=== PATIENT | female | born 1950 | race Caucasian/White ===

== ENCOUNTER → 2018-09-02 | Outpatient (CLI) | payer MEDICARE ==
--- NOTE | 2018-09-02 18:54 | ECHOF ---
Referral Reason:I35.0 Aortic Stenosis MEASUREMENTS -------- HEIGHT: 165.1 cm WEIGHT: 72.6 kg BP: IVSd: 1.0 cm (0.6 - 1.1) LVIDd: 2.7 cm (3.9 - 5.3) LVPWd: 1.4 cm (0.6 - 1.1) IVSs: 1.4 cm LVIDs: 1.4 cm LVPWs: 1.5 cm RVIDd: 1.6 cm (< 3.3) LAESV Index (A-L): 12.30 ml/m Ao Diam: 2.6 cm (2.0 - 3.7) LA Diam: 2.2 cm (2.7 - 3.8) AV Cusp: 1.0 cm (1.5 - 2.6) EPSS: 0.3 cm MV E Cristhian: 0.66 m/s MV DecT: 237 ms MV A Cristhian: 1.04 m/s MV E/A Ratio: 0.64 AV maxP.11 mmHg AV meanP.31 mmHg RAP: 5.00 mmHg RVSP: 14.89 mmHg MV EF SLOPE: 51.72 mm/s (70 - 150) MV EXCURSION: 13.06 mm (> 18.000) FINDINGS -------- Sinus rhythm. This was a technically good study. The left ventricular size is normal. There is mild concentric left ventricular hypertrophy. Overa ll left ventricular systolic function is normal with, an EF between 55 - 60 %. The right ventricle is normal in size. The left atrial size is normal. The right atrium is normal in size. Aortic valve is trileaflet and is moderately thickened. There is moderate aortic stenosis present. Peak/mean gradient across the Aortic Valve is 47.11mmHg / 30.31mmHg. The mitral valve leaflets are mildly thickened. Mild mitral annular calcification present. Mild m itral regurgitation is present. Mild tricuspid regurgitation present. The right ventricular systolic pressure, as measured by Doppl er, is 14.89mmHg. Pulmonic valve appears structurally normal. The aortic root size is normal. IVC Not well visulized. The pericardium is normal. CONCLUSIONS -------- 1. Sinus rhythm. 2. This was a technically good study. 3. The left ventricular size is normal. 4. There is mild concentric left ventricular hypertrophy. 5. Overall left ventricular systolic function is normal with, an EF between 55 - 60 %. 6. The right ventricle is normal in size. 7. The left atrial size is normal. 8. The right atrium is normal in size. 9. Aortic valve is trileaflet and is moderately thickened. 10. There is moderate aortic stenosis present. 11. Peak/mean gradient across the Aortic Valve is 47.11mmHg / 30.31mmHg. 12. The mitral valve leaflets are mildly thickened. 13. Mild mitral annular calcification present. 14. Mild mitral regurgitation is present. 15. Mild tricuspid regurgitation present. 16. The right ventricular systolic pressure, as measured by Doppler, is 14.89mmHg. 17. Pulmonic valve appears structurally normal. 18. The aortic root size is normal. 19. IVC Not well visulized. 20. The pericardium is normal. CHAIR AND [employer]CH [employer]KER: Sara Deutsch RDCS
== END ==
LOC: RADECHMAIN 14:57
PROVIDERS: ATTEND Family Medicine
DX: I08.3 Combined rheumatic disorders of mitral, aortic and tricuspid valves (principal)
CPT/HCPCS: 93306

== ENCOUNTER → 2020-01-23 | Outpatient (CLI) | payer MEDICARE ==
--- NOTE | 2020-01-23 15:14 | CT ---
EXAMINATION TYPE: CT brain wo/w con DATE OF EXAM: 01/23/2020 COMPARISON: HISTORY: Difficulty speaking. CT DLP: 1987.7mGycm CONTRAST: CT scan of the head is performed without and with IV Contrast, patient injected with 100ml mL of Isov ue 300. Unenhanced followed by contrast enhanced CT of the brain is submitted for evaluation. The ventricles are midline. There is no evidence for intracranial hemorrhage or extra-axial collection. No mass e ffects are identified. Visualized bony calvarium is intact. Contrast is administered and no enhanci ng lesions are detected. No pathologic enhancement is identified. If symptoms persist consider MRI. IMPRESSION: No enhancing lesion identified.
== END | disposition home or self-care (01) ==
LOC: RADCTMAIN 13:55
PROVIDERS: ATTEND Family Medicine
DX: G45.9 Transient cerebral ischemic attack, unspecified (principal)
CPT/HCPCS: 82565; 84520; 70470; 36415; Q9967

== ENCOUNTER → 2020-02-10 | Outpatient (CLI) | payer MEDICARE ==
--- NOTE | 2020-02-10 14:44 | CT ---
EXAMINATION TYPE: CT abdomen wo con DATE OF EXAM: 02/10/2020 COMPARISON: 03/15/2012 HISTORY: Mid abdominal pain and mid pelvic pain. CT DLP: 606 mGycm Automated exposure control for dose reduction was used. TECHNIQUE: Helical acquisition of images was performed from the lung bases through the top of iliac crest to include entire abdomen. CONTRAST: Performed with Oral Contrast and without IV contrast. FINDINGS: LUNG BASES: Subsegmental linear changes involving the lungs. Most likely in the basis of atelectasis or scar. Calcification of the aortic valve noted and there is dense coronary artery calcification. At herosclerotic change aorta. LIVER/GB: No significant abnormality is appreciated. PANCREAS: No significant abnormality is seen. SPLEEN: No significant abnormality is seen. ADRENALS: No significant abnormality is seen. KIDNEYS: Nonobstructing 1 mm left mid pole renal calculus.. BOWEL: Small hiatal hernia. LYMPH NODES: No significant abnormality is appreciated. OSSEOUS STRUCTURES: Hypertrophic and degenerative change of the spine. Scoliotic curvature noted. OTHER: Atherosclerotic changes aorta. No free fluid. Tiny fat-containing periumbilical hernia IMPRESSION: 1. NONOBSTRUCTING 1 MM LEFT RENAL CALCULUS. 2. MILD WALL THICKENING OF THE GASTRIC ANTRUM MOST LIKELY RELATED TO INCOMPLETE DISTENTION CORRELATE CLINICALLY AND WITH DIRECT VISUALIZATION CLINICALLY WARRANTED 3. SMALL HIATAL HERNIA.
== END | disposition home or self-care (01) ==
LOC: RADCTMAIN 13:26
PROVIDERS: ATTEND Family Medicine
DX: N20.0 Calculus of kidney (principal); K44.9 Diaphragmatic hernia without obstruction or gangrene; K31.89 Other diseases of stomach and duodenum
CPT/HCPCS: 74150; Q9967

== ENCOUNTER → 2020-04-09 | Outpatient (CLI) | payer MEDICARE | END | disposition home or self-care (01) | LOC: LABWHC1 11:22 | PROVIDERS: ATTEND Family Medicine | DX: Z03.818 Encounter for observation for suspected exposure to other biological agents ruled out (principal) | CPT/HCPCS: U0003; C9803 ==

== ENCOUNTER 2020-04-11 21:31 | Inpatient (IN) | payer MEDICARE ==
[2020-04-11] MEDS ORDERED: ONDANSETRON 4 MG/2 ML VIAL IVP STA (23:23)
[2020-04-11] MEDS ORDERED: SODIUM CHLORIDE 0.9% 1,000 ML IV STA (23:23)
--- NOTE | 2020-04-12 00:23 | ED ---
Nausea/Vomiting/Diarrhea HPI - General Chief complaint: Nausea/Vomiting/Diarrhea Stated complaint: NVD, Dehydrated Time Seen by Provider: 04/11/20 22:36 Source: patient Mode of arrival: wheelchair Limitations: no limitations - History of Present Illness Initial comments: 69-year-old female patient presents to the emergency department today for evaluation of vomiting and diarrhea. Patient states that she's had symptoms for the last couple of days. States she is having mild abdominal pain and cramping with this. States she has not slept for the last 3 days due to increased anxiety. States that her anxiety is worse because she was tested for coronav irus 3 days ago and has not yet received the results. States that she saw her doctor and was tested due to nasal congestion, facial pressure, nasal drainage. Denies cough or shortness of breath. Denies any chest pain. Denies any hematochezia, melena, hematemesis. Denies any sick contacts or recent travel. Denies taking any medication for her symptoms. She denies history of abdominal surgery. Patient denies any recent rash, fever, chills, back pain, numbness, tingling, dizziness, weakness, hematuria, dysuria, urinary urgency, urinary frequency, headache, visual changes, or any other complaints. - Related Data Allergies Allergy/AdvReac Type Severity Reaction Status Date / Time No Known Allergies Allergy Verified 04/11/20 21:38 Review of Systems ROS Statement: Those systems with pertinent positive or pertinent negative responses have been documented in the HPI. ROS Other: All systems not noted in ROS Statement are negative. Past Medical History Past Medical History: Cancer, Diabetes Mellitus, Hypertension Additional Past Medical History / Comment(s): murmur, breast ca History of Any Multi-Drug Resistant Organisms: None Reported Additional Past Surgical History / Comment(s): right breast, thyroid Past Psychological History: No Psychological Hx Reported Smoking Status: Never smoker Past Alcohol Use History: Rare Past Drug Use History: None Reported General Exam Limitations: no limitations General appearance: alert, in no apparent distress, other (This is a well- developed, well-nourished adult female patient in no acute distress. Vital signs upon presentation are temperature 97.9F, pulse 68, respirations 18, blood pressure 167/71, pulse ox 97% on room air.) Eye exam: Present: normal appearance, PERRL, EOMI. Absent: scleral icterus, conjunctival injection, periorbital swelling ENT exam: Present: normal exam, normal oropharynx, mucous membranes moist Respiratory exam: Present: normal lung sounds bilaterally. Absent: respiratory distress, wheezes, rales, rhonchi, stridor Cardiovascular Exam: Present: regular rate, normal rhythm, normal heart sounds. Absent: systolic murmur, diastolic murmur, rubs, gallop, clicks GI/Abdominal exam: Present: soft, tenderness (Mild lower abdominal tenderness), normal bowel sounds. Absent: distended, guarding, rebound, rigid Neurological exam: Present: alert, oriented X3, CN II-XII intact Psychiatric exam: Present: normal affect, normal mood Skin exam: Present: warm, dry, intact, normal color. Absent: rash Course Vital Signs 04/11/20 04/12/20 21:33 00:20 Temperature 97.9 F 98.1 F Pulse Rate 68 71 Respiratory 18 18 Rate Blood Pressure 167/71 169/72 O2 Sat by Pulse 97 100 Oximetry Medical Decision Making - Medical Decision Making 69-year-old female patient presented to the emergency department today for evaluation of nausea, vomiting, diarrhea for the last 2 days. Prior to that she did have upper respiratory like symptoms including nasal congestion and drainage, she was tested by her physician for COVID-19 which was negative. Physical examination did reveal some mild lower abdominal tenderness, no guarding, abdomen was soft. She is afebrile with normal vitals, mildly elevated blood pressure. Labs reviewed and did reveal elevated white blood cell count at 20.7 with a neutrophil count of 18.6. Sodium is 105, chloride 67, carbon dioxide 15. Patient's glucose is 183. Serum osmolality 221, uric acid normal at 4.5. Magnesium was low at 1.1. Urinalysis showed trace protein, 4+ glucose, 4+ ketones. Urine osmolality is 425. Patient does take hydrochlorothiazide. Denies history of low sodium. Patient was neurologically intact other than having some mild generalized weakness and disequilibrium with standing. Patient did receive a 1 L bolus in the emergency department prior to lab results. My attending Dr. Garcia was informed. Patient will be admitted to the ICU. Sodium replacement is initiated. - Lab Data Result diagrams: 04/11/20 23:39 04/11/20 23:39 Lab Results 04/11/20 04/11/2020 Range/Units 23:39 23:39 23:39 WBC 20.7 H (3.8-10.6) k/uL RBC 4.76 (3.80-5.40) m/uL Hgb 14.1 (11.4-16.0) gm/dL Hct 39.8 (34.0-46.0) % MCV 83.5 (80.0-100.0) fL MCH 29.5 (25.0-35.0) pg MCHC 35.3 (31.0-37.0) g/dL RDW 11.9 (11.5-15.5) % Plt Count 282 (150-450) k/uL Neutrophils % 90 % Lymphocytes % 6 % Monocytes % 4 % Eosinophils % 0 % Basophils % 0 % Neutrophils # 18.6 H (1.3-7.7) k/uL Lymphocytes # 1.2 (1.0-4.8) k/uL Monocytes # 0.8 (0-1.0) k/uL Eosinophils # 0.0 (0-0.7) k/uL Basophils # 0.0 (0-0.2) k/uL Sodium 105 L* (137-145) mmol/L Potassium 3.8 (3.5-5.1) mmol/L Chloride 67 L* (98-107) mmol/L Carbon Dioxide 15 L (22-30) mmol/L Anion Gap 23 mmol/L BUN 7 (7-17) mg/dL Creatinine 0.54 (0.52-1.04) mg/dL Est GFR (CKD-EPI)AfAm >90 (>60 ml/min/1.73 sqM) Est GFR (CKD-EPI)NonAf >90 (>60 ml/min/1.73 sqM) Glucose 183 H (74-99) mg/dL Osmolality 221 L* (280-301) mosm/kg Uric Acid 4.5 (3.7-7.4) mg/dL Calcium 9.4 (8.4-10.2) mg/dL Magnesium 1.1 L (1.6-2.3) mg/dL Total Bilirubin 1.3 (0.2-1.3) mg/dL AST 30 (14-36) U/L ALT 14 (4-34) U/L Alkaline Phosphatase 89 (38-126) U/L Total Protein 8.2 (6.3-8.2) g/dL Albumin 5.3 H (3.5-5.0) g/dL Lipase 98 (23-300) U/L Urine Color Urine Appearance (Clear) Urine pH (5.0-8.0) Ur Specific [place] (1.001-1.035) Urine Protein (Negative) Urine Glucose (UA) (Negative) Urine Ketones (Negative) Urine Blood (Negative) Urine Nitrite (Negative) Urine Bilirubin (Negative) Urine Urobilinogen (<2.0) mg/dL Ur Leukocyte Esterase (Negative) Urine RBC (0-5) /hpf Urine WBC (0-5) /hpf Hyaline Casts (0-2) /lpf Urine Osmolality (50-1400) mosm/kg 04/12/20 04/12/20 Range/Units 01:00 01:00 WBC (3.8-10.6) k/uL RBC (3.80-5.40) m/uL Hgb (11.4-16.0) gm/dL Hct (34.0-46.0) % MCV (80.0-100.0) fL MCH (25.0-35.0) pg MCHC (31.0-37.0) g/dL RDW (11.5-15.5) % Plt Count (150-450) k/uL Neutrophils % % Lymphocytes % % Monocytes % % Eosinophils % % Basophils % % Neutrophils # (1.3-7.7) k/uL Lymphocytes # (1.0-4.8) k/uL Monocytes # (0-1.0) k/uL Eosinophils # (0-0.7) k/uL Basophils # (0-0.2) k/uL Sodium (137-145) mmol/L Potassium (3.5-5.1) mmol/L Chloride (98-107) mmol/L Carbon Dioxide (22-30) mmol/L Anion Gap mmol/L BUN (7-17) mg/dL Creatinine (0.52-1.04) mg/dL Est GFR (CKD-EPI)AfAm (>60 ml/min/1.73 sqM) Est GFR (CKD-EPI)NonAf (>60 ml/min/1.73 sqM) Glucose (74-99) mg/dL Osmolality (280-301) mosm/kg Uric Acid (3.7-7.4) mg/dL Calcium (8.4-10.2) mg/dL Magnesium (1.6-2.3) mg/dL Total Bilirubin (0.2-1.3) mg/dL AST (14-36) U/L ALT (4-34) U/L Alkaline Phosphatase (38-126) U/L Total Protein (6.3-8.2) g/dL Albumin (3.5-5.0) g/dL Lipase (23-300) U/L Urine Color Light Yellow Urine Appearance Clear (Clear) Urine pH 5.0 (5.0-8.0) Ur Specific [place] 1.010 (1.001-1.035) Urine Protein Trace H (Negative) Urine Glucose (UA) 4+ H (Negative) Urine Ketones 4+ H (Negative) Urine Blood Trace H (Negative) Urine Nitrite Negative (Negative) Urine Bilirubin Negative (Negative) Urine Urobilinogen <2.0 (<2.0) mg/dL Ur Leukocyte Esterase Negative (Negative) Urine RBC 1 (0-5) /hpf Urine WBC <1 (0-5) /hpf Hyaline Casts 4 H (0-2) /lpf Urine Osmolality 425 (50-1400) mosm/kg - Radiology Data Radiology results: report reviewed, image reviewed CT abdomen and pelvis is obtained. Report reviewed in its entirety. Impression by Dr. Gimenez shows mild sigmoid diverticulosis without diverticulitis. Large urinary bladder measures 12 cm. Bladder outlet obstruction is possible. Disposition Clinical Impression: Hyponatremia, Hypomagnesemia, Vomiting and diarrhea Disposition: ADMITTED IP TO THIS [facility] Condition: Serious Decision to Admit Reason: Admit from EC Decision Date: 04/12/20 Decision Time: 02:24
--- NOTE | 2020-04-12 00:28 | XR ---
EXAMINATION TYPE: XR KUB DATE OF EXAM: 04/11/2020 COMPARISON: NONE HISTORY: Nausea and vomiting TECHNIQUE: 2 views upright FINDINGS: There is no sign of intestinal obstruction or pneumoperitoneum. Fecal pattern is normal. Th ere is mild lumbar levoscoliosis. There is slight elevated right diaphragm. There are no pathologic c alcifications over the kidneys. IMPRESSION: Nonacute abdomen.
[2020-04-12 00:36] LABS: Basophils % (A) 0 %; Eosinophils % (A) 0 %; HCT 39.8 % (34.0-46.0); HGB 14.1 gm/dL (11.4-16.0); Lymphocytes # (A) 1.2 k/uL (1.0-4.8); Lymphocytes % (A) 6 %; MCH 29.5 pg (25.0-35.0); MCHC 35.3 g/dL (31.0-37.0); MCV 83.5 fL (80.0-100.0); Mean Platelet Volume 8.2; Monocytes # (A) 0.8 k/uL (0-1.0); Monocytes % (A) 4 %; Neutrophils # (A) 18.6 k/uL (1.3-7.7); Neutrophils % (A) 90 %; Platelet Count 282 k/uL (150-450); RBC 4.76 m/uL (3.80-5.40); RDW 11.9 % (11.5-15.5); WBC 20.7 k/uL (3.8-10.6)
[2020-04-12 00:41] LABS: ALT 14 U/L (4-34); African American GFR (CKD) >90 (>60 ml/min/1.73 sqM); Albumin 5.3 g/dL (3.5-5.0); Anion Gap 23 mmol/L; Blood Urea Nitrogen 7 mg/dL (7-17); Calcium 9.4 mg/dL (8.4-10.2); Carbon Dioxide 15 mmol/L (22-30); Glucose 183 mg/dL (74-99); Non-African American GFR(CKD) >90 (>60 ml/min/1.73 sqM); Total Bilirubin 1.3 mg/dL (0.2-1.3); Total Protein 8.2 g/dL (6.3-8.2)
[2020-04-12 00:59] LABS: AST 30 U/L (14-36); Alkaline Phosphatase 89 U/L (38-126); Chloride 67 mmol/L (98-107); Potassium 3.8 mmol/L (3.5-5.1); Sodium 105 mmol/L (137-145)
[2020-04-12 01:14] LABS: Appearance,Urine Clear (Clear); Bilirubin,Urine Negative (Negative); Blood,Urine Trace (Negative); Color,Urine Light Yellow; Glucose,Urine (UA) 4+ (Negative); Hyaline Casts,Urine 4 /lpf (0-2); Leukocyte Esterase,Urine Negative (Negative); Nitrite,Urine Negative (Negative); Protein,Urine Trace (Negative); RBC,Urine 1 /hpf (0-5); Urobilinogen,Urine <2.0 mg/dL (<2.0); WBC,Urine <1 /hpf (0-5)
[2020-04-12 01:16] LABS: Ketones,Urine 4+ (Negative)
[2020-04-12] MEDS ORDERED: SODIUM CHLORIDE 0.9% 1,000 ML IV SCH (01:30)
[2020-04-12 01:35] LABS: Uric Acid 4.5 mg/dL (3.7-7.4)
[2020-04-12 01:37] LABS: Magnesium 1.1 mg/dL (1.6-2.3)
[2020-04-12] MEDS ORDERED: NALOXONE 0.4 MG/ML 1 ML VIAL IV PRN (02:11)
[2020-04-12] MEDS ORDERED: SODIUM CHLORIDE 3%(HYPERTONIC) 500 ML IV SCH (02:30)
--- NOTE | 2020-04-12 02:36 | CT ---
EXAMINATION TYPE: CT abdomen pelvis w con DATE OF EXAM: 04/12/2020 COMPARISON: CT abdomen 02/10/2020 HISTORY: Abd. pain CT DLP: 1034.40 mGycm Automated exposure control for dose reduction was used. CONTRAST: Performed with IV Contrast, patient injected with 100 mL of Isovue 300. Lung bases are clear. There is no pleural effusion. Heart size is normal. Liver is intact. Gallbladde r appears normal. Spleen shows 1 cm cyst in the posterior aspect. There is no pancreatic mass. There is small hiatal hernia. Stomach is intact. There is atherosclerotic vascular calcification. There is no adrenal mass. Kidneys show satisfactory contrast opacification. There is no hydronephrosi s. Delayed images show normal renal excretion. There is no retroperitoneal adenopathy. Bladder distends smoothly. There is no inguinal hernia. There is no free fluid in the pelvis. There a re multiple sigmoid diverticula. There is no evidence of diverticulitis. There is no evidence of pelv ic mass. Appendix is posterior and appears normal. There is no mesenteric edema. There is no ascites or free air. There is no bowel obstruction. Lumbar vertebra have fairly normal alignment. There is mild disc space narrowing in the upper lumbar spine. There is mild thoracolumbar levoscoliosis. The bony pelvis is intact. Hip joints are intact. IMPRESSION: There is mild sigmoid diverticulosis without diverticulitis. Large urinary bladder measures 12 cm. Bl adder outlet obstruction is possible.
[2020-04-12] MEDS: MAGNESIUM SULFATE-D5W PMX 1 GM in DEXTROSE/WATER 1 100ML.BAG IVPB SCH ×4 (02:52→06:31)
[2020-04-12 04:02] LABS: Glucose,Whole Blood 253 mg/dL (75-99)
[2020-04-12 05:02] LABS: Basophils % (A) 0 %; Eosinophils % (A) 0 %; HCT 42.3 % (34.0-46.0); HGB 14.5 gm/dL (11.4-16.0); Lymphocytes # (A) 1.1 k/uL (1.0-4.8); Lymphocytes % (A) 6 %; MCH 29.4 pg (25.0-35.0); MCHC 34.3 g/dL (31.0-37.0); MCV 85.7 fL (80.0-100.0); Mean Platelet Volume 7.6; Monocytes # (A) 0.7 k/uL (0-1.0); Monocytes % (A) 4 %; Neutrophils # (A) 17.3 k/uL (1.3-7.7); Neutrophils % (A) 90 %; Platelet Count 274 k/uL (150-450); RBC 4.94 m/uL (3.80-5.40); WBC 19.3 k/uL (3.8-10.6)
[2020-04-12] MEDS: ONDANSETRON 4 MG/2 ML VIAL IVP PRN ×2 (05:16→20:06)
[2020-04-12 05:26] LABS: ALT 13 U/L (4-34); AST 28 U/L (14-36); African American GFR (CKD) >90 (>60 ml/min/1.73 sqM); Albumin 5.2 g/dL (3.5-5.0); Alkaline Phosphatase 98 U/L (38-126); Anion Gap 26 mmol/L; Blood Urea Nitrogen 5 mg/dL (7-17); Carbon Dioxide 11 mmol/L (22-30); Glucose 217 mg/dL (74-99); Non-African American GFR(CKD) >90 (>60 ml/min/1.73 sqM); Potassium 3.3 mmol/L (3.5-5.1); Total Bilirubin 1.1 mg/dL (0.2-1.3); Total Protein 7.9 g/dL (6.3-8.2)
[2020-04-12 05:57] LABS: Glucose,Whole Blood 283 mg/dL (75-99)
[2020-04-12 06:00] LABS: Chloride 70 mmol/L (98-107); Sodium 107 mmol/L (137-145)
[2020-04-12] MEDS: INSULIN ASPART (NovoLOG) 100 UNIT/ML VIAL SQ SCH ×4 (06:02→23:01)
[2020-04-12] MEDS ORDERED: Potassium Replacement Protocol 1 EACH MISC MISCELLANE PRN (06:06)
[2020-04-12] MEDS: POTASSIUM CHLORIDE 10 MEQ in WATER FOR INJECTION 1 100ML.BAG IVPB SCH ×4 (06:14→10:52)
[2020-04-12] MEDS ORDERED: POTASSIUM CHLORIDE ER 20 MEQ TAB.ER PO SCH (07:00)
[2020-04-12] MEDS ORDERED: ATORVASTATIN 20 MG TAB PO SCH (09:00)
[2020-04-12] MEDS ORDERED: NEBIVOLOL 5 MG TAB PO SCH (09:00)
[2020-04-12] MEDS ORDERED: DEXTROSE 5%-0.45% NACL 1,000 ML IV SCH (09:00)
[2020-04-12] MEDS ORDERED: LEVOTHYROXINE 75 MCG TAB PO SCH (09:00)
[2020-04-12] MEDS: lisinopriL 10 MG TAB PO SCH (09:11)
[2020-04-12] MEDS: ALPRAZolam 1 MG TAB PO PRN ×2 (09:11→20:53)
[2020-04-12] MEDS ORDERED: TRIMETHOBENZAMIDE 100 MG/ML 2 ML VIAL IM PRN (10:08)
[2020-04-12] MEDS ORDERED: DEXTROSE 5%-0.45% NACL 1,000 ML with SODIUM BICARB (1 MEQ/ML) 100 ML IV SCH ×2 (10:15)
[2020-04-12] MEDS: metFORMIN 500 MG TAB PO SCH ×2 (10:17→23:01)
[2020-04-12] MEDS ORDERED: SODIUM CHLORIDE 0.9% 1,000 ML IV ONE (10:40)
--- NOTE | 2020-04-12 10:48 | P.CNPUL ---
History of Present Illness Consult date: 04/12/20 Requesting physician: Navya Magaña Reason for consult: other (Profound and severe hyponatremia) Chief complaint: Nausea vomiting diarrhea and weakness History of present illness: This is a 69-year-old female admitted yesterday with severe hyponatremia. Patient presented to the ER with mostly symptoms of weakness, nausea, vomiting, and diarrhea for the last 2 days. Patient states that her primary care physician tested her for grayson virus about 3 days ago, and the results are pending. Patient was placed on Z-Randy, mostly because of her symptoms of nasal congestion, pressure over her sinuses, and some nasal drainage. She had no cough, no shortness of breath, no fever, no chills, no hemoptysis. She had mostly GI symptoms. Patient denies any exposure to any sick contacts and she denies any recent travel. At any rate the patient was evaluated in the ER, and she was noted to have a sodium of 105. She was also noted to have a significant anion gap metabolic acidosis, normal renal functioning, she had low serum osmolality of 221. And clearly she had a picture of hypovolemic hyponatremia. Considering her diarrhea patient is now being tested for C. difficile colitis, and she was noted to have WBC count of 20.7. Urine osmolality was 425. Patient was given 1 L 0.9 normal saline bolus, she was placed on 3% saline at 25 mL per hour and today after I evaluated the patient, I recommended another liter of D5 45 bolus to be given. Her sodium is up from 105-2107 this morning. Patient feels generally weak, and she continues to have intermittent episodes of nausea, but no vomiting. And no diarrhea since she has been in the ICU. Review of Systems Constitutional: No fever no chills, mostly weakness, no weight loss, HEENT: Mostly symptoms of congestion, received Z-Randy recently by her primary care physician. Pulmonary: No cough no wheezing no shortness of breath GI: Nausea vomiting and diarrhea. Cardiac: No chest pain or orthopnea no PND. Musculoskeletal: Mostly symptoms of weakness. Skin: No rashes. Hematologic: No clotting or bruising. No bleeding. Psychiatric: Denies any symptoms of active depression. Genitourinary: Denies any dysuria frequency urgency or hematuria. Neurologic: Denies headache blurred vision or dizziness. Endocrine: Denies any heat or cold intolerance. No polyuria or polydipsia. Lymphatics: Denies any lymphadenopathy Past Medical History Past Medical History: Cancer, Diabetes Mellitus, Hypertension Additional Past Medical History / Comment(s): murmur, breast ca History of Any Multi-Drug Resistant Organisms: None Reported Additional Past Surgical History / Comment(s): right breast, thyroid Smoking Status: Former smoker Medications and Allergies Home Medications Medication Instructions Recorded Confirmed Type ALPRAZolam [Xanax] 1 mg PO TID PRN 04/12/20 04/12/20 History Azithromycin [Zithromax Z-pack] See Taper PO DIRECTED 04/12/20 04/12/20 History Levothyroxine Sodium [Synthroid] 75 mcg PO DAILY 04/12/20 04/12/20 History Melatonin 10 mg PO HS PRN 04/12/20 04/12/20 History Nebivolol HCl [Bystolic] 20 mg PO HS 04/12/20 04/12/20 History Simvastatin 40 mg PO HS 04/12/20 04/12/20 History Zolpidem Tartrate [Ambien] 10 mg PO HS PRN 04/12/20 04/12/20 History hydroCHLOROthiazide [Hydrodiuril] 25 mg PO DAILY 04/12/20 04/12/20 History lisinopriL [Zestril] 10 mg PO DAILY 04/12/20 04/12/20 History metFORMIN HCL 1,000 mg PO BID 04/12/20 04/12/20 History Allergies Allergy/AdvReac Type Severity Reaction Status Date / Time No Known Allergies Allergy Verified 04/12/20 09:21 Physical Exam Vitals: Vital Signs Temp Pulse Resp BP Pulse Ox 04/12/20 10:00 92 20 167/71 96 04/12/20 09:00 67 18 152/83 97 04/12/20 08:00 97.9 F 67 20 142/68 96 04/12/20 07:00 69 21 160/69 97 04/12/20 06:00 66 17 172/70 96 04/12/20 05:00 68 19 186/87 97 04/12/20 04:00 97.6 F 70 23 186/87 97 04/12/20 03:45 75 16 176/60 99 04/12/20 02:45 98.0 F 65 18 180/75 98 04/12/20 01:45 97.8 F 67 16 160/77 96 04/12/20 00:20 98.1 F 71 18 169/72 100 04/11/20 21:33 97.9 F 68 18 167/71 97 Intake and Output 04/11/20 04/12/20 04/12/20 22:59 06:59 14:59 Intake Total 350 475 Output Total 1045 490 Balance -695 -15 Intake: IV 350 475 Magnesium Sulfate-D5w Pmx 300 100 1 gm In Dextrose/Water 1 100ml.bag @ 100 mls/hr IVPB Q1H [facility] Rx#: [id number] Potassium Chloride 10 meq 300 In Water For Injection 1 100ml.bag @ 100 mls/hr IVPB Q1HR [facility] Rx#: [id number] Sodium Chloride 3%( 50 75 Hypertonic) 500 ml @ 25 mls/hr IV .Q20H [facility] Rx#: [id number] Output: Urine 1045 490 Other: Voiding Method Indwelling Catheter Indwelling Catheter Weight 72.575 kg 69.2 kg General appearance: Revealed a 69-year-old female in no distress. Eye exam: PERRLA, EOMI, no icterus. ENT exam: Dry mucous membranes, no neck masses, no JVD, no lymphadenopathy no stridor. Respiratory exam: Symmetrical chest expansion, clear throughout no crackles or rhonchi or wheezes. Cardiovascular Exam: Normal S1 and S2, no S3 gallop. GI/Abdominal exam: Soft nontender no megaly no rebound no guarding Neurological exam: Alert and oriented 3 no gross focal neurologic deficits. Psychiatric exam: Normal mood, affect and normal mental status examination. Skin exam: Dry, poor skin turgor, Lymphatics: No cervical or supraclavicular lymphadenopathy Results - Laboratory Findings CBC and BMP: 04/12/20 04:21 04/12/20 04:21 Abnormal lab findings: Abnormal Labs 04/11/20 04/11/20 04/11/20 23:39 23:39 23:39 WBC 20.7 H Neutrophils # 18.6 H Sodium 105 L* Potassium Chloride 67 L* Carbon Dioxide 15 L BUN Glucose 183 H POC Glucose (mg/dL) Osmolality 221 L* Magnesium 1.1 L Albumin 5.3 H Urine Protein Urine Glucose (UA) Urine Ketones Urine Blood Hyaline Casts 04/12/20 04/12/20 04/12/20 01:00 04:00 04:21 WBC Neutrophils # Sodium 107 L* Potassium 3.3 L Chloride 70 L* Carbon Dioxide 11 L BUN 5 L Glucose 217 H POC Glucose (mg/dL) 253 H Osmolality Magnesium Albumin 5.2 H Urine Protein Trace H Urine Glucose (UA) 4+ H Urine Ketones 4+ H Urine Blood Trace H Hyaline Casts 4 H 04/12/20 04/12/20 04:21 05:56 WBC 19.3 H Neutrophils # 17.3 H Sodium Potassium Chloride Carbon Dioxide BUN Glucose POC Glucose (mg/dL) 283 H Osmolality Magnesium Albumin Urine Protein Urine Glucose (UA) Urine Ketones Urine Blood Hyaline Casts - Diagnostic Findings Additional studies: CT abdomen and pelvis showed mild sigmoid diverticulosis with no diverticulitis. Questionable bladder outlet obstruction Assessment and Plan Assessment: Impression: Acute hypovolemic hypoosmolar hyponatremia. This is most likely secondary to fluid losses including losses secondary to diarrhea nausea and vomiting. Recent URI, patient was tested for grayson virus, supposedly was negative. Possible C. difficile colitis, C. difficile screening is pending. History of benign essential hypertension. History of type 2 diabetes. History of breast cancer. Recommendation: Continue to monitor in the ICU. Continue 3% saline, monitor sodium every 4 hours. She is now on 50 mL per hour of 3% saline. Considering that the patient is quite hypovolemic, she received already 1 L of 0.9 normal saline in the ER, 1 L of D5 45 in the ICU, and she will be receiving another 1 L of 0.9 normal saline bolus now. Continue to monitor sodium, and make sure the patient is not rapidly corrected, the goal is 0.5 mEq per hour, Once rapid correction is noted, discontinue 3% saline. Check C. difficile toxin Verify that the patient had negative grayson virus screening. We will continue to follow Time with Patient: Greater than 30
[2020-04-12 11:58] LABS: Glucose,Whole Blood 231 mg/dL (75-99)
[2020-04-12] MEDS: LEVOTHYROXINE IVP 100 MCG/5 ML VIAL IV SCH (12:18)
--- NOTE | 2020-04-12 12:19 | P.HPIM ---
History of Present Illness H&P Date: 04/12/20 This is a 69-year-old pleasant female patient of Dr. Helm with a past medical history of breast cancer hypothyroidism, diabetes mellitus, and hypertension. Patient presented to the emergency room with symptoms of weakness, nausea, vomiting and diarrhea for the last 2 days. Patient was given Z-Randy by her primary care physician was tested for covid 19 which was -3 days ago. Due to nasal congestion and sinus pressure along with nasal drainage. Patient denies any recent travel and no one else in her home has been sick she denies any exposure to any one who has been sick. Most of her symptoms related to GI. Patient was found to have sodium of 105. Patient was found in the ICU sitting up in bed able to answer questions continued vomiting. Patient has generalized weakness and is able to answer questions appropriately. Review Of Systems: Constitutional: No fever, no chills, no night sweats. No weight change. Report weakness and fatigue no lethargy. No daytime sleepiness. EENT: No headache. No blurred vision or double vision, no loss of vision. No loss of Hearing, no ringing in the ears, no dizziness. No nasal drainage or congestion. No epistaxis. No sore throat. Lungs: No shortness of breath, cough, no sputum production. No wheezing. Cardiovascular: No chest pain, no lower extremity edema. No palpitations. No paroxysmal nocturnal dyspnea. No orthopnea. No lightheadedness or dizziness. No syncopal episodes. Abdominal: Reports abdominal discomfort. Report nausea and vomiting. Reports diarrhea. No constipation. No bloody or tarry stools. no loss of appetite. Genitourinary: No dysuria, increased frequency, urgency. No urinary retention. Musculoskeletal: No myalgias. No muscle weakness, no gait dysfunction, no frequent falls. No back pain. No neck pain. Integumentary: No wounds, no lesions. No rash or pruritus. No unusual bruising. No change in hair or nails. Neurologic: No aphasia. No facial droop. No change in mentation. No head injury. No headache. No paralysis. No paresthesia. Psychiatric: No depression. No anxiety. No mood swings. Endocrine: No abnormal blood sugars. No weight change. No excessive sweating or thirst. Physical exam General Appearance: Alert, cooperative, mild distress, 69-year-old appears stated age. Neck HEENT: Supple, no lymphadenopathy, no thyroid enlargement, no carotid bruits. Lungs: Clear to auscultation without crackles or wheezes no rhonchi, no deformity. Chest Wall: Chest wall normal expansion with deep inspiration no tenderness and no deformity was found on exam, no costochondral pain or discomfort. Heart: Regular rate and rhythm, S1, S2 normal, no murmur, rub or gallop. Back: Symmetric, no curvature, ROM normal, no CVA tenderness. Abdomen: Soft, non-tender, no rebound or rigidity, no hepatosplenomegaly. Extremities: Extremities normal, atraumatic, no cyanosis or edema. Pulses: 2+ and symmetric. Skin: Skin color, texture, tugor normal, no rashes or lesions. Neurologic: Alert oriented x3 cranial nerves II through XII intact, no motor deficit, no abnormal balance or gait Assessment/plan: 1. Acute hypovolemic hypoosmolar hyponatremia. Continue 3% saline, monitor sodium and every 4 hours. D545 with 100 mEq of sodium bicarb. Consult nephrology 2. Intractable nausea and vomiting. Zofran 4 mg IV every 6 hours, Phenergan 25 mg IM 1 at bedtime, Tigan 200 mg IM every 6 hours as needed 3. metabolic encephalopathy related to GI loss, as noted above 4. Diarrhea possible C. diff. C. diff pending 5. Hypokalemia. Potassium replacement per protocol 5. Diabetes mellitus. Accu-Cheks before meals and at bedtime with sliding scale, metformin 1000 mg twice a day 6. Hypothyroidism. Levothyroxine 75 MCG's daily until able to tolerate by mouth medication 7. Hyperlipidemia. Lipitor 20 mg every morning 8. Hypertension. Lisinopril 10 mg by mouth daily, Bystolic 20 mg every morning 9. Sleep disturbance. Melatonin 10 mg daily at bedtime 7. History of breast cancer 8. GI prophylaxis. Protonix 40 mg 9. DVT prophylaxis. Pneumatic compression stockings CODE STATUS: Full code Discharge plan: A minimum of 2 nights day Impression and plan of care have been directed as dictated by the signing physician. Ariella Cooney nurse practitioner acting as scribe for signing physician. Past Medical History Past Medical History: Cancer, Diabetes Mellitus, Hypertension Additional Past Medical History / Comment(s): murmur, breast ca History of Any Multi-Drug Resistant Organisms: None Reported Additional Past Surgical History / Comment(s): right breast, thyroid Smoking Status: Former smoker Medications and Allergies Home Medications Medication Instructions Recorded Confirmed Type ALPRAZolam [Xanax] 1 mg PO TID PRN 04/12/20 04/12/20 History Azithromycin [Zithromax Z-pack] See Taper PO DIRECTED 04/12/20 04/12/20 History Levothyroxine Sodium [Synthroid] 75 mcg PO DAILY 04/12/20 04/12/20 History Melatonin 10 mg PO HS PRN 04/12/20 04/12/20 History Nebivolol HCl [Bystolic] 20 mg PO HS 04/12/20 04/12/20 History Simvastatin 40 mg PO HS 04/12/20 04/12/20 History Zolpidem Tartrate [Ambien] 10 mg PO HS PRN 04/12/20 04/12/20 History hydroCHLOROthiazide [Hydrodiuril] 25 mg PO DAILY 04/12/20 04/12/20 History lisinopriL [Zestril] 10 mg PO DAILY 04/12/20 04/12/20 History metFORMIN HCL 1,000 mg PO BID 04/12/20 04/12/20 History Allergies Allergy/AdvReac Type Severity Reaction Status Date / Time No Known Allergies Allergy Verified 04/12/20 09:21 Physical Exam Vitals: Vital Signs Temp Pulse Resp BP Pulse Ox 04/12/20 11:00 66 20 170/93 93 L 04/12/20 10:00 92 20 167/71 96 04/12/20 09:00 67 18 152/83 97 04/12/20 08:00 97.9 F 67 20 142/68 96 04/12/20 07:00 69 21 160/69 97 04/12/20 06:00 66 17 172/70 96 04/12/20 05:00 68 19 186/87 97 04/12/20 04:00 97.6 F 70 23 186/87 97 04/12/20 03:45 75 16 176/60 99 04/12/20 02:45 98.0 F 65 18 180/75 98 04/12/20 01:45 97.8 F 67 16 160/77 96 04/12/20 00:20 98.1 F 71 18 169/72 100 04/11/20 21:33 97.9 F 68 18 167/71 97 Intake and Output 04/11/20 04/12/20 04/12/20 22:59 06:59 14:59 Intake Total 350 2650 Output Total 1045 1540 Balance -695 1110 Intake: IV 350 2650 Dextrose 5%-0.45% NaCl 1, 1000 000 ml @ 1000 mls/hr IV . Q1H [facility] Rx#:[id number] Magnesium Sulfate-D5w Pmx 300 100 1 gm In Dextrose/Water 1 100ml.bag @ 100 mls/hr IVPB Q1H [facility] Rx#: [id number] Potassium Chloride 10 meq 400 In Water For Injection 1 100ml.bag @ 100 mls/hr IVPB Q1HR [facility] Rx#: [id number] Sodium Chloride 0.9% 1, 1000 000 ml @ 999 mls/hr IV . Q1H1M [facility] Rx#:[id number] Sodium Chloride 3%( 50 150 Hypertonic) 500 ml @ 50 mls/hr IV .Q10H [facility] Rx#: [id number] Output: Urine 1045 1190 Emesis 350 Other: Voiding Method Indwelling Catheter Indwelling Catheter Weight 72.575 kg 69.2 kg Results CBC & Chem 7: 04/12/20 04:21 04/12/20 09:35 Labs: Abnormal Lab Results - Last 24 Hours (Table) 04/11/20 04/11/20 04/11/20 Range/Units 23:39 23:39 23:39 WBC 20.7 H (3.8-10.6) k/uL Neutrophils # 18.6 H (1.3-7.7) k/uL Sodium 105 L* (137-145) mmol/L Potassium (3.5-5.1) mmol/L Chloride 67 L* (98-107) mmol/L Carbon Dioxide 15 L (22-30) mmol/L BUN (7-17) mg/dL Glucose 183 H (74-99) mg/dL POC Glucose (mg/dL) (75-99) mg/dL Osmolality 221 L* (280-301) mosm/kg Magnesium 1.1 L (1.6-2.3) mg/dL Albumin 5.3 H (3.5-5.0) g/dL Urine Protein (Negative) Urine Glucose (UA) (Negative) Urine Ketones (Negative) Urine Blood (Negative) Hyaline Casts (0-2) /[facility] 04/12/20 04/12/20 04/12/20 Range/Units 01:00 04:00 04:21 WBC (3.8-10.6) k/uL Neutrophils # (1.3-7.7) k/uL Sodium 107 L* (137-145) mmol/L Potassium 3.3 L (3.5-5.1) mmol/L Chloride 70 L* (98-107) mmol/L Carbon Dioxide 11 L (22-30) mmol/L BUN 5 L (7-17) mg/dL Glucose 217 H (74-99) mg/dL POC Glucose (mg/dL) 253 H (75-99) mg/dL Osmolality (280-301) mosm/kg Magnesium (1.6-2.3) mg/dL Albumin 5.2 H (3.5-5.0) g/dL Urine Protein Trace H (Negative) Urine Glucose (UA) 4+ H (Negative) Urine Ketones 4+ H (Negative) Urine Blood Trace H (Negative) Hyaline Casts 4 H (0-2) /[facility] 04/12/20 04/12/20 04/12/20 Range/Units 04:21 05:56 09:35 WBC 19.3 H (3.8-10.6) k/uL Neutrophils # 17.3 H (1.3-7.7) k/uL Sodium 105 L* (137-145) mmol/L Potassium (3.5-5.1) mmol/L Chloride (98-107) mmol/L Carbon Dioxide (22-30) mmol/L BUN (7-17) mg/dL Glucose (74-99) mg/dL POC Glucose (mg/dL) 283 H (75-99) mg/dL Osmolality (280-301) mosm/kg Magnesium (1.6-2.3) mg/dL Albumin (3.5-5.0) g/dL Urine Protein (Negative) Urine Glucose (UA) (Negative) Urine Ketones (Negative) Urine Blood (Negative) Hyaline Casts (0-2) /[facility] 04/12/20 Range/Units 11:56 WBC (3.8-10.6) k/uL Neutrophils # (1.3-7.7) k/uL Sodium (137-145) mmol/L Potassium (3.5-5.1) mmol/L Chloride (98-107) mmol/L Carbon Dioxide (22-30) mmol/L BUN (7-17) mg/dL Glucose (74-99) mg/dL POC Glucose (mg/dL) 231 H (75-99) mg/dL Osmolality (280-301) mosm/kg Magnesium (1.6-2.3) mg/dL Albumin (3.5-5.0) g/dL Urine Protein (Negative) Urine Glucose (UA) (Negative) Urine Ketones (Negative) Urine Blood (Negative) Hyaline Casts (0-2) /lpf Thrombosis Risk Factor Assmnt - Choose All That Apply Any of the Below Risk Factors Present?: No Other Risk Factors: Yes Each Risk Factor Represents 2 Points: Age 61-74 years Thrombosis Risk Factor Assessment Total Risk Factor Score: 2 Thrombosis Risk Factor Assessment Level: Low Risk
[2020-04-12 12:45] LABS: African American GFR (CKD) >90 (>60 ml/min/1.73 sqM); Anion Gap 13 mmol/L; Blood Urea Nitrogen 4 mg/dL (7-17); Calcium 7.7 mg/dL (8.4-10.2); Carbon Dioxide 14 mmol/L (22-30); Chloride 84 mmol/L (98-107); Glucose 193 mg/dL (74-99); Non-African American GFR(CKD) >90 (>60 ml/min/1.73 sqM); Potassium 4.1 mmol/L (3.5-5.1)
[2020-04-12 12:54] LABS: Sodium 111 mmol/L (137-145)
[2020-04-12 13:30] LABS: Hemoglobin A1C 5.8 % (4.0-6.0)
--- NOTE | 2020-04-12 13:48 | P.NPCON ---
History of Present Illness - Reason for Consult Consult date: 04/12/20 hyponatremia - Chief Complaint Generalized weakness - History of Present Illness 69-year-old white lady coming to the hospital with the above complaints. She has nausea vomiting and diarrhea for the last 4 days. She had decreased appetite, just drinking water for hydration. She also takes lisinopril and hydrochlorothiazide for hypertension. No previous history of hyponatremia in the past. Denies any anti-psychiatric medications or active cancer. No falls or seizures. Sodium on admission was 105 transferred to ICU. She was started on 3% saline sodium improved to 107. In the middle she got half-normal saline, currently on 3% at 50 ML's an hour and normal saline as well. She still feels weak and nauseated but no vomiting or diarrhea. Review of Systems Constitutional: Reports as per HPI Past Medical History Past Medical History: Cancer, Diabetes Mellitus, Hypertension Additional Past Medical History / Comment(s): murmur, breast ca History of Any Multi-Drug Resistant Organisms: None Reported Additional Past Surgical History / Comment(s): right breast, thyroid Smoking Status: Former smoker Medications and Allergies Home Medications Medication Instructions Recorded Confirmed Type ALPRAZolam [Xanax] 1 mg PO TID PRN 04/12/20 04/12/20 History Azithromycin [Zithromax Z-pack] See Taper PO DIRECTED 04/12/20 04/12/20 History Levothyroxine Sodium [Synthroid] 75 mcg PO DAILY 04/12/20 04/12/20 History Melatonin 10 mg PO HS PRN 04/12/20 04/12/20 History Nebivolol HCl [Bystolic] 20 mg PO HS 04/12/20 04/12/20 History Simvastatin 40 mg PO HS 04/12/20 04/12/20 History Zolpidem Tartrate [Ambien] 10 mg PO HS PRN 04/12/20 04/12/20 History hydroCHLOROthiazide [Hydrodiuril] 25 mg PO DAILY 04/12/20 04/12/20 History lisinopriL [Zestril] 10 mg PO DAILY 04/12/20 04/12/20 History metFORMIN HCL 1,000 mg PO BID 04/12/20 04/12/20 History Allergies Allergy/AdvReac Type Severity Reaction Status Date / Time No Known Allergies Allergy Verified 09/07/20 09:21 Physical Exam Vitals: Vital Signs Temp Pulse Resp BP Pulse Ox 04/12/20 13:00 58 L 17 170/68 95 04/12/20 12:00 97.9 F 64 18 167/74 98 04/12/20 11:00 66 20 170/93 93 L 04/12/20 10:00 92 20 167/71 96 04/12/20 09:00 67 18 152/83 97 04/12/20 08:00 97.9 F 67 20 142/68 96 04/12/20 07:00 69 21 160/69 97 04/12/20 06:00 66 17 172/70 96 04/12/20 05:00 68 19 186/87 97 04/12/20 04:00 97.6 F 70 23 186/87 97 04/12/20 03:45 75 16 176/60 99 04/12/20 02:45 98.0 F 65 18 180/75 98 04/12/20 01:45 97.8 F 67 16 160/77 96 04/12/20 00:20 98.1 F 71 18 169/72 100 04/11/20 21:33 97.9 F 68 18 167/71 97 Intake and Output 04/11/20 04/12/20 04/12/20 22:59 06:59 14:59 Intake Total 350 2700 Output Total 1045 1990 Balance -695 710 Intake: IV 350 2700 Dextrose 5%-0.45% NaCl 1, 1000 000 ml @ 1000 mls/hr IV . Q1H [facility] Rx#:[id number] Magnesium Sulfate-D5w Pmx 300 100 1 gm In Dextrose/Water 1 100ml.bag @ 100 mls/hr IVPB Q1H [facility] Rx#: [id number] Potassium Chloride 10 meq 400 In Water For Injection 1 100ml.bag @ 100 mls/hr IVPB Q1HR [facility] Rx#: [id number] Sodium Chloride 0.9% 1, 1000 000 ml @ 999 mls/hr IV . Q1H1M [facility] Rx#:[id number] Sodium Chloride 3%( 50 200 Hypertonic) 500 ml @ 50 mls/hr IV .Q10H [facility] Rx#: [id number] Output: Urine 1045 1640 Emesis 350 Other: Voiding Method Indwelling Catheter Indwelling Catheter Weight 72.575 kg 69.2 kg No acute distress S1-S2 heard Lungs clear Abdomen soft No edema [place] Results - Lab Results Most recent lab results Calcium 7.7 mg/dL (8.4-10.2) L 04/12/20 12:08 Magnesium 1.1 mg/dL (1.6-2.3) L 04/11/20 23:39 04/12/20 04:21 04/12/20 12:08 Assessment and Plan Assessment: #1 acute hypotonic hyponatremia secondary to volume depletion from diarrhea/nausea vomiting and concomitant intake of plain water along with hydrochlorothiazide. #2 hypertension on hydrochlorothiazide and lisinopril #3 normal renal function #4 metabolic acidosis with anion gap #5 hypertension currently uncontrolled #6 hypokalemia with hypomagnesemia secondary to diuretics Plan: #1 agree with 3% saline, with increased in urine output anticipate to get overcorrected. #2 goal serum sodium off 111 [with an increase of 6 mEq per liter] till midnight. #3 As she is currently at goal stop all IV fluids. #4 if overcorrection happens, and D5 water matching urine output. If not possible give a dose of DDAVP to decrease the urine output. #5 agree with stopping hydrochlorothiazide. Do not restarted at discharge.
[2020-04-12] MEDS: NIFEdipine XL 30 MG TAB.ER.24 PO SCH (14:20)
[2020-04-12 17:07] LABS: Glucose,Whole Blood 131 mg/dL (75-99)
[2020-04-12] MEDS ORDERED: DEXTROSE 5% IN WATER 1,000 ML IV ONE (17:11)
[2020-04-12] MEDS: NEBIVOLOL 5 MG TAB PO SCH (20:54)
[2020-04-12] MEDS ORDERED: PROMETHAZINE INJ 25 MG/ML 1 ML VIAL IM ONE (21:00)
[2020-04-12 22:59] LABS: Glucose,Whole Blood 184 mg/dL (75-99)
[2020-04-12] MEDS: MELATONIN 5 MG TABLET PO SCH (23:01)
[2020-04-12] MEDS: ATORVASTATIN 20 MG TAB PO SCH (23:01)
[2020-04-13] LABS: Glucose,Whole Blood 153 mg/dL (75-99)
[2020-04-13 01:21] LABS: African American GFR (CKD) >90 (>60 ml/min/1.73 sqM); Anion Gap 13 mmol/L; Blood Urea Nitrogen 3 mg/dL (7-17); Calcium 8.6 mg/dL (8.4-10.2); Carbon Dioxide 16 mmol/L (22-30); Chloride 83 mmol/L (98-107); Glucose 118 mg/dL (74-99); Non-African American GFR(CKD) >90 (>60 ml/min/1.73 sqM)
[2020-04-13 02:02] LABS: Sodium 112 mmol/L (137-145)
[2020-04-13 05:09] LABS: Basophils % (A) 0 %; Eosinophils % (A) 0 %; HCT 35.3 % (34.0-46.0); Lymphocytes # (A) 1.3 k/uL (1.0-4.8); Lymphocytes % (A) 10 %; MCH 29.3 pg (25.0-35.0); MCHC 34.1 g/dL (31.0-37.0); MCV 85.7 fL (80.0-100.0); Mean Platelet Volume 7.7; Monocytes # (A) 0.9 k/uL (0-1.0); Monocytes % (A) 7 %; Neutrophils # (A) 10.6 k/uL (1.3-7.7); Neutrophils % (A) 81 %; Platelet Count 243 k/uL (150-450); RBC 4.12 m/uL (3.80-5.40); RDW 12.3 % (11.5-15.5); WBC 13.1 k/uL (3.8-10.6)
[2020-04-13 05:33] LABS: African American GFR (CKD) >90 (>60 ml/min/1.73 sqM); Anion Gap 12 mmol/L; Blood Urea Nitrogen 5 mg/dL (7-17); Calcium 8.4 mg/dL (8.4-10.2); Carbon Dioxide 17 mmol/L (22-30); Chloride 83 mmol/L (98-107); Glucose 103 mg/dL (74-99); Non-African American GFR(CKD) 81 (>60 ml/min/1.73 sqM); Potassium 3.4 mmol/L (3.5-5.1)
[2020-04-13 05:42] LABS: Sodium 112 mmol/L (137-145)
[2020-04-13 06:18] LABS: Glucose,Whole Blood 117 mg/dL (75-99)
[2020-04-13] MEDS: INSULIN ASPART (NovoLOG) 100 UNIT/ML VIAL SQ SCH ×4 (06:52→20:26)
[2020-04-13] MEDS: POTASSIUM CHLORIDE ER 20 MEQ TAB.ER PO SCH ×2 (06:53→09:32)
[2020-04-13] MEDS ORDERED: SODIUM CHLORIDE 3%(HYPERTONIC) 500 ML IV SCH (07:00)
--- NOTE | 2020-04-13 08:54 | P.PN ---
Subjective Patient is seen in follow-up for hyponatremia. Sodium level CXII this morning. D5W has been discontinued and 3% saline has been resumed. Patient is awake and alert. No edema. Good urine output. Still on liquid diet. Continues to be nauseous. Vital signs are stable. General: The patient appeared well nourished and normally developed. HEENT: Head exam is unremarkable. Neck is without jugular venous distension. LUNGS: Lungs are clear to auscultation and percussion. Breath sounds decreased. HEART: Rate and Rhythm are regular. ABDOMEN: Soft, nontender. EXTREMITITES: No clubbing, cyanosis, or edema. Objective - Vital Signs Vital signs: Vital Signs Temp 98 F 04/13/20 04:00 Pulse 61 04/13/20 07:00 Resp 22 04/13/20 07:00 BP 126/50 04/13/20 07:00 Pulse Ox 96 04/13/20 07:00 Intake & Output 04/12/20 04/13/20 04/13/20 18:59 06:59 18:59 Intake Total 2700 400 Output Total 2490 1190 135 Balance 210 -790 -135 Weight 73.2 kg Intake: IV 2700 Dextrose 5%-0.45% NaCl 1, 1000 000 ml @ 1000 mls/hr IV . Q1H [facility] Rx#:[id number] Magnesium Sulfate-D5w Pmx 100 1 gm In Dextrose/Water 1 100ml.bag @ 100 mls/hr IVPB Q1H [facility] Rx#: [id number] Potassium Chloride 10 meq 400 In Water For Injection 1 100ml.bag @ 100 mls/hr IVPB Q1HR [facility] Rx#: [id number] Sodium Chloride 0.9% 1, 1000 000 ml @ 999 mls/hr IV . Q1H1M [facility] Rx#:[id number] Sodium Chloride 3%( 200 Hypertonic) 500 ml @ 50 mls/hr IV .Q10H [facility] Rx#: [id number] Intake, IV Titration 400 Amount Dextrose 5% in Water 1, 400 000 ml @ 100 mls/hr IV . Q10H [facility] Rx#:[id number] Output: Urine 2140 1190 135 Emesis 350 Other: Voiding Method Indwelling Catheter Indwelling Catheter - Labs CBC & Chem 7: 04/13/20 04:03 04/13/20 04:03 Labs: Abnormal Lab Results - Last 24 Hours (Table) 04/12/20 04/12/20 04/12/20 Range/Units 09:35 11:56 12:08 WBC (3.8-10.6) k/uL Neutrophils # (1.3-7.7) k/uL Sodium 105 L* 111 L* (137-145) mmol/L Potassium (3.5-5.1) mmol/L Chloride 84 L (98-107) mmol/L Carbon Dioxide 14 L (22-30) mmol/L BUN 4 L (7-17) mg/dL Creatinine 0.43 L (0.52-1.04) mg/dL Glucose 193 H (74-99) mg/dL POC Glucose (mg/dL) 231 H (75-99) mg/dL Calcium 7.7 L (8.4-10.2) mg/dL 04/12/20 04/12/20 04/12/20 Range/Units 16:38 17:06 19:46 WBC (3.8-10.6) k/uL Neutrophils # (1.3-7.7) k/uL Sodium 113 L* 112 L* (137-145) mmol/L Potassium (3.5-5.1) mmol/L Chloride (98-107) mmol/L Carbon Dioxide (22-30) mmol/L BUN (7-17) mg/dL Creatinine (0.52-1.04) mg/dL Glucose (74-99) mg/dL POC Glucose (mg/dL) 131 H (75-99) mg/dL Calcium (8.4-10.2) mg/dL 04/12/20 04/12/20 04/13/20 Range/Units 22:57 23:59 00:33 WBC (3.8-10.6) k/uL Neutrophils # (1.3-7.7) k/uL Sodium 112 L* (137-145) mmol/L Potassium (3.5-5.1) mmol/L Chloride 83 L (98-107) mmol/L Carbon Dioxide 16 L (22-30) mmol/L BUN 3 L (7-17) mg/dL Creatinine (0.52-1.04) mg/dL Glucose 118 H (74-99) mg/dL POC Glucose (mg/dL) 184 H 153 H (75-99) mg/dL Calcium (8.4-10.2) mg/dL 04/13/20 04/13/20 04/13/20 Range/Units 04:03 04:03 06:17 WBC 13.1 H (3.8-10.6) k/uL Neutrophils # 10.6 H (1.3-7.7) k/uL Sodium 112 L* (137-145) mmol/L Potassium 3.4 L (3.5-5.1) mmol/L Chloride 83 L (98-107) mmol/L Carbon Dioxide 17 L (22-30) mmol/L BUN 5 L (7-17) mg/dL Creatinine (0.52-1.04) mg/dL Glucose 103 H (74-99) mg/dL POC Glucose (mg/dL) 117 H (75-99) mg/dL Calcium (8.4-10.2) mg/dL Assessment and Plan Plan: Assessment: 1. Hypotonic hyponatremia. Patient initially hypovolemic from vomiting and diarrhea and further worsened with the use of hydrochlorothiazide. Also component of SIADH due to nausea. Sodium level 112 this morning. 2. Benign hypertension. Controlled. 3. Metabolic acidosis secondary to IV fluids and diarrhea. 4. Hypokalemia from poor oral intake and diuretics. Plan: Maintain 3%. Repeat sodium level at noon. Goal rate of correction 6-8 mEq per 24 hours. 1200 mL fluid restriction. Check TSH. Potassium was replaced. Check magnesium level. Add oral sodium bicarbonate.
[2020-04-13] MEDS: LEVOTHYROXINE IVP 100 MCG/5 ML VIAL IV SCH (09:32)
[2020-04-13] MEDS: SODIUM BICARBONATE TAB 650 MG TAB PO SCH ×2 (09:33→20:20)
[2020-04-13] MEDS: PANTOPRAZOLE 40 MG/10 ML VIAL IVP SCH (09:33)
[2020-04-13] MEDS: NIFEdipine XL 30 MG TAB.ER.24 PO SCH (09:33)
[2020-04-13] MEDS: metFORMIN 500 MG TAB PO SCH ×2 (09:33→20:26)
--- NOTE | 2020-04-13 11:04 | P.PN ---
Subjective Progress Note Date: 04/13/20 History of Present Illness This is a 69-year-old pleasant female patient of Dr. Helm with a past medical history of breast cancer hypothyroidism, diabetes mellitus, and hypertension. Patient presented to the emergency room with symptoms of weakness, nausea, vomiting and diarrhea for the last 2 days. Patient was given Z-Randy by her primary care physician was tested for covid 19 which was -3 days ago. Due to nasal congestion and sinus pressure along with nasal drainage. Patient denies any recent travel and no one else in her home has been sick she denies any exposure to any one who has been sick. Most of her symptoms related to GI. Patient was found to have sodium of 105. Patient was found in the ICU sitting up in bed able to answer questions continued vomiting. Patient has generalized weakness and is able to answer questions appropriately. 04/13: Patient remains in intensive care unit. Repeat sodium this morning is 116. Patient is currently on 3% saline that is managed by Dr. Montez. Patient is awake and alert but mental status is a little foggy on details. She has had good urine output and [place] catheter is in place. Other lab work reveals WBC 13.1, hemoglobin 12. Potassium 3.4 and has been replaced, chloride 83, CO2 17, BUN 5 and creatinine 0.75. Blood sugar 103. Patient has been afebrile, heart rate 56, blood pressure 149/65 and pulse ox 90% on room air. Review Of Systems Constitutional: No fever, no chills, no night sweats. No weight change. Report weakness and fatigue no lethargy. No daytime sleepiness. EENT: No headache. No blurred vision or double vision, no loss of vision. No loss of Hearing, no ringing in the ears, no dizziness. No nasal drainage or congestion. No epistaxis. No sore throat. Lungs: No shortness of breath, cough, no sputum production. No wheezing. Cardiovascular: No chest pain, no lower extremity edema. No palpitations. No paroxysmal nocturnal dyspnea. No orthopnea. No lightheadedness or dizziness. No syncopal episodes. Abdominal: Reports abdominal discomfort. Report nausea and vomiting. Reports diarrhea. No constipation. No bloody or tarry stools. no loss of appetite. Genitourinary: No dysuria, increased frequency, urgency. No urinary retention. Musculoskeletal: No myalgias. Reports muscle weakness, no gait dysfunction, no frequent falls. No back pain. No neck pain. Integumentary: No wounds, no lesions. No rash or pruritus. No unusual bruising. No change in hair or nails. Neurologic: No aphasia. No facial droop. No change in mentation. No head injury. No headache. No paralysis. No paresthesia. Psychiatric: No depression. No anxiety. No mood swings. Endocrine: No abnormal blood sugars. No weight change. No excessive sweating or thirst. Physical exam General Appearance: Alert, cooperative, no distress, 69-year-old appears stated age. Neck HEENT: Supple, no lymphadenopathy, no thyroid enlargement, no carotid bruits. Lungs: Clear to auscultation without crackles or wheezes no rhonchi, no deformi ty. Chest Wall: Chest wall normal expansion with deep inspiration no tenderness and no deformity was found on exam, no costochondral pain or discomfort. Heart: Regular rate and rhythm, S1, S2 normal, systolic murmur, rub or gallop. Back: Symmetric, no curvature, ROM normal, no CVA tenderness. Abdomen: Soft, non-tender, no rebound or rigidity, no hepatosplenomegaly. Extremities: Extremities normal, atraumatic, no cyanosis or edema. Pulses: 2+ and symmetric. Skin: Skin color, texture, tugor normal, no rashes or lesions. Neurologic: Alert oriented x3 cranial nerves II through XII intact, no motor deficit, no abnormal balance or gait Assessment/plan 1. Acute hypovolemic hypoosmolar hyponatremia secondary to a combination of vomiting and diarrhea, use of hydrochlorothiazide, component of SIADH due to nausea. Continue 3% saline, repeat sodium at noon. Nephrology consult appreciated. 2. Intractable nausea and vomiting. Zofran 4 mg IV every 6 hours, Phenergan 25 mg IM 1 at bedtime, Tigan 200 mg IM every 6 hours as needed 3. Metabolic encephalopathy secondary to hyponatremia. 4. Diarrhea possible C. diff. C. diff pending 5. Hypokalemia. Potassium replacement per protocol 5. Diabetes mellitus 2. Accu-Cheks before meals and at bedtime with sliding scale, metformin 1000 mg twice a day 6. Hypothyroidism. Levothyroxine 75 MCG's daily until able to tolerate by mouth medication 7. Hyperlipidemia. Lipitor 20 mg every morning 8. Hypertension. Lisinopril 10 mg by mouth daily, Bystolic 20 mg every morning 9. Sleep disturbance. Melatonin 10 mg daily at bedtime 7. History of breast cancer 8. GI prophylaxis. Protonix 40 mg 9. DVT prophylaxis. Pneumatic compression stockings CODE STATUS: Full code Discharge plan: home Impression and plan of care have been directed as dictated by the signing physician. Brie Rhodes nurse practitioner acting as scribe for signing physician. Objective - Vital Signs Vital signs: Vital Signs Temp 98 F 04/13/20 04:00 Pulse 61 04/13/20 07:00 Resp 22 04/13/20 07:00 BP 126/50 04/13/20 07:00 Pulse Ox 96 04/13/20 07:00 Intake & Output 04/12/20 04/13/20 04/13/20 18:59 06:59 18:59 Intake Total 2700 400 50 Output Total 2490 1190 285 Balance 210 -790 -235 Weight 73.2 kg Intake: IV 2700 50 Dextrose 5%-0.45% NaCl 1, 1000 000 ml @ 1000 mls/hr IV . Q1H [facility] Rx#:[id number] Magnesium Sulfate-D5w Pmx 100 1 gm In Dextrose/Water 1 100ml.bag @ 100 mls/hr IVPB Q1H [facility] Rx#: [id number] Potassium Chloride 10 meq 400 In Water For Injection 1 100ml.bag @ 100 mls/hr IVPB Q1HR [facility] Rx#: [id number] Sodium Chloride 0.9% 1, 1000 000 ml @ 999 mls/hr IV . Q1H1M [facility] Rx#:[id number] Sodium Chloride 3%( 200 50 Hypertonic) 500 ml @ 50 mls/hr IV .Q10H [facility] Rx#: [id number] Intake, IV Titration 400 Amount Dextrose 5% in Water 1, 400 000 ml @ 100 mls/hr IV . Q10H [facility] Rx#:[id number] Output: Urine 2140 1190 285 Emesis 350 Other: Voiding Method Indwelling Catheter Indwelling Catheter - Labs CBC & Chem 7: 04/13/20 04:03 04/13/20 08:07 Labs: Abnormal Lab Results - Last 24 Hours (Table) 04/12/20 04/12/20 04/12/20 Range/Units 09:35 11:56 12:08 WBC (3.8-10.6) k/uL Neutrophils # (1.3-7.7) k/uL Sodium 105 L* 111 L* (137-145) mmol/L Potassium (3.5-5.1) mmol/L Chloride 84 L (98-107) mmol/L Carbon Dioxide 14 L (22-30) mmol/L BUN 4 L (7-17) mg/dL Creatinine 0.43 L (0.52-1.04) mg/dL Glucose 193 H (74-99) mg/dL POC Glucose (mg/dL) 231 H (75-99) mg/dL Calcium 7.7 L (8.4-10.2) mg/dL 04/12/20 04/12/20 04/12/20 Range/Units 16:38 17:06 19:46 WBC (3.8-10.6) k/uL Neutrophils # (1.3-7.7) k/uL Sodium 113 L* 112 L* (137-145) mmol/L Potassium (3.5-5.1) mmol/L Chloride (98-107) mmol/L Carbon Dioxide (22-30) mmol/L BUN (7-17) mg/dL Creatinine (0.52-1.04) mg/dL Glucose (74-99) mg/dL POC Glucose (mg/dL) 131 H (75-99) mg/dL Calcium (8.4-10.2) mg/dL 04/12/20 04/12/20 04/13/20 Range/Units 22:57 23:59 00:33 WBC (3.8-10.6) k/uL Neutrophils # (1.3-7.7) k/uL Sodium 112 L* (137-145) mmol/L Potassium (3.5-5.1) mmol/L Chloride 83 L (98-107) mmol/L Carbon Dioxide 16 L (22-30) mmol/L BUN 3 L (7-17) mg/dL Creatinine (0.52-1.04) mg/dL Glucose 118 H (74-99) mg/dL POC Glucose (mg/dL) 184 H 153 H (75-99) mg/dL Calcium (8.4-10.2) mg/dL 04/13/20 04/13/20 04/13/20 Range/Units 04:03 04:03 06:17 WBC 13.1 H (3.8-10.6) k/uL Neutrophils # 10.6 H (1.3-7.7) k/uL Sodium 112 L* (137-145) mmol/L Potassium 3.4 L (3.5-5.1) mmol/L Chloride 83 L (98-107) mmol/L Carbon Dioxide 17 L (22-30) mmol/L BUN 5 L (7-17) mg/dL Creatinine (0.52-1.04) mg/dL Glucose 103 H (74-99) mg/dL POC Glucose (mg/dL) 117 H (75-99) mg/dL Calcium (8.4-10.2) mg/dL 04/13/20 Range/Units 08:07 WBC (3.8-10.6) k/uL Neutrophils # (1.3-7.7) k/uL Sodium 116 L* (137-145) mmol/L Potassium (3.5-5.1) mmol/L Chloride (98-107) mmol/L Carbon Dioxide (22-30) mmol/L BUN (7-17) mg/dL Creatinine (0.52-1.04) mg/dL Glucose (74-99) mg/dL POC Glucose (mg/dL) (75-99) mg/dL Calcium (8.4-10.2) mg/dL
[2020-04-13 11:35] LABS: African American GFR (CKD) >90 (>60 ml/min/1.73 sqM); Anion Gap 10 mmol/L; Blood Urea Nitrogen 6 mg/dL (7-17); Calcium 8.8 mg/dL (8.4-10.2); Carbon Dioxide 21 mmol/L (22-30); Chloride 86 mmol/L (98-107); Glucose 141 mg/dL (74-99); Non-African American GFR(CKD) 84 (>60 ml/min/1.73 sqM); Potassium 3.9 mmol/L (3.5-5.1)
[2020-04-13 11:42] LABS: Sodium 117 mmol/L (137-145)
[2020-04-13 12:26] LABS: Glucose,Whole Blood 154 mg/dL (75-99)
--- NOTE | 2020-04-13 12:39 | P.PN ---
Subjective Progress Note Date: 04/13/20 Principal diagnosis: Hyponatremia, weakness This is a 69-year-old female admitted yesterday with severe hyponatremia. Patient presented to the ER with mostly symptoms of weakness, nausea, vomiting, and diarrhea for the last 2 days. Patient states that her primary care physici an tested her for grayson virus about 3 days ago, and the results are pending. Patient was placed on Z-Randy, mostly because of her symptoms of nasal congestion, pressure over her sinuses, and some nasal drainage. She had no cough, no shortness of breath, no fever, no chills, no hemoptysis. She had mostly GI symptoms. Patient denies any exposure to any sick contacts and she denies any recent travel. At any rate the patient was evaluated in the ER, and she was noted to have a sodium of 105. She was also noted to have a significant anion gap metabolic acidosis, normal renal functioning, she had low serum osmolality of 221. And clearly she had a picture of hypovolemic hyponatremia. Considering her diarrhea patient is now being tested for C. difficile colitis, and she was noted to have WBC count of 20.7. Urine osmolality was 425. Patient was given 1 L 0.9 normal saline bolus, she was placed on 3% saline at 25 mL per hour and today after I evaluated the patient, I recommended another liter of D5 45 bolus to be given. Her sodium is up from 105-2107 this morning. Patient feels gene rally weak, and she continues to have intermittent episodes of nausea, but no vomiting. And no diarrhea since she has been in the ICU. On 04/25/2020 patient seen in follow-up in the intensive care unit, she is awake and alert, in no acute distress, this morning her sodium is 112 from 4:00 this morning, she continues on 3% saline at a rate of 25 ML per hour. Her sodium is being checked every 4 hours, nephrology is following, she denies any acute distress, no nausea or vomiting, no abdominal pain, no shortness of breath, no seizure activity, Follow-up sodium is 116. Patient is answering questions appropriately, blood slight slowing of recollection of events that brought her to the hospital. She is afebrile, blood pressure stable, she is on room air with a pulse ox of 97%. She is in sinus mechanism with a rate of 52 BPM. Lung sounds reveal bilateral crackles at the bases. No rhonchi, no wheezing, no complaint of chest pain. Prominent systolic murmur auscultated across the precordium loudest over the aortic valve. Patient has known history of aortic valve stenosis. She is tolerating her diet. Objective - Vital Signs Vital signs: Vital Signs Temp 98.0 F 04/13/20 08:00 Pulse 51 L 04/13/20 10:00 Resp 18 04/13/20 10:00 BP 147/61 04/13/20 10:00 Pulse Ox 98 04/13/20 10:00 Intake & Output 04/12/20 04/13/20 04/13/20 18:59 06:59 18:59 Intake Total 2700 400 100 Output Total 2490 1190 435 Balance 210 -790 -335 Weight 73.2 kg Intake: IV 2700 100 Dextrose 5%-0.45% NaCl 1, 1000 000 ml @ 1000 mls/hr IV . Q1H [facility] Rx#:[id number] Magnesium Sulfate-D5w Pmx 100 1 gm In Dextrose/Water 1 100ml.bag @ 100 mls/hr IVPB Q1H [facility] Rx#: [id number] Potassium Chloride 10 meq 400 In Water For Injection 1 100ml.bag @ 100 mls/hr IVPB Q1HR [facility] Rx#: [id number] Sodium Chloride 0.9% 1, 1000 000 ml @ 999 mls/hr IV . Q1H1M [facility] Rx#:[id number] Sodium Chloride 3%( 200 100 Hypertonic) 500 ml @ 50 mls/hr IV .Q10H [facility] Rx#: [id number] Intake, IV Titration 400 Amount Dextrose 5% in Water 1, 400 000 ml @ 100 mls/hr IV . Q10H [facility] Rx#:[id number] Output: Urine 2140 1190 435 Emesis 350 Other: Voiding Method Indwelling Catheter Indwelling Catheter Indwelling Catheter - Exam GENERAL EXAM: Alert, 69-year-old white female, on room air, with a pulse ox of 97%, resting comfortably in bed, slightly slow recollection of events of last week, otherwise answering questions appropriately, comfortable in no apparent distress. HEAD: Normocephalic/atraumatic. EYES: Normal reaction of pupils, equal size. Conjunctiva pink, sclera white. NOSE: Clear with pink turbinates. THROAT: No erythema or exudates. NECK: No masses, no JVD, no thyroid enlargement, no adenopathy. CHEST: No chest wall deformity. Symmetrical expansion. LUNGS: Equal air entry with no crackles, wheeze, rhonchi or dullness. CVS: Regular rate and rhythm, normal S1 and S2, no gallops, no rub. Systolic murmur auscultated across the precordium loudest over the aortic valve area ABDOMEN: Soft, nontender. No hepatosplenomegaly, normal bowel sounds, no guarding or rigidity. EXTREMITIES: No clubbing, no edema, no cyanosis, 2+ pulses and upper and lower extremities. MUSCULOSKELETAL: Muscle strength and tone normal. SPINE: No scoliosis or deformity SKIN: No rashes CENTRAL NERVOUS SYSTEM: Alert and oriented -3. No focal deficits, tone is normal in all 4 extremities. PSYCHIATRIC: Alert and oriented -3. Appropriate affect. Intact judgment and insight. - Labs CBC & Chem 7: 04/13/20 04:03 04/13/20 11:08 Labs: Abnormal Lab Results - Last 24 Hours (Table) 04/12/20 04/12/20 04/12/20 Range/Units 12:08 16:38 17:06 WBC (3.8-10.6) k/uL Neutrophils # (1.3-7.7) k/uL Sodium 111 L* 113 L* (137-145) mmol/L Potassium (3.5-5.1) mmol/L Chloride 84 L (98-107) mmol/L Carbon Dioxide 14 L (22-30) mmol/L BUN 4 L (7-17) mg/dL Creatinine 0.43 L (0.52-1.04) mg/dL Glucose 193 H (74-99) mg/dL POC Glucose (mg/dL) 131 H (75-99) mg/dL Calcium 7.7 L (8.4-10.2) mg/dL 04/12/20 04/12/20 04/12/20 Range/Units 19:46 22:57 23:59 WBC (3.8-10.6) k/uL Neutrophils # (1.3-7.7) k/uL Sodium 112 L* (137-145) mmol/L Potassium (3.5-5.1) mmol/L Chloride (98-107) mmol/L Carbon Dioxide (22-30) mmol/L BUN (7-17) mg/dL Creatinine (0.52-1.04) mg/dL Glucose (74-99) mg/dL POC Glucose (mg/dL) 184 H 153 H (75-99) mg/dL Calcium (8.4-10.2) mg/dL 04/13/20 04/13/20 04/13/20 Range/Units 00:33 04:03 04:03 WBC 13.1 H (3.8-10.6) k/uL Neutrophils # 10.6 H (1.3-7.7) k/uL Sodium 112 L* 112 L* (137-145) mmol/L Potassium 3.4 L (3.5-5.1) mmol/L Chloride 83 L 83 L (98-107) mmol/L Carbon Dioxide 16 L 17 L (22-30) mmol/L BUN 3 L 5 L (7-17) mg/dL Creatinine (0.52-1.04) mg/dL Glucose 118 H 103 H (74-99) mg/dL POC Glucose (mg/dL) (75-99) mg/dL Calcium (8.4-10.2) mg/dL 04/13/20 04/13/20 04/13/20 Range/Units 06:17 08:07 11:08 WBC (3.8-10.6) k/uL Neutrophils # (1.3-7.7) k/uL Sodium 116 L* 117 L* (137-145) mmol/L Potassium (3.5-5.1) mmol/L Chloride 86 L (98-107) mmol/L Carbon Dioxide 21 L (22-30) mmol/L BUN 6 L (7-17) mg/dL Creatinine (0.52-1.04) mg/dL Glucose 141 H (74-99) mg/dL POC Glucose (mg/dL) 117 H (75-99) mg/dL Calcium (8.4-10.2) mg/dL 04/13/20 Range/Units 12:24 WBC (3.8-10.6) k/uL Neutrophils # (1.3-7.7) k/uL Sodium (137-145) mmol/L Potassium (3.5-5.1) mmol/L Chloride (98-107) mmol/L Carbon Dioxide (22-30) mmol/L BUN (7-17) mg/dL Creatinine (0.52-1.04) mg/dL Glucose (74-99) mg/dL POC Glucose (mg/dL) 154 H (75-99) mg/dL Calcium (8.4-10.2) mg/dL Assessment and Plan Plan: Assessment: #1. Acute hypovolemic hypoosmolar hyponatremia likely related to fluid losses secondary to nausea, vomiting and diarrhea. Patient continues on 3% hypertonic saline at this time, nephrology is following #2. Recent upper respiratory infection, COVID 19 was reportedly ruled out #3. Diarrhea, rule out C. diff colitis #4. History of benign essential hypertension #5. History of breast cancer in the right breast [place] in 2016, treated with chemotherapy, lumpectomy, and followed with chemotherapy. Patient had bilateral breast reduction following the right breast lumpectomy #6. History of aortic valve stenosis, patient is under the care of Dr. Ramírez #7. History of type 2 diabetes Plan: Continue with nephrology recommendations for serum sodium management. Patient also little slightly foggy, but no seizure activity. She is tolerating oral intake, no further nausea vomiting or diarrhea, no abdominal pain, no shortness of breath. No complaints of chest pain. Continue fluid restriction, serum TSH is pending, potassium was replaced per protocol. We'll continue to monitor the patient in the ICU. BMP every 4 hours. Hydrochlorothiazide remains on hold. We'll continue to follow I performed a history & physical examination of the patient and discussed their management with my nurse practitioner, Alba Mahmood. I reviewed the nurse practitioner's note and agree with the documented findings and plan of care. Lung sounds are positive for diminished breath sounds. The findings and the impression was discussed with the patient. I attest to the documentation by the nurse practitioner. Time with Patient: Less than 30
[2020-04-13 17:06] LABS: Calcium 9.1 mg/dL (8.4-10.2)
[2020-04-13 17:19] LABS: Glucose,Whole Blood 124 mg/dL (75-99)
[2020-04-13] MEDS: ATORVASTATIN 20 MG TAB PO SCH (20:20)
[2020-04-13] MEDS: MELATONIN 5 MG TABLET PO SCH (20:20)
[2020-04-13] MEDS: NEBIVOLOL 5 MG TAB PO SCH (20:20)
[2020-04-13] MEDS: ALPRAZolam 1 MG TAB PO PRN (20:21)
[2020-04-13 20:27] LABS: Glucose,Whole Blood 115 mg/dL (75-99)
[2020-04-13 23:50] LABS: Glucose,Whole Blood 100 mg/dL (75-99)
[2020-04-14 01:18] LABS: Potassium 4.2 mmol/L (3.5-5.1)
[2020-04-14 05:13] LABS: Basophils % (A) 0 %; Eosinophils # (A) 0.2 k/uL (0-0.7); Eosinophils % (A) 2 %; HCT 35.2 % (34.0-46.0); HGB 12.3 gm/dL (11.4-16.0); Lymphocytes # (A) 2.3 k/uL (1.0-4.8); Lymphocytes % (A) 19 %; MCH 29.8 pg (25.0-35.0); MCHC 34.9 g/dL (31.0-37.0); MCV 85.5 fL (80.0-100.0); Monocytes # (A) 0.8 k/uL (0-1.0); Monocytes % (A) 7 %; Neutrophils # (A) 8.8 k/uL (1.3-7.7); Neutrophils % (A) 72 %; Platelet Count 257 k/uL (150-450); RBC 4.12 m/uL (3.80-5.40); RDW 12.6 % (11.5-15.5); WBC 12.3 k/uL (3.8-10.6)
[2020-04-14 05:23] LABS: Calcium 8.7 mg/dL (8.4-10.2)
[2020-04-14 05:33] LABS: Potassium 4.8 mmol/L (3.5-5.1)
[2020-04-14 06:44] LABS: Glucose,Whole Blood 101 mg/dL (75-99)
[2020-04-14] MEDS: INSULIN ASPART (NovoLOG) 100 UNIT/ML VIAL SQ SCH ×4 (06:50→21:07)
--- NOTE | 2020-04-14 09:17 | P.PN ---
Subjective Patient is seen in follow-up for hyponatremia. Sodium level C120 this morning. currently off all IV fluids. Patient is awake and alert. No edema. Good urine output. oral intake gradually improving. No nausea or vomiting this morning. Vital signs are stable. General: The patient appeared well nourished and normally developed. HEENT: Head exam is unremarkable. Neck is without jugular venous distension. LUNGS: Lungs are clear to auscultation and percussion. Breath sounds decreased. HEART: Rate and Rhythm are regular. ABDOMEN: Soft, nontender. EXTREMITITES: No clubbing, cyanosis, or edema. Objective - Vital Signs Vital signs: Vital Signs Temp 98 F 04/14/20 04:00 Pulse 51 L 04/14/20 07:00 Resp 18 04/14/20 07:00 BP 124/41 04/14/20 07:00 Pulse Ox 95 04/14/20 07:00 Intake & Output 04/13/20 04/14/20 04/14/20 18:59 06:59 18:59 Intake Total 100 Output Total 910 1240 Balance -810 -1240 Weight 70 kg Intake: IV 100 Sodium Chloride 3%( 100 Hypertonic) 500 ml @ 50 mls/hr IV .Q10H [facility] Rx#: [id number] Output: Urine 910 1240 Other: Voiding Method Indwelling Catheter Indwelling Catheter - Labs CBC & Chem 7: 04/14/20 04:24 04/14/20 04:31 Labs: Abnormal Lab Results - Last 24 Hours (Table) 04/13/20 04/13/20 04/13/20 Range/Units 11:08 12:24 16:33 WBC (3.8-10.6) k/uL Neutrophils # (1.3-7.7) k/uL Sodium 117 L* 117 L* (137-145) mmol/L Chloride 86 L 90 L (98-107) mmol/L Carbon Dioxide 21 L 15 L (22-30) mmol/L BUN 6 L (7-17) mg/dL Glucose 141 H 130 H (74-99) mg/dL POC Glucose (mg/dL) 154 H (75-99) mg/dL 04/13/20 04/13/20 04/13/20 Range/Units 17:08 20:26 20:35 WBC (3.8-10.6) k/uL Neutrophils # (1.3-7.7) k/uL Sodium 119 L* (137-145) mmol/L Chloride (98-107) mmol/L Carbon Dioxide (22-30) mmol/L BUN (7-17) mg/dL Glucose (74-99) mg/dL POC Glucose (mg/dL) 124 H 115 H (75-99) mg/dL 04/13/20 04/14/20 04/14/20 Range/Units 23:49 00:57 04:24 WBC 12.3 H (3.8-10.6) k/uL Neutrophils # 8.8 H (1.3-7.7) k/uL Sodium 117 L* (137-145) mmol/L Chloride (98-107) mmol/L Carbon Dioxide (22-30) mmol/L BUN (7-17) mg/dL Glucose (74-99) mg/dL POC Glucose (mg/dL) 100 H (75-99) mg/dL 04/14/20 04/14/20 Range/Units 04:31 06:43 WBC (3.8-10.6) k/uL Neutrophils # (1.3-7.7) k/uL Sodium 120 L (137-145) mmol/L Chloride 94 L (98-107) mmol/L Carbon Dioxide 16 L (22-30) mmol/L BUN (7-17) mg/dL Glucose (74-99) mg/dL POC Glucose (mg/dL) 101 H (75-99) mg/dL Assessment and Plan Plan: Assessment: 1. Hypotonic hyponatremia. Patient initially hypovolemic from vomiting and diarrhea and further worsened with the use of hydrochlorothiazide. Also component of SIADH due to nausea. Sodium level 120 this morning.TSH normal. 2. Benign hypertension. Controlled. 3. Metabolic acidosis secondary to IV fluids and diarrhea. 4. Hypokalemia from poor oral intake and diuretics. better post replacement. 5. Hypomagnesemia from poor intake and GI losses. Improved post placement. Plan: hold off on fluids. Goal rate of correction 6-8 mEq per 24 hours. 1200 mL fluid restriction. encouraged oral intake, particularly protein. increase dose of oral sodium bicarbonate. repeat sodium level at 10 AM.
--- NOTE | 2020-04-14 09:20 | P.PN ---
Subjective Progress Note Date: 04/14/20 Principal diagnosis: Hyponatremia, weakness This is a 69-year-old female admitted yesterday with severe hyponatremia. Patient presented to the ER with mostly symptoms of weakness, nausea, vomiting, and diarrhea for the last 2 days. Patient states that her primary care physici an tested her for grayson virus about 3 days ago, and the results are pending. Patient was placed on Z-Randy, mostly because of her symptoms of nasal congestion, pressure over her sinuses, and some nasal drainage. She had no cough, no shortness of breath, no fever, no chills, no hemoptysis. She had mostly GI symptoms. Patient denies any exposure to any sick contacts and she denies any recent travel. At any rate the patient was evaluated in the ER, and she was noted to have a sodium of 105. She was also noted to have a significant anion gap metabolic acidosis, normal renal functioning, she had low serum osmolality of 221. And clearly she had a picture of hypovolemic hyponatremia. Considering her diarrhea patient is now being tested for C. difficile colitis, and she was noted to have WBC count of 20.7. Urine osmolality was 425. Patient was given 1 L 0.9 normal saline bolus, she was placed on 3% saline at 25 mL per hour and today after I evaluated the patient, I recommended another liter of D5 45 bolus to be given. Her sodium is up from 105-2107 this morning. Patient feels gene rally weak, and she continues to have intermittent episodes of nausea, but no vomiting. And no diarrhea since she has been in the ICU. On 04/13/2020 patient seen in follow-up in the intensive care unit, she is awake and alert, in no acute distress, this morning her sodium is 112 from 4:00 this morning, she continues on 3% saline at a rate of 25 ML per hour. Her sodium is being checked every 4 hours, nephrology is following, she denies any acute distress, no nausea or vomiting, no abdominal pain, no shortness of breath, no seizure activity, Follow-up sodium is 116. Patient is answering questions appropriately, blood slight slowing of recollection of events that brought her to the hospital. She is afebrile, blood pressure stable, she is on room air with a pulse ox of 97%. She is in sinus mechanism with a rate of 52 BPM. Lung sounds reveal bilateral crackles at the bases. No rhonchi, no wheezing, no complaint of chest pain. Prominent systolic murmur auscultated across the precordium loudest over the aortic valve. Patient has known history of aortic valve stenosis. She is tolerating her diet. On 04/14/2020 patient seen in follow-up in the intensive care unit, she is awake and alert, in no acute distress, she is resting comfortably in bed. Permanent pulse ox is 95%, hemodynamically she stable, she is in sinus bradycardia with a rate of 41-51. TSH was within normal limits, she has been afebrile. Patient reports some hallucinations last night, no hallucinations this morning, however patient's mentation seems to be a bit disorganized, with some difficulty in comprehension of instructions, repeating some of the information. Currently not on any IV infusions, her serum sodium today is 120. One episode of diarrhea yesterday, no further diarrhea overnight, no nausea or vomiting, nephrology is following, renal profile is within normal limits today with BUN 15 creatinine 0.93. She remains on fluid restriction. Hydrochlorothiazide on hold Objective - Vital Signs Vital signs: Vital Signs Temp 98 F 04/14/20 04:00 Pulse 51 L 04/14/20 07:00 Resp 18 04/14/20 07:00 BP 124/41 04/14/20 07:00 Pulse Ox 95 04/14/20 07:00 Intake & Output 04/13/20 04/14/20 04/14/20 18:59 06:59 18:59 Intake Total 100 Output Total 910 1240 Balance -810 -1240 Weight 70 kg Intake: IV 100 Sodium Chloride 3%( 100 Hypertonic) 500 ml @ 50 mls/hr IV .Q10H [facility] Rx#: [id number] Output: Urine 910 1240 Other: Voiding Method Indwelling Catheter Indwelling Catheter - Exam GENERAL EXAM: Alert, 69-year-old white female, on room air, with a pulse ox of 95%, resting comfortably in bed, slightly disorganized thought process, inattention, requiring repeating of certain information otherwise answering questions appropriately, comfortable in no apparent distress. HEAD: Normocephalic/atraumatic. EYES: Normal reaction of pupils, equal size. Conjunctiva pink, sclera white. NOSE: Clear with pink turbinates. THROAT: No erythema or exudates. NECK: No masses, no JVD, no thyroid enlargement, no adenopathy. CHEST: No chest wall deformity. Symmetrical expansion. LUNGS: Equal air entry with no crackles, wheeze, rhonchi or dullness. CVS: Regular rate and rhythm, normal S1 and S2, no gallops, no rub. Systolic murmur auscultated across the precordium loudest over the aortic valve area ABDOMEN: Soft, nontender. No hepatosplenomegaly, normal bowel sounds, no guarding or rigidity. EXTREMITIES: No clubbing, no edema, no cyanosis, 2+ pulses and upper and lower extremities. MUSCULOSKELETAL: Muscle strength and tone normal. SPINE: No scoliosis or deformity SKIN: No rashes CENTRAL NERVOUS SYSTEM: Alert and oriented -3. No focal deficits, tone is normal in all 4 extremities. PSYCHIATRIC: Alert and oriented -3. Appropriate affect. Intact judgment and insight. - Labs CBC & Chem 7: 04/14/20 04:24 04/14/20 04:31 Labs: Abnormal Lab Results - Last 24 Hours (Table) 04/13/20 04/13/20 04/13/20 Range/Units 11:08 12:24 16:33 WBC (3.8-10.6) k/uL Neutrophils # (1.3-7.7) k/uL Sodium 117 L* 117 L* (137-145) mmol/L Chloride 86 L 90 L (98-107) mmol/L Carbon Dioxide 21 L 15 L (22-30) mmol/L BUN 6 L (7-17) mg/dL Glucose 141 H 130 H (74-99) mg/dL POC Glucose (mg/dL) 154 H (75-99) mg/dL 04/13/20 04/13/20 04/13/20 Range/Units 17:08 20:26 20:35 WBC (3.8-10.6) k/uL Neutrophils # (1.3-7.7) k/uL Sodium 119 L* (137-145) mmol/L Chloride (98-107) mmol/L Carbon Dioxide (22-30) mmol/L BUN (7-17) mg/dL Glucose (74-99) mg/dL POC Glucose (mg/dL) 124 H 115 H (75-99) mg/dL 04/13/20 04/14/20 04/14/20 Range/Units 23:49 00:57 04:24 WBC 12.3 H (3.8-10.6) k/uL Neutrophils # 8.8 H (1.3-7.7) k/uL Sodium 117 L* (137-145) mmol/L Chloride (98-107) mmol/L Carbon Dioxide (22-30) mmol/L BUN (7-17) mg/dL Glucose (74-99) mg/dL POC Glucose (mg/dL) 100 H (75-99) mg/dL 04/14/20 04/14/20 Range/Units 04:31 06:43 WBC (3.8-10.6) k/uL Neutrophils # (1.3-7.7) k/uL Sodium 120 L (137-145) mmol/L Chloride 94 L (98-107) mmol/L Carbon Dioxide 16 L (22-30) mmol/L BUN (7-17) mg/dL Glucose (74-99) mg/dL POC Glucose (mg/dL) 101 H (75-99) mg/dL Assessment and Plan Plan: Assessment: #1. Acute hypovolemic hypoosmolar hyponatremia likely related to fluid losses secondary to nausea, vomiting and diarrhea. Patient continues on 3% hypertonic saline at this time, nephrology is following On 04/14/2020 patient seen in follow-up, serum sodium is 120, no nausea vomiting or diarrhea today, hypertonic saline has been discontinued. #2. Recent upper respiratory infection, COVID 19 was reportedly ruled out #3. Diarrhea, rule out C. diff colitis #4. History of benign essential hypertension #5. History of breast cancer in the right breast Agn[place] in 2016, treated with chemotherapy, lumpectomy, and followed with chemotherapy. Patient had bilateral breast reduction following the right breast lumpectomy #6. History of aortic valve stenosis, patient is under the care of Dr. Ramírez #7. History of type 2 diabetes Plan: Continue with fluid restriction, no further nausea vomiting or diarrhea, hemodynamically stable, no difficulty breathing, no acute events overnight, still slightly foggy mentation. Maintaining safety precautions, will continue with nephrology recommendations for serum sodium management. From pulmonary/critical care perspective patient is stable for transfer out of the intensive care unit today to [facility] I performed a history & physical examination of the patient and discussed their management with my nurse practitioner, Alba Mahmood. I reviewed the nurse practitioner's note and agree with the documented findings and plan of care. Lung sounds are positive for diminished breath sounds. The findings and the impression was discussed with the patient. I attest to the documentation by the nurse practitioner. Time with Patient: Less than 30
[2020-04-14] MEDS: metFORMIN 500 MG TAB PO SCH ×2 (10:01→21:08)
[2020-04-14] MEDS: PANTOPRAZOLE 40 MG/10 ML VIAL IVP SCH (10:01)
[2020-04-14] MEDS: LEVOTHYROXINE IVP 100 MCG/5 ML VIAL IV SCH (10:02)
[2020-04-14] MEDS: NIFEdipine XL 30 MG TAB.ER.24 PO SCH (10:05)
[2020-04-14 12:00] LABS: Glucose,Whole Blood 160 mg/dL (75-99)
--- NOTE | 2020-04-14 12:15 | P.PN ---
Subjective Progress Note Date: 04/14/20 History of Present Illness This is a 69-year-old pleasant female patient of Dr. Helm with a past medical history of breast cancer hypothyroidism, diabetes mellitus, and hypertension. Patient presented to the emergency room with symptoms of weakness, nausea, vomiting and diarrhea for the last 2 days. Patient was given Z-Randy by her primary care physician was tested for covid 19 which was -3 days ago. Due to nasal congestion and sinus pressure along with nasal drainage. Patient denies any recent travel and no one else in her home has been sick she denies any exposure to any one who has been sick. Most of her symptoms related to GI. Patient was found to have sodium of 105. Patient was found in the ICU sitting up in bed able to answer questions continued vomiting. Patient has generalized weakness and is able to answer questions appropriately. 04/13: Patient remains in intensive care unit. Repeat sodium this morning is 116. Patient is currently on 3% saline that is managed by Dr. Montez. Patient is awake and alert but mental status is a little foggy on details. She has had good urine output and Mesa catheter is in place. Other lab work reveals WBC 13.1, hemoglobin 12. Potassium 3.4 and has been replaced, chloride 83, CO2 17, BUN 5 and creatinine 0.75. Blood sugar 103. Patient has been afebrile, heart rate 56, blood pressure 149/65 and pulse ox 90% on room air. 04/14: Patient remains in the intensive care unit and sodium today is at 120. She is currently off all IV fluids. She is on oral sodium bicarb. Patient has had good urine output and Mesa catheter remains in place. Mental status seems to be improved today. Dr. Montez is planning to hold off on fluids, 1200, fluid restriction, encourage oral intake, particular protein and increase oral sodium bicarb. Patient is scheduled for repeat sodium level at 10 AM which came back at 124. Anticipate the patient will require another 24 hours in the intensive care unit. Review Of Systems Constitutional: No fever, no chills, no night sweats. No weight change. Report weakness and fatigue no lethargy. No daytime sleepiness. EENT: No headache. No blurred vision or double vision, no loss of vision. No loss of Hearing, no ringing in the ears, no dizziness. No nasal drainage or congestion. No epistaxis. No sore throat. Lungs: No shortness of breath, cough, no sputum production. No wheezing. Cardiovascular: No chest pain, no lower extremity edema. No palpitations. No paroxysmal nocturnal dyspnea. No orthopnea. No lightheadedness or dizziness. No syncopal episodes. Abdominal: Reports abdominal discomfort. Denies nausea and vomiting. Reports diarrhea. No constipation. No bloody or tarry stools. no loss of appetite. Genitourinary: No dysuria, increased frequency, urgency. No urinary retention. Musculoskeletal: No myalgias. Reports muscle weakness, no gait dysfunction, no frequent falls. No back pain. No neck pain. Integumentary: No wounds, no lesions. No rash or pruritus. No unusual bruising. No change in hair or nails. Neurologic: No aphasia. No facial droop. No change in mentation. No head injury. No headache. No paralysis. No paresthesia. Psychiatric: No depression. No anxiety. No mood swings. Endocrine: No abnormal blood sugars. No weight change. No excessive sweating or thirst. Physical exam General Appearance: Alert, cooperative, no distress, 69-year-old appears stated age. Neck HEENT: Supple, no lymphadenopathy, no thyroid enlargement, no carotid bruits. Lungs: Clear to auscultation without crackles or wheezes no rhonchi, no deformity. Chest Wall: Chest wall normal expansion with deep inspiration no tenderness and no deformity was found on exam, no costochondral pain or discomfort. Heart: Regular rate and rhythm, S1, S2 normal, systolic murmur, rub or gallop. Back: Symmetric, no curvature, ROM normal, no CVA tenderness. Abdomen: Soft, non-tender, no rebound or rigidity, no hepatosplenomegaly. Mesa catheter draining clear usha urine. Extremities: Extremities normal, atraumatic, no cyanosis or edema. Pulses: 2+ and symmetric. Skin: Skin color, texture, tugor normal, no rashes or lesions. Neurologic: Alert oriented x3 cranial nerves II through XII intact, no motor deficit, no abnormal balance or gait Assessment/plan 1. Acute hypovolemic hypoosmolar hyponatremia secondary to a combination of vomiting and diarrhea, use of hydrochlorothiazide, component of SIADH due to nausea. Patient is off all IV fluids. Nephrology consult appreciated. 2. Intractable nausea and vomiting. Zofran 4 mg IV every 6 hours, Phenergan 25 mg IM 1 at bedtime, Tigan 200 mg IM every 6 hours as needed 3. Metabolic encephalopathy secondary to hyponatremia. 4. Diarrhea possible C. diff. C. diff pending 5. Hypokalemia. Potassium replacement per protocol 5. Diabetes mellitus 2. Accu-Cheks before meals and at bedtime with sliding s hetal, metformin 1000 mg twice a day 6. Hypothyroidism. Levothyroxine 75 MCG's daily until able to tolerate by mouth medication 7. Hyperlipidemia. Lipitor 20 mg every morning 8. Hypertension. Lisinopril 10 mg by mouth daily, Bystolic 20 mg every morning 9. Sleep disturbance. Melatonin 10 mg daily at bedtime 7. History of breast cancer 8. GI prophylaxis. Protonix 40 mg 9. DVT prophylaxis. Pneumatic compression stockings CODE STATUS: Full code Discharge plan: home Impression and plan of care have been directed as dictated by the signing physician. Brie Rhodes nurse practitioner acting as scribe for signing physician. Objective - Vital Signs Vital signs: Vital Signs Temp 98 F 04/14/20 04:00 Pulse 51 L 04/14/20 07:00 Resp 18 04/14/20 07:00 BP 124/41 04/14/20 07:00 Pulse Ox 95 04/14/20 07:00 Intake & Output 04/13/20 04/14/20 04/14/20 18:59 06:59 18:59 Intake Total 100 Output Total 910 1240 Balance -810 -1240 Weight 70 kg Intake: IV 100 Sodium Chloride 3%( 100 Hypertonic) 500 ml @ 50 mls/hr IV .Q10H [facility] Rx#: [id number] Output: Urine 910 1240 Other: Voiding Method Indwelling Catheter Indwelling Catheter - Labs CBC & Chem 7: 04/14/20 04:24 04/14/20 10:17 Labs: Abnormal Lab Results - Last 24 Hours (Table) 04/13/20 04/13/20 04/13/20 Range/Units 08:07 11:08 12:24 WBC (3.8-10.6) k/uL Neutrophils # (1.3-7.7) k/uL Sodium 116 L* 117 L* (137-145) mmol/L Chloride 86 L (98-107) mmol/L Carbon Dioxide 21 L (22-30) mmol/L BUN 6 L (7-17) mg/dL Glucose 141 H (74-99) mg/dL POC Glucose (mg/dL) 154 H (75-99) mg/dL 04/13/20 04/13/20 04/13/20 Range/Units 16:33 17:08 20:26 WBC (3.8-10.6) k/uL Neutrophils # (1.3-7.7) k/uL Sodium 117 L* (137-145) mmol/L Chloride 90 L (98-107) mmol/L Carbon Dioxide 15 L (22-30) mmol/L BUN (7-17) mg/dL Glucose 130 H (74-99) mg/dL POC Glucose (mg/dL) 124 H 115 H (75-99) mg/dL 04/13/20 04/13/20 04/14/20 Range/Units 20:35 23:49 00:57 WBC (3.8-10.6) k/uL Neutrophils # (1.3-7.7) k/uL Sodium 119 L* 117 L* (137-145) mmol/L Chloride (98-107) mmol/L Carbon Dioxide (22-30) mmol/L BUN (7-17) mg/dL Glucose (74-99) mg/dL POC Glucose (mg/dL) 100 H (75-99) mg/dL 04/14/20 04/14/20 04/14/20 Range/Units 04:24 04:31 06:43 WBC 12.3 H (3.8-10.6) k/uL Neutrophils # 8.8 H (1.3-7.7) k/uL Sodium 120 L (137-145) mmol/L Chloride 94 L (98-107) mmol/L Carbon Dioxide 16 L (22-30) mmol/L BUN (7-17) mg/dL Glucose (74-99) mg/dL POC Glucose (mg/dL) 101 H (75-99) mg/dL
[2020-04-14] MEDS ORDERED: DEXTROSE 5% IN WATER 1,000 ML IV SCH (12:30)
[2020-04-14 16:28] LABS: Glucose,Whole Blood 113 mg/dL (75-99)
[2020-04-14 20:56] LABS: Glucose,Whole Blood 201 mg/dL (75-99)
[2020-04-14] MEDS: ALPRAZolam 1 MG TAB PO PRN (21:08)
[2020-04-14] MEDS: ATORVASTATIN 20 MG TAB PO SCH (21:08)
[2020-04-14] MEDS: SODIUM BICARBONATE TAB 650 MG TAB PO SCH (21:10)
[2020-04-14] MEDS: MELATONIN 5 MG TABLET PO SCH (21:11)
[2020-04-14] MEDS: NEBIVOLOL 5 MG TAB PO SCH (21:11)
[2020-04-15 06:12] LABS: Calcium 9.2 mg/dL (8.4-10.2); Potassium 4.1 mmol/L (3.5-5.1)
[2020-04-15 07:15] LABS: Glucose,Whole Blood 118 mg/dL (75-99)
[2020-04-15] MEDS: INSULIN ASPART (NovoLOG) 100 UNIT/ML VIAL SQ SCH ×4 (07:29→20:54)
[2020-04-15] MEDS: metFORMIN 500 MG TAB PO SCH ×2 (08:20→21:10)
[2020-04-15] MEDS: SODIUM BICARBONATE TAB 650 MG TAB PO SCH ×3 (08:20→21:10)
[2020-04-15] MEDS: PANTOPRAZOLE 40 MG/10 ML VIAL IVP SCH (08:20)
[2020-04-15] MEDS: NIFEdipine XL 30 MG TAB.ER.24 PO SCH (08:21)
[2020-04-15] MEDS: LEVOTHYROXINE IVP 100 MCG/5 ML VIAL IV SCH (08:21)
--- NOTE | 2020-04-15 09:31 | P.PN ---
Subjective Patient is seen in follow-up for hyponatremia. Sodium level 129 this morning. currently off all IV fluids. Patient is awake and alert. No edema. Good urine output. oral intake gradually improving. No nausea or vomiting this morning. bp stable. Vital signs are stable. General: The patient appeared well nourished and normally developed. HEENT: Head exam is unremarkable. Neck is without jugular venous distension. LUNGS: Lungs are clear to auscultation and percussion. Breath sounds decreased. HEART: Rate and Rhythm are regular. ABDOMEN: Soft, nontender. EXTREMITITES: No clubbing, cyanosis, or edema. Objective - Vital Signs Vital signs: Vital Signs Temp 97.8 F 04/15/20 04:00 Pulse 52 L 04/15/20 06:00 Resp 17 04/15/20 06:00 BP 116/53 04/15/20 06:00 Pulse Ox 95 04/15/20 06:00 Intake & Output 04/14/20 04/15/20 04/15/20 18:59 06:59 18:59 Intake Total 330 240 Output Total 1115 1350 525 Balance -785 -1110 -525 Weight 72.7 kg Intake: IV 80 240 Dextrose 5% in Water 1, 80 240 000 ml @ 80 mls/hr IV . [id number] [facility] Rx#:[id number] Intake, IV Titration 250 Amount Dextrose 5% in Water 1, 250 000 ml @ 80 mls/hr IV . [id number] [facility] Rx#:[id number] Output: Urine 1115 1350 525 Other: Voiding Method Indwelling Catheter Indwelling Catheter # Bowel Movements 1 - Labs CBC & Chem 7: 04/14/20 04:24 04/15/20 04:40 Labs: Abnormal Lab Results - Last 24 Hours (Table) 04/14/20 04/14/20 04/14/20 Range/Units 10:17 11:59 14:53 Sodium 124 L 125 L (137-145) mmol/L BUN (7-17) mg/dL Glucose (74-99) mg/dL POC Glucose (mg/dL) 160 H (75-99) mg/dL 04/14/20 04/14/20 04/14/20 Range/Units 16:27 18:41 20:55 Sodium 125 L (137-145) mmol/L BUN (7-17) mg/dL Glucose (74-99) mg/dL POC Glucose (mg/dL) 113 H 201 H (75-99) mg/dL 04/15/20 04/15/20 Range/Units 04:40 07:14 Sodium 129 L (137-145) mmol/L BUN 20 H (7-17) mg/dL Glucose 107 H (74-99) mg/dL POC Glucose (mg/dL) 118 H (75-99) mg/dL Assessment and Plan Plan: Assessment: 1. Hypotonic hyponatremia. Patient initially hypovolemic from vomiting and diarrhea and further worsened with the use of hydrochlorothiazide. Also component of SIADH due to nausea. Sodium level 129 this morning. TSH normal. 2. Benign hypertension. Controlled. 3. Metabolic acidosis secondary to IV fluids and diarrhea. better. maintained on oral sodium bicarbonate. 4. Hypokalemia from poor oral intake and diuretics. better post replacement. 5. Hypomagnesemia from poor intake and GI losses. Improved post placement. Plan: 1200 mL fluid restriction. encouraged oral intake, particularly protein. avoid thiazide diuretics in the future. follow-up outpatient in 1-2 weeks. Repeat BMP and magnesium level 2-3 days postdischarge.
[2020-04-15] MEDS: ALPRAZolam 1 MG TAB PO PRN ×2 (09:48→21:11)
[2020-04-15 11:36] LABS: Glucose,Whole Blood 151 mg/dL (75-99)
--- NOTE | 2020-04-15 13:03 | P.PN ---
Subjective Progress Note Date: 04/15/20 History of Present Illness This is a 69-year-old pleasant female patient of Dr. Helm with a past medical history of breast cancer hypothyroidism, diabetes mellitus, and hypertension. Patient presented to the emergency room with symptoms of weakness, nausea, vomiting and diarrhea for the last 2 days. Patient was given Z-Randy by her primary care physician was tested for covid 19 which was -3 days ago. Due to nasal congestion and sinus pressure along with nasal drainage. Patient denies any recent travel and no one else in her home has been sick she denies any exposure to any one who has been sick. Most of her symptoms related to GI. Patient was found to have sodium of 105. Patient was found in the ICU sitting up in bed able to answer questions continued vomiting. Patient has generalized weakness and is able to answer questions appropriately. 04/13: Patient remains in intensive care unit. Repeat sodium this morning is 116. Patient is currently on 3% saline that is managed by Dr. Montez. Patient is awake and alert but mental status is a little foggy on details. She has had good urine output and Mesa catheter is in place. Other lab work reveals WBC 13.1, hemoglobin 12. Potassium 3.4 and has been replaced, chloride 83, CO2 17, BUN 5 and creatinine 0.75. Blood sugar 103. Patient has been afebrile, heart rate 56, blood pressure 149/65 and pulse ox 90% on room air. 04/14: Patient remains in the intensive care unit and sodium today is at 120. She is currently off all IV fluids. She is on oral sodium bicarb. Patient has had good urine output and Mesa catheter remains in place. Mental status seems to be improved today. Dr. Montez is planning to hold off on fluids, 1200, fluid restriction, encourage oral intake, particular protein and increase oral sodium bicarb. Patient is scheduled for repeat sodium level at 10 AM which came back at 124. Anticipate the patient will require another 24 hours in the intensive care unit. 04/15: The patient remains in the intensive care unit but will be transferred out to [facility] today. She has been cleared for discharge by Dr. Montez. Sodium level this morning is at 129. She is off IV fluids. Mesa catheter to be removed. Patient's still feels her head is foggy. Other lab work reveals potassium 4.1 and creatinine 0.98. Blood sugars are running between 107 and 201. Patient has been afebrile, heart rate 52, blood pressure 116/53, pulse ox 95% on room air. Discussed discharge planning with the patient and she has declined home care. Encourage patient to think about home care or subacute rehab. Review Of Systems Constitutional: No fever, no chills, no night sweats. No weight change. Report weakness and fatigue . No daytime sleepiness. EENT: No headache. No blurred vision or double vision, no loss of vision. No loss of Hearing, no ringing in the ears, no dizziness. No nasal drainage or congestion. No epistaxis. No sore throat. Lungs: No shortness of breath, cough, no sputum production. No wheezing. Cardiovascular: No chest pain, no lower extremity edema. No palpitations. No paroxysmal nocturnal dyspnea. No orthopnea. No lightheadedness or dizziness. No syncopal episodes. Abdominal: Reports abdominal discomfort. Denies nausea and vomiting. Reports diarrhea. No constipation. No bloody or tarry stools. no loss of appetite. Genitourinary: No dysuria, increased frequency, urgency. No urinary retention. Musculoskeletal: No myalgias. Reports muscle weakness, no gait dysfunction, no frequent falls. No back pain. No neck pain. Integumentary: No wounds, no lesions. No rash or pruritus. No unusual bruising. No change in hair or nails. Neurologic: No aphasia. No facial droop. No change in mentation. No head injury. No headache. No paralysis. No paresthesia. Psychiatric: No depression. No anxiety. No mood swings. Endocrine: No abnormal blood sugars. No weight change. No excessive sweating or thirst. Physical exam General Appearance: Alert, cooperative, no distress, 69-year-old appears stated age. Neck HEENT: Supple, no lymphadenopathy, no thyroid enlargement, no carotid bruit s. Lungs: Clear to auscultation without crackles or wheezes no rhonchi, no deformity. Chest Wall: Chest wall normal expansion with deep inspiration no tenderness and no deformity was found on exam, no costochondral pain or discomfort. Heart: Regular rate and rhythm, S1, S2 normal, systolic murmur, rub or gallop. Back: Symmetric, no curvature, ROM normal, no CVA tenderness. Abdomen: Soft, non-tender, no rebound or rigidity, no hepatosplenomegaly. Mesa catheter draining clear usha urine. Extremities: Extremities normal, atraumatic, no cyanosis or edema. Pulses: 2+ and symmetric. Skin: Skin color, texture, tugor normal, no rashes or lesions. Neurologic: Alert oriented x3 cranial nerves II through XII intact, no motor deficit, no abnormal balance or gait Assessment/plan 1. Acute hypovolemic hypoosmolar hyponatremia secondary to a combination of vomiting and diarrhea, use of hydrochlorothiazide, component of SIADH due to nausea. Patient is off all IV fluids. Nephrology consult appreciated. Mesa catheter to be discontinued. 2. Intractable nausea and vomiting, resolved. 3. Metabolic encephalopathy secondary to hyponatremia, improving. 4. Diarrhea, resolved. C. difficile colitis ruled out. 5. Hypokalemia. Potassium replacement per protocol 5. Diabetes mellitus 2. Accu-Cheks before meals and at bedtime with sliding scale, metformin 1000 mg twice a day 6. Hypothyroidism. Levothyroxine 75 MCG's daily until able to tolerate by mouth medication 7. Hyperlipidemia. Lipitor 20 mg every morning 8. Hypertension. Procardia, Bystolic 20 mg every morning 9. Sleep disturbance. Melatonin 10 mg daily at bedtime 7. History of breast cancer 8. GI prophylaxis. Protonix 40 mg 9. DVT prophylaxis. Pneumatic compression stockings CODE STATUS: Full code Discharge plan: Home with home care or subacute rehab tomorrow. Impression and plan of care have been directed as dictated by the signing physician. Brie Rhodes nurse practitioner acting as scribe for signing physician. Objective - Vital Signs Vital signs: Vital Signs Temp 97.8 F 04/15/20 04:00 Pulse 52 L 04/15/20 06:00 Resp 17 04/15/20 06:00 BP 116/53 04/15/20 06:00 Pulse Ox 95 04/15/20 06:00 Intake & Output 04/14/20 04/15/20 04/15/20 18:59 06:59 18:59 Intake Total 330 240 Output Total 3050 8818 525 Balance -785 -1110 -525 Weight 72.7 kg Intake: IV 80 240 Dextrose 5% in Water 1, 80 240 000 ml @ 80 mls/hr IV . [id number] [facility] Rx#:[id number] Intake, IV Titration 250 Amount Dextrose 5% in Water 1, 250 000 ml @ 80 mls/hr IV . [id number] [facility] Rx#:[id number] Output: Urine 1115 1350 525 Other: Voiding Method Indwelling Catheter Indwelling Catheter # Bowel Movements 1 - Labs CBC & Chem 7: 04/14/20 04:24 04/15/20 04:40 Labs: Abnormal Lab Results - Last 24 Hours (Table) 04/14/20 04/14/20 04/14/20 Range/Units 10:17 11:59 14:53 Sodium 124 L 125 L (137-145) mmol/L BUN (7-17) mg/dL Glucose (74-99) mg/dL POC Glucose (mg/dL) 160 H (75-99) mg/dL 04/14/20 04/14/20 04/14/20 Range/Units 16:27 18:41 20:55 Sodium 125 L (137-145) mmol/L BUN (7-17) mg/dL Glucose (74-99) mg/dL POC Glucose (mg/dL) 113 H 201 H (75-99) mg/dL 04/15/20 04/15/20 Range/Units 04:40 07:14 Sodium 129 L (137-145) mmol/L BUN 20 H (7-17) mg/dL Glucose 107 H (74-99) mg/dL POC Glucose (mg/dL) 118 H (75-99) mg/dL
--- NOTE | 2020-04-15 13:16 | P.PN ---
Subjective Progress Note Date: 04/15/20 Principal diagnosis: Hyponatremia, weakness This is a 69-year-old female admitted yesterday with severe hyponatremia. Patient presented to the ER with mostly symptoms of weakness, nausea, vomiting, and diarrhea for the last 2 days. Patient states that her primary care physici an tested her for grayson virus about 3 days ago, and the results are pending. Patient was placed on Z-Randy, mostly because of her symptoms of nasal congestion, pressure over her sinuses, and some nasal drainage. She had no cough, no shortness of breath, no fever, no chills, no hemoptysis. She had mostly GI symptoms. Patient denies any exposure to any sick contacts and she denies any recent travel. At any rate the patient was evaluated in the ER, and she was noted to have a sodium of 105. She was also noted to have a significant anion gap metabolic acidosis, normal renal functioning, she had low serum osmolality of 221. And clearly she had a picture of hypovolemic hyponatremia. Considering her diarrhea patient is now being tested for C. difficile colitis, and she was noted to have WBC count of 20.7. Urine osmolality was 425. Patient was given 1 L 0.9 normal saline bolus, she was placed on 3% saline at 25 mL per hour and today after I evaluated the patient, I recommended another liter of D5 45 bolus to be given. Her sodium is up from 105-2107 this morning. Patient feels gene rally weak, and she continues to have intermittent episodes of nausea, but no vomiting. And no diarrhea since she has been in the ICU. On 04/13/2020 patient seen in follow-up in the intensive care unit, she is awake and alert, in no acute distress, this morning her sodium is 112 from 4:00 this morning, she continues on 3% saline at a rate of 25 ML per hour. Her sodium is being checked every 4 hours, nephrology is following, she denies any acute distress, no nausea or vomiting, no abdominal pain, no shortness of breath, no seizure activity, Follow-up sodium is 116. Patient is answering questions appropriately, blood slight slowing of recollection of events that brought her to the hospital. She is afebrile, blood pressure stable, she is on room air with a pulse ox of 97%. She is in sinus mechanism with a rate of 52 BPM. Lung sounds reveal bilateral crackles at the bases. No rhonchi, no wheezing, no complaint of chest pain. Prominent systolic murmur auscultated across the precordium loudest over the aortic valve. Patient has known history of aortic valve stenosis. She is tolerating her diet. On 04/14/2020 patient seen in follow-up in the intensive care unit, she is awake and alert, in no acute distress, she is resting comfortably in bed. Permanent pulse ox is 95%, hemodynamically she stable, she is in sinus bradycardia with a rate of 41-51. TSH was within normal limits, she has been afebrile. Patient reports some hallucinations last night, no hallucinations this morning, however patient's mentation seems to be a bit disorganized, with some difficulty in comprehension of instructions, repeating some of the information. Currently not on any IV infusions, her serum sodium today is 120. One episode of diarrhea yesterday, no further diarrhea overnight, no nausea or vomiting, nephrology is following, renal profile is within normal limits today with BUN 15 creatinine 0.93. She remains on fluid restriction. Hydrochlorothiazide on hold On 04/15/2020 patient seen in follow-up in intensive care unit. Diarrhea has subsided, only one episode last 24 hours, today serum sodium is up to 129, hemodynamically patient is stable, no nausea or vomiting, she is tolerating oral intake, no shortness of breath, room air pulse ox is 96%, afebrile, no acute events overnight. Hydrochlorothiazide remains on hold, today's labs have been reviewed, showing BUN 20, creatinine 0.98 Objective - Vital Signs Vital signs: Vital Signs Temp 98.5 F 04/15/20 09:00 Pulse 54 L 04/15/20 10:00 Resp 13 04/15/20 10:00 BP 120/85 04/15/20 09:00 Pulse Ox 96 04/15/20 09:00 Intake & Output 04/14/20 04/15/20 04/15/20 18:59 06:59 18:59 Intake Total 330 240 240 Output Total 1115 1000 525 Balance -785 -1110 -285 Weight 72.7 kg Intake: IV 80 240 Dextrose 5% in Water 1, 80 240 000 ml @ 80 mls/hr IV . [id number] [facility] Rx#:[id number] Intake, IV Titration 250 Amount Dextrose 5% in Water 1, 250 000 ml @ 80 mls/hr IV . [id number] [facility] Rx#:[id number] Oral 240 Output: Urine 1115 1350 525 Other: Voiding Method Indwelling Catheter Indwelling Catheter Indwelling Catheter # Voids 1 # Bowel Movements 1 1 - Exam GENERAL EXAM: Alert, 69-year-old white female, on room air, with a pulse ox of 95%, resting comfortably in bed, slightly disorganized thought process, inattention, requiring repeating of certain information otherwise answering questions appropriately, comfortable in no apparent distress. HEAD: Normocephalic/atraumatic. EYES: Normal reaction of pupils, equal size. Conjunctiva pink, sclera white. NOSE: Clear with pink turbinates. THROAT: No erythema or exudates. NECK: No masses, no JVD, no thyroid enlargement, no adenopathy. CHEST: No chest wall deformity. Symmetrical expansion. LUNGS: Equal air entry with no crackles, wheeze, rhonchi or dullness. CVS: Regular rate and rhythm, normal S1 and S2, no gallops, no rub. Systolic murmur auscultated across the precordium loudest over the aortic valve area ABDOMEN: Soft, nontender. No hepatosplenomegaly, normal bowel sounds, no guarding or rigidity. EXTREMITIES: No clubbing, no edema, no cyanosis, 2+ pulses and upper and lower extremities. MUSCULOSKELETAL: Muscle strength and tone normal. SPINE: No scoliosis or deformity SKIN: No rashes CENTRAL NERVOUS SYSTEM: Alert and oriented -3. No focal deficits, tone is normal in all 4 extremities. PSYCHIATRIC: Alert and oriented -3. Appropriate affect. Intact judgment and insight. - Labs CBC & Chem 7: 04/14/20 04:24 04/15/20 04:40 Labs: Abnormal Lab Results - Last 24 Hours (Table) 04/14/20 04/14/20 04/14/20 Range/Units 14:53 16:27 18:41 Sodium 125 L 125 L (137-145) mmol/L BUN (7-17) mg/dL Glucose (74-99) mg/dL POC Glucose (mg/dL) 113 H (75-99) mg/dL 04/14/20 04/15/20 04/15/20 Range/Units 20:55 04:40 07:14 Sodium 129 L (137-145) mmol/L BUN 20 H (7-17) mg/dL Glucose 107 H (74-99) mg/dL POC Glucose (mg/dL) 201 H 118 H (75-99) mg/dL 04/15/20 Range/Units 11:34 Sodium (137-145) mmol/L BUN (7-17) mg/dL Glucose (74-99) mg/dL POC Glucose (mg/dL) 151 H (75-99) mg/dL Assessment and Plan Plan: Assessment: #1. Acute hypovolemic hypoosmolar hyponatremia likely related to fluid losses secondary to nausea, vomiting and diarrhea. Patient continues on 3% hypertonic saline at this time, nephrology is following On 04/14/2020 patient seen in follow-up, serum sodium is 120, no nausea vomiting or diarrhea today, hypertonic saline has been discontinued. #2. Recent upper respiratory infection, COVID 19 was reportedly ruled out #3. Diarrhea, rule out C. diff colitis #4. History of benign essential hypertension #5. History of breast cancer in the right breast Agnus in 2015, treated with chemotherapy, lumpectomy, and followed with chemotherapy. Patient had bilateral breast reduction following the right breast lumpectomy #6. History of aortic valve stenosis, patient is under the care of Dr. Ramírez #7. History of type 2 diabetes Plan: Patient is doing well, no acute events overnight, serum sodium is 129, remains on fluid restriction, diarrhea has subsided, vital signs have remained stable, no specific complaints, and discontinue Mesa catheter, increase activity as tolerated, patient has been an overflow from medical surgical floor without telemetry. Nephrology has cleared the patient for discharge home today, increase activity as tolerated, transfer to regular medical surgical floor, p ossible discharge home today or tomorrow I performed a history & physical examination of the patient and discussed their management with my nurse practitioner, Alba Mahmood. I reviewed the nurse gerald arredondo's note and agree with the documented findings and plan of care. Lung sounds are positive for diminished breath sounds. The findings and the impression was discussed with the patient. I attest to the documentation by the nurse practitioner. Time with Patient: Less than 30
[2020-04-15 14:09] VITALS: BMI 26.6
[2020-04-15 16:57] LABS: Glucose,Whole Blood 141 mg/dL (75-99)
[2020-04-15] MEDS: lisinopriL 10 MG TAB PO SCH (17:53)
[2020-04-15 20:54] LABS: Glucose,Whole Blood 142 mg/dL (75-99)
[2020-04-15] MEDS: MELATONIN 5 MG TABLET PO SCH (21:10)
[2020-04-15] MEDS: ATORVASTATIN 20 MG TAB PO SCH (21:10)
[2020-04-15] MEDS: NEBIVOLOL 5 MG TAB PO SCH (21:11)
[2020-04-16] MEDS ORDERED: LEVOTHYROXINE 75 MCG TAB PO SCH (06:30)
[2020-04-16] MEDS ORDERED: PANTOPRAZOLE 40 MG TABLET PO SCH (07:30)
[2020-04-16 07:33] LABS: Albumin 4.1 g/dL (3.5-5.0); Calcium 9.5 mg/dL (8.4-10.2); Potassium 4.6 mmol/L (3.5-5.1); Total Bilirubin 0.4 mg/dL (0.2-1.3); Total Protein 6.5 g/dL (6.3-8.2)
[2020-04-16 07:41] LABS: Glucose,Whole Blood 136 mg/dL (75-99)
[2020-04-16 08:28] VITALS: BP 123/57; PULSE 62; RESP 18; TEMP 98.2
--- NOTE | 2020-04-16 08:29 | P.DS ---
Providers Date of admission: 04/12/20 02:12 Expected date of discharge: 04/16/20 Attending physician: Navya Magaña Consults: 04/12/20 02:11 Consult Physician Urgent Consulting Provider: Pao Ordoñez Consult Reason/Comments: hyponatremia Do you want consulting provider notified?: Yes, Notify in am 04/12/20 02:12 Consult Physician Stat Consulting Provider: Edward López Consult Reason/Comments: ICU Do you want consulting provider notified?: Already Contacted [facility]: History of Present Illness This is a 69-year-old pleasant female patient of Dr. Helm with a past medical history of breast cancer hypothyroidism, diabetes mellitus, and hypertension. Patient presented to the emergency room with symptoms of weakness, nausea, vomiting and diarrhea for the last 2 days. Patient was given Z-Randy by her primary care physician was tested for covid 19 which was -3 days ago. Due to nasal congestion and sinus pressure along with nasal drainage. Patient denies any recent travel and no one else in her home has been sick she denies any exposure to any one who has been sick. Most of her symptoms related to GI. Patient was found to have sodium of 105. Patient was found in the ICU sitting up in bed able to answer questions continued vomiting. Patient has generalized weakness and is able to answer questions appropriately. 04/13: Patient remains in intensive care unit. Repeat sodium this morning is 116. Patient is currently on 3% saline that is managed by Dr. Montez. Patient is awake and alert but mental status is a little foggy on details. She has had good urine output and Mesa catheter is in place. Other lab work reveals WBC 13.1, hemoglobin 12. Potassium 3.4 and has been replaced, chloride 83, CO2 17, BUN 5 and creatinine 0.75. Blood sugar 103. Patient has been afebrile, heart rate 56, blood pressure 149/65 and pulse ox 90% on room air. 04/14: Patient remains in the intensive care unit and sodium today is at 120. She is currently off all IV fluids. She is on oral sodium bicarb. Patient has had good urine output and Mesa catheter remains in place. Mental status seems to be improved today. Dr. Montez is planning to hold off on fluids, 1200, fluid restriction, encourage oral intake, particular protein and increase oral sodium bicarb. Patient is scheduled for repeat sodium level at 10 AM which came back at 124. Anticipate the patient will require another 24 hours in the intensive care unit. 04/15: The patient remains in the intensive care unit but will be transferred out to [facility] today. She has been cleared for discharge by Dr. Montez. Sodium level this morning is at 129. She is off IV fluids. Mesa catheter to be removed. Patient's still feels her head is foggy. Other lab work reveals potassium 4.1 and creatinine 0.98. Blood sugars are running between 107 and 201. Patient has been afebrile, heart rate 52, blood pressure 116/53, pulse ox 95% on room air. Discussed discharge planning with the patient and she has declined home care. Encourage patient to think about home care or subacute rehab. 04/16: Repeat sodium is 133. Patient has not had any vomiting or diarrhea. Patient has been seen by Dr. Montez and cleared for discharge home today. Patient's been set up for BMP and magnesium on Sunday with results going to Dr. Montez and Dr. Helm. Patient will be discharged home today in stable condition. Assessment/plan 1. Acute hypovolemic hypoosmolar hyponatremia secondary to a combination of vomiting and diarrhea, use of hydrochlorothiazide, component of SIADH due to nausea. 2. Intractable nausea and vomiting, resolved. 3. Metabolic encephalopathy secondary to hyponatremia, improving. 4. Diarrhea, resolved. C. difficile colitis ruled out. 5. Hypokalemia. 5. Diabetes mellitus 2. 6. Hypothyroidism. 7. Hyperlipidemia. 8. Hypertension. 9. Sleep disturbance. 7. History of breast cancer Discharge plan: Home Impression and plan of care have been directed as dictated by the signing physician. Brie Rhodes nurse practitioner acting as scribe for signing physician. Patient Condition at Discharge: Good Plan - Discharge Summary Discharge Rx Participant: No New Discharge Prescriptions: New NIFEdipine XL [Procardia XL] 30 mg PO DAILY #30 tab.er.24 Sodium Bicarbonate Tab 1,300 mg PO BID tab Continue Nebivolol HCl [Bystolic] 20 mg PO HS metFORMIN HCL 1,000 mg PO BID Levothyroxine Sodium [Synthroid] 75 mcg PO DAILY ALPRAZolam [Xanax] 1 mg PO TID PRN PRN Reason: Anxiety Simvastatin 40 mg PO HS Melatonin 10 mg PO HS PRN PRN Reason: SLEEP Discontinued lisinopriL [Zestril] 10 mg PO DAILY hydroCHLOROthiazide [Hydrodiuril] 25 mg PO DAILY Zolpidem Tartrate [Ambien] 10 mg PO HS PRN PRN Reason: Insomnia Azithromycin [Zithromax Z-pack] See Taper PO DIRECTED Discharge Medication List ALPRAZolam [Xanax] 1 mg PO TID PRN 04/12/20 [History] Levothyroxine Sodium [Synthroid] 75 mcg PO DAILY 04/12/20 [History] Melatonin 10 mg PO HS PRN 04/12/20 [History] Nebivolol HCl [Bystolic] 20 mg PO HS 04/12/20 [History] Simvastatin 40 mg PO HS 04/12/20 [History] metFORMIN HCL 1,000 mg PO BID 04/12/20 [History] NIFEdipine XL [Procardia XL] 30 mg PO DAILY #30 tab.er.24 04/16/20 [Rx] Sodium Bicarbonate Tab 1,300 mg PO BID tab 04/16/20 [Rx] Follow up Appointment(s)/Referral(s): Jose Helm DO [Primary Care Provider] - 04/19/20 2:00 pm Ric Montez DO [STAFF PHYSICIAN] - 05/17/20 11:00 am Ambulatory/Diagnostic Orders: Basic Metabolic Panel [LAB.AMB] Location: None Selected Magnesium [LAB.AMB] Location: None Selected Activity/Diet/Wound Care/Special Instructions: BMP and Magnesium on Sunday and next week, then weekly for 6 weeks. Fluid restriction 1200ml daily Discharge Disposition: HOME SELF-CARE
[2020-04-16] MEDS: metFORMIN 500 MG TAB PO SCH (08:31)
[2020-04-16] MEDS: NIFEdipine XL 30 MG TAB.ER.24 PO SCH (08:31)
[2020-04-16] MEDS: SODIUM BICARBONATE TAB 650 MG TAB PO SCH (08:32)
[2020-04-16] MEDS: INSULIN ASPART (NovoLOG) 100 UNIT/ML VIAL SQ SCH (08:33)
--- NOTE | 2020-04-16 10:27 | P.PN ---
Subjective Patient is seen in follow-up for hyponatremia. Sodium level 133 this morning. currently off all IV fluids. Patient is awake and alert. No edema. Good urine output. oral intake gradually improving. No nausea or vomiting this morning. bp stable. no active complaints at this time. Vital signs are stable. General: The patient appeared well nourished and normally developed. HEENT: Head exam is unremarkable. Neck is without jugular venous distension. LUNGS: Lungs are clear to auscultation and percussion. Breath sounds decreased. HEART: Rate and Rhythm are regular. ABDOMEN: Soft, nontender. EXTREMITITES: No clubbing, cyanosis, or edema. Objective - Vital Signs Vital signs: Vital Signs Temp 98.2 F 04/16/20 07:00 Pulse 62 04/16/20 07:00 Resp 18 04/16/20 07:00 BP 123/57 04/16/20 07:00 Pulse Ox 98 04/16/20 07:00 Intake & Output 04/15/20 04/16/20 04/16/20 18:59 06:59 18:59 Intake Total 720 Output Total 525 Balance 195 Weight 72.7 kg Intake: Oral 720 Output: Urine 525 Other: Voiding Method Indwelling Catheter Toilet # Voids 2 1 # Bowel Movements 1 - Labs CBC & Chem 7: 04/14/20 04:24 04/16/20 06:47 Labs: Abnormal Lab Results - Last 24 Hours (Table) 04/15/20 04/15/20 04/15/20 Range/Units 11:34 16:31 20:50 Sodium (137-145) mmol/L BUN (7-17) mg/dL Creatinine (0.52-1.04) mg/dL Glucose (74-99) mg/dL POC Glucose (mg/dL) 151 H 141 H 142 H (75-99) mg/dL 04/16/20 04/16/20 Range/Units 06:47 07:39 Sodium 133 L (137-145) mmol/L BUN 33 H (7-17) mg/dL Creatinine 1.08 H (0.52-1.04) mg/dL Glucose 124 H (74-99) mg/dL POC Glucose (mg/dL) 136 H (75-99) mg/dL Assessment and Plan Plan: Assessment: 1. Hypotonic hyponatremia. Patient initially hypovolemic from vomiting and diarrhea and further worsened with the use of hydrochlorothiazide. Also component of SIADH due to nausea. Sodium level 133 this morning. TSH normal. 2. Benign hypertension. Controlled. 3. Metabolic acidosis secondary to IV fluids and diarrhea. better. maintained on oral sodium bicarbonate. 4. Hypokalemia from poor oral intake and diuretics. better post replacement. 5. Hypomagnesemia from poor intake and GI losses. Improved post placement. Plan: 1200 mL fluid restriction. encouraged oral intake, particularly protein. avoid thiazide diuretics in the future. follow-up outpatient in 1-2 weeks. Repeat BMP and magnesium level 2-3 days postdischarge. stable for discharge from nephrology standpoint.
--- NOTE | 2020-04-16 11:00 | P.PN ---
Subjective Progress Note Date: 04/16/20 Principal diagnosis: Hyponatremia, weakness This is a 69-year-old female admitted yesterday with severe hyponatremia. Patient presented to the ER with mostly symptoms of weakness, nausea, vomiting, and diarrhea for the last 2 days. Patient states that her primary care physici an tested her for grayson virus about 3 days ago, and the results are pending. Patient was placed on Z-Randy, mostly because of her symptoms of nasal congestion, pressure over her sinuses, and some nasal drainage. She had no cough, no shortness of breath, no fever, no chills, no hemoptysis. She had mostly GI symptoms. Patient denies any exposure to any sick contacts and she denies any recent travel. At any rate the patient was evaluated in the ER, and she was noted to have a sodium of 105. She was also noted to have a significant anion gap metabolic acidosis, normal renal functioning, she had low serum osmolality of 221. And clearly she had a picture of hypovolemic hyponatremia. Considering her diarrhea patient is now being tested for C. difficile colitis, and she was noted to have WBC count of 20.7. Urine osmolality was 425. Patient was given 1 L 0.9 normal saline bolus, she was placed on 3% saline at 25 mL per hour and today after I evaluated the patient, I recommended another liter of D5 45 bolus to be given. Her sodium is up from 105-2107 this morning. Patient feels gene rally weak, and she continues to have intermittent episodes of nausea, but no vomiting. And no diarrhea since she has been in the ICU. On 04/13/2020 patient seen in follow-up in the intensive care unit, she is awake and alert, in no acute distress, this morning her sodium is 112 from 4:00 this morning, she continues on 3% saline at a rate of 25 ML per hour. Her sodium is being checked every 4 hours, nephrology is following, she denies any acute distress, no nausea or vomiting, no abdominal pain, no shortness of breath, no seizure activity, Follow-up sodium is 116. Patient is answering questions appropriately, blood slight slowing of recollection of events that brought her to the hospital. She is afebrile, blood pressure stable, she is on room air with a pulse ox of 97%. She is in sinus mechanism with a rate of 52 BPM. Lung sounds reveal bilateral crackles at the bases. No rhonchi, no wheezing, no complaint of chest pain. Prominent systolic murmur auscultated across the precordium loudest over the aortic valve. Patient has known history of aortic valve stenosis. She is tolerating her diet. On 04/14/2020 patient seen in follow-up in the intensive care unit, she is awake and alert, in no acute distress, she is resting comfortably in bed. Permanent pulse ox is 95%, hemodynamically she stable, she is in sinus bradycardia with a rate of 41-51. TSH was within normal limits, she has been afebrile. Patient reports some hallucinations last night, no hallucinations this morning, however patient's mentation seems to be a bit disorganized, with some difficulty in comprehension of instructions, repeating some of the information. Currently not on any IV infusions, her serum sodium today is 120. One episode of diarrhea yesterday, no further diarrhea overnight, no nausea or vomiting, nephrology is following, renal profile is within normal limits today with BUN 15 creatinine 0.93. She remains on fluid restriction. Hydrochlorothiazide on hold On 04/15/2020 patient seen in follow-up in intensive care unit. Diarrhea has subsided, only one episode last 24 hours, today serum sodium is up to 129, hemodynamically patient is stable, no nausea or vomiting, she is tolerating oral intake, no shortness of breath, room air pulse ox is 96%, afebrile, no acute events overnight. Hydrochlorothiazide remains on hold, today's labs have been reviewed, showing BUN 20, creatinine 0.98. On 04/16/2020 patient seen in follow-up on a general medical surgical floor, she is awake and alert, oriented 3, still have some short-term memory loss, slightly foggy, patient keeps asking same questions over and over. But no acute distress, vital signs have been stable overnight, today's sodium is 133, only one episode of diarrhea in the last 24 hours, tolerating oral diet, no abdominal pain, no shortness of breath or chest pain. IV fluids have been hep-locked. Room air pulse ox of 98% Objective - Vital Signs Vital signs: Vital Signs Temp 98.2 F 04/16/20 07:00 Pulse 62 04/16/20 07:00 Resp 18 04/16/20 07:00 BP 123/57 04/16/20 07:00 Pulse Ox 98 04/16/20 07:00 Intake & Output 04/15/20 04/16/20 04/16/20 18:59 06:59 18:59 Intake Total 720 Output Total 525 Balance 195 Weight 72.7 kg Intake: Oral 720 Output: Urine 525 Other: Voiding Method Indwelling Catheter Toilet # Voids 2 1 # Bowel Movements 1 - Exam GENERAL EXAM: Alert, 69-year-old white female, on room air, with a pulse ox of 98%, sitting up in a chair, in no acute distress, requiring repeating of certain information otherwise answering questions appropriately, comfortable in no apparent distress. HEAD: Normocephalic/atraumatic. EYES: Normal reaction of pupils, equal size. Conjunctiva pink, sclera white. NOSE: Clear with pink turbinates. THROAT: No erythema or exudates. NECK: No masses, no JVD, no thyroid enlargement, no adenopathy. CHEST: No chest wall deformity. Symmetrical expansion. LUNGS: Equal air entry with no crackles, wheeze, rhonchi or dullness. CVS: Regular rate and rhythm, normal S1 and S2, no gallops, no rub. Systolic murmur auscultated across the precordium loudest over the aortic valve area ABDOMEN: Soft, nontender. No hepatosplenomegaly, normal bowel sounds, no guarding or rigidity. EXTREMITIES: No clubbing, no edema, no cyanosis, 2+ pulses and upper and lower extremities. MUSCULOSKELETAL: Muscle strength and tone normal. SPINE: No scoliosis or deformity SKIN: No rashes CENTRAL NERVOUS SYSTEM: Alert and oriented -3. No focal deficits, tone is normal in all 4 extremities. PSYCHIATRIC: Alert and oriented -3. Appropriate affect. Intact judgment and insight. - Labs CBC & Chem 7: 04/14/20 04:24 04/16/20 06:47 Labs: Abnormal Lab Results - Last 24 Hours (Table) 04/15/20 04/15/20 04/15/20 Range/Units 11:34 16:31 20:50 Sodium (137-145) mmol/L BUN (7-17) mg/dL Creatinine (0.52-1.04) mg/dL Glucose (74-99) mg/dL POC Glucose (mg/dL) 151 H 141 H 142 H (75-99) mg/dL 04/16/20 04/16/20 Range/Units 06:47 07:39 Sodium 133 L (137-145) mmol/L BUN 33 H (7-17) mg/dL Creatinine 1.08 H (0.52-1.04) mg/dL Glucose 124 H (74-99) mg/dL POC Glucose (mg/dL) 136 H (75-99) mg/dL Assessment and Plan Plan: Assessment: #1. Acute hypovolemic hypoosmolar hyponatremia likely related to fluid losses secondary to nausea, vomiting and diarrhea. Patient continues on 3% hypertonic saline at this time, nephrology is following On 04/14/2020 patient seen in follow-up, serum sodium is 120, no nausea vomiting or diarrhea today, hypertonic saline has been discontinued. #2. Recent upper respiratory infection, COVID 19 was reportedly ruled out #3. Diarrhea, rule out C. diff colitis #4. History of benign essential hypertension #5. History of breast cancer in the right breast in 2015, treated with chemotherapy, lumpectomy, and followed with chemotherapy. Patient had bilateral breast reduction following the right breast lumpectomy #6. History of aortic valve stenosis, patient is under the care of Dr. Ramírez #7. History of type 2 diabetes Plan: Patient is doing well, no acute events overnight, today sodium is 133, no nausea or vomiting, diarrhea has significantly subsided. IV fluids have been hep- locked, hydrochlorothiazide remains on hold. No shortness of breath, patient is stable for discharge home today. I performed a history & physical examination of the patient and discussed their management with my nurse practitioner, Alba Mahmood. I reviewed the nurse practitioner's note and agree with the documented findings and plan of care. Lung sounds are positive for diminished breath sounds. The findings and the impression was discussed with the patient. I attest to the documentation by the nurse practitioner. Time with Patient: Less than 30
== END 2020-04-16 12:20 | disposition home or self-care (01) | DRG 643 ==
LOC: EC 21:31 → 2SICU 04-12 02:12 → 4SSUR 04-15 12:03
PROVIDERS: ADMIT Family Medicine; ATTEND Family Medicine
DX: E22.2 Syndrome of inappropriate secretion of antidiuretic hormone (principal); G93.41 Metabolic encephalopathy; E87.2 Acidosis; R44.3 Hallucinations, unspecified; E03.9 Hypothyroidism, unspecified; E11.9 Type 2 diabetes mellitus without complications; E78.5 Hyperlipidemia, unspecified; E83.42 Hypomagnesemia; E86.0 Dehydration; E86.1 Hypovolemia; E87.6 Hypokalemia; F41.9 Anxiety disorder, unspecified; I10 Essential (primary) hypertension; I35.0 Nonrheumatic aortic (valve) stenosis; T50.2X5A Adverse effect of carbonic-anhydrase inhibitors, benzothiadiazides and other diuretics, initial encounter; T50.995A Adverse effect of other drugs, medicaments and biological substances, initial encounter; R11.2 Nausea with vomiting, unspecified; R19.7 Diarrhea, unspecified; G47.9 Sleep disorder, unspecified; Z79.84 Long term (current) use of oral hypoglycemic drugs; Z79.890 Hormone replacement therapy; Z79.899 Other long term (current) drug therapy; Z85.3 Personal history of malignant neoplasm of breast; Z87.891 Personal history of nicotine dependence; Z92.21 Personal history of antineoplastic chemotherapy; Z98.890 Other specified postprocedural states
CPT/HCPCS: 36415; 51702; 51798; 74018; 74177; 80048; 80053; 81001; 83036; 83690; 83735; 83930; 83935; 84132; 84295; 84300; 84443; 84540; 84550; 85025; 87324; 96361; 96365; 96375; 99285

== ENCOUNTER → 2020-05-24 | Outpatient (CLI) | payer MEDICARE ==
--- NOTE | 2020-05-24 11:32 | MR ---
MR brain without contrast HISTORY: Z 86.73, I 72.0, weakness and TIA Multiplanar multisequence imaging through the brain Correlation to CT brain 01/23/2020, prior MR brain 11/11/2009 There is no restricted diffusion. No significant interval change in scattered white matter hyperinten sities on inversion recovery T2-weighted sequences. There is no hemorrhage or hydrocephalus. Cortical atrophy is again noted. The orbits show symmetric appearance. The corpus callosum, pituitary, cervic al medullary junction, cerebellopontine angles are within normal limits. There are normal vascular fl ow voids. IMPRESSION: Stable exam. No acute abnormality. Nonspecific white matter demyelination and age-related atrophy.
--- NOTE | 2020-05-24 15:06 | MR ---
EXAMINATION TYPE: MR angio head wo MR angio neck wo/w con DATE OF EXAM: 05/24/2020 COMPARISON: NONE HISTORY: 69-year-old female Z86.73, I72.0, carotid stenosis, rule out supraclavicular aneurysm on the right Technique: High-resolution 3-D [id number] imaging of the [place]. Rotational 3-D reconst ructions generated on a dedicated workstation. Subsequent pre and postcontrast sequences of the neck vasculature utilizing administration of 7 mL IV Gadavist. 3-D reconstructions generated on a dedicated independent workstation. FINDINGS: HEAD: There is a moderate, approximately 60% stenosis at the junction of the petrous and cavernous segment of the left ICA with subsequent mild fusiform dilatation of 5.1 mm of the proximal cavernous segment left ICA. The vertebral, basilar, and internal carotid arteries are otherwise patent. Anterior posterior circulations are patent. No other aneurysmal change is seen. NECK: There is minimal asymmetric atelectatic change at the bilateral carotid bifurcations without signific ant stenosis. There is retropharyngeal course of the proximal right ICA. The vertebral arteries are codominant. Motion artifact limits assessment of the right vertebral arter y origin. Remaining vertebral arteries are patent throughout their course. Conventional arch vessel branching anatomy. IMPRESSION: HEAD: 1. A moderate, approximately 60% focal stenosis at the junction of the petrous and cavernous segment of the left ICA. Subsequent mild fusiform dilatation of the proximal cavernous segment left ICA up to 5.1 mm. 2. Otherwise, no large vessel intracranial arterial occlusion, significant stenosis, or other aneurys mal change is seen. NECK: 3. Minimal atherosclerotic change at the bilateral carotid bifurcations. No hemodynamically significa nt common or internal carotid artery stenosis on either side. 2. Motion artifact limits assessment of the right vertebral artery origin. The remaining vertebral ar teries are patent throughout their course.
== END | disposition home or self-care (01) ==
LOC: RADMRIMAIN 09:54
PROVIDERS: ATTEND Psychiatry & Neurology Neurology
DX: G37.9 Demyelinating disease of central nervous system, unspecified (principal); G31.1 Senile degeneration of brain, not elsewhere classified; I65.22 Occlusion and stenosis of left carotid artery; Z86.73 Personal history of transient ischemic attack (TIA), and cerebral infarction without residual deficits
CPT/HCPCS: 70544; 70549; 70551; A9585

== ENCOUNTER → 2021-02-19 | Outpatient (CLI) | payer MEDICARE ==
[2021-02-19 12:01] LABS: African American GFR (CKD) >90 (>60 ml/min/1.73 sqM); Anion Gap 10 mmol/L; Blood Urea Nitrogen 13 mg/dL (7-17); Carbon Dioxide 28 mmol/L (22-30); Chloride 105 mmol/L (98-107); Non-African American GFR(CKD) 81 (>60 ml/min/1.73 sqM); Potassium 3.9 mmol/L (3.5-5.1); Sodium 143 mmol/L (137-145)
[2021-02-19 12:08] LABS: HCT 41.2 % (34.0-46.0); HGB 13.4 gm/dL (11.4-16.0); MCHC 32.5 g/dL (31.0-37.0); MCV 92.1 fL (80.0-100.0); Mean Platelet Volume 8.1; Platelet Count 215 k/uL (150-450); RBC 4.48 m/uL (3.80-5.40); RDW 12.5 % (11.5-15.5); WBC 7.9 k/uL (3.8-10.6)
== END | disposition home or self-care (01) ==
LOC: LABPAT 11:13
PROVIDERS: ATTEND Internal Medicine Interventional Cardiology
DX: Z01.812 Encounter for preprocedural laboratory examination (principal); I35.0 Nonrheumatic aortic (valve) stenosis
CPT/HCPCS: 36415; 80051; 82565; 84520; 85027

== ENCOUNTER 2021-02-25 06:44 | Day surgery (SDC) | payer MEDICARE ==
[2021-02-23 12:24] VITALS: BMI 26.6
[~2021-02-25 06:44] MED LIST: ALPRAZolam 0.25 MG TAB PO PRN; NITROGLYCERIN SL TABS 0.4 MG TAB SUBLINGUAL PRN; SODIUM CHLORIDE 0.9% 1,000 ML in EMPTY BAG 1 BAG IV ONE
[2021-02-25] MEDS ORDERED: ASPIRIN 325 MG TAB PO ONE (07:00)
[2021-02-25] MEDS ORDERED: ATORVASTATIN 80 MG TAB PO ONE (07:00)
[2021-02-25] MEDS ORDERED: HEPARIN SODIUM,PORCINE 10,000 UNIT in SODIUM CHLORIDE 0.9% 1,000 ML IRRIGATION PRN (07:00)
[2021-02-25] MEDS ORDERED: HEPARIN SODIUM,PORCINE 2,500 UNIT in SODIUM CHLORIDE 0.9% 250 ML IRRIGATION PRN (07:00)
[2021-02-25] MEDS ORDERED: SODIUM CHLORIDE 0.9% 1,000 ML IV ONE (07:02)
[2021-02-25 07:16] VITALS: TEMP 97.9
[2021-02-25 07:27] LABS: Glucose,Whole Blood 142 mg/dL (75-99)
[2021-02-25] MEDS: ALPRAZolam 0.5 MG TAB PO PRN ×2 (07:36→12:30)
[2021-02-25] MEDS ORDERED: LIDOCAINE 1% INJ 10MG/ML (20 ML MDV) ONE (07:41)
[2021-02-25] MEDS ORDERED: fentaNYL (PF) 50 MCG/ML 2 ML AMP ONE (07:41)
[2021-02-25] MEDS: BENZOCAINE SPRAY 1 CAN MUCOUS MEM ONE ×2 (08:00→08:14)
[2021-02-25] MEDS ORDERED: MIDAZOLAM 2 MG/2 ML VIAL IV ONE ×2 (08:13→09:16)
[2021-02-25] MEDS ORDERED: fentaNYL (PF) 50 MCG/ML 2 ML AMP IV ONE (08:13)
--- NOTE | 2021-02-25 09:01 | ECHOT ---
TRANSESOPHAGEAL ECHOCARDIOGRAM INDICATION: Evaluation of aortic valve. PROCEDURE DETAILS: After explaining the procedure to the patient, its risks and complications, blood pressure, heart rate, O2 saturation was monitored. The throat was sprayed with Cetacaine. She received 50 mcg intravenous fentanyl, 2 mg intravenous Versed. The probe was introduced into the esophagus without difficulty. Images were obtained. Following that, the probe was removed. There was no immediate complication. FINDINGS: Left atrial size is mildly dilated. Left atrial appendage is normal. Left ventricular size and systolic function normal. The aortic valve is a heavily calcified valve. There was a question of fused cusp or bicuspid valve with biplanimetry of the aortic valve area is 0.5 cm2. The mitral valve reveals severe calcification at the tip of the into the mitral valve leaflets. Tricuspid valve is normal. No pericardial effusion was noted. Contrast bubble study revealed no shunting across the interatrial septum. The descending thoracic aorta revealed mild to moderate atherosclerotic changes. Doppler pulse wave and color Doppler obtained revealed moderate mitral with mild aortic regurgitation. There was mild tricuspid regurgitation. The peak gradient across the aortic valve was 63 mmHg with a mean of 42 mmHg. There was no shunting by color Doppler study. CONCLUSION: 1. Mildly dilated left atrium with normal appearance of left atrial appendage. 2. Normal left ventricular size and systolic function. 3. Severe aortic stenosis with a functional bicuspid valve and a valve area of 0.5 cm2 with a mean gradient of 42 mmHg. 4. Calcification anterior mitral valve leaflet tip with moderate mitral regurgitation. 5. Mild tricuspid regurgitation. 6. No shunting across the interatrial septum. 7. No pericardial effusion. MMODL / IJN: [id number] /
[2021-02-25] MEDS ORDERED: IV FLUID CONTINUATION 1,000 ML IV ONE (09:14)
[2021-02-25] MEDS ORDERED: LIDOCAINE 1% INJ 10MG/ML (20 ML MDV) SQ ONE ×2 (09:14→09:15)
[2021-02-25] MEDS ORDERED: IOPAMIDOL-370 125ML BTL INJ ONE (09:38)
[2021-02-25 09:42] LABS: O2 Sat Blood Gas 71.8 %
[2021-02-25 09:44] LABS: O2 Sat Blood Gas 97.4 %
[2021-02-25 09:46] LABS: O2 Sat Blood Gas 66.6 %
[2021-02-25] MEDS ORDERED: RX INFO: IV CONTRAST WAS GIVEN 1 EACH MISC MISCELLANE PRN (09:48)
[2021-02-25] MEDS ORDERED: SODIUM CHLORIDE 0.9% 1,000 ML IV SCH (10:00)
--- NOTE | 2021-02-25 11:05 | CC ---
CARDIAC CATHETERIZATION REPORT Mrs Coats is a 70-year-old female known history of diabetes, hypertension, who has progressive symptoms of fatigue and underwent a recent echocardiogram revealed progression of her aortic stenosis. In view of that, recommendation was made regarding cardiac catheterization. The procedure as well as the risks and the complications were discussed with the patient who is in full understanding and agreement. PROCEDURE: Patient was brought to lab support technician in a fasting semi-sedated state after receiving fentanyl and Benadryl and achieving moderate conscious state. Using Xylocaine anesthesia and Seldinger technique, a 6-Lebanese sheath was introduced in the right femoral artery. An 8-Lebanese sheath in the right femoral vein. Right heart catheterization was performed using [place]-David catheter. Multiple pressure and samples were obtained. Cardiac output by thermodilution was calculated. Following that, selective right and left coronary angiography performed using 6-Lebanese 4 bend right and left Stanton catheter. Multiple views of the coronary artery including hemiaxial views were obtained. Following that, the right Stanton catheter was used to cross the aortic valve and left ventricular end-diastolic pressure as well as simultaneous pressure were obtained. Following that, catheter and sheath were removed. Hemostasis was obtained with compression of the right groin. There was no immediate complications. Patient is returned to her room in stable condition. FINDINGS: HEMODYNAMICS: Right atrial saturation 72%, pulmonary artery saturation is 67%, femoral artery saturation of 97%. Cardiac output by thermodilution 4.7 L/minute and by Avery 6 L/minutes. Peak gradient across the aortic valve of 65 mmHg with a mean of 57 mmHg and an aortic valve area of 0.7 cm2. Pulmonary artery systolic pressure of 22 with a diastolic of 4. Right atrial A-wave of 6, V-wave of 6 with a mean of 2 mmHg, right ventricular systolic pressure of 24 with an end-diastolic of 2. Right atrium A-wave of 2, V-wave 2 with a mean of 2 mmHg. Left ventricular end-diastolic pressure of 12-14 mmHg. CORONARIES: FLUOROSCOPY: There was calcification involving the coronary arteries. SELECTIVE CORONARY ANGIOGRAM: 1. LEFT MAIN: This is a large-sized vessel, trifurcating in the left circumflex, ramus intermedius and left anterior descending artery. Left main coronary artery has no evidence of high-grade stenosis. 2. LEFT ANTERIOR DESCENDING ARTERY: This is a large-sized vessel giving rise to a proximal diagonal branches of moderate caliber. The left anterior descending artery has mild intimal disease of 10 to 20% in the proximal segment without any evidence of high-grade stenosis. 3. RAMUS INTERMEDIUS: This is small size vessel that has no evidence of high-grade stenosis. 4. LEFT CIRCUMFLEX: This is a nondominant vessel giving rise to 3 obtuse marginal branches. The left circumflex has no evidence of high-grade stenosis. 5. RIGHT CORONARY ARTERY: This is a dominant vessel, moderate in caliber, bifurcating in the mid segment to the PDA and posterolateral segment and branches. The right coronary artery proximally has 20% plaque. The rest of the vessel has no high- grade stenosis. LEFT VENTRICULOGRAM: Left ventriculogram was not performed. CONCLUSION: 1. Mild coronary arteries with calcified coronary arteries. 2. Severe aortic stenosis. RECOMMENDATIONS: In view of findings and anatomy, I recommend proceeding with evaluation for aortic valve replacement. Those findings and recommendations were discussed with the patient and her family and they are full understanding and agreement. Duration of sedation is 26 minutes. MMODL / IJN: [id number] /
[2021-02-25 11:39] VITALS: RESP 16
[2021-02-25 14:01] VITALS: BP 121/56; PULSE 57
[2021-02-25] MEDS ORDERED: NON FORMULARY DRUG (Simvastatin [Simvastatin] 40 MG Tablet) PO SCH (21:00)
[2021-02-25] MEDS ORDERED: NEBIVOLOL HCL 20 MG PO SCH (21:00)
[2021-02-26] MEDS ORDERED: ASPIRIN 81 MG PO SCH (09:00)
[2021-02-26] MEDS ORDERED: NIFEdipine XL 30 MG TAB.ER.24 PO SCH (09:00)
== END 2021-02-25 17:01 | disposition home or self-care (01) ==
LOC: CATHCVL 06:44
PROVIDERS: ATTEND Internal Medicine Interventional Cardiology
DX: I70.0 Atherosclerosis of aorta (principal); I08.1 Rheumatic disorders of both mitral and tricuspid valves; E11.51 Type 2 diabetes mellitus with diabetic peripheral angiopathy without gangrene; E78.2 Mixed hyperlipidemia; I10 Essential (primary) hypertension; Z90.89 Acquired absence of other organs; I25.10 Atherosclerotic heart disease of native coronary artery without angina pectoris; E78.00 Pure hypercholesterolemia, unspecified; E89.0 Postprocedural hypothyroidism; Z98.890 Other specified postprocedural states; Z87.891 Personal history of nicotine dependence; Z79.84 Long term (current) use of oral hypoglycemic drugs; Z79.82 Long term (current) use of aspirin; Z79.890 Hormone replacement therapy; Z79.899 Other long term (current) drug therapy
CPT/HCPCS: 93312; 93320; 93325; 93460; 85018; 82810; C1769 ×3; C1894 ×2; J2250; J2001; J3010; Q9967

== ENCOUNTER 2021-09-01 18:36 | Inpatient (IN) | payer MEDICARE ==
[2021-09-01] MEDS ORDERED: SODIUM CHLORIDE 0.9% 500 ML 500 ML IV STA (19:42)
[2021-09-01] MEDS ORDERED: ACETAMINOPHEN TAB 500 MG TAB PO STA (19:43)
--- NOTE | 2021-09-01 19:47 | ED ---
General Adult HPI - General Chief complaint: Headache Stated complaint: body aches, nausea Time Seen by Provider: 09/01/21 19:26 Source: patient, RN notes reviewed Mode of arrival: wheelchair Limitations: no limitations - History of Present Illness Initial comments: This is a pleasant 71-year-old female with a history of cancer, diabetes hollyi tus, hypertension, valvular heart disease. Patient presents to the emergency department today stating that she has not been feeling well for one week. Patient getting generalized fatigue, lightheadedness and dizziness, diarrhea, posterior headache. Patient states the headache is been present for a few days but seemed to get worse yesterday. Patient states that she feels off balance. Patient fully immunized against COVID-19. Patient has also had a booster shot. Patient has a aortic valve replacement in her recent history at [facility] in June. Patient not on blood thinners. no fever or chills, no changes in vision or hearing, no sore throat or difficulty with speech, , no chest pain or shortness of breath, no abdominal pain, nausea without vomiting, no changes in urination or bowel movements, no numbness or tingling, no extremity pain, no skin rashes or lesions. Patient has some neck pain. No stiff neck - Related Data Home Medications Medication Instructions Recorded Confirmed Simvastatin 40 mg PO HS 04/12/20 09/01/21 Aspirin 81 mg PO HS 02/23/21 09/01/21 Ergocalciferol [Vitamin D2 (1250 1,250 mcg PO TU 02/23/21 09/01/21 Mcg = 56212 Iu)] Levothyroxine Sodium [Synthroid] 88 mcg PO DAILY 02/23/21 09/01/21 Vit C/E/Zn/Coppr/Lutein/Zeaxan 1 tab PO BID 02/23/21 09/01/21 [Preservision Areds 2 Softgel] ALPRAZolam [Xanax] 0.5 mg PO HS 09/01/21 09/01/21 Lidocaine 5% Patch [Lidoderm] 1 patch TOPICAL DAILY PRN 09/01/21 09/01/21 Metoprolol Tartrate [Lopressor] 25 mg PO BID 09/01/21 09/01/21 OXcarbazepine [Trileptal] 300 mg PO BID 09/01/21 09/01/21 Ondansetron [Zofran] 4 mg PO QID PRN 09/01/21 09/01/21 Pantoprazole [Protonix] 40 mg PO AC-BRKFST 09/01/21 09/01/21 Potassium Chloride ER [K-Dur 20] 20 meq PO AC-SUPPER 09/01/21 09/01/21 diphenhydrAMINE HCL [Benadryl] 12.5 mg PO HS 09/01/21 09/01/21 levETIRAcetam [Keppra] 500 mg PO BID 09/01/21 09/01/21 Allergies Allergy/AdvReac Type Severity Reaction Status Date / Time No Known Allergies Allergy Verified 09/01/21 21:18 Review of Systems ROS Statement: Those systems with pertinent positive or pertinent negative responses have been documented in the HPI. ROS Other: All systems not noted in ROS Statement are negative. Past Medical History Past Medical History: Cancer, Diabetes Mellitus, Hypertension Additional Past Medical History / Comment(s): murmur, breast ca History of Any Multi-Drug Resistant Organisms: None Reported Additional Past Surgical History / Comment(s): right breast, thyroid, aortic valve replacment Past Psychological History: No Psychological Hx Reported Smoking Status: Former smoker Past Alcohol Use History: None Reported Past Drug Use History: None Reported General Exam Limitations: no limitations General appearance: alert, in no apparent distress Head exam: Present: atraumatic, normocephalic, normal inspection Eye exam: Present: normal appearance, PERRL, EOMI. Absent: scleral icterus, conjunctival injection, periorbital swelling ENT exam: Present: normal exam, normal oropharynx, mucous membranes dry, mucous membranes moist, TM's normal bilaterally, normal external ear exam Neck exam: Present: normal inspection, full ROM. Absent: tenderness, meningismus, lymphadenopathy Respiratory exam: Present: normal lung sounds bilaterally. Absent: respiratory distress, wheezes, rales, rhonchi, stridor Cardiovascular Exam: Present: regular rate, normal rhythm, normal heart sounds. Absent: systolic murmur, diastolic murmur, rubs, gallop, clicks GI/Abdominal exam: Present: soft, normal bowel sounds. Absent: distended, tenderness, guarding, rebound, rigid Extremities exam: Present: normal inspection, full ROM, normal capillary refill. Absent: tenderness, pedal edema, joint swelling, calf tenderness Back exam: Present: normal inspection Neurological exam: Present: alert, oriented X3, CN II-XII intact, other (NAH score is 0. [place]anger Coma Score is 15. Cerebellar testing is normal.). Absent: altered, motor sensory deficit, reflexes normal Psychiatric exam: Present: normal affect, normal mood Skin exam: Present: warm, dry, intact, normal color. Absent: rash Course Vital Signs 09/01/21 09/01/21 19:01 20:04 Temperature 98.1 F Pulse Rate 72 75 Respiratory 22 18 Rate Blood Pressure 115/67 119/71 O2 Sat by Pulse 99 97 Oximetry - Reevaluation(s) Reevaluation #1: 09/01/21 21:07 Medical record is reviewed Patient essentially unchanged Patient is informed of results and questions answered Patient in no distress Reevaluation #2: 09/01/21 21:17 Patient reevaluated and is essentially unchanged. Patient received a 500 mL fluid bolus of normal saline. Case was discussed with Dr. Elder EKG Findings - EKG Comments: EKG Findings:: EKG done at 8:45 PM and read by the ED attending physician reveals normal sinus rhythm with a rate of [address]-T wave abnorm alities, mostly T wave flattening seen in the precordial leads. No evidence of ST elevation. Normal axis. Normal intervals. Medical Decision Making - Medical Decision Making I'll place for on-call nephrology as well as the on-call admitting physician. Patient has a sodium of 111. Patient received a fluid bolus of 500 mL normal saline. We will touch base with nephrology for further fluid management. Case discussed with the supervisor gate services, Dr. Valdes who recommended repeating the serum sodium in 2 hours and notifying her with the results. - Lab Data Result diagrams: 09/01/21 20:00 09/01/21 20:02 Lab Results 09/01/21 09/01/21 09/01/21 Range/Units 19:24 20:00 20:02 WBC 5.7 (3.8-10.6) k/uL RBC 3.91 (3.80-5.40) m/uL Hgb 10.4 L (11.4-16.0) gm/dL Hct 31.9 L (34.0-46.0) % MCV 81.6 (80.0-100.0) fL MCH 26.6 (25.0-35.0) pg MCHC 32.6 (31.0-37.0) g/dL RDW 14.2 (11.5-15.5) % Plt Count 297 (150-450) k/uL MPV 7.3 Neutrophils % 78 % Lymphocytes % 9 % Monocytes % 7 % Eosinophils % 2 % Basophils % 1 % Neutrophils # 4.5 (1.3-7.7) k/uL Lymphocytes # 0.5 L (1.0-4.8) k/uL Monocytes # 0.4 (0-1.0) k/uL Eosinophils # 0.1 (0-0.7) k/uL Basophils # 0.0 (0-0.2) k/uL Sodium (137-145) mmol/L Potassium (3.5-5.1) mmol/L Chloride (98-107) mmol/L Carbon Dioxide (22-30) mmol/L Anion Gap mmol/L BUN (7-17) mg/dL Creatinine (0.52-1.04) mg/dL Est GFR (CKD-EPI)AfAm (>60 ml/min/1.73 sqM) Est GFR (CKD-EPI)NonAf (>60 ml/min/1.73 sqM) Glucose (74-99) mg/dL Calcium (8.4-10.2) mg/dL Magnesium (1.6-2.3) mg/dL Total Bilirubin (0.2-1.3) mg/dL AST (14-36) U/L ALT (4-34) U/L Alkaline Phosphatase (38-126) U/L Troponin I (0.000-0.034) ng/mL Total Protein (6.3-8.2) g/dL Albumin (3.5-5.0) g/dL Lipase (23-300) U/L Urine Color Urine Appearance (Clear) Urine pH (5.0-8.0) Ur Specific [place] (1.001-1.035) Urine Protein (Negative) Urine Glucose (UA) (Negative) Urine Ketones (Negative) Urine Blood (Negative) Urine Nitrite (Negative) Urine Bilirubin (Negative) Urine Urobilinogen (<2.0) mg/dL Ur Leukocyte Esterase (Negative) Urine WBC (0-5) /hpf Ur Squamous Epith Cells (0-4) /hpf Urine Bacteria (None) /hpf Urine Osmolality (50-1400) mosm/kg Coronavirus (PCR) Not Detected (Not Detectd) Influenza Type A RNA Not Detected (Not Detectd) Influenza Type B (PCR) Not Detected (Not Detectd) 09/01/21 09/01/21 09/01/21 Range/Units 20:02 20:02 21:00 WBC (3.8-10.6) k/uL RBC (3.80-5.40) m/uL Hgb (11.4-16.0) gm/dL Hct (34.0-46.0) % MCV (80.0-100.0) fL MCH (25.0-35.0) pg MCHC (31.0-37.0) g/dL RDW (11.5-15.5) % Plt Count (150-450) k/uL MPV Neutrophils % % Lymphocytes % % Monocytes % % Eosinophils % % Basophils % % Neutrophils # (1.3-7.7) k/uL Lymphocytes # (1.0-4.8) k/uL Monocytes # (0-1.0) k/uL Eosinophils # (0-0.7) k/uL Basophils # (0-0.2) k/uL Sodium 111 L* (137-145) mmol/L Potassium 3.9 (3.5-5.1) mmol/L Chloride 78 L (98-107) mmol/L Carbon Dioxide 23 (22-30) mmol/L Anion Gap 10 mmol/L BUN 4 L (7-17) mg/dL Creatinine 0.68 (0.52-1.04) mg/dL Est GFR (CKD-EPI)AfAm >90 (>60 ml/min/1.73 sqM) Est GFR (CKD-EPI)NonAf 88 (>60 ml/min/1.73 sqM) Glucose 135 H (74-99) mg/dL Calcium 9.1 (8.4-10.2) mg/dL Magnesium 1.1 L (1.6-2.3) mg/dL Total Bilirubin 0.2 (0.2-1.3) mg/dL AST 19 (14-36) U/L ALT 11 (4-34) U/L Alkaline Phosphatase 106 (38-126) U/L Troponin I <0.012 (0.000-0.034) ng/mL Total Protein 6.4 (6.3-8.2) g/dL Albumin 3.9 (3.5-5.0) g/dL Lipase 174 (23-300) U/L Urine Color Light Yellow Urine Appearance Clear (Clear) Urine pH 5.5 (5.0-8.0) Ur Specific [place] 1.006 (1.001-1.035) Urine Protein Negative (Negative) Urine Glucose (UA) Negative (Negative) Urine Ketones Negative (Negative) Urine Blood Negative (Negative) Urine Nitrite Positive H (Negative) Urine Bilirubin Negative (Negative) Urine Urobilinogen <2.0 (<2.0) mg/dL Ur Leukocyte Esterase Moderate H (Negative) Urine WBC 27 H (0-5) /hpf Ur Squamous Epith Cells 1 (0-4) /hpf Urine Bacteria Occasional H (None) /hpf Urine Osmolality (50-1400) mosm/kg Coronavirus (PCR) (Not Detectd) Influenza Type A RNA (Not Detectd) Influenza Type B (PCR) (Not Detectd) 09/01/21 Range/Units 21:00 WBC (3.8-10.6) k/uL RBC (3.80-5.40) m/uL Hgb (11.4-16.0) gm/dL Hct (34.0-46.0) % MCV (80.0-100.0) fL MCH (25.0-35.0) pg MCHC (31.0-37.0) g/dL RDW (11.5-15.5) % Plt Count (150-450) k/uL MPV Neutrophils % % Lymphocytes % % Monocytes % % Eosinophils % % Basophils % % Neutrophils # (1.3-7.7) k/uL Lymphocytes # (1.0-4.8) k/uL Monocytes # (0-1.0) k/uL Eosinophils # (0-0.7) k/uL Basophils # (0-0.2) k/uL Sodium (137-145) mmol/L Potassium (3.5-5.1) mmol/L Chloride (98-107) mmol/L Carbon Dioxide (22-30) mmol/L Anion Gap mmol/L BUN (7-17) mg/dL Creatinine (0.52-1.04) mg/dL Est GFR (CKD-EPI)AfAm (>60 ml/min/1.73 sqM) Est GFR (CKD-EPI)NonAf (>60 ml/min/1.73 sqM) Glucose (74-99) mg/dL Calcium (8.4-10.2) mg/dL Magnesium (1.6-2.3) mg/dL Total Bilirubin (0.2-1.3) mg/dL AST (14-36) U/L ALT (4-34) U/L Alkaline Phosphatase (38-126) U/L Troponin I (0.000-0.034) ng/mL Total Protein (6.3-8.2) g/dL Albumin (3.5-5.0) g/dL Lipase (23-300) U/L Urine Color Urine Appearance (Clear) Urine pH (5.0-8.0) Ur Specific [place] (1.001-1.035) Urine Protein (Negative) Urine Glucose (UA) (Negative) Urine Ketones (Negative) Urine Blood (Negative) Urine Nitrite (Negative) Urine Bilirubin (Negative) Urine Urobilinogen (<2.0) mg/dL Ur Leukocyte Esterase (Negative) Urine WBC (0-5) /hpf Ur Squamous Epith Cells (0-4) /hpf Urine Bacteria (None) /hpf Urine Osmolality 141 (50-1400) mosm/kg Coronavirus (PCR) (Not Detectd) Influenza Type A RNA (Not Detectd) Influenza Type B (PCR) (Not Detectd) Critical Care Time Critical Care Time: Yes (Hyponatremia, ICU admission, multiple evaluations) Total Critical Care Time: 31 Critical Care Time: Consultation with admitting physician, ER physician, and consultants. Evaluati ng response to treatment. Disposition Clinical Impression: Hyponatremia, General weakness, Headache, Urinary tract infection Disposition: ADMITTED IP TO THIS [facility] Condition: Fair Decision to Admit Reason: Admit from EC Decision Time: 21:18
--- NOTE | 2021-09-01 20:15 | XR ---
EXAMINATION: XR chest 1V portable DATE AND TIME: 09/01/2021 7:56 PM CLINICAL INDICATION: PHH; chest pain TECHNIQUE: AP upright portable COMPARISON: None FINDINGS: Sutures and mediastinal clips and defibrillator noted. Surgical clips noted, superimposed over the do me of the diaphragm. The lungs are clear. The pleural spaces are negative. The cardiac silhouette is not enlarged. The remainder of the mediastinal silhouette is unremarkable. The skeletal structures and soft tissues are negative for acute findings. IMPRESSION: NO ACUTE PROCESS.
[2021-09-01 20:24] LABS: Basophils % (A) 1 %; Eosinophils # (A) 0.1 k/uL (0-0.7); Eosinophils % (A) 2 %; HCT 31.9 % (34.0-46.0); HGB 10.4 gm/dL (11.4-16.0); Lymphocytes # (A) 0.5 k/uL (1.0-4.8); Lymphocytes % (A) 9 %; MCH 26.6 pg (25.0-35.0); MCHC 32.6 g/dL (31.0-37.0); MCV 81.6 fL (80.0-100.0); Mean Platelet Volume 7.3; Monocytes # (A) 0.4 k/uL (0-1.0); Monocytes % (A) 7 %; Neutrophils # (A) 4.5 k/uL (1.3-7.7); Neutrophils % (A) 78 %; Platelet Count 297 k/uL (150-450); RBC 3.91 m/uL (3.80-5.40); RDW 14.2 % (11.5-15.5); WBC 5.7 k/uL (3.8-10.6)
[2021-09-01 20:38] LABS: ALT 11 U/L (4-34); AST 19 U/L (14-36); African American GFR (CKD) >90 (>60 ml/min/1.73 sqM); Albumin 3.9 g/dL (3.5-5.0); Alkaline Phosphatase 106 U/L (38-126); Anion Gap 10 mmol/L; Blood Urea Nitrogen 4 mg/dL (7-17); Calcium 9.1 mg/dL (8.4-10.2); Carbon Dioxide 23 mmol/L (22-30); Chloride 78 mmol/L (98-107); Glucose 135 mg/dL (74-99); Lipase 174 U/L (23-300); Magnesium 1.1 mg/dL (1.6-2.3); Non-African American GFR(CKD) 88 (>60 ml/min/1.73 sqM); Potassium 3.9 mmol/L (3.5-5.1); Total Bilirubin 0.2 mg/dL (0.2-1.3); Total Protein 6.4 g/dL (6.3-8.2)
[2021-09-01 20:39] LABS: Sodium 111 mmol/L (137-145)
--- NOTE | 2021-09-01 20:52 | CT ---
EXAMINATION: CT brain wo con DATE AND TIME: 09/01/2021 8:24 PM CLINICAL INDICATION: Headache TECHNIQUE: Standard departmental protocol.; 1078.4 mGy-cm COMPARISON: 01/23/2020 FINDINGS: The calvarium is intact. There is no intracranial hemorrhage. There is no intracranial mass or mass effect. No definite new intra-axial or extra-axial attenuation defect. The paranasal sinuses, middle ear cavities, and mastoid sinus air cells are clear. The orbits are unremarkable. IMPRESSION: NO ACUTE PROCESS.
[2021-09-01] MEDS ORDERED: NALOXONE 0.4 MG/ML 1 ML VIAL IV PRN (21:18)
[2021-09-01] MEDS ORDERED: ACETAMINOPHEN TAB 325 MG TAB PO PRN (21:18)
[2021-09-01 21:28] LABS: Appearance,Urine Clear (Clear); Bacteria,Urine Occasional /hpf; Bilirubin,Urine Negative (Negative); Blood,Urine Negative (Negative); Color,Urine Light Yellow; Glucose,Urine (UA) Negative (Negative); Ketones,Urine Negative (Negative); Leukocyte Esterase,Urine Moderate (Negative); Nitrite,Urine Positive (Negative); PH, Urine 5.5 (5.0-8.0); Protein,Urine Negative (Negative); Specific Gravity,Urine 1.006 (1.001-1.035); Squamous Epithelial Cell,Urine 1 /hpf (0-4); Urobilinogen,Urine <2.0 mg/dL (<2.0); WBC,Urine 27 /hpf (0-5)
[2021-09-01] MEDS ORDERED: cefTRIAXone IN SWFI 1,000 MG/10 ML SYRINGE IVP STA (21:50)
[2021-09-01 22:40] LABS: Creatinine,Urine Random 33.5 mg/dL
[2021-09-01] MEDS ORDERED: OXcarbazepine 300 MG TAB PO STA (22:44)
[2021-09-01] MEDS ORDERED: levETIRAcetam 500 MG TAB PO STA (22:44)
[2021-09-01] MEDS: SODIUM CHLORIDE 0.9% 1,000 ML IV SCH (23:03)
[2021-09-02] MEDS: ALPRAZolam 0.5 MG TAB PO PRN ×2 (00:29→17:10)
[2021-09-02 00:42] LABS: African American GFR (CKD) >90 (>60 ml/min/1.73 sqM); Anion Gap 9 mmol/L; Blood Urea Nitrogen 3 mg/dL (7-17); Calcium 8.7 mg/dL (8.4-10.2); Carbon Dioxide 22 mmol/L (22-30); Chloride 82 mmol/L (98-107); Glucose 122 mg/dL (74-99); Non-African American GFR(CKD) >90 (>60 ml/min/1.73 sqM); Potassium 4.1 mmol/L (3.5-5.1)
[2021-09-02 00:45] LABS: Sodium 113 mmol/L (137-145)
[2021-09-02 05:16] LABS: Phosphorus 4.2 mg/dL (2.5-4.5)
[2021-09-02] MEDS ORDERED: ONDANSETRON 4 MG TAB PO PRN (06:08)
[2021-09-02 06:50] LABS: Basophils % (A) 1 %; Eosinophils # (A) 0.1 k/uL (0-0.7); Eosinophils % (A) 2 %; HCT 30.1 % (34.0-46.0); HGB 9.7 gm/dL (11.4-16.0); Hypochromasia Slight; Lymphocytes # (A) 0.9 k/uL (1.0-4.8); Lymphocytes % (A) 15 %; MCH 26.5 pg (25.0-35.0); MCHC 32.3 g/dL (31.0-37.0); MCV 82.1 fL (80.0-100.0); Mean Platelet Volume 7.2; Monocytes # (A) 0.4 k/uL (0-1.0); Monocytes % (A) 6 %; Neutrophils # (A) 4.2 k/uL (1.3-7.7); Neutrophils % (A) 74 %; Platelet Count 273 k/uL (150-450); RBC 3.67 m/uL (3.80-5.40); RDW 14.3 % (11.5-15.5); WBC 5.7 k/uL (3.8-10.6)
[2021-09-02 07:14] LABS: ALT 9 U/L (4-34); AST 17 U/L (14-36); African American GFR (CKD) >90 (>60 ml/min/1.73 sqM); Albumin 3.4 g/dL (3.5-5.0); Alkaline Phosphatase 97 U/L (38-126); Anion Gap 6 mmol/L; Blood Urea Nitrogen <2 mg/dL (7-17); Calcium 8.7 mg/dL (8.4-10.2); Carbon Dioxide 24 mmol/L (22-30); Chloride 87 mmol/L (98-107); Glucose 101 mg/dL (74-99); Magnesium 1.1 mg/dL (1.6-2.3); Non-African American GFR(CKD) >90 (>60 ml/min/1.73 sqM); Phosphorus 4.2 mg/dL (2.5-4.5); Potassium 3.6 mmol/L (3.5-5.1); Total Bilirubin 0.1 mg/dL (0.2-1.3); Total Protein 5.9 g/dL (6.3-8.2)
[2021-09-02] MEDS: LEVOTHYROXINE 88 MCG TAB PO SCH (07:16)
[2021-09-02] MEDS: HEPARIN SODIUM,PORCINE/PF 5,000 UNIT/0.5 ML SYRINGE SQ SCH ×4 (07:16→22:49)
[2021-09-02 07:27] LABS: Sodium 117 mmol/L (137-145)
[2021-09-02] MEDS: PANTOPRAZOLE 40 MG TABLET PO SCH (07:37)
[2021-09-02] MEDS: OXcarbazepine 300 MG TAB PO SCH ×2 (09:40→20:18)
[2021-09-02] MEDS: VIT A,C & E-LUTEIN-MINERALS 1 EACH TAB PO SCH ×2 (09:40→20:18)
[2021-09-02] MEDS: METOPROLOL TARTRATE 25 MG TAB PO SCH ×2 (09:42→20:18)
[2021-09-02] MEDS: SODIUM CHLORIDE 0.9% 1,000 ML IV SCH ×2 (09:55→20:20)
[2021-09-02] MEDS: levETIRAcetam 500 MG TAB PO SCH ×2 (10:12→20:18)
--- NOTE | 2021-09-02 10:39 | P.CNPUL ---
History of Present Illness Consult date: 09/02/21 Requesting physician: Kevon Elder Reason for consult: other (Critical care management) Chief complaint: Denies weakness History of present illness: This is a 71-year-old female patient who follows with Dr. Helm as her primary care provider. She has a history of right breast cancer, diabetes mellitus, hypothyroidism, hypertension, seizure disorder, hyperlipidemia, anxiety, aortic valve replacement at the [facility] in 06/2021 she came into the emergency room with a one-week history of generalized weakness and fatigue dizziness lightheadedness and diarrhea. Influenza screen was negative. COVID-19 screen negative. She is vaccinated and boosted. She was found to be hyponatremic with an sodium of 111. She has resumed 0.9 normal sinus 75 ML's per hour. She is seen today in consultation in the emergency department. The plan was to send her to the ICU. She has not received 3% normal saline. Her current sodium is 117. She is awake and alert in no acute distress. Maintaining O2 saturations in the high 90s on room air. She's afebrile. Hemodynamically stable. White count 5.7. Hemoglobin 9.7. Sodium 117. Potassium 3.6. Chloride 87. Bicarb 24. BUN less than 2. Creatinine 0.55. Glucose 11. Urinalysis positive for nitrates and bacteria. Review of Systems REVIEW OF SYSTEMS: CONSTITUTIONAL: Generalized weakness, fatigue, dizziness. Denies any recent significant weight loss or weight gain. EYES: Denies change in vision. EARS, NOSE, MOUTH, THROAT: Denies headaches, denies sore throat. CARDIOVASCULAR: Denies chest pain, palpitations or syncopal episodes. RESPIRATORY: Denies shortness of breath, cough, congestion or hemoptysis. GASTROINTESTINAL: Positive for nausea, diarrhea GENITOURINARY: Denies hematuria, denies infections. MUSKULOSKELETAL: Denies pain, denies swelling. INTEGUMENTARY: Denies rash, denies eczema. NEUROLOGICAL: Denies recent memory loss, no recent seizure activity. PSYCHIATRIC: Denies anxiety, denies depression. HEMATOLOGIC/LYMPHATIC: Denies anemia, denies enlarged lymph nodes. Past Medical History Past Medical History: Cancer, Diabetes Mellitus, Eye Disorder, Hyperlipidemia, Hypertension, Seizure Disorder, Thyroid Disorder Additional Past Medical History / Comment(s): Recently diagnosed with seizure disorder at [facility] in July 2021, hyponatremia, diet controlled diabetes, R breast cancer with surgery/chemo/radiation, benign thyroid nodules/hypothyroid, antral stomach ulcer, gastritis, small hiatal hernia, diverticular disease, bilateral macular degeneration/receives eye injections, occasional lower back pain History of Any Multi-Drug Resistant Organisms: None Reported Past Surgical History: Adenoidectomy, Breast Surgery, Cardiac Valve Replacement, Heart Catheterization, Tonsillectomy Additional Past Surgical History / Comment(s): 06/2021 aortic valve replacement at [facility], R/L cardiac cath/marbin, bilateral breast biopsies, R breast lumpectomy/lymph node removed, thyroid biopsy, bilateral breast reductions, D&Cs, EGD, colonoscopy Past Anesthesia/Blood Transfusion Reactions: No Reported Reaction Smoking Status: Former smoker - Past Family History Father Family Medical History: Cancer Additional Family Medical History / Comment(s): Pancreatic cancer Mother Family Medical History: Myocardial Infarction (ME) Additional Family Medical History / Comment(s): Mother survived a ME at the age of 59 yrs. Mother had valvular disease. Medications and Allergies Home Medications Medication Instructions Recorded Confirmed Type Simvastatin 40 mg PO HS 04/12/20 09/01/21 History Aspirin 81 mg PO HS 02/23/21 09/01/21 History Ergocalciferol [Vitamin D2 (1250 1,250 mcg PO TU 02/23/21 09/01/21 History Mcg = 43155 Iu)] Levothyroxine Sodium [Synthroid] 88 mcg PO DAILY 02/23/21 09/01/21 History Vit C/E/Zn/Coppr/Lutein/Zeaxan 1 tab PO BID 02/23/21 09/01/21 History [Preservision Areds 2 Softgel] ALPRAZolam [Xanax] 1 mg PO HS 09/01/21 09/02/21 History Lidocaine 5% Patch [Lidoderm] 1 patch TOPICAL DAILY PRN 09/01/21 09/01/21 History Metoprolol Tartrate [Lopressor] 25 mg PO BID 09/01/21 09/01/21 History OXcarbazepine [Trileptal] 300 mg PO BID 09/01/21 09/01/21 History Ondansetron [Zofran] 4 mg PO QID PRN 09/01/21 09/01/21 History Pantoprazole [Protonix] 40 mg PO AC-BRKFST 09/01/21 09/01/21 History Potassium Chloride ER [K-Dur 20] 20 meq PO AC-SUPPER 09/01/21 09/01/21 History diphenhydrAMINE HCL [Benadryl] 12.5 mg PO HS 09/01/21 09/01/21 History levETIRAcetam [Keppra] 500 mg PO BID 09/01/21 09/01/21 History Allergies Allergy/AdvReac Type Severity Reaction Status Date / Time No Known Allergies Allergy Verified 09/01/21 21:18 Physical Exam Vitals: Vital Signs Temp Pulse Pulse Resp BP BP Pulse Ox 09/02/21 10:11 97.8 F 81 19 115/66 99 09/02/21 09:39 77 18 142/68 97 09/02/21 06:30 84 19 168/77 99 09/01/21 23:00 68 16 115/57 98 09/01/21 20:04 75 18 119/71 97 09/01/21 19:01 98.1 F 72 22 115/67 99 Intake and Output 09/01/21 09/02/21 09/02/21 22:59 06:59 14:59 Other: Weight 68.039 kg 68.039 kg GENERAL EXAM: Alert, pleasant 71-year-old female patient, on room air, comfortable in no apparent distress. HEAD: Normocephalic. EYES: Normal reaction of pupils, equal size. NOSE: Clear with pink turbinates. THROAT: No erythema or exudates. NECK: No masses, no JVD. CHEST: No chest wall deformity. Heart monitor in place. LUNGS: Equal air entry with no crackles, wheeze, rhonchi or dullness. CVS: S1 and S2 normal with no audible murmur, regular rhythm. ABDOMEN: No hepatosplenomegaly, normal bowel sounds, no guarding or rigidity. SPINE: No scoliosis or deformity SKIN: No rashes CENTRAL NERVOUS SYSTEM: No focal deficits, tone is normal in all 4 extremities. EXTREMITIES: There is no peripheral edema. No clubbing, no cyanosis. Peripheral pulses are intact. Results - Laboratory Findings CBC and BMP: 09/02/21 06:24 09/02/21 06:24 Abnormal lab findings: Abnormal Labs 09/01/21 09/01/21 09/01/21 20:00 20:02 21:00 RBC Hgb 10.4 L Hct 31.9 L Lymphocytes # 0.5 L Sodium 111 L* Chloride 78 L BUN 4 L Glucose 135 H Osmolality Uric Acid Magnesium 1.1 L Total Bilirubin Total Protein Albumin Urine Nitrite Positive H Ur Leukocyte Esterase Moderate H Urine WBC 27 H Urine Bacteria Occasional H Ur Random Sodium Ur Random Uric Acid 09/01/21 09/01/21 09/01/21 21:00 21:00 23:59 RBC Hgb Hct Lymphocytes # Sodium Chloride BUN Glucose Osmolality 238 L* Uric Acid 2.0 L Magnesium Total Bilirubin Total Protein Albumin Urine Nitrite Ur Leukocyte Esterase Urine WBC Urine Bacteria Ur Random Sodium <20 L Ur Random Uric Acid 18.3 L 09/02/21 09/02/21 09/02/21 00:02 06:24 06:24 RBC 3.67 L Hgb 9.7 L Hct 30.1 L Lymphocytes # 0.9 L Sodium 113 L* 117 L* Chloride 82 L 87 L BUN 3 L <2 L Glucose 122 H 101 H Osmolality Uric Acid Magnesium 1.1 L Total Bilirubin 0.1 L Total Protein 5.9 L Albumin 3.4 L Urine Nitrite Ur Leukocyte Esterase Urine WBC Urine Bacteria Ur Random Sodium Ur Random Uric Acid - Diagnostic Findings Chest x-ray: image reviewed Assessment and Plan Assessment: 1 Generalized weakness and fatigue secondary to hyponatremia 2 Hypoosmolar hyponatremia secondary to hypovolemia with nausea, diarrhea 3 Urinary tract infection 4 Anemia 5 Hypertension 6 Hyper lipidemia 7 Hypothyroidism 8 History of right breast cancer status post lumpectomy, chemotherapy 2015 9 Severe aortic stenosis status post aortic valve replacement at the [facility] and June 2021 10 Diabetes mellitus. Plan: The patient was seen and evaluated by Dr. Sathl The patient is stable and does not require ICU admission We'll admit to the regular medical floor Continue 0.9 normal saline at 75 ML's per hour Add ceftriaxone, await urine culture Nephrology consulted We will see as needed I, the cosigning physician, performed a history & physical examination of the patient. Lungs sounds are clear. Maintaining good O2 saturations in the 90s on room air. I discussed the assessment and plan of care with my nurse practitioner, Ashley Camarillo. I attest to the above consultation as dictated by her. Time with Patient: Greater than 30
[2021-09-02] MEDS: IOPAMIDOL CONTRAST (ORAL USE) VIAL PO PRN ×2 (11:04→11:57)
[2021-09-02 11:55] LABS: Glucose,Whole Blood 153 mg/dL (75-99)
[2021-09-02] MEDS: LOPERAMIDE 2 MG CAP PO SCH ×4 (12:40→20:18)
--- NOTE | 2021-09-02 12:40 | P.HPIM ---
History of Present Illness H&P Date: 09/02/21 HISTORY OF PRESENT ILLNESS This is a 71-year-old female patient of Dr. Helm with a past medical history of breast cancer as well as partial mastectomy under the care of Dr. Guzman, hypothyroidism, diabetes mellitus type 2, hypertension and aortic valve replacement June 2021 at [facility], seizure disorder under the care of Dr. Arriaga. Patient gives history that she has had watery diarrhea for a couple of weeks with abdominal pain and aching and sore feeling. She states she was told in the past that she had diverticulitis but that was years ago. Her last colonoscopy was several years ago. She states she is so weak that she slid off the couch and could not get herself up which happened 2 days ago. Patient also follows with Dr. Jackson and was scheduled for CAT scan of the abdomen regarding ongoing diarrhea which was scheduled for today as an outpatient. We will order it in the hospital visit. Patient has had a previous hospitalization in 2023 hyponatremia secondary to diarrhea. Patient presented to the emergency room and found to be afebrile, heart rate 72, blood pressure 115/67, pulse ox 99% on room air. CAT scan of the brain showed no acute process. Chest x-ray showed no acute process Initial sodium was 111 followed by 113 and 117. Hemoglobin was 10.4. Chloride 78, BUN 4 creatinine 0.68. Blood sugar 135. Serum osmolality 238. Uric acid 2. Calcium 9.1. Phosphorus 4.2, magnesium 1.1. AST 19, ALT 11, alkaline phosphatase 106. Troponin negative. Urinalysis was clear, nitrite positive, leukoesterase moderate, WBCs 27 and bacteria occasional. Urine culture is in progress. Coronavirus, influenza A, influenza B not detected. Patient was started on IV ceftriaxone, IV fluids 0.9 at 75 mL per hour, consult with pulmonary medicine and nephrology. REVIEW OF SYSTEMS Constitutional: No fever, no chills, no night sweats. No weight change. Report weakness and fatigue no lethargy. No daytime sleepiness. EENT: No headache. No blurred vision or double vision, no loss of vision. No loss of Hearing, no ringing in the ears, no dizziness. No nasal drainage or congestion. No epistaxis. No sore throat. Lungs: No shortness of breath, cough, no sputum production. No wheezing. Cardiovascular: No chest pain, no lower extremity edema. No palpitations. No paroxysmal nocturnal dyspnea. No orthopnea. No lightheadedness or dizziness. No syncopal episodes. Abdominal: Reports abdominal discomfort. Report nausea no vomiting. Reports diarrhea. No constipation. No bloody or tarry stools. Reports loss of appetite. Genitourinary: No dysuria, increased frequency, urgency. No urinary retention. Musculoskeletal: No myalgias. No muscle weakness, no gait dysfunction, no frequent falls. No back pain. No neck pain. Integumentary: No wounds, no lesions. No rash or pruritus. No unusual bruising. No change in hair or nails. Neurologic: No aphasia. No facial droop. No change in mentation. No head injury. No headache. No paralysis. No paresthesia. Psychiatric: No depression. No anxiety. No mood swings. Endocrine: No abnormal blood sugars. No weight change. No excessive sweating or thirst. SOCIAL HISTORY Patient quit smoking in 1979 and was scheduled for 10 years. She drink alcohol occasionally. No marijuana or illicit drug use. She does not utilize any DME at home. She is retired high school guidance counselor retire in 2009. FAMILY HISTORY Father at age 80 from pancreatic cancer. Mother at age 78 from c oronary artery disease status post CABG which she never recovered from. Patient is a total of 5 siblings all living and one sister has dementia and breast cancer. Patient does not have any children. PHYSICAL EXAMINATION General Appearance: Alert, cooperative, no distress, 71-year-old appears stated age. Neck HEENT: Supple, no lymphadenopathy, no thyroid enlargement, no carotid bruits. Lungs: Clear to auscultation without crackles or wheezes no rhonchi, no deformity. Chest Wall: Chest wall normal expansion with deep inspiration no tenderness and no deformity was found on exam, no costochondral pain or discomfort. Heart: Regular rate and rhythm, S1, S2 normal, no murmur, rub or gallop. Back: Symmetric, no curvature, ROM normal, no CVA tenderness. Abdomen: Moderate abdominal distention, mild generalized tenderness, no rebound or rigidity, no hepatosplenomegaly. Extremities: Extremities normal, atraumatic, no cyanosis or edema. Pulses: 2+ and symmetric. Skin: Skin color, texture, tugor normal, no rashes or lesions. Neurologic: Alert oriented x3 cranial nerves II through XII intact, no motor deficit, no abnormal balance or gait ASSESSMENT AND PLAN 1. Acute hypovolemic hyponatremia. Consult with Dr. Valdes, patient is currently on 0.9 normal saline at 75 mL per hour. 2. Diarrhea. Specimen to be sent for C. difficile toxin and will start Imodium if testing is negative. 3. Hypochloremia continue treatment for hyponatremia. 4. Acute urinary tract infection. Continue Rocephin 1 g daily, urine culture 5. Hyperlipidemia. Continue atorvastatin 20 g at bedtime 6. History of seizure disorder. Continue Keppra 500 mg twice daily, Trileptal 300 mg twice daily. 7. Hypothyroidism. Continue levothyroxine 88 g daily. 8. Hypertension. Continue Lopressor 25 mg twice daily 5. Hypokalemia. 9. History of Diabetes mellitus. Previous hemoglobin A1c 5.8. 10. History of breast cancer, stable. 9. Sleep disturbance. Melatonin 10 mg daily at bedtime 7. History of breast cancer 8. GI prophylaxis. Protonix 40 mg 9. DVT prophylaxis. Heparin subcu CODE STATUS: Full code Patient will be admitted to the hospital for minimum 2 night stay. DISCHARGE PLAN TBD. Most likely return home. PT and OT consults. Impression and plan of care have been directed as dictated by the signing ph ysician. Brie Rhodes nurse practitioner acting as scribe for signing physician. Past Medical History Past Medical History: Cancer, Diabetes Mellitus, Eye Disorder, Hyperlipidemia, Hypertension, Seizure Disorder, Thyroid Disorder Additional Past Medical History / Comment(s): Recently diagnosed with seizure disorder at [facility] in July 2021, hyponatremia, diet controlled diabetes, R breast cancer with surgery/chemo/radiation, benign thyroid nodules/hypothyroid, antral stomach ulcer, gastritis, small hiatal hernia, diverticular disease, bilateral macular degeneration/receives eye injections, occasional lower back pain History of Any Multi-Drug Resistant Organisms: None Reported Past Surgical History: Adenoidectomy, Breast Surgery, Cardiac Valve Replacement, Heart Catheterization, Tonsillectomy Additional Past Surgical History / Comment(s): 06/2021 aortic valve replacement at [facility], R/L cardiac cath/marbin, bilateral breast biopsies, R breast lumpectomy/lymph node removed, thyroid biopsy, bilateral breast reductions, D&Cs, EGD, colonoscopy Past Anesthesia/Blood Transfusion Reactions: No Reported Reaction Smoking Status: Former smoker - Past Family History Father Family Medical History: Cancer Additional Family Medical History / Comment(s): Pancreatic cancer Mother Family Medical History: Myocardial Infarction ([place]) Additional Family Medical History / Comment(s): Mother survived a [place] at the age of 59 yrs. Mother had valvular disease. Medications and Allergies Home Medications Medication Instructions Recorded Confirmed Type Simvastatin 40 mg PO HS 04/12/20 09/01/21 History Aspirin 81 mg PO HS 02/23/21 09/01/21 History Ergocalciferol [Vitamin D2 (1250 1,250 mcg PO TU 02/23/21 09/01/21 History Mcg = 54536 Iu)] Levothyroxine Sodium [Synthroid] 88 mcg PO DAILY 02/23/21 09/01/21 History Vit C/E/Zn/Coppr/Lutein/Zeaxan 1 tab PO BID 02/23/21 09/01/21 History [Preservision Areds 2 Softgel] ALPRAZolam [Xanax] 1 mg PO HS 09/01/21 09/02/21 History Lidocaine 5% Patch [Lidoderm] 1 patch TOPICAL DAILY PRN 09/01/21 09/01/21 History Metoprolol Tartrate [Lopressor] 25 mg PO BID 09/01/21 09/01/21 History OXcarbazepine [Trileptal] 300 mg PO BID 09/01/21 09/01/21 History Ondansetron [Zofran] 4 mg PO QID PRN 09/01/21 09/01/21 History Pantoprazole [Protonix] 40 mg PO AC-BRKFST 09/01/21 09/01/21 History Potassium Chloride ER [K-Dur 20] 20 meq PO AC-SUPPER 09/01/21 09/01/21 History diphenhydrAMINE HCL [Benadryl] 12.5 mg PO HS 09/01/21 09/01/21 History levETIRAcetam [Keppra] 500 mg PO BID 09/01/21 09/01/21 History Allergies Allergy/AdvReac Type Severity Reaction Status Date / Time No Known Allergies Allergy Verified 09/01/21 21:18 Physical Exam Vitals: Vital Signs Temp Pulse Pulse Resp BP BP Pulse Ox 09/02/21 10:11 97.8 F 81 19 115/66 99 09/02/21 09:39 77 18 142/68 97 09/02/21 06:30 84 19 168/77 99 09/01/21 23:00 68 16 115/57 98 09/01/21 20:04 75 18 119/71 97 09/01/21 19:01 98.1 F 72 22 115/67 99 Intake and Output 09/01/21 09/02/21 09/02/21 22:59 06:59 14:59 Other: Weight 68.039 kg 68.039 kg Results CBC & Chem 7: 09/02/21 06:24 09/02/21 10:27 Labs: Abnormal Lab Results - Last 24 Hours (Table) 09/01/21 09/01/21 09/01/21 Range/Units 20:00 20:02 21:00 RBC (3.80-5.40) m/uL Hgb 10.4 L (11.4-16.0) gm/dL Hct 31.9 L (34.0-46.0) % Lymphocytes # 0.5 L (1.0-4.8) k/uL Sodium 111 L* (137-145) mmol/L Chloride 78 L (98-107) mmol/L BUN 4 L (7-17) mg/dL Glucose 135 H (74-99) mg/dL Osmolality (280-301) mosm/kg Uric Acid (3.7-7.4) mg/dL Magnesium 1.1 L (1.6-2.3) mg/dL Total Bilirubin (0.2-1.3) mg/dL Total Protein (6.3-8.2) g/dL Albumin (3.5-5.0) g/dL Urine Nitrite Positive H (Negative) Ur Leukocyte Esterase Moderate H (Negative) Urine WBC 27 H (0-5) /hpf Urine Bacteria Occasional H (None) /hpf Ur Random Sodium (40-220) mmol/L Ur Random Uric Acid (37.0-92.0) mg/dL 09/01/21 09/01/21 09/01/21 Range/Units 21:00 21:00 23:59 RBC (3.80-5.40) m/uL Hgb (11.4-16.0) gm/dL Hct (34.0-46.0) % Lymphocytes # (1.0-4.8) k/uL Sodium (137-145) mmol/L Chloride (98-107) mmol/L BUN (7-17) mg/dL Glucose (74-99) mg/dL Osmolality 238 L* (280-301) mosm/kg Uric Acid 2.0 L (3.7-7.4) mg/dL Magnesium (1.6-2.3) mg/dL Total Bilirubin (0.2-1.3) mg/dL Total Protein (6.3-8.2) g/dL Albumin (3.5-5.0) g/dL Urine Nitrite (Negative) Ur Leukocyte Esterase (Negative) Urine WBC (0-5) /hpf Urine Bacteria (None) /hpf Ur Random Sodium <20 L (40-220) mmol/L Ur Random Uric Acid 18.3 L (37.0-92.0) mg/dL 09/02/21 09/02/21 09/02/21 Range/Units 00:02 06:24 06:24 RBC 3.67 L (3.80-5.40) m/uL Hgb 9.7 L (11.4-16.0) gm/dL Hct 30.1 L (34.0-46.0) % Lymphocytes # 0.9 L (1.0-4.8) k/uL Sodium 113 L* 117 L* (137-145) mmol/L Chloride 82 L 87 L (98-107) mmol/L BUN 3 L <2 L (7-17) mg/dL Glucose 122 H 101 H (74-99) mg/dL Osmolality (280-301) mosm/kg Uric Acid (3.7-7.4) mg/dL Magnesium 1.1 L (1.6-2.3) mg/dL Total Bilirubin 0.1 L (0.2-1.3) mg/dL Total Protein 5.9 L (6.3-8.2) g/dL Albumin 3.4 L (3.5-5.0) g/dL Urine Nitrite (Negative) Ur Leukocyte Esterase (Negative) Urine WBC (0-5) /hpf Urine Bacteria (None) /hpf Ur Random Sodium (40-220) mmol/L Ur Random Uric Acid (37.0-92.0) mg/dL Microbiology - Last 24 Hours (Table) 09/01/21 21:00 Urine Culture - Preliminary Urine,Clean Catch Thrombosis Risk Factor Assmnt - Choose All That Apply Any of the Below Risk Factors Present?: Yes Other Risk Factors: Yes Each Risk Factor Represents 2 Points: Age 61-74 years, Malignancy Other congenital or acquired thrombophilia - If yes, enter type in comment: No Thrombosis Risk Factor Assessment Total Risk Factor Score: 4 Thrombosis Risk Factor Assessment Level: Moderate Risk
--- NOTE | 2021-09-02 13:54 | CT ---
EXAMINATION TYPE: CT abdomen pelvis wo/w con DATE OF EXAM: 09/02/2021 COMPARISON: CT abdomen and pelvis 04/12/2020 HISTORY: diarrhea, generalized pain, hiccups, excessive gas CT DLP: 1582.8 mGycm Automated exposure control for dose reduction was used. TECHNIQUE: Helical acquisition of images was performed from the lung bases through the pelvis. CONTRAST: Performed with Oral Contrast and without and with IV Contrast, patient injected with 100 mL of Isovue 300. FINDINGS: There is small hiatal hernia suspected similar to prior exam. Within the subcutaneous fat o f the left hemiabdomen there is some focal lucency, gas density likely due to injections, correlate. Suspect cardiac valve replacement, patient is post median sternotomy, metallic density present at the root of the aorta LUNG BASES: No significant abnormality is appreciated. LIVER/GB: No significant abnormality is appreciated. PANCREAS: No significant abnormality is seen. SPLEEN: No significant abnormality is seen. ADRENALS: No significant abnormality is seen. KIDNEYS: Punctate nonobstructive renal calculus present at the posterior left mid kidney, no hydronep hrosis bilaterally, no evident ureteral calculus. FREE AIR: No free air is visualized. RETROPERITONEAL ADENOPATHY: None visualized REPRODUCTIVE ORGANS: No significant abnormality is seen URINARY BLADDER: No significant abnormality is seen. PELVIC ADENOPATHY: None visualized. OSSEOUS STRUCTURES: There is a spinal curvature, degenerative disc changes are present in the visual ized spine. BOWEL: Diverticular changes associated with the colon, there is no bowel obstruction, there is diver ticular diverticulum at the head of the pancreas and appendix is normal. OTHER: Small umbilical hernia contains fat IMPRESSION: HIATAL HERNIA, DIVERTICULOSIS.
[2021-09-02 16:11] LABS: Glucose,Whole Blood 166 mg/dL (75-99)
[2021-09-02] MEDS: POTASSIUM CHLORIDE ER 20 MEQ TAB.ER PO SCH (16:43)
--- NOTE | 2021-09-02 17:38 | P.NPCON ---
History of Present Illness - Reason for Consult hyponatremia - History of Present Illness Patient is a 71-year-old female with previous history of right breast cancer type 2 diabetes hypothyroidism hypertension and seizure disorder. Patient was admitted to the hospital with complaints of increased weakness and fatigue along with lightheadedness. Patient has been having diarrhea for about 3 weeks now. COVID-19 PCR was negative. Patient is noted to have a serum sodium of 111 blood pressure was on the lower side with systolic around 115-119. Patient has been started on normal saline and her serum sodium has been slowly improving. It is up to 117 this morning. No new medications per patient. She has a prior history of hyponatremia about 2 years ago and it appears to also have been hypovolemic in nature. Review of Systems As per HPI other systems negative Past Medical History Past Medical History: Cancer, Diabetes Mellitus, Eye Disorder, Hyperlipidemia, Hypertension, Seizure Disorder, Thyroid Disorder Additional Past Medical History / Comment(s): Recently diagnosed with seizure disorder at [facility] in July 2021, hyponatremia, diet controlled diabetes, R breast cancer with surgery/chemo/radiation, benign thyroid nodules/hypothyroid, antral stomach ulcer, gastritis, small hiatal hernia, diverticular disease, bilateral macular degeneration/receives eye injections, occasional lower back pain History of Any Multi-Drug Resistant Organisms: None Reported Past Surgical History: Adenoidectomy, Breast Surgery, Cardiac Valve Replacement, Heart Catheterization, Tonsillectomy Additional Past Surgical History / Comment(s): [facility]/L cardiac [facility]/marbin, bilateral breast biopsies, R breast lumpectomy/lymph node removed, thyroid biopsy, bilateral breast reductions, D&Cs, EGD, colonoscopy Past Anesthesia/Blood Transfusion Reactions: No Reported Reaction Smoking Status: Former smoker - Past Family History Father Family Medical History: Cancer Additional Family Medical History / Comment(s): Pancreatic cancer Mother Family Medical History: Myocardial Infarction ([place]) Additional Family Medical History / Comment(s): Mother survived a [place] at the age of 59 yrs. Mother had valvular disease. Medications and Allergies Home Medications Medication Instructions Recorded Confirmed Type Simvastatin 40 mg PO HS 04/12/20 09/01/21 History Aspirin 81 mg PO HS 02/23/21 09/01/21 History Ergocalciferol [Vitamin D2 (1250 1,250 mcg PO TU 02/23/21 09/01/21 History Mcg = 12940 Iu)] Levothyroxine Sodium [Synthroid] 88 mcg PO DAILY 02/23/21 09/01/21 History Vit C/E/Zn/Coppr/Lutein/Zeaxan 1 tab PO BID 02/23/21 09/01/21 History [Preservision Areds 2 Softgel] ALPRAZolam [Xanax] 1 mg PO HS 09/01/21 09/02/21 History Lidocaine 5% Patch [Lidoderm] 1 patch TOPICAL DAILY PRN 09/01/21 09/01/21 History Metoprolol Tartrate [Lopressor] 25 mg PO BID 09/01/21 09/01/21 History OXcarbazepine [Trileptal] 300 mg PO BID 09/01/21 09/01/21 History Ondansetron [Zofran] 4 mg PO QID PRN 09/01/21 09/01/21 History Pantoprazole [Protonix] 40 mg PO AC-BRKFST 09/01/21 09/01/21 History Potassium Chloride ER [K-Dur 20] 20 meq PO AC-SUPPER 09/01/21 09/01/21 History diphenhydrAMINE HCL [Benadryl] 12.5 mg PO HS 09/01/21 09/01/21 History levETIRAcetam [Keppra] 500 mg PO BID 09/01/21 09/01/21 History Allergies Allergy/AdvReac Type Severity Reaction Status Date / Time No Known Allergies Allergy Verified 09/01/21 21:18 Physical Exam Vitals: Vital Signs Temp Pulse Pulse Resp BP BP Pulse Ox 09/02/21 14:00 98.3 F 74 19 135/77 100 09/02/21 10:11 97.8 F 81 19 115/66 99 09/02/21 09:39 77 18 142/68 97 09/02/21 06:30 84 19 168/77 99 09/01/21 23:00 68 16 115/57 98 09/01/21 20:04 75 18 119/71 97 09/01/21 19:01 98.1 F 72 22 115/67 99 Intake and Output 09/02/21 09/02/21 09/02/21 06:59 14:59 22:59 Output Total 900 Balance -900 Output: Urine 900 Other: # Voids 1 1 Weight 68.039 kg Patient is comfortable awake alert oriented 3. Examination of the heart S1 and S2 Examination lungs bilateral breath sounds are heard Abdomen is soft nontender Examination lower extremity shows no evidence of edema [employer] exam is g rossly intact Results - Lab Results Most recent lab results Calcium 8.7 mg/dL (8.4-10.2) 09/02/21 06:24 Phosphorus 4.2 mg/dL (2.5-4.5) 09/02/21 06:24 Magnesium 1.1 mg/dL (1.6-2.3) L 09/02/21 06:24 09/02/21 06:24 09/02/21 10:27 Assessment and Plan Assessment: 1. Hypovolemic hyponatremia associated with diarrhea and GI fluid loss. Currently improving. Continue with normal saline and repeat serum sodium. Goal rate of increase about 8-10 mEq over 24 hours. 2. Volume depletion, currently maintained on IV fluids 3. Pyuria rule out urinary tract infection. 4. Diarrhea, rule out C. diff colitis, recommend check CT abdomen that was scheduled to be done as outpatient Plan: Continue with normal saline Repeat sodium later on today Checks stool for C. diff toxin Check CT of the abdomen that was scheduled as outpatient.
[2021-09-02 19:39] LABS: Glucose,Whole Blood 149 mg/dL (75-99)
[2021-09-02] MEDS: ASPIRIN 81 MG PO SCH (20:17)
[2021-09-02] MEDS: ATORVASTATIN 20 MG TAB PO SCH (20:18)
[2021-09-02] MEDS ORDERED: ALPRAZolam 0.5 MG TAB PO SCH (21:00)
[2021-09-03] MEDS: LEVOTHYROXINE 88 MCG TAB PO SCH (05:56)
[2021-09-03 07:06] LABS: Glucose,Whole Blood 132 mg/dL (75-99)
[2021-09-03] MEDS: HEPARIN SODIUM,PORCINE/PF 5,000 UNIT/0.5 ML SYRINGE SQ SCH ×3 (07:30→23:45)
[2021-09-03] MEDS: METOPROLOL TARTRATE 25 MG TAB PO SCH ×2 (07:31→20:33)
[2021-09-03] MEDS: levETIRAcetam 500 MG TAB PO SCH ×2 (07:31→20:33)
[2021-09-03] MEDS: LOPERAMIDE 2 MG CAP PO SCH ×4 (07:31→20:38)
[2021-09-03] MEDS: OXcarbazepine 300 MG TAB PO SCH ×2 (07:31→20:33)
[2021-09-03] MEDS: PANTOPRAZOLE 40 MG TABLET PO SCH (07:31)
[2021-09-03] MEDS: VIT A,C & E-LUTEIN-MINERALS 1 EACH TAB PO SCH ×2 (07:31→20:34)
[2021-09-03 09:12] LABS: ALT 8 U/L (8-44); AST 12 U/L (13-35); African American GFR (CKD) 112.1 (60.0-200.0); Albumin 4.1 g/dL (3.8-4.9); Albumin/Globulin Ratio 1.95 (1.60-3.17); Alkaline Phosphatase 107 U/L (41-126); Blood Urea Nitrogen 4.5 mg/dL (9.0-27.0); Calcium 9.1 mg/dL (8.7-10.3); Carbon Dioxide 19.8 mmol/L (20.0-27.5); Chloride 95 mmol/L (96-109); Globulin 2.1 g/dL (1.6-3.3); Glucose 106 mg/dL (70-110); Non-African American GFR(CKD) 96.7 (60.0-200.0); Sodium 128 mmol/L (135-145); Total Bilirubin <0.20 mg/dL (0.30-1.20); Total Protein 6.2 g/dL (6.2-8.2)
[2021-09-03] MEDS ORDERED: ALPRAZolam 1 MG TAB PO PRN (09:36)
[2021-09-03] MEDS ORDERED: SODIUM CHLORIDE 0.45% 1,000 ML IV SCH (10:15)
[2021-09-03] MEDS ORDERED: ALPRAZolam 1 MG TAB PO STA (10:16)
[2021-09-03] MEDS ORDERED: DEXTROSE 5% IN WATER 1,000 ML IV ONE ×2 (10:16→21:16)
--- NOTE | 2021-09-03 10:18 | P.PN ---
Subjective Patient is seen in follow-up for hyponatremia. Sodium level improved. No vomiting or diarrhea. Oral intake gradually improving. Vital signs are stable. General: The patient appeared well nourished and normally developed. HEENT: Head exam is unremarkable. LUNGS: Breath sounds decreased. HEART: Rate and Rhythm are regular. ABDOMEN: Soft, no distention. EXTREMITITES: No edema. Objective - Vital Signs Vital signs: Vital Signs Temp 98.5 F 09/03/21 02:00 Pulse 71 09/03/21 02:00 Resp 17 09/03/21 02:00 BP 112/67 09/03/21 02:00 Pulse Ox 99 09/03/21 02:00 Intake & Output 09/02/21 09/03/21 09/03/21 18:59 06:59 18:59 Output Total 900 Balance -900 Weight 68.039 kg Output: Urine 900 Other: # Voids 1 1 - Labs CBC & Chem 7: 09/02/21 06:24 09/03/21 06:07 Labs: Abnormal Lab Results - Last 24 Hours (Table) 09/02/21 09/02/21 09/02/21 Range/Units 10:27 11:54 16:05 Sodium 119 L* (137-145) mmol/L Chloride (96-109) mmol/L Carbon Dioxide (20.0-27.5) mmol/L BUN (9.0-27.0) mg/dL Creatinine (0.6-1.5) mg/dL BUN/Creatinine Ratio (12.00-20.00) Ratio POC Glucose (mg/dL) 153 H 166 H (75-99) mg/dL Total Bilirubin (0.30-1.20) mg/dL AST (13-35) U/L 09/02/21 09/03/21 09/03/21 Range/Units 19:38 06:07 07:05 Sodium 128 L (137-145) mmol/L Chloride 95 L (96-109) mmol/L Carbon Dioxide 19.8 L (20.0-27.5) mmol/L BUN 4.5 L (9.0-27.0) mg/dL Creatinine 0.5 L (0.6-1.5) mg/dL BUN/Creatinine Ratio 9.00 L (12.00-20.00) Ratio POC Glucose (mg/dL) 149 H 132 H (75-99) mg/dL Total Bilirubin <0.20 L (0.30-1.20) mg/dL AST 12 L (13-35) U/L Assessment and Plan Plan: Assessment: 1. Hypovolemic hyponatremia secondary to hypovolemia from diarrhea improved with IV hydration. Sodium level [id number] this morning. 2. Metabolic acidosis secondary to GI losses and IV fluids. 3. Diarrhea. Improved. CT of the abdomen and pelvis showed hiatal hernia and diverticulosis. C. diff negative. Plan: Change IV fluids to D5W to be run at 50 mL an hour to slow the correction of hyponatremia. Repeat sodium level at 4 PM today.
--- NOTE | 2021-09-03 11:37 | P.PN ---
Subjective Progress Note Date: 09/03/21 Principal diagnosis: diarrhea and hyponatremia 71 years old continued to be hemodynamic a stable diarrhea resolved C. diff came back negative patient on Rocephin tolerating well with improved appetite and said that she has more energy than before. Patient is denying chest pain shortness breath nausea vomiting dumping dizziness-type tenderness or blurry vision Objective - Vital Signs Vital signs: Vital Signs Temp 98.5 F 09/03/21 02:00 Pulse 71 09/03/21 02:00 Resp 17 09/03/21 02:00 BP 112/67 09/03/21 02:00 Pulse Ox 99 09/03/21 02:00 Intake & Output 09/02/21 09/03/21 09/03/21 18:59 06:59 18:59 Output Total 900 Balance -900 Weight 68.039 kg Output: Urine 900 Other: # Voids 1 1 - Exam Gen.: in stated age, no acute distress Heart: Normal S1-S2 Lungs: Clear to auscultation bilaterally Abdomen: Soft, no tenderness, positive bowel sounds in all 4 quadrant no guarding or rebound Skin: No new rash Psych: Alert and oriented 3 Neuro: No focal deficit - Labs CBC & Chem 7: 09/02/21 06:24 09/03/21 06:07 Labs: Abnormal Lab Results - Last 24 Hours (Table) 09/02/21 09/02/21 09/02/21 Range/Units 11:54 16:05 19:38 Sodium (135-145) mmol/L Chloride (96-109) mmol/L Carbon Dioxide (20.0-27.5) mmol/L BUN (9.0-27.0) mg/dL Creatinine (0.6-1.5) mg/dL BUN/Creatinine Ratio (12.00-20.00) Ratio POC Glucose (mg/dL) 153 H 166 H 149 H (75-99) mg/dL Total Bilirubin (0.30-1.20) mg/dL AST (13-35) U/L 09/03/21 09/03/21 Range/Units 06:07 07:05 Sodium 128 L (135-145) mmol/L Chloride 95 L (96-109) mmol/L Carbon Dioxide 19.8 L (20.0-27.5) mmol/L BUN 4.5 L (9.0-27.0) mg/dL Creatinine 0.5 L (0.6-1.5) mg/dL BUN/Creatinine Ratio 9.00 L (12.00-20.00) Ratio POC Glucose (mg/dL) 132 H (75-99) mg/dL Total Bilirubin <0.20 L (0.30-1.20) mg/dL AST 12 L (13-35) U/L Assessment and Plan Assessment: 1. Acute hyponatremia likely secondary to diarrhea and decreased oral intake. 2. History of aortic replacement at [facility]. 3. UTI. Next line 4. Seizure disorder. 5. Diabetes mellitus with controlled A1c area 6. History of breast cancer. Patient currently is tolerating diet seems to be alert and oriented 4 with resolving diarrhea I would like to encourage oral intake monitor over the next 24 hours monitor sodium closely and follow up with nephrology recommendation. We will encourage ambulation. We will repeat blood work in the morning follow- up on urine culture results and consider discharge in the next 24 hours based on clinical progress. to 1 mg twice daily when necessary and I was discussed with nursing staff at the bedside.
[2021-09-03 11:55] LABS: Glucose,Whole Blood 155 mg/dL (75-99)
[2021-09-03 12:08] VITALS: BMI 25.0
[2021-09-03 16:40] LABS: Glucose,Whole Blood 185 mg/dL (75-99)
[2021-09-03] MEDS: POTASSIUM CHLORIDE ER 20 MEQ TAB.ER PO SCH (16:47)
[2021-09-03 20:10] LABS: Glucose,Whole Blood 166 mg/dL (75-99)
[2021-09-03] MEDS: ATORVASTATIN 20 MG TAB PO SCH (20:33)
[2021-09-03] MEDS: ASPIRIN 81 MG PO SCH (20:33)
[2021-09-03] MEDS: ALPRAZolam 1 MG TAB PO SCH (20:33)
[2021-09-04 07:15] LABS: Glucose,Whole Blood 131 mg/dL (75-99)
[2021-09-04] MEDS: HEPARIN SODIUM,PORCINE/PF 5,000 UNIT/0.5 ML SYRINGE SQ SCH ×3 (07:30→23:06)
[2021-09-04] MEDS: METOPROLOL TARTRATE 25 MG TAB PO SCH ×2 (07:30→19:58)
[2021-09-04] MEDS: LOPERAMIDE 2 MG CAP PO SCH ×4 (07:31→20:04)
[2021-09-04] MEDS: PANTOPRAZOLE 40 MG TABLET PO SCH (07:31)
[2021-09-04] MEDS: OXcarbazepine 300 MG TAB PO SCH ×2 (07:31→19:59)
[2021-09-04] MEDS: ALPRAZolam 1 MG TAB PO SCH ×2 (07:32→19:58)
[2021-09-04] MEDS: LEVOTHYROXINE 88 MCG TAB PO SCH (07:32)
[2021-09-04] MEDS: VIT A,C & E-LUTEIN-MINERALS 1 EACH TAB PO SCH ×2 (07:32→19:59)
[2021-09-04] MEDS: levETIRAcetam 500 MG TAB PO SCH ×2 (07:32→19:59)
[2021-09-04 09:27] LABS: African American GFR (CKD) 102.1 (60.0-200.0); Anion Gap 11.9 mmol/L (10.00-18.00); BUN/Creat Ratio 7.32 Ratio (12.00-20.00); Blood Urea Nitrogen 4.9 mg/dL (9.0-27.0); Calcium 9.3 mg/dL (8.7-10.3); Carbon Dioxide 22.5 mmol/L (20.0-27.5); Non-African American GFR(CKD) 88.1 (60.0-200.0); Potassium 4.2 mmol/L (3.5-5.5)
[2021-09-04 09:28] LABS: Magnesium 1.7 mg/dL (1.5-2.4)
--- NOTE | 2021-09-04 09:34 | P.PN ---
Subjective Progress Note Date: 09/04/21 Principal diagnosis: diarrhea and hyponatremia Patient seems to be relaxed and improved since yesterday with increased oral intake and feedings little bit stronger. Patient is denying chest pain shortness breath nausea vomiting dumping dizziness lightheaded this or blurry vision Objective - Vital Signs Vital signs: Vital Signs Temp 97.7 F 09/04/21 07:15 Pulse 70 09/04/21 07:50 Resp 16 09/04/21 07:50 BP 157/72 09/04/21 07:15 Pulse Ox 96 09/04/21 07:15 Intake & Output 09/03/21 09/04/21 09/04/21 18:59 06:59 18:59 Output Total 400 410 Balance -400 -410 Weight 68.039 kg Output: Urine 400 400 Stool 10 Other: # Voids 5 - Exam Gen.: in stated age, no acute distress Heart: Normal S1-S2 Lungs: Clear to auscultation bilaterally Abdomen: Soft, no tenderness, positive bowel sounds in all 4 quadrant no guarding or rebound Skin: No new rash Psych: Alert and oriented 3 Neuro: No focal deficit - Labs CBC & Chem 7: 09/02/21 06:24 09/04/21 06:03 Labs: Abnormal Lab Results - Last 24 Hours (Table) 09/03/21 09/03/21 09/03/21 Range/Units 11:53 16:39 16:53 Sodium 129 L (137-145) mmol/L BUN (9.0-27.0) mg/dL BUN/Creatinine Ratio (12.00-20.00) Ratio Glucose (70-110) mg/dL POC Glucose (mg/dL) 155 H 185 H (75-99) mg/dL 09/03/21 09/03/21 09/04/21 Range/Units 20:08 20:37 00:15 Sodium 130 L 130 L (137-145) mmol/L BUN (9.0-27.0) mg/dL BUN/Creatinine Ratio (12.00-20.00) Ratio Glucose (70-110) mg/dL POC Glucose (mg/dL) 166 H (75-99) mg/dL 09/04/21 09/04/21 Range/Units 06:03 07:14 Sodium 131 L (137-145) mmol/L BUN 4.9 L (9.0-27.0) mg/dL BUN/Creatinine Ratio 7.32 L (12.00-20.00) Ratio Glucose 124 H (70-110) mg/dL POC Glucose (mg/dL) 131 H (75-99) mg/dL Microbiology - Last 24 Hours (Table) 09/01/21 21:00 Urine Culture - Preliminary Urine,Clean Catch Gram Neg Bacilli Assessment and Plan Assessment: 1. Acute hyponatremia likely secondary to diarrhea and decreased oral intake. 2. History of aortic replacement at [facility]. 3. UTI. Next line 4. Seizure disorder. 5. Diabetes mellitus with controlled A1c area 6. History of breast cancer. Sodium continued to improve and currently 131. Will follow-up with nephrology regarding fluid status and patient is tolerating diet well and I would like to discontinue IV fluid at this point. Consider repeating blood work in the next 24 hours and consider discharge if sodium continued to be improving. Urine culture is showing gram-negative bacilli with greater than 100,000 colonies and I would like to continue with Rocephin switch patient to oral antibiotics upon finalizing culture results. Glucose under fair control and we will continue current treatment. We'll have select physical therapy evaluated the patient and consider discharge in the next 24 hours based on clinical progress. Plan discussed with nursing staff at the bedside
--- NOTE | 2021-09-04 09:54 | P.PN ---
Subjective Patient is seen in follow-up for hyponatremia. Sodium level improved. No vomiting or diarrhea. Oral intake gradually improving. She did receive D5W yesterday and overnight to prevent further rise in sodium level. Sodium level stable at 131 this morning. Vital signs are stable. General: The patient appeared well nourished and normally developed. HEENT: Head exam is unremarkable. LUNGS: Breath sounds decreased. HEART: Rate and Rhythm are regular. ABDOMEN: Soft, no distention. EXTREMITITES: No edema. Objective - Vital Signs Vital signs: Vital Signs Temp 97.7 F 09/04/21 07:15 Pulse 70 09/04/21 07:50 Resp 16 09/04/21 07:50 BP 157/72 09/04/21 07:15 Pulse Ox 96 09/04/21 07:15 Intake & Output 09/03/21 09/04/21 09/04/21 18:59 06:59 18:59 Output Total 400 410 Balance -400 -410 Weight 68.039 kg Output: Urine 400 400 Stool 10 Other: # Voids 5 - Labs CBC & Chem 7: 09/02/21 06:24 09/04/21 06:03 Labs: Abnormal Lab Results - Last 24 Hours (Table) 09/03/21 09/03/21 09/03/21 Range/Units 11:53 16:39 16:53 Sodium 129 L (137-145) mmol/L BUN (9.0-27.0) mg/dL BUN/Creatinine Ratio (12.00-20.00) Ratio Glucose (70-110) mg/dL POC Glucose (mg/dL) 155 H 185 H (75-99) mg/dL 09/03/21 09/03/21 09/04/21 Range/Units 20:08 20:37 00:15 Sodium 130 L 130 L (137-145) mmol/L BUN (9.0-27.0) mg/dL BUN/Creatinine Ratio (12.00-20.00) Ratio Glucose (70-110) mg/dL POC Glucose (mg/dL) 166 H (75-99) mg/dL 09/04/21 09/04/21 Range/Units 06:03 07:14 Sodium 131 L (137-145) mmol/L BUN 4.9 L (9.0-27.0) mg/dL BUN/Creatinine Ratio 7.32 L (12.00-20.00) Ratio Glucose 124 H (70-110) mg/dL POC Glucose (mg/dL) 131 H (75-99) mg/dL Microbiology - Last 24 Hours (Table) 09/01/21 21:00 Urine Culture - Preliminary Urine,Clean Catch Gram Neg Bacilli Assessment and Plan Plan: Assessment: 1. Hypovolemic hyponatremia secondary to hypovolemia from diarrhea improved with IV hydration. Sodium level 131this morning. 2. Metabolic acidosis secondary to GI losses and IV fluids. Improved. 3. Diarrhea. Improved. CT of the abdomen and pelvis showed hiatal hernia and diverticulosis. C. diff negative. 4. Anemia. Rule out iron deficiency. Plan: Remains off IV fluids. Encouraged oral intake. Check iron studies.
[2021-09-04 11:38] LABS: Glucose,Whole Blood 138 mg/dL (75-99)
[2021-09-04 16:29] LABS: % Iron Saturation 6.96 (12.00-45.00); Ferritin 54.1 ng/mL (10.0-291.0)
[2021-09-04] MEDS: POTASSIUM CHLORIDE ER 20 MEQ TAB.ER PO SCH (16:43)
[2021-09-04 16:44] LABS: Glucose,Whole Blood 139 mg/dL (75-99)
[2021-09-04] MEDS: CEFEPIME 1 GM in SODIUM CHLORIDE 0.9% 50 ML IVPB SCH (17:37)
[2021-09-04] MEDS: ATORVASTATIN 20 MG TAB PO SCH (19:58)
[2021-09-04] MEDS: ASPIRIN 81 MG PO SCH (19:58)
[2021-09-04 20:27] LABS: Glucose,Whole Blood 134 mg/dL (75-99)
[2021-09-05] MEDS: CEFEPIME 1 GM in SODIUM CHLORIDE 0.9% 50 ML IVPB SCH ×2 (05:17→18:10)
[2021-09-05] MEDS: LEVOTHYROXINE 88 MCG TAB PO SCH (05:17)
[2021-09-05 07:06] LABS: Glucose,Whole Blood 105 mg/dL (75-99)
[2021-09-05 09:12] LABS: African American GFR (CKD) 112.1 (60.0-200.0); Anion Gap 13.4 mmol/L (10.00-18.00); Calcium 9.2 mg/dL (8.7-10.3); Carbon Dioxide 21.6 mmol/L (20.0-27.5); Magnesium 1.6 mg/dL (1.5-2.4); Non-African American GFR(CKD) 96.7 (60.0-200.0); Potassium 4.5 mmol/L (3.5-5.5)
[2021-09-05] MEDS: ALPRAZolam 1 MG TAB PO SCH ×2 (09:12→19:38)
[2021-09-05] MEDS: METOPROLOL TARTRATE 25 MG TAB PO SCH ×2 (09:12→19:39)
[2021-09-05] MEDS: levETIRAcetam 500 MG TAB PO SCH ×2 (09:13→19:38)
[2021-09-05] MEDS: OXcarbazepine 300 MG TAB PO SCH ×2 (09:13→19:38)
[2021-09-05] MEDS: HEPARIN SODIUM,PORCINE/PF 5,000 UNIT/0.5 ML SYRINGE SQ SCH ×3 (09:13→23:42)
[2021-09-05] MEDS: PANTOPRAZOLE 40 MG TABLET PO SCH (09:13)
[2021-09-05] MEDS: VIT A,C & E-LUTEIN-MINERALS 1 EACH TAB PO SCH ×2 (09:14→19:39)
[2021-09-05] MEDS: LOPERAMIDE 2 MG CAP PO SCH ×4 (09:15→19:32)
--- NOTE | 2021-09-05 09:44 | P.PN ---
Subjective Patient is seen in follow-up for hyponatremia. Sodium level 127 today. No vomiting or diarrhea. Oral intake gradually improving. No active complaints. Vital signs are stable. General: The patient appeared well nourished and normally developed. HEENT: Head exam is unremarkable. LUNGS: Breath sounds decreased. HEART: Rate and Rhythm are regular. ABDOMEN: Soft, no distention. EXTREMITITES: No edema. Objective - Vital Signs Vital signs: Vital Signs Temp 97.8 F 09/05/21 08:00 Pulse 78 09/05/21 08:00 Resp 16 09/05/21 08:00 BP 193/69 09/05/21 08:00 Pulse Ox 98 09/05/21 08:00 Intake & Output 09/04/21 09/05/21 09/05/21 18:59 06:59 18:59 Intake Total 580 100 Output Total 410 300 Balance 170 -200 Intake: Intake, IV Titration 100 100 Amount Cefepime 1 gm In Sodium 50 Chloride 0.9% 50 ml @ 12. 5 mls/hr IVPB Q12HR@0600, 1800 [facility] Rx#:[id number] cefTRIAXone 1 gm In 50 100 Sodium Chloride 0.9% 50 ml @ 100 mls/hr IVPB Q24H [facility] Rx#:[id number] Oral 480 Output: Urine 400 300 Stool 10 Other: Voiding Method Toilet # Voids 3 - Labs CBC & Chem 7: 09/02/21 06:24 09/05/21 04:37 Labs: Abnormal Lab Results - Last 24 Hours (Table) 09/04/21 09/04/21 09/04/21 Range/Units 00:15 11:37 16:43 Sodium (135-145) mmol/L Chloride (96-109) mmol/L BUN (9.0-27.0) mg/dL Creatinine (0.6-1.5) mg/dL POC Glucose (mg/dL) 138 H 139 H (75-99) mg/dL Iron 27 L (50-170) ug/dL % Saturation 6.96 L (12.00-45.00) 09/04/21 09/05/21 09/05/21 Range/Units 20:26 04:37 07:05 Sodium 127 L (135-145) mmol/L Chloride 92 L (96-109) mmol/L BUN 7.0 L (9.0-27.0) mg/dL Creatinine 0.5 L (0.6-1.5) mg/dL POC Glucose (mg/dL) 134 H 105 H (75-99) mg/dL Iron (50-170) ug/dL % Saturation (12.00-45.00) Microbiology - Last 24 Hours (Table) 09/01/21 21:00 Urine Culture - Final Urine,Clean Catch Pseudomonas aeruginosa Assessment and Plan Plan: Assessment: 1. Hypovolemic hyponatremia secondary to hypovolemia from diarrhea improved with IV hydration. Sodium level 127 this morning. Urine sodium <20. Urine osm 141. 2. Metabolic acidosis secondary to GI losses and IV fluids. Improved. 3. Diarrhea. Improved. CT of the abdomen and pelvis showed hiatal hernia and diverticulosis. C. diff negative. 4. Anemia. Iron deficiency noted. Plan: Resume normal saline at 50 mL an hour. 1500 mL fluid restriction. Encouraged oral intake. Add IV iron.
[2021-09-05 12:00] LABS: Glucose,Whole Blood 135 mg/dL (75-99)
[2021-09-05] MEDS: SODIUM CHLORIDE 0.9% 1,000 ML IV SCH (13:38)
[2021-09-05] MEDS: SODIUM FERRIC GLUCONAT-SUCROSE 125 MG in SODIUM CHLORIDE 0.9% 100 ML IVPB SCH (13:38)
--- NOTE | 2021-09-05 14:47 | P.PN ---
Subjective Progress Note Date: 09/05/21 HISTORY OF PRESENT ILLNESS This is a 71-year-old female patient of Dr. Helm with a past medical history of breast cancer as well as partial mastectomy under the care of Dr. Bharat jimenes, hypothyroidism, diabetes mellitus type 2, hypertension and aortic valve replacement June 2021 at [facility], seizure disorder under the care of Dr. Arriaga. Patient gives history that she has had watery diarrhea for a couple of weeks with abdominal pain and aching and sore feeling. She states she was told in the past that she had diverticulitis but that was years ago. Her last colonoscopy was several years ago. She states she is so weak that she slid off the couch and could not get herself up which happened 2 days ago. Patient also follows with Dr. Jackson and was scheduled for CAT scan of the abdomen regarding ongoing diarrhea which was scheduled for today as an outpatient. We will order it in the hospital visit. Patient has had a previous hospitalization in 2023 hyponatremia secondary to diarrhea. Patient presented to the emergency room and found to be afebrile, heart rate 72, blood pressure 115/67, pulse ox 99% on room air. CAT scan of the brain showed no acute process. Chest x-ray showed no acute process Initial sodium was 111 followed by 113 and 117. Hemoglobin was 10.4. Chloride 78, BUN 4 creatinine 0.68. Blood sugar 135. Serum osmolality 238. Uric acid 2. Calcium 9.1. Phosphorus 4.2, magnesium 1.1. AST 19, ALT 11, alkaline phosphatase 106. Troponin negative. Urinalysis was clear, nitrite positive, leukoesterase moderate, WBCs 27 and bacteria occasional. Urine culture is in progress. Coronavirus, influenza A, influenza B not detected. Patient was started on IV ceftriaxone, IV fluids 0.9 at 75 mL per hour, consult with pulmonary medicine and nephrology. 09/05: Over the weekend, patient had increased oral intake, decreased diarrhea and patient has been on Imodium. C. difficile toxin was negative. She has been followed closely by nephrology. Sodium this morning is 127. Nephrology is recommending resuming normal saline at 50 mL/h, 1500 mL fluid restriction and encourage oral intake. IV Ferrlecit has been ordered. Plan to probable discharge tomorrow. Patient refused home care. REVIEW OF SYSTEMS Constitutional: No fever, no chills, no night sweats. No weight change. Report weakness and fatigue no lethargy. No daytime sleepiness. EENT: No headache. No blurred vision or double vision, no loss of vision. No loss of Hearing, no ringing in the ears, no dizziness. No nasal drainage or congestion. No epistaxis. No sore throat. Lungs: No shortness of breath, cough, no sputum production. No wheezing. Cardiovascular: No chest pain, no lower extremity edema. No palpitations. No paroxysmal nocturnal dyspnea. No orthopnea. No lightheadedness or dizziness. No syncopal episodes. Abdominal: Denies abdominal discomfort. Denies nausea no vomiting. Denies diarrhea. No constipation. No bloody or tarry stools. Reports loss of appetite. Genitourinary: No dysuria, increased frequency, urgency. No urinary retention. Musculoskeletal: No myalgias. No muscle weakness, no gait dysfunction, no frequent falls. No back pain. No neck pain. Integumentary: No wounds, no lesions. No rash or pruritus. No unusual bruising. No change in hair or nails. Neurologic: No aphasia. No facial droop. No change in mentation. No head injury. No headache. No paralysis. No paresthesia. Psychiatric: No depression. No anxiety. No mood swings. Endocrine: No abnormal blood sugars. No weight change. No excessive sweating or thirst. PHYSICAL EXAMINATION General Appearance: Alert, cooperative, no distress, 71-year-old appears stated age. Neck HEENT: Supple, no lymphadenopathy, no thyroid enlargement, no carotid bruits. Lungs: Clear to auscultation without crackles or wheezes no rhonchi, no deformity. Chest Wall: Chest wall normal expansion with deep inspiration no tenderness and no deformity was found on exam, no costochondral pain or discomfort. Heart: Regular rate and rhythm, S1, S2 normal, no murmur, rub or gallop. Back: Symmetric, no curvature, ROM normal, no CVA tenderness. Abdomen: No abdominal distention, no generalized tenderness, no rebound or rigi dity, no hepatosplenomegaly. Extremities: Extremities normal, atraumatic, no cyanosis or edema. Pulses: 2+ and symmetric. Skin: Skin color, texture, tugor normal, no rashes or lesions. Neurologic: Alert oriented x3 cranial nerves II through XII intact, no motor deficit, no abnormal balance or gait ASSESSMENT AND PLAN 1. Acute hypovolemic hyponatremia. Consult with nephrology appreciated. IV fluids resumed at 50 ML's per hour. Recheck sodium level in the morning. 2. Diarrhea. C. difficile toxin negative. 3. Hypochloremia continue treatment for hyponatremia. 4. Acute urinary tract infection. Continue meropenem, urine culture 5. Hyperlipidemia. Continue atorvastatin 20 g at bedtime 6. History of seizure disorder. Continue Keppra 500 mg twice daily, Trileptal 300 mg twice daily. 7. Hypothyroidism. Continue levothyroxine 88 g daily. 8. Hypertension. Continue Lopressor 25 mg twice daily 5. Hypokalemia. 9. History of Diabetes mellitus. Previous hemoglobin A1c 5.8. 10. History of breast cancer, stable. 11. Sleep disturbance. Melatonin 10 mg daily at bedtime 12. History of breast cancer 13. Anemia of chronic kidney disease. Patient is scheduled for Ferrlecit infusion. 14. GI prophylaxis. Protonix 40 mg 15. DVT prophylaxis. Heparin subcu CODE STATUS: Full code DISCHARGE PLAN Home without home care on Sunday Impression and plan of care have been directed as dictated by the signing physi selina. Brie Rhodes nurse practitioner acting as scribe for signing physician. Objective - Vital Signs Vital signs: Vital Signs Temp 97.8 F 09/05/21 08:00 Pulse 78 09/05/21 08:00 Resp 16 09/05/21 08:00 BP 193/69 09/05/21 08:00 Pulse Ox 98 09/05/21 08:00 Intake & Output 09/04/21 09/05/21 09/05/21 18:59 06:59 18:59 Intake Total 580 100 Output Total 410 300 Balance 170 -200 Intake: Intake, IV Titration 100 100 Amount Cefepime 1 gm In Sodium 50 Chloride 0.9% 50 ml @ 12. 5 mls/hr IVPB Q12HR@0600, 1800 [facility] Rx#:[id number] cefTRIAXone 1 gm In 50 100 Sodium Chloride 0.9% 50 ml @ 100 mls/hr IVPB Q24H [facility] Rx#:[id number] Oral 480 Output: Urine 400 300 Stool 10 Other: Voiding Method Toilet Toilet # Voids 3 - Labs CBC & Chem 7: 09/02/21 06:24 09/05/21 04:37 Labs: Abnormal Lab Results - Last 24 Hours (Table) 09/04/21 09/04/21 09/04/21 Range/Units 00:15 16:43 20:26 Sodium (135-145) mmol/L Chloride (96-109) mmol/L BUN (9.0-27.0) mg/dL Creatinine (0.6-1.5) mg/dL POC Glucose (mg/dL) 139 H 134 H (75-99) mg/dL Iron 27 L (50-170) ug/dL % Saturation 6.96 L (12.00-45.00) 09/05/21 09/05/21 Range/Units 04:37 07:05 Sodium 127 L (135-145) mmol/L Chloride 92 L (96-109) mmol/L BUN 7.0 L (9.0-27.0) mg/dL Creatinine 0.5 L (0.6-1.5) mg/dL POC Glucose (mg/dL) 105 H (75-99) mg/dL Iron (50-170) ug/dL % Saturation (12.00-45.00) Microbiology - Last 24 Hours (Table) 09/01/21 21:00 Urine Culture - Final Urine,Clean Catch Pseudomonas aeruginosa
[2021-09-05 16:51] LABS: Glucose,Whole Blood 135 mg/dL (75-99)
[2021-09-05] MEDS: ATORVASTATIN 20 MG TAB PO SCH (19:38)
[2021-09-05] MEDS: ASPIRIN 81 MG PO SCH (19:38)
[2021-09-05 21:16] LABS: Glucose,Whole Blood 158 mg/dL (75-99)
[2021-09-06] MEDS: LORazepam 2 MG/ML INJ IV PRN ×2 (04:42→10:04)
[2021-09-06] MEDS: CEFEPIME 1 GM in SODIUM CHLORIDE 0.9% 50 ML IVPB SCH ×2 (05:05→17:41)
[2021-09-06] MEDS: LEVOTHYROXINE 88 MCG TAB PO SCH (05:06)
[2021-09-06] MEDS: SODIUM CHLORIDE 0.9% 1,000 ML IV SCH (05:06)
--- NOTE | 2021-09-06 06:13 | CT ---
EXAMINATION TYPE: CT brain wo con DATE OF EXAM: 09/06/2021 HISTORY: AMS. possible seizure CT DLP: 1096.4 mGycm. Automated Exposure Control for Dose Reduction was Utilized. TECHNIQUE: CT scan of the head is performed without contrast. COMPARISON: CT brain September 01, 2021. MRI brain May 24, 2020. FINDINGS: There is no acute intracranial hemorrhage or midline shift identified. There is mild diff use ventricular and sulcal prominence consistent with diffuse age-related cerebral atrophy. There is mild to moderate low-attenuation in the deep and periventricular white matter consistent with chroni c small vessel ischemic change. The globes are intact and the visualized sinuses are clear. The ca lvarium is intact. IMPRESSION: No acute intracranial hemorrhage or midline shift. There is mild diffuse cerebral atrop hy and mild to moderate chronic small vessel ischemic change redemonstrated. No significant change f rom recent CT study.
[2021-09-06 06:59] LABS: Glucose,Whole Blood 142 mg/dL (75-99)
[2021-09-06] MEDS ORDERED: ERGOCALCIFEROL 1,250 MCG (50,000 IU) CAPSULE PO SCH (09:00)
--- NOTE | 2021-09-06 09:46 | P.CNNES ---
History of Present Illness Consult date: 09/06/21 Requesting physician: Analisa Hobbs Reason for Consult: seizure History of Present Illness: This is a 71-year-old woman with medical history of seizure, diabetes mellitus, hypertension, hypothyroidism, hyperlipidemia, right breast cancer s/p partial mastectomy, hyponatremia, aortic valve replacement in 06/2021, anxiety who presented emergency department on 09/01/2021 for generalized weakness for the last 1 week. She's been feeling fatigue, lightheadedness, dizziness and diarrhea. Neurology is consulted for the seizure. Seems that the patient has been having watery diarrhea for a couple weeks with abdominal pain. It seems that the on 09/06/2021 the patient had seizure-like activity that is reported. Per the nurse, around 4ish am today patient had blank stare and not responding for 5 minutes. Per nurse, it is reported the patient did not have jerking of any extremities, foaming around the mouth, urinary or bowel incontinence. As a result the primary team ordered a CAT scan of the head, EEG and give the patient Ativan 0.5 mg. Patient does not recall the event. Per the patient's nurse that had her since 7 AM she said that that the patient has been appropriate for her and no further seizure-like activity. During this hospital stay patient was found to have hyponatremia of 111 and has improved current to 127. Patient stated she had her first seizure in July 2021 "a month after her open heart surgery" (aortic valve replacement). She was told she had generalized tonic-clonic seizures and does not recall event. She denies any aura prior and could not elaborate more. She said she was placed on Keppra 1gm bid initially by her neurologist (Dr. Arriaga) and result was having behavioral issues as result he decreased it down to 500mg 1 tab bid and started the patient on Trileptal 300mb bid. She had an EEG at her neurologist office per the patient but the does not recall what was the reported. She said she was told by her neurologist that he will eventually stop Keppra. She denies having any further seizure-like activity beside the one today possibly and one in 07/2021. She resides with her . She has notices short-term memory loss since her heart surgery of 06/2021. She denies any family history of seizures. Patient stated she has history of hyponatremia and was as low as 105 in 2019. Some of the work-up in our hospital consisted of: Patient one blood cell last is the 5.7, weight is 273. Patient most recent POC glucose is 142. AST and ALT is within normal limits Calcium is 9.2. Phosphorus is 4.2. Initial magnesium is 1.1 and most recent one is a 1.6. Also it is found that the patient has positive urinary tract infection and she has pseudomonas aeruginosa. TSH is 4.11 CT head is reported as no acute intracranial hemorrhage or midline shift. There is mild diffuse cerebral atrophy and mild to moderate chronic small vessel ischemic changes redemonstrated. No significant change from recent CTA study. I personally reviewed that that CAT scan and I agree with the report. Bañuelos virus PCR is nondetected. C. diff is negative. Influenza A and B is negative Review of Systems Review of system: The 12 point system was reviewed and apparent positive and negative per HPI. Past Medical History Past Medical History: Cancer, Diabetes Mellitus, Eye Disorder, Hyperlipidemia, Hypertension, Seizure Disorder, Thyroid Disorder Additional Past Medical History / Comment(s): Recently diagnosed with seizure disorder at [facility] in July 2021, hyponatremia, diet controlled diabetes, R breast cancer with surgery/chemo/radiation, benign thyroid nodules/hypothyroid, antral stomach ulcer, gastritis, small hiatal hernia, diverticular disease, bilateral macular degeneration/receives eye injections, occasional lower back pain History of Any Multi-Drug Resistant Organisms: None Reported Past Surgical History: Adenoidectomy, Breast Surgery, Cardiac Valve Replacement, Heart Catheterization, Tonsillectomy Additional Past Surgical History / Comment(s): 06/2021 aortic valve replacement at [facility], R/L cardiac cath/marbin, bilateral breast biopsies, R breast lumpectomy/lymph node removed, thyroid biopsy, bilateral breast reductions, D&Cs, EGD, colonoscopy Past Anesthesia/Blood Transfusion Reactions: No Reported Reaction Smoking Status: Former smoker - Past Family History Father Family Medical History: Cancer Additional Family Medical History / Comment(s): Pancreatic cancer Mother Family Medical History: Myocardial Infarction (GA) Additional Family Medical History / Comment(s): Mother survived a GA at the age of 59 yrs. Mother had valvular disease. Medications and Allergies Home Medications Medication Instructions Recorded Confirmed Type Simvastatin 40 mg PO HS 04/12/20 09/01/21 History Aspirin 81 mg PO HS 02/23/21 09/01/21 History Ergocalciferol [Vitamin D2 (1250 1,250 mcg PO TU 02/23/21 09/01/21 History Mcg = 30015 Iu)] Levothyroxine Sodium [Synthroid] 88 mcg PO DAILY 02/23/21 09/01/21 History Vit C/E/Zn/Coppr/Lutein/Zeaxan 1 tab PO BID 02/23/21 09/01/21 History [Preservision Areds 2 Softgel] ALPRAZolam [Xanax] 1 mg PO HS 09/01/21 09/02/21 History Lidocaine 5% Patch [Lidoderm] 1 patch TOPICAL DAILY PRN 09/01/21 09/01/21 History Metoprolol Tartrate [Lopressor] 25 mg PO BID 09/01/21 09/01/21 History OXcarbazepine [Trileptal] 300 mg PO BID 09/01/21 09/01/21 History Ondansetron [Zofran] 4 mg PO QID PRN 09/01/21 09/01/21 History Pantoprazole [Protonix] 40 mg PO AC-BRKFST 09/01/21 09/01/21 History Potassium Chloride ER [K-Dur 20] 20 meq PO AC-SUPPER 09/01/21 09/01/21 History diphenhydrAMINE HCL [Benadryl] 12.5 mg PO HS 09/01/21 09/01/21 History levETIRAcetam [Keppra] 500 mg PO BID 09/01/21 09/01/21 History Allergies Allergy/AdvReac Type Severity Reaction Status Date / Time No Known Allergies Allergy Verified 09/01/21 21:18 Physical Examination - Vital Signs Vital Signs: Vital Signs Temp Pulse Resp BP Pulse Ox 09/06/21 08:00 98 F 77 17 102/69 96 09/06/21 01:43 97.4 F L 71 18 169/77 99 09/05/21 20:00 97.4 F L 75 18 160/75 100 09/05/21 14:00 97.9 F 65 16 147/72 99 Intake and Output 09/05/21 09/06/21 09/06/21 22:59 06:59 14:59 Intake Total 1310 450 Balance 1310 450 Intake: IV 450 Cefepime 1 gm In Sodium 50 Chloride 0.9% 50 ml @ 12. 5 mls/hr IVPB Q12HR@0600, 1800 [facility] Rx#:[id number] Sodium Chloride 0.9% 1, 400 000 ml @ 50 mls/hr IV . Q20H [facility] Rx#:[id number] Intake, IV Titration 350 Amount Sodium Chloride 0.9% 1, 250 000 ml @ 50 mls/hr IV . Q20H [facility] Rx#:[id number] Sodium Ferric Gluconat- 100 Sucrose 125 mg In Sodium Chloride 0.9% 100 ml @ 100 mls/hr IVPB DAILY [facility] Rx#:[id number] Oral 960 Other: Voiding Method Toilet # Voids 8 GENERAL: The patient is lying in bed and is not in acute distress. CHEST: The heart rate is regular rate rhythm. No murmurs to auscultation. LUNG: Clear to auscultation bilaterally no wheezing noted throughout. Not labored breathing. ABDOMEN/GI: Bowel sounds present in all 4 quadrants. No tenderness to palpation throughout. NEUROLOGICAL: Higher mental function: The patient is awake, alert, oriented to self, place and time. Patient is following commands. No aphasia and no neglect. Cranial nerves: The pupils are round, equal and reactive to light and accomm odation. Visual almeida are full to confrontation throughout. Extraocular movement is intact no nystagmus is noted. Facial sensation is normal to touch throughout. The facial strength is normal throughout. Hearing is mildly decreased bilaterally to hand rub. Tongue is midline and moved [id number] without any difficulty. No dysarthria is noted. Shoulder shrug is normal bilaterally. Motor: Gait is deferred. The strength is 5 over 5 throughout. Normal tone and bulk. Cerebellum: Normal finger to nose bilaterally. Sensation: Sensation is normal to touch throughout. Reflexes (right/left): 2+ Plantars are downgoing bilaterally. Results - Laboratory Findings CBC and BMP: 09/02/21 06:24 09/05/21 04:37 Abnormal Lab Findings: Abnormal Labs 09/01/21 09/01/21 09/01/21 20:00 20:02 21:00 RBC Hgb 10.4 L Hct 31.9 L Lymphocytes # 0.5 L Sodium 111 L* Chloride 78 L Carbon Dioxide BUN 4 L Creatinine BUN/Creatinine Ratio Glucose 135 H POC Glucose (mg/dL) Osmolality Uric Acid Magnesium 1.1 L Iron % Saturation Total Bilirubin AST Total Protein Albumin Urine Nitrite Positive H Ur Leukocyte Esterase Moderate H Urine WBC 27 H Urine Bacteria Occasional H Ur Random Sodium Ur Random Uric Acid 09/01/21 09/01/21 09/01/21 21:00 21:00 23:59 RBC Hgb Hct Lymphocytes # Sodium Chloride Carbon Dioxide BUN Creatinine BUN/Creatinine Ratio Glucose POC Glucose (mg/dL) Osmolality 238 L* Uric Acid 2.0 L Magnesium Iron % Saturation Total Bilirubin AST Total Protein Albumin Urine Nitrite Ur Leukocyte Esterase Urine WBC Urine Bacteria Ur Random Sodium <20 L Ur Random Uric Acid 18.3 L 09/02/21 09/02/21 09/02/21 00:02 06:24 06:24 RBC 3.67 L Hgb 9.7 L Hct 30.1 L Lymphocytes # 0.9 L Sodium 113 L* 117 L* Chloride 82 L 87 L Carbon Dioxide BUN 3 L <2 L Creatinine BUN/Creatinine Ratio Glucose 122 H 101 H POC Glucose (mg/dL) Osmolality Uric Acid Magnesium 1.1 L Iron % Saturation Total Bilirubin 0.1 L AST Total Protein 5.9 L Albumin 3.4 L Urine Nitrite Ur Leukocyte Esterase Urine WBC Urine Bacteria Ur Random Sodium Ur Random Uric Acid 09/02/21 09/02/21 09/02/21 10:27 11:54 16:05 RBC Hgb Hct Lymphocytes # Sodium 119 L* Chloride Carbon Dioxide BUN Creatinine BUN/Creatinine Ratio Glucose POC Glucose (mg/dL) 153 H 166 H Osmolality Uric Acid Magnesium Iron % Saturation Total Bilirubin AST Total Protein Albumin Urine Nitrite Ur Leukocyte Esterase Urine WBC Urine Bacteria Ur Random Sodium Ur Random Uric Acid 09/02/21 09/03/21 09/03/21 19:38 06:07 07:05 RBC Hgb Hct Lymphocytes # Sodium 128 L Chloride 95 L Carbon Dioxide 19.8 L BUN 4.5 L Creatinine 0.5 L BUN/Creatinine Ratio 9.00 L Glucose POC Glucose (mg/dL) 149 H 132 H Osmolality Uric Acid Magnesium Iron % Saturation Total Bilirubin <0.20 L AST 12 L Total Protein Albumin Urine Nitrite Ur Leukocyte Esterase Urine WBC Urine Bacteria Ur Random Sodium Ur Random Uric Acid 09/03/21 09/03/21 09/03/21 11:53 16:39 16:53 RBC Hgb Hct Lymphocytes # Sodium 129 L Chloride Carbon Dioxide BUN Creatinine BUN/Creatinine Ratio Glucose POC Glucose (mg/dL) 155 H 185 H Osmolality Uric Acid Magnesium Iron % Saturation Total Bilirubin AST Total Protein Albumin Urine Nitrite Ur Leukocyte Esterase Urine WBC Urine Bacteria Ur Random Sodium Ur Random Uric Acid 09/03/21 09/03/21 09/04/21 20:08 20:37 00:15 RBC Hgb Hct Lymphocytes # Sodium 130 L 130 L Chloride Carbon Dioxide BUN Creatinine BUN/Creatinine Ratio Glucose POC Glucose (mg/dL) 166 H Osmolality Uric Acid Magnesium Iron % Saturation Total Bilirubin AST Total Protein Albumin Urine Nitrite Ur Leukocyte Esterase Urine WBC Urine Bacteria Ur Random Sodium Ur Random Uric Acid 09/04/21 09/04/21 09/04/21 00:15 06:03 07:14 RBC Hgb Hct Lymphocytes # Sodium 131 L Chloride Carbon Dioxide BUN 4.9 L Creatinine BUN/Creatinine Ratio 7.32 L Glucose 124 H POC Glucose (mg/dL) 131 H Osmolality Uric Acid Magnesium Iron 27 L % Saturation 6.96 L Total Bilirubin AST Total Protein Albumin Urine Nitrite Ur Leukocyte Esterase Urine WBC Urine Bacteria Ur Random Sodium Ur Random Uric Acid 09/04/21 09/04/21 09/04/21 11:37 16:43 20:26 RBC Hgb Hct Lymphocytes # Sodium Chloride Carbon Dioxide BUN Creatinine BUN/Creatinine Ratio Glucose POC Glucose (mg/dL) 138 H 139 H 134 H Osmolality Uric Acid Magnesium Iron % Saturation Total Bilirubin AST Total Protein Albumin Urine Nitrite Ur Leukocyte Esterase Urine WBC Urine Bacteria Ur Random Sodium Ur Random Uric Acid 09/05/21 09/05/21 09/05/21 04:37 07:05 11:59 RBC Hgb Hct Lymphocytes # Sodium 127 L Chloride 92 L Carbon Dioxide BUN 7.0 L Creatinine 0.5 L BUN/Creatinine Ratio Glucose POC Glucose (mg/dL) 105 H 135 H Osmolality Uric Acid Magnesium Iron % Saturation Total Bilirubin AST Total Protein Albumin Urine Nitrite Ur Leukocyte Esterase Urine WBC Urine Bacteria Ur Random Sodium Ur Random Uric Acid 09/05/21 09/05/21 09/06/21 16:49 21:14 06:58 RBC Hgb Hct Lymphocytes # Sodium Chloride Carbon Dioxide BUN Creatinine BUN/Creatinine Ratio Glucose POC Glucose (mg/dL) 135 H 158 H 142 H Osmolality Uric Acid Magnesium Iron % Saturation Total Bilirubin AST Total Protein Albumin Urine Nitrite Ur Leukocyte Esterase Urine WBC Urine Bacteria Ur Random Sodium Ur Random Uric Acid Assessment and Plan Assessment: * Break-through seizure (reported on 09/06/21 around 4ish am, blank stare and not responding for 5 minutes but did not have jerking of extremities, foaming around mouth, no tongue bite). Seizure seems provoked from multifactorial hy ponatremia and UTI. * Seizure disorder (had one seizure in 07/2021 and was told she had GTC) * Acute hyponatremia (and had history of hyponatremia in 2019) presented with a sodium of 111 and most current one is 127 * Acute urinary tract infection * Cognitive impairement (reports having short term memory loss since 06/2021) * Anxiety * Hypertension * Hypothyroidism * Diabetes mellitus * History of right breast cancer status post partial mastectomy * History of aortic valve replacement and 2020 * History of hyperlipidemia Plan: EEG is pending. If EEG is negative for seizures I'll write a prescription for two and half hour EEG as an outpatient and I will be coordinated by the computer service technician. Patient is on her home dose of Keppra 500 mg 1 tablet twice a day and Trileptal 300mg bid. Patient is being weaned down off of Keppra because of the behavioral issues from the medication by her neurologist (Dr. Arriaga). I recommend that considering the titrating down Trileptal since it can cause hyponatremia and I would recommend instead the Vimpat 50 g one tablet twice a day Needed that can go up to 100 mg 1 tablet twice a day. The patient stated that the she'll speak with her neurologist as an outpatient and will discuss this with him. Patient is on seizure precaution. Placed on seizure pads. Every 4 hours neuro checks Ordered vitamin B12 and folate level. PT OT is consulted Nephrology is on board We'll defer the correction of hyponatremia to the nephrology team. Please avoid overcorrection since it can cause central pontine myelinolysis. We'll defer the rest of the medical management to the primary team. Upon discharge the patient needs to follow-up with her neurologist (Dr. Arriaga) within 1-2 weeks Thank you for the consultation. UPDATE: I was notified by the patient's nurse the patient just had another episode of staring off and not responding lasting 4.30 minutes. I will load the patient with Vimpat 200mg IVP once and gave 1mg ativan and ordered 2.5 hour EEG STAT. Estrada Stahl M.D. Neuro-Hospitalist. Time with Patient: Greater than 30
[2021-09-06] MEDS: levETIRAcetam 500 MG TAB PO SCH ×2 (09:57→20:49)
[2021-09-06] MEDS: METOPROLOL TARTRATE 25 MG TAB PO SCH ×2 (09:57→20:50)
[2021-09-06] MEDS ORDERED: LACOSAMIDE IV 200 MG in SODIUM CHLORIDE 0.9% 50 ML IVPB STA (09:57)
[2021-09-06] MEDS: PANTOPRAZOLE 40 MG TABLET PO SCH (09:57)
[2021-09-06] MEDS: LOPERAMIDE 2 MG CAP PO SCH ×2 (09:57→12:14)
[2021-09-06] MEDS: OXcarbazepine 300 MG TAB PO SCH (09:58)
[2021-09-06] MEDS: VIT A,C & E-LUTEIN-MINERALS 1 EACH TAB PO SCH ×2 (09:59→20:52)
[2021-09-06] MEDS: HEPARIN SODIUM,PORCINE/PF 5,000 UNIT/0.5 ML SYRINGE SQ SCH ×3 (10:13→23:37)
[2021-09-06] MEDS: ALPRAZolam 1 MG TAB PO SCH ×2 (10:14→20:51)
[2021-09-06] MEDS: SODIUM FERRIC GLUCONAT-SUCROSE 125 MG in SODIUM CHLORIDE 0.9% 100 ML IVPB SCH (10:56)
--- NOTE | 2021-09-06 11:31 | P.PN ---
Subjective Patient is seen in follow-up for hyponatremia. Sodium level 127 yesterday. Patient had seizure this morning. She is currently undergoing EEG. Vital signs are stable. General: The patient appeared well nourished and normally developed. HEENT: Head exam is unremarkable. LUNGS: Breath sounds decreased. HEART: Rate and Rhythm are regular. ABDOMEN: Soft, no distention. EXTREMITITES: No edema. Objective - Vital Signs Vital signs: Vital Signs Temp 98 F 09/06/21 08:00 Pulse 77 09/06/21 08:00 Resp 17 09/06/21 08:00 BP 102/69 09/06/21 08:00 Pulse Ox 96 09/06/21 08:00 Intake & Output 09/05/21 09/06/21 09/06/21 18:59 06:59 18:59 Intake Total 1310 450 Balance 1310 450 Intake: IV 450 Cefepime 1 gm In Sodium 50 Chloride 0.9% 50 ml @ 12. 5 mls/hr IVPB Q12HR@0600, 1800 [facility] Rx#:[id number] Sodium Chloride 0.9% 1, 400 000 ml @ 50 mls/hr IV . Q20H [facility] Rx#:[id number] Intake, IV Titration 350 Amount Sodium Chloride 0.9% 1, 250 000 ml @ 50 mls/hr IV . Q20H [facility] Rx#:[id number] Sodium Ferric Gluconat- 100 Sucrose 125 mg In Sodium Chloride 0.9% 100 ml @ 100 mls/hr IVPB DAILY [facility] Rx#:[id number] Oral 960 Other: Voiding Method Toilet Toilet # Voids 8 - Labs CBC & Chem 7: 09/02/21 06:24 09/05/21 04:37 Labs: Abnormal Lab Results - Last 24 Hours (Table) 09/05/21 09/05/21 09/05/21 Range/Units 11:59 16:49 21:14 POC Glucose (mg/dL) 135 H 135 H 158 H (75-99) mg/dL 09/06/21 Range/Units 06:58 POC Glucose (mg/dL) 142 H (75-99) mg/dL Assessment and Plan Plan: Assessment: 1. Hypovolemic hyponatremia secondary to hypovolemia from diarrhea improved with IV hydration. Sodium level 127 yesterday. Urine sodium <20. Urine osm 141. 2. Metabolic acidosis secondary to GI losses and IV fluids. 3. Diarrhea. Improved. CT of the abdomen and pelvis showed hiatal hernia and diverticulosis. C. diff negative. 4. Anemia. Iron deficiency noted. 5. Seizures. Neurology following. Currently undergoing EEG. Plan: Maintain normal saline at 50 mL an hour. 1500 mL fluid restriction. Encouraged oral intake. Maintain IV iron. Follow-up morning labs.
[2021-09-06 11:50] LABS: African American GFR (CKD) 112.1 (60.0-200.0); Anion Gap 11.8 mmol/L (10.00-18.00); BUN/Creat Ratio 8.2 Ratio (12.00-20.00); Blood Urea Nitrogen 4.1 mg/dL (9.0-27.0); Calcium 8.9 mg/dL (8.7-10.3); Carbon Dioxide 21.2 mmol/L (20.0-27.5); Magnesium 1.6 mg/dL (1.5-2.4); Non-African American GFR(CKD) 96.7 (60.0-200.0); Potassium 3.8 mmol/L (3.5-5.5)
--- NOTE | 2021-09-06 13:23 | CDI ---
Documentation Clarification Form Date: 09/06/2021 01:04:00 PM From: Annia Chaney CCS, CCDS Admit Date: 09/01/2021 09:18:00 PM Patient Name: Glenis Coats Visit Number: [id number] Discharge Date: ATTENTION: The Clinical Documentation Specialists (CDI) and [facility] Coding Staff appreciate your assistance in clarifying documentation. Please respond to the clarification below the line at the bottom and electronically sign. The CDI & [facility] Coding staff will review the response and follow-up if needed. Please note: Queries are made part of the Legal Health Record. If you have any questions, please contact the author of this message via ITS. Dr. Paula Valdes: Anemia of Chronic Kidney Disease is documented in the 09/05 Attending Physician Progress Note, CKD is not documented elsewhere in the chart but Nephrology was consulted. Additional clarification regarding the stage of CKD is requested. History/Risk Factors per the 09/02 H/P: Breast Cancer status post partial mastectomy, radiation & chemotherapy; Hypothyroidism, DM II, Hypertension, Aortic Valve Stenosis status post AVR June 2021 @ [facility]. Clinical Indicators: Presented to the ED on 09/01 with Headache, Body aches and Nausea. Admit with Hyponatremia, Generalized Weakness, Headache, UTI Current BUN/CR/GFR 09/01: 4/0.68/88 Historical GFR 10/25/2016: >60 Treatment 09/01: Blood glucose monitoring, Orthostatics, Seizure precautions, 1500 ml Fluid Restriction, O2, IV Na Cl 500 mls @ 999 mls/hr q31M, IV Na Cl 1,000 mls @ 75 mls/hr q13H, IV Rocephin 1,000 mg x1. Please clarify the stage of the CKD, if known: [ ] CKD Stage 1 (GFR > 90) [ ] CKD Stage 2 (GFR 60-89) [ ] CKD Stage 3 (GFR 30-59) [ ] CKD ruled out [ ] Other, please specify [ ] Unable to determine (Template Last revised: September 2020) NO CKD MTDD
[2021-09-06] MEDS: SODIUM CHLORIDE TAB 1 GM TAB PO SCH ×2 (14:16→20:50)
--- NOTE | 2021-09-06 15:44 | P.PN ---
Subjective Progress Note Date: 09/06/21 HISTORY OF PRESENT ILLNESS This is a 71-year-old female patient of Dr. Helm with a past medical history of breast cancer as well as partial mastectomy under the care of Dr. Bharat jimenes, hypothyroidism, diabetes mellitus type 2, hypertension and aortic valve replacement June [address] [facility], seizure disorder under the care of Dr. Arriaga. Patient gives history that she has had watery diarrhea for a couple of weeks with abdominal pain and aching and sore feeling. She states she was told in the past that she had diverticulitis but that was years ago. Her last colonoscopy was several years ago. She states she is so weak that she slid off the couch and could not get herself up which happened 2 days ago. Patient also follows with Dr. Jackson and was scheduled for CAT scan of the abdomen regarding ongoing diarrhea which was scheduled for today as an outpatient. We will order it in the hospital visit. Patient has had a previous hospitalization in 2023 hyponatremia secondary to diarrhea. Patient presented to the emergency room and found to be afebrile, heart rate 72, blood pressure 115/67, pulse ox 99% on room air. CAT scan of the brain showed no acute process. Chest x-ray showed no acute process Initial sodium was 111 followed by 113 and 117. Hemoglobin was 10.4. Chloride 78, BUN 4 creatinine 0.68. Blood sugar 135. Serum osmolality 238. Uric acid 2. Calcium 9.1. Phosphorus 4.2, magnesium 1.1. AST 19, ALT 11, alkaline phosphatase 106. Troponin negative. Urinalysis was clear, nitrite positive, leukoesterase moderate, WBCs 27 and bacteria occasional. Urine culture is in progress. Coronavirus, influenza A, influenza B not detected. Patient was started on IV ceftriaxone, IV fluids 0.9 at 75 mL per hour, consult with pulmonary medicine and nephrology. 09/05: Over the weekend, patient had increased oral intake, decreased diarrhea and patient has been on Imodium. C. difficile toxin was negative. She has been followed closely by nephrology. Sodium this morning is 127. Nephrology is recommending resuming normal saline at 50 mL/h, 1500 mL fluid restriction and encourage oral intake. IV Ferrlecit has been ordered. Plan to probable discharge tomorrow. Patient refused home care. 09/06: Consult was added this morning for neurology as patient had a witnessed seizure staring type. She was seen by neurology and subsequently had another staring episode. Patient underwent EEG and a 2-1/2 hour EEG that did not show any seizure activity but there was concern that possible seizure activity was not picked up. Patient was seen by Dr. Stahl and recommended titrating down Trileptal since it can cause hyponatremia and instead Vimpat 50 mg twice daily and can go up to 100 mg twice daily. He will make medication changes in the chart. Nephrology recommends continuing 0.9 normal saline at 50 MLS per hour, 1500 mL fluid restriction and encourage oral intake, continue IV iron infusions. Repeat blood work reveals sodium 125, potassium 3.8, chloride 92, CO2 21, BUN 4.1 and creatinine 0.5. Blood sugars running between 135 and 158. Magnesium 1.6. Neurology is recommending transfer the patient to tertiary care where a long-term EEG can be conducted. cytology manager is making arrangements for transfer at [facility] and patient has been accepted, waiting for bed availability. REVIEW OF SYSTEMS Constitutional: No fever, no chills, no night sweats. No weight change. Report weakness and fatigue no lethargy. No daytime sleepiness. EENT: No headache. No blurred vision or double vision, no loss of vision. No loss of Hearing, no ringing in the ears, no dizziness. No nasal drainage or con gestion. No epistaxis. No sore throat. Lungs: No shortness of breath, cough, no sputum production. No wheezing. Cardiovascular: No chest pain, no lower extremity edema. No palpitations. No paroxysmal nocturnal dyspnea. No orthopnea. No lightheadedness or dizziness. No syncopal episodes. Abdominal: Denies abdominal discomfort. Denies nausea no vomiting. Denies diarrhea. No constipation. No bloody or tarry stools. Reports loss of appetite. Genitourinary: No dysuria, increased frequency, urgency. No urinary retention. Musculoskeletal: No myalgias. No muscle weakness, no gait dysfunction, no frequent falls. No back pain. No neck pain. Integumentary: No wounds, no lesions. No rash or pruritus. No unusual bruising. No change in hair or nails. Neurologic: No aphasia. No facial droop. No change in mentation. No head injury. No headache. No paralysis. No paresthesia. Possible seizure activity Psychiatric: No depression. No anxiety. No mood swings. Endocrine: No abnormal blood sugars. No weight change. No excessive sweating or thirst. PHYSICAL EXAMINATION General Appearance: Alert, cooperative, no distress, 71-year-old appears stated age. Neck HEENT: Supple, no lymphadenopathy, no thyroid enlargement, no carotid bruits. Lungs: Clear to auscultation without crackles or wheezes no rhonchi, no deformity. Chest Wall: Chest wall normal expansion with deep inspiration no tenderness and no deformity was found on exam, no costochondral pain or discomfort. Heart: Regular rate and rhythm, S1, S2 normal, no murmur, rub or gallop. Back: Symmetric, no curvature, ROM normal, no CVA tenderness. Abdomen: No abdominal distention, no generalized tenderness, no rebound or rigidity, no hepatosplenomegaly. Extremities: Extremities normal, atraumatic, no cyanosis or edema. Pulses: 2+ and symmetric. Skin: Skin color, texture, tugor normal, no rashes or lesions. Neurologic: Alert oriented x3 cranial nerves II through XII intact, no motor deficit, no abnormal balance or gait ASSESSMENT AND PLAN 1. Acute hypovolemic hyponatremia. Consult with nephrology appreciated. IV fluids resumed at 50 ML's per hour. Recheck sodium level in the morning. 2. Diarrhea. C. difficile toxin negative. 3. Hypochloremia continue treatment for hyponatremia. 4. Acute urinary tract infection. Continue meropenem, urine culture 5. Hyperlipidemia. Continue atorvastatin 20 g at bedtime 6. History of seizure disorder. Continue Keppra 500 mg twice daily, Trileptal 300 mg twice daily. Consult with Dr. Stahl appreciated. Recommendations noted. 7. Hypothyroidism. Continue levothyroxine 88 g daily. 8. Hypertension. Continue Lopressor 25 mg twice daily 5. Hypokalemia. 9. History of Diabetes mellitus. Previous hemoglobin A1c 5.8. 10. History of breast cancer, stable. 11. Sleep disturbance. Melatonin 10 mg daily at bedtime 12. History of breast cancer 13. Anemia of chronic kidney disease. Patient is scheduled for Ferrlecit infusion. 14. GI prophylaxis. Protonix 40 mg 15. DVT prophylaxis. Heparin subcu CODE STATUS: Full code DISCHARGE PLAN Home without home care Impression and plan of care have been directed as dictated by the signing physician. Brie Rhodes nurse practitioner acting as scribe for signing physician. Objective - Vital Signs Vital signs: Vital Signs Temp 98 F 09/06/21 08:00 Pulse 77 09/06/21 08:00 Resp 17 09/06/21 08:00 BP 102/69 09/06/21 08:00 Pulse Ox 96 09/06/21 08:00 Intake & Output 09/05/21 09/06/21 09/06/21 18:59 06:59 18:59 Intake Total 1310 450 Balance 1310 450 Intake: IV 450 Cefepime 1 gm In Sodium 50 Chloride 0.9% 50 ml @ 12. 5 mls/hr IVPB Q12HR@0600, 1800 M[facility] Rx#:[id number] Sodium Chloride 0.9% 1, 400 000 ml @ 50 mls/hr IV . Q20H [facility] Rx#:[id number] Intake, IV Titration 350 Amount Sodium Chloride 0.9% 1, 250 000 ml @ 50 mls/hr IV . Q20H M[facility] Rx#:[id number] Sodium Ferric Gluconat- 100 Sucrose 125 mg In Sodium Chloride 0.9% 100 ml @ 100 mls/hr IVPB DAILY MIR[facility] Rx#:[id number] Oral 960 Other: Voiding Method Toilet Toilet # Voids 8 - Labs CBC & Chem 7: 09/02/21 06:24 09/06/21 06:20 Labs: Abnormal Lab Results - Last 24 Hours (Table) 09/05/21 09/05/21 09/05/21 Range/Units 11:59 16:49 21:14 POC Glucose (mg/dL) 135 H 135 H 158 H (75-99) mg/dL 09/06/21 Range/Units 06:58 POC Glucose (mg/dL) 142 H (75-99) mg/dL
--- NOTE | 2021-09-06 15:46 | EEG ---
ELECTROENCEPHALOGRAM REPORT PROCEDURE DATE: 09/06/2021. ELECTROENCEPHALOGRAM (EEG) REPORT: TECHNIQUE: This is a report from a prolonged 2.5 hour inpatient digital EEG performed using the 10/20 electrode placement system. HISTORY: Absence seizure. Additional event in which the patient was speaking and suddenly stopped, however, would track with her eyes. At this time, there were tremors noted in the left foot and right hand. CURRENT MEDICATIONS: Keppra, Tegretol. FINDINGS: Recording start time: 09/06/2021 11:01 a.m. Recording end time: 09/06/2021 at 1:36 pm. EVENTS: During this 2.5 hour video EEG, no clinical or electrographic seizures were recorded. BACKGROUND: The background activity consists of 8-9 hertz rhythmic waveforms, symmetrically observed above posterior quadrants. ACTIVATION: Hyperventilation: Not performed. Photic stimulation: Symmetric driving seen. Sleep: Stages I and II sleep noted. ABNORMALITIES: None. IMPRESSION: Normal EEG. No epileptiform activity was present. No seizures were recorded. MMODL / IJN: [id number] /
--- NOTE | 2021-09-06 15:47 | P.TRANS ---
Providers Date of admission: 09/01/21 21:18 Expected date of discharge: 09/06/21 Attending physician: Kevon Elder Consults: 09/01/21 21:19 Consult Physician Stat Consulting Provider: Paula Valdes Consult Reason/Comments: Hyponatremia Do you want consulting provider notified?: Yes 09/01/21 21:45 Consult Physician Stat Consulting Provider: Erich Stahl Consult Reason/Comments: Hyponatremia Do you want consulting provider notified?: Yes 09/06/21 04:32 Consult Physician Urgent Consulting Provider: Emily Rivas Consult Reason/Comments: Seizures Do you want consulting provider notified?: Yes Primary care physician: [facility] Course: HISTORY OF PRESENT ILLNESS This is a 71-year-old female patient of Dr. Helm with a past medical history of breast cancer as well as partial mastectomy under the care of Dr. Guzman, hypothyroidism, diabetes mellitus type 2, hypertension and aortic valve replacement June 2021 at [facility], seizure disorder under the care of Dr. Arriaga. Patient gives history that she has had watery diarrhea for a couple of weeks with abdominal pain and aching and sore feeling. She states she was told in the past that she had diverticulitis but that was years ago. Her last colonoscopy was several years ago. She states she is so weak that she slid off the couch and could not get herself up which happened 2 days ago. Patient also follows with Dr. Jackson and was scheduled for CAT scan of the abdomen regarding ongoing diarrhea which was scheduled for today as an outpatient. We will order it in the hospital visit. Patient has had a previous hospitalization in 2023 hyponatremia secondary to diarrhea. Patient presented to the emergency room and found to be afebrile, heart rate 72, blood pressure 115/67, pulse ox 99% on room air. CAT scan of the brain showed no acute process. Chest x-ray showed no acute process Initial sodium was 111 followed by 113 and 117. Hemoglobin was 10.4. Chloride 78, BUN 4 creatinine 0.68. Blood sugar 135. Serum osmolality 238. Uric acid 2. Calcium 9.1. Phosphorus 4.2, magnesium 1.1. AST 19, ALT 11, alkaline phosphatase 106. Troponin negative. Urinalysis was clear, nitrite positive, leukoesterase moderate, WBCs 27 and bacteria occasional. Urine culture is in progress. Coronavirus, influenza A, influenza B not detected. Patient was started on IV ceftriaxone, IV fluids 0.9 at 75 mL per hour, consult with pulmonary medicine and nephrology. 09/05: Over the weekend, patient had increased oral intake, decreased diarrhea and patient has been on Imodium. C. difficile toxin was negative. She has been followed closely by nephrology. Sodium this morning is 127. Nephrology is recommending resuming normal saline at 50 mL/h, 1500 mL fluid restriction and encourage oral intake. IV Ferrlecit has been ordered. Plan to probable discharge tomorrow. Patient refused home care. 09/06: Consult was added this morning for neurology as patient had a witnessed seizure staring type. She was seen by neurology and subsequently had another staring episode. Patient underwent EEG and a 2-1/2 hour EEG that did not show any seizure activity but there was concern that possible seizure activity was not picked up. Patient was seen by Dr. Stahl and recommended titrating down Trileptal since it can cause hyponatremia and instead Vimpat 50 mg twice daily and can go up to 100 mg twice daily. He will make medication changes in the chart. Nephrology recommends continuing 0.9 normal saline at 50 MLS per hour, 1500 mL fluid restriction and encourage oral intake, continue IV iron infusions. Repeat blood work reveals sodium 125, potassium 3.8, chloride 92, CO2 21, BUN 4.1 and creatinine 0.5. Blood sugars running between 135 and 158. Magnesium 1.6. Neurology is recommending transfer the patient to tertiary care where a long-term EEG can be conducted. power plant manager is making arrangements for transfer at [facility] and patient has been accepted, waiting for bed availability. REVIEW OF SYSTEMS Constitutional: No fever, no chills, no night sweats. No weight change. Report weakness and fatigue no lethargy. No daytime sleepiness. EENT: No headache. No blurred vision or double vision, no loss of vision. No loss of Hearing, no ringing in the ears, no dizziness. No nasal drainage or congestion. No epistaxis. No sore throat. Lungs: No shortness of breath, cough, no sputum production. No wheezing. Cardiovascular: No chest pain, no lower extremity edema. No palpitations. No paroxysmal nocturnal dyspnea. No orthopnea. No lightheadedness or dizziness. No syncopal episodes. Abdominal: Denies abdominal discomfort. Denies nausea no vomiting. Denies diarrhea. No constipation. No bloody or tarry stools. Reports loss of appetite. Genitourinary: No dysuria, increased frequency, urgency. No urinary retention. Musculoskeletal: No myalgias. No muscle weakness, no gait dysfunction, no frequent falls. No back pain. No neck pain. Integumentary: No wounds, no lesions. No rash or pruritus. No unusual bruising. No change in hair or nails. Neurologic: No aphasia. No facial droop. No change in mentation. No head injury. No headache. No paralysis. No paresthesia. Possible seizure activity Psychiatric: No depression. No anxiety. No mood swings. Endocrine: No abnormal blood sugars. No weight change. No excessive sweating or thirst. PHYSICAL EXAMINATION General Appearance: Alert, cooperative, no distress, 71-year-old appears stated age. Neck HEENT: Supple, no lymphadenopathy, no thyroid enlargement, no carotid bruits. Lungs: Clear to auscultation without crackles or wheezes no rhonchi, no deformity. Chest Wall: Chest wall normal expansion with deep inspiration no tenderness and no deformity was found on exam, no costochondral pain or discomfort. Heart: Regular rate and rhythm, S1, S2 normal, no murmur, rub or gallop. Back: Symmetric, no curvature, ROM normal, no CVA tenderness. Abdomen: No abdominal distention, no generalized tenderness, no rebound or rigidity, no hepatosplenomegaly. Extremities: Extremities normal, atraumatic, no cyanosis or edema. Pulses: 2+ and symmetric. Skin: Skin color, texture, tugor normal, no rashes or lesions. Neurologic: Alert oriented x3 cranial nerves II through XII intact, no motor deficit ASSESSMENT AND PLAN 1. Acute hypovolemic hyponatremia. Consult with nephrology appreciated. IV fluids resumed at 50 ML's per hour. Recheck sodium level in the morning. 2. Diarrhea. C. difficile toxin negative. 3. Hypochloremia continue treatment for hyponatremia. 4. Acute urinary tract infection. Continue meropenem, urine culture 5. Hyperlipidemia. Continue atorvastatin 20 g at bedtime 6. History of seizure disorder. Continue Keppra 500 mg twice daily, Trileptal 300 mg twice daily. Consult with Dr. Stahl appreciated. Recommendations noted. 7. Hypothyroidism. Continue levothyroxine 88 g daily. 8. Hypertension. Continue Lopressor 25 mg twice daily 5. Hypokalemia. 9. History of Diabetes mellitus. Previous hemoglobin A1c 5.8. 10. History of breast cancer, stable. 11. Sleep disturbance. Melatonin 10 mg daily at bedtime 12. History of breast cancer 13. Anemia of chronic kidney disease. Continue Ferrlecit infusion. 14. GI prophylaxis. Protonix 40 mg 15. DVT prophylaxis. Heparin subcu CODE STATUS: Full code Impression and plan of care have been directed as dictated by the signing physician. Brie Rhodes nurse practitioner acting as scribe for signing ph ysician. Patient Condition at Discharge: Fair Plan - Transfer Summary Transfer Medications: Active Medications Generic Name Dose Route Start Last Admin Trade Name Freq PRN Reason Stop Dose Admin Acetaminophen 650 mg 09/01/21 21:18 Acetaminophen Tab 325 Mg Tab PO Q4HR PRN Fever and/or Mild Pain Alprazolam 1 mg 09/03/21 21:00 09/06/21 10:14 Alprazolam 1 Mg Tab PO Not Given BID MIRNA Aspirin 81 mg 09/02/21 21:00 09/05/21 19:38 Aspirin 81 Mg PO 81 mg HS MIRNA Administration Atorvastatin Calcium 20 mg 09/02/21 21:00 09/05/21 19:38 Atorvastatin 20 Mg Tab PO 20 mg HS MIRNA Administration Ergocalciferol 1,250 mcg 09/06/21 09:00 09/06/21 09:57 Ergocalciferol 1,250 Mcg (50,000 Iu) Capsule PO 1,250 mcg TU M[facility]NA Administration Heparin Sodium (Porcine) 5,000 unit 09/02/21 16:00 09/06/21 10:13 Heparin Sodium,Porcine/Pf 5,000 Unit/0.5 Ml Syringe SQ 5,000 unit Q8HR M[facility] Administration Cefepime HCl 1 gm/ Sodium 50 mls @ 12.5 mls/hr 09/04/21 18:00 09/06/21 05:05 Chloride IVPB 12.5 mls/hr Q12HR@0600,1800 [facility] Administration Ferric Sodium Gluconate 125 mg 110 mls @ 100 mls/hr 09/05/21 10:00 09/06/21 10:56 / Sodium Chloride IVPB 09/08/21 10:01 100 mls/hr DAILY [facility] Administration Sodium Chloride 1,000 mls @ 50 mls/hr 09/05/21 09:45 09/06/21 05:06 Saline 0.9% IV 50 mls/hr .Q20H [facility] Administration Lacosamide 50 mg 09/06/21 21:00 Lacosamide 50 Mg Tablet PO BID M[facility]NA Levetiracetam 500 mg 09/02/21 09:00 09/06/21 09:57 Levetiracetam 500 Mg Tab PO 500 mg BID M[facility]NA Administration Levothyroxine Sodium 88 mcg 09/02/21 06:30 09/06/21 05:06 Levothyroxine 88 Mcg Tab PO 88 mcg DAILY@0630 M[facility] Administration Loperamide HCl 2 mg 09/02/21 13:00 09/06/21 12:14 Loperamide 2 Mg Cap PO Not Given QID [facility]NA Lorazepam 0.5 mg 09/06/21 04:32 09/06/21 10:04 Lorazepam 2 Mg/Ml Inj IV 0.5 mg Q6HR PRN Administration Anxiety Metoprolol Tartrate 25 mg 09/02/21 09:00 09/06/21 09:57 Metoprolol Tartrate 25 Mg Tab PO 25 mg BID M[facility]NA Administration Multivitamins/Minerals 1 each 09/02/21 09:00 09/06/21 09:59 Vit A,C & T-[id number]-[id number] 1 Each Tab PO 1 each BID M[facility]NA Administration Naloxone HCl 0.2 mg 09/01/21 21:18 Naloxone 0.4 Mg/Ml 1 Ml Vial IV Q2M PRN Opioid Reversal Ondansetron HCl 4 mg 09/02/21 06:08 Ondansetron 4 Mg Tab PO QID PRN Nausea Oxcarbazepine 240 mg 09/06/21 21:00 Oxcarbazepine 300mg/5ml Susp 15,000 Mg/250 Ml Bottle PO BID MIRNA Pantoprazole Sodium 40 mg 09/02/21 07:30 09/06/21 09:57 Pantoprazole 40 Mg Tablet PO 40 mg [id number] MIRNA Administration Sodium Chloride 1 gm 09/06/21 14:00 09/06/21 14:16 Sodium Chloride Tab 1 Gm Tab PO 1 gm BID M[facility]NA Administration Follow up Appointment(s)/Referral(s): Jose Helm DO [Primary Care Provider] - 1 Week
[2021-09-06 17:03] LABS: Glucose,Whole Blood 145 mg/dL (75-99)
[2021-09-06 20:40] LABS: Glucose,Whole Blood 151 mg/dL (75-99)
[2021-09-06] MEDS: ATORVASTATIN 20 MG TAB PO SCH (20:49)
[2021-09-06] MEDS: ASPIRIN 81 MG PO SCH (20:50)
[2021-09-06] MEDS: LACOSAMIDE 50 MG TABLET PO SCH (20:50)
[2021-09-06] MEDS: OXcarbazepine 300MG/5ML SUSP 15,000 MG/250 ML BOTTLE PO SCH (20:56)
[2021-09-07] MEDS: CEFEPIME 1 GM in SODIUM CHLORIDE 0.9% 50 ML IVPB SCH ×2 (05:23→16:11)
[2021-09-07] MEDS: SODIUM CHLORIDE 0.9% 1,000 ML IV SCH ×2 (05:24→20:15)
[2021-09-07] MEDS: LEVOTHYROXINE 88 MCG TAB PO SCH (05:24)
[2021-09-07 06:04] LABS: Folate, Serum 6.7 ng/mL (4.40-31.00)
[2021-09-07 07:09] LABS: Glucose,Whole Blood 110 mg/dL (75-99)
[2021-09-07] MEDS: HEPARIN SODIUM,PORCINE/PF 5,000 UNIT/0.5 ML SYRINGE SQ SCH ×2 (08:52→16:12)
[2021-09-07] MEDS: PANTOPRAZOLE 40 MG TABLET PO SCH (08:52)
[2021-09-07] MEDS: ALPRAZolam 1 MG TAB PO SCH (08:53)
[2021-09-07] MEDS: LACOSAMIDE 50 MG TABLET PO SCH ×2 (08:54→20:17)
[2021-09-07] MEDS: VIT A,C & E-LUTEIN-MINERALS 1 EACH TAB PO SCH ×2 (08:54→20:16)
[2021-09-07] MEDS: METOPROLOL TARTRATE 25 MG TAB PO SCH ×2 (08:54→20:16)
[2021-09-07] MEDS: SODIUM CHLORIDE TAB 1 GM TAB PO SCH ×2 (08:54→20:16)
[2021-09-07] MEDS: levETIRAcetam 500 MG TAB PO SCH (08:55)
[2021-09-07] MEDS: SODIUM FERRIC GLUCONAT-SUCROSE 125 MG in SODIUM CHLORIDE 0.9% 100 ML IVPB SCH (09:03)
[2021-09-07 09:34] LABS: African American GFR (CKD) 105.5 (60.0-200.0); Anion Gap 11.8 mmol/L (10.00-18.00); BUN/Creat Ratio 7.5 Ratio (12.00-20.00); Blood Urea Nitrogen 4.5 mg/dL (9.0-27.0); Calcium 9.2 mg/dL (8.7-10.3); Carbon Dioxide 22.2 mmol/L (20.0-27.5); Magnesium 1.8 mg/dL (1.5-2.4); Non-African American GFR(CKD) 91.1 (60.0-200.0)
[2021-09-07] MEDS: OXcarbazepine 300MG/5ML SUSP 15,000 MG/250 ML BOTTLE PO SCH ×2 (10:42→20:17)
--- NOTE | 2021-09-07 12:01 | P.PN ---
Subjective Patient is seen in follow-up for hyponatremia. Sodium level 127. Sitting up in chair. No chest pain or shortness of breath. Oral intake better. Vital signs are stable. General: The patient appeared well nourished and normally developed. HEENT: Head exam is unremarkable. LUNGS: Breath sounds decreased. HEART: Rate and Rhythm are regular. ABDOMEN: Soft, no distention. EXTREMITITES: No edema. Objective - Vital Signs Vital signs: Vital Signs Temp 97.9 F 09/07/21 08:00 Pulse 77 09/07/21 08:00 Resp 15 09/07/21 08:00 BP 143/63 09/07/21 08:00 Pulse Ox 95 09/07/21 08:00 Intake & Output 09/06/21 09/07/21 09/07/21 18:59 06:59 18:59 Intake Total 960 360 Output Total 480 Balance 480 360 Intake: Oral 960 360 Output: Urine 480 Other: Voiding Method Toilet # Voids 3 4 - Labs CBC & Chem 7: 09/02/21 06:24 09/07/21 05:52 Labs: Abnormal Lab Results - Last 24 Hours (Table) 09/06/21 09/06/21 09/07/21 Range/Units 17:00 20:33 05:52 Sodium 127 L (135-145) mmol/L Chloride 93 L (96-109) mmol/L BUN 4.5 L (9.0-27.0) mg/dL BUN/Creatinine Ratio 7.50 L (12.00-20.00) Ratio POC Glucose (mg/dL) 145 H 151 H (75-99) mg/dL 09/07/21 Range/Units 07:07 Sodium (135-145) mmol/L Chloride (96-109) mmol/L BUN (9.0-27.0) mg/dL BUN/Creatinine Ratio (12.00-20.00) Ratio POC Glucose (mg/dL) 110 H (75-99) mg/dL Assessment and Plan Plan: Assessment: 1. Hypovolemic hyponatremia secondary to hypovolemia from diarrhea improved with IV hydration. Now component of poor solute intake. Sodium level 127 today. Urine sodium <20. Urine osm 141. 2. Metabolic acidosis secondary to GI losses and IV fluids. Better. 3. Diarrhea. Improved. CT of the abdomen and pelvis showed hiatal hernia and diverticulosis. C. diff negative. 4. Anemia. Iron deficiency noted. 5. Seizures. Neurology following. Plan: Hep-Lock IV fluids. Maintain sodium chloride tabs. 1500 mL fluid restriction. Encouraged oral intake. Maintain IV iron. Repeat labs in the morning.
--- NOTE | 2021-09-07 12:11 | P.PN ---
Subjective Progress Note Date: 09/07/21 The patient is seen at bedside and per nurse she has not had any further episode of blank stares and unresponsiveness. Objective - Vital Signs Vital signs: Vital Signs Temp 97.9 F 09/07/21 08:00 Pulse 77 09/07/21 08:00 Resp 15 09/07/21 08:00 BP 143/63 09/07/21 08:00 Pulse Ox 95 09/07/21 08:00 Intake & Output 09/06/21 09/07/21 09/07/21 18:59 06:59 18:59 Intake Total 960 360 Output Total 480 Balance 480 360 Intake: Oral 960 360 Output: Urine 480 Other: Voiding Method Toilet # Voids 3 4 - Exam GENERAL: The patient is lying in bed and is not in acute distress. NEUROLOGICAL: Higher mental function: The patient is awake, alert, oriented to self, place and time. Patient is following commands. No aphasia and no neglect. Cranial nerves: The pupils are round, equal and reactive to light and accommodation. Visual almeida are full to confrontation throughout. Extraocular movement is intact no nystagmus is noted. Facial sensation is normal to touch throughout. The facial strength is normal throughout. Hearing is mildly decreased bilaterally to hand rub. Tongue is midline and moved [id number] w ithout any difficulty. No dysarthria is noted. Shoulder shrug is normal bilaterally. Motor: Gait is deferred. The strength is 5 over 5 throughout. Normal tone and bulk. Cerebellum: Normal finger to nose bilaterally. Sensation: Sensation is normal to touch throughout. Reflexes (right/left): 2+ Plantars are downgoing bilaterally. WORK-UP: Most recent Sodium is 127 AST and ALT is within normal limits Calcium is 9.2. Phosphorus is 4.2. Initial magnesium is 1.1 and most recent one is a 1.6. Also it is found that the patient has positive urinary tract infection and she has pseudomonas aeruginosa. TSH is 4.11 Vitamin B12: 435 Folate is 6.70 (normal is 4.4 to 31.0). CT head is reported as no acute intracranial hemorrhage or midline shift. There is mild diffuse cerebral atrophy and mild to moderate chronic small vessel ischemic changes redemonstrated. No significant change from recent CTA study. I personally reviewed that that CAT scan and I agree with the report. Bañuelos virus PCR is nondetected. C. diff is negative. Influenza A and B is negative 2.5 HOUR EEG on 09/06/2021: Is reported as normal EEG. No epileptiform activity was present. No seizures were recorded. - Labs CBC & Chem 7: 09/02/21 06:24 09/07/21 05:52 Labs: Abnormal Lab Results - Last 24 Hours (Table) 09/06/21 09/06/21 09/07/21 Range/Units 17:00 20:33 05:52 Sodium 127 L (135-145) mmol/L Chloride 93 L (96-109) mmol/L BUN 4.5 L (9.0-27.0) mg/dL BUN/Creatinine Ratio 7.50 L (12.00-20.00) Ratio POC Glucose (mg/dL) 145 H 151 H (75-99) mg/dL 09/07/21 Range/Units 07:07 Sodium (135-145) mmol/L Chloride (96-109) mmol/L BUN (9.0-27.0) mg/dL BUN/Creatinine Ratio (12.00-20.00) Ratio POC Glucose (mg/dL) 110 H (75-99) mg/dL Assessment and Plan Assessment: * Break-through seizure (reported two episodes on 09/06/21 AM: blank stare and not responding for 4.5-5 minutes but did not have jerking of extremities, fo aming around mouth, no tongue bite). Seizure seems provoked from multifactorial hyponatremia and UTI. * Seizure disorder (had one seizure in 07/2021 and was told she had GTC) * Acute hyponatremia (and had history of hyponatremia in 2019) presented with a sodium of 111 and most current one is 127. * Acute urinary tract infection * Cognitive impairement (reports having short term memory loss since 06/2021) * Anxiety * Hypertension * Hypothyroidism * Diabetes mellitus * History of right breast cancer status post partial mastectomy * History of aortic valve replacement and 2020 * History of hyperlipidemia Plan: * 2.5 HOUR EEG on 09/06/2021: Is reported as normal EEG. No epileptiform activity was present. No seizures were recorded. * I recommend epilepsy monitoring unit as outpatient for 5-7 days without medication to capture her episodes. To identify if truly epileptic in nature and origin of seizure to help manage patient better. * Continue Vimpat 50mg 1 tab bid (new during this admission) and will gradually taper down the Trileptal (since can cause hyponatremia). Will decrease tripleptal to 250mg 1 tab bid and every week go down 50mg in am and evening until discontinued. If patient is having further seizure consider going up on Vimpat 100mg 1 tab bid. Agree with tapering down Keppra (since has behavioral issues) by her neurologist. Currently on Keppra 500mg 1 tab bid and will decrease it to 250mg 1 tab bid and by next week recommend stopping it. * Ordered MRI Brain seizure protocol. * Patient does not needs to be transferred for long-term EEG since has had no further episodes and her 2.5 hour EEG on 09/06/21 is reported as normal. * Patient is on seizure precaution. Placed on seizure pads. * Folate is 6.70 (normal is 4.4 to 31.0), because folate is low normal, I started her on folic acid 1mg daily. * Every 4 hours neuro checks * PT OT is consulted * Consulted Psychiatry team because of patient uncontrolled anxiety. * Nephrology is on board * We'll defer the correction of hyponatremia to the nephrology team. Please gold id overcorrection since it can cause central pontine myelinolysis. * We'll defer the rest of the medical management to the primary team. * Upon discharge the patient needs to follow-up with her neurologist (Dr. Arriaga) within 1-2 weeks The plan is discussed with the patient, her (via phone), her nurse and gearcase assembler. Estrada Stahl M.D. Neuro-Hospitalist. Time with Patient: Less than 30
--- NOTE | 2021-09-07 12:58 | P.CN ---
Psychiatric Consult - . Consult date: 09/07/21 Consult:: 09/07/21 12:46 IDENTIFYING DATA: This patient is a 71 yo female, currently , lives with , no kids. REASON FOR REFERRAL: Psychiatry was consulted for severe anxiety and tremors HISTORY OF PRESENT ILLNESS: The patient presented to the hospital initially for fatigue, lightheadedness and diziness. She was also complainign of headaches for the past 1 week. she came into the hospital on 09/01. Patients sodium was 111 on admission, UA was positive for uti and covid was negative. she has a hx of seizure disorder. neuro has been consulted and currently following. the plan was to decrease her trileptal as it is most liekly causing her hyponatremia. Patient's sodium has been gradually improving to 127 this morning. Patient's nurse states that patient has been fairly anxious lately and has had racing thoughts. Patient was seen at the bedside and agreeable to technical writer and editor. She appeared to be rambling at times and asking multiple questions about her treatment. She presented as fairly anxious during conversation. She asked technical writer and editor to speak with her about her medications. She asked questions about her antiepileptic meds. She states that she is not feeling depressed however is admitting to high levels of anxiety. She states that her anxiety is in going on for "a long time". She states that her sleep is "on and off however usually sleeps poorly. She states that her appetite has been poor. At this time patient denies any suicidal or homical ideations, intent or plan. Patient denies any auditory, visual hallucinations and denies any paranoia or delusions. Patients admits to using no recreational drugs. She was a former smoker. PAST PSYCHIATRIC HISTORY: Patient has a a history of generalized anxiety. Patient was previously on Xanax. Patient denies any previous psychiatric hospitalizations. Patient denies any psychiatric outpatient follow-up. Patient denies any history of suicide attempts in the past. Past Medical History: Cancer, Diabetes Mellitus, Hypertension Additional Past Medical History / Comment(s): murmur, breast ca History of Any Multi-Drug Resistant Organisms: None Reported Additional Past Surgical History / Comment(s): right breast, thyroid, aortic valve replacment ALLERGIES: as per EMR. CHEMICAL DEPENDENCY HISTORY: as per HPI. FAMILY PSYCHIATRIC/SUBSTANCE USE HISTORY: States that her sister has early-onset dementia. SOCIAL HISTORY: Patient was born and raised in [facility]. She states that she went away to college and met her and they currently live in [place]. She states that she does not have any kids. She currently lives with her in a house. She completed college. She works as a guidance counselor in the past. She denies any legal history.. MENTAL STATUS EXAM: General Appearance: Patient appears to be stated age is alert, anxious, high strung. Patient appears to have poor hygiene and grooming wearing hospital gown with fair eye contact. Behavior: Patient is calmly lying in bed without any agitated behavior. Anxious. Speech: Patient's speech is fluent and nonpressured. Rambles. Mood/Affect: Patient reports their mood is "anxious", affect is congruent Suicidality/Homicidality: Patient denies having any suicidal or homicidal ideation intent or plan. Perceptions: Patient denies any visual hallucinations and denies any auditory hallucinations Though content/process: There is no evidence of any delusional thought content and thought process is linear and goal-directed. Rambles. Asks multiple que stions. Memory and concentration: AOX3, grossly intact for the purposes of this session. Can spell "WORLD" backwards Judgment and insight: Fair IMPRESSIONS: Generalized anxiety disorder Seizure disorder Hyponatremia PLAN: -At this time patient DOES NOT meet criteria for inpatient psychiatric admission. -Would recommend the following medication changes/additions: Start Zoloft 25 mg daily for mood/anxiety, change Xanax to 0.5 mg 3 times a day when necessary for anxiety. I did Seroquel 25 mg daily at bedtime for anxiety/mood/insomnia. -plastics worker to provide patient with outpatient mental health/psychiatry resources for appropriate follow up upon discharge -Communicated plan to patient's nurse -Will continue to follow along -technical writer and editor will speak with Neurologist Dr Stahl about case to discuss treatment and medication options. -Please contact with any questions. 09/07/21 12:55
[2021-09-07] MEDS: SERTRALINE 25 MG TAB PO SCH (16:12)
[2021-09-07] MEDS: FOLIC ACID 1 MG TAB PO SCH (16:12)
[2021-09-07] MEDS: ALPRAZolam 0.5 MG TAB PO PRN (16:18)
[2021-09-07 16:55] LABS: Glucose,Whole Blood 155 mg/dL (75-99)
[2021-09-07 19:19] VITALS: RESP 16
[2021-09-07] MEDS: levETIRAcetam 250 MG TAB PO SCH (20:16)
[2021-09-07] MEDS: ATORVASTATIN 20 MG TAB PO SCH (20:17)
[2021-09-07] MEDS: ASPIRIN 81 MG PO SCH (20:17)
[2021-09-07] MEDS ORDERED: QUEtiapine 25 MG TAB PO SCH (21:00)
[2021-09-07 21:49] LABS: Glucose,Whole Blood 166 mg/dL (75-99)
[2021-09-08] MEDS: ALPRAZolam 0.5 MG TAB PO PRN ×3 (00:11→14:08)
[2021-09-08] MEDS: HEPARIN SODIUM,PORCINE/PF 5,000 UNIT/0.5 ML SYRINGE SQ SCH ×2 (00:26→08:57)
[2021-09-08] MEDS: LEVOTHYROXINE 88 MCG TAB PO SCH (05:26)
[2021-09-08] MEDS: CEFEPIME 1 GM in SODIUM CHLORIDE 0.9% 50 ML IVPB SCH (05:26)
[2021-09-08 07:06] LABS: African American GFR (CKD) >90 (>60 ml/min/1.73 sqM); Anion Gap 7 mmol/L; Blood Urea Nitrogen 6 mg/dL (7-17); Calcium 9.3 mg/dL (8.4-10.2); Carbon Dioxide 24 mmol/L (22-30); Chloride 98 mmol/L (98-107); Glucose 113 mg/dL (74-99); Magnesium 1.7 mg/dL (1.6-2.3); Non-African American GFR(CKD) >90 (>60 ml/min/1.73 sqM); Potassium 3.7 mmol/L (3.5-5.1); Sodium 129 mmol/L (137-145)
[2021-09-08 07:18] LABS: Glucose,Whole Blood 115 mg/dL (75-99)
[2021-09-08 07:59] VITALS: BP 163/61; PULSE 79; TEMP 97.8
[2021-09-08] MEDS: SODIUM FERRIC GLUCONAT-SUCROSE 125 MG in SODIUM CHLORIDE 0.9% 100 ML IVPB SCH (08:57)
[2021-09-08] MEDS: PANTOPRAZOLE 40 MG TABLET PO SCH (08:58)
[2021-09-08] MEDS: levETIRAcetam 250 MG TAB PO SCH (08:58)
[2021-09-08] MEDS: METOPROLOL TARTRATE 25 MG TAB PO SCH (08:58)
[2021-09-08] MEDS: FOLIC ACID 1 MG TAB PO SCH (08:58)
[2021-09-08] MEDS: OXcarbazepine 300MG/5ML SUSP 15,000 MG/250 ML BOTTLE PO SCH (08:58)
[2021-09-08] MEDS: LACOSAMIDE 50 MG TABLET PO SCH (08:58)
[2021-09-08] MEDS: SODIUM CHLORIDE TAB 1 GM TAB PO SCH (08:59)
[2021-09-08] MEDS: SERTRALINE 25 MG TAB PO SCH (08:59)
--- NOTE | 2021-09-08 09:07 | P.PN ---
Subjective Progress Note Date: 09/07/21 HISTORY OF PRESENT ILLNESS This is a 71-year-old female patient of Dr. Helm with a past medical history of breast cancer as well as partial mastectomy under the care of Dr. Bharat jimenes, hypothyroidism, diabetes mellitus type 2, hypertension and aortic valve replacement June 2021 at [facility], seizure disorder under the care of Dr. Arriaga. Patient gives history that she has had watery diarrhea for a couple of weeks with abdominal pain and aching and sore feeling. She states she was told in the past that she had diverticulitis but that was years ago. Her last colonoscopy was several years ago. She states she is so weak that she slid off the couch and could not get herself up which happened 2 days ago. Patient also follows with Dr. Jackson and was scheduled for CAT scan of the abdomen regarding ongoing diarrhea which was scheduled for today as an outpatient. We will order it in the hospital visit. Patient has had a previous hospitalization in 2023 hyponatremia secondary to diarrhea. Patient presented to the emergency room and found to be afebrile, heart rate 72, blood pressure 115/67, pulse ox 99% on room air. CAT scan of the brain showed no acute process. Chest x-ray showed no acute process Initial sodium was 111 followed by 113 and 117. Hemoglobin was 10.4. Chloride 78, BUN 4 creatinine 0.68. Blood sugar 135. Serum osmolality 238. Uric acid 2. Calcium 9.1. Phosphorus 4.2, magnesium 1.1. AST 19, ALT 11, alkaline phosphatase 106. Troponin negative. Urinalysis was clear, nitrite positive, leukoesterase moderate, WBCs 27 and bacteria occasional. Urine culture is in progress. Coronavirus, influenza A, influenza B not detected. Patient was started on IV ceftriaxone, IV fluids 0.9 at 75 mL per hour, consult with pulmonary medicine and nephrology. 09/05: Over the weekend, patient had increased oral intake, decreased diarrhea and patient has been on Imodium. C. difficile toxin was negative. She has been followed closely by nephrology. Sodium this morning is 127. Nephrology is recommending resuming normal saline at 50 mL/h, 1500 mL fluid restriction and encourage oral intake. IV Ferrlecit has been ordered. Plan to probable discharge tomorrow. Patient refused home care. 09/06: Consult was added this morning for neurology as patient had a witnessed seizure staring type. She was seen by neurology and subsequently had another staring episode. Patient underwent EEG and a 2-1/2 hour EEG that did not show any seizure activity but there was concern that possible seizure activity was not picked up. Patient was seen by Dr. Stahl and recommended titrating down Trileptal since it can cause hyponatremia and instead Vimpat 50 mg twice daily and can go up to 100 mg twice daily. He will make medication changes in the chart. Nephrology recommends continuing 0.9 normal saline at 50 MLS per hour, 1500 mL fluid restriction and encourage oral intake, continue IV iron infusions. Repeat blood work reveals sodium 125, potassium 3.8, chloride 92, CO2 21, BUN 4.1 and creatinine 0.5. Blood sugars running between 135 and 158. Magnesium 1.6. Neurology is recommending transfer the patient to tertiary care where a long-term EEG can be conducted. writing manager is making arrangements for transfer at [facility] and patient has been accepted, waiting for bed availability. 09/07: Transferred to tertiary care was canceled by neurology as patient had a normal 2-1/2 hour EEG. Neurology recommends the following: Continue Vimpat 50mg 1 tab bid (new during this admission) and will gradually taper down the Trileptal (since can cause hyponatremia). Will decrease tripleptal to 250mg 1 tab bid and every week go down 50mg in am and evening until discontinued. If patient is having further seizure consider going up on Vimpat 100mg 1 tab bid. Agree with tapering down Keppra (since has behavioral issues) by her neuro logist. Currently on Keppra 500mg 1 tab bid and will decrease it to 250mg 1 tab bid and by next week recommend stopping it. Sodium today is 127, chloride 93, BUN 4.5 and creatinine 0.6. Blood sugars are running between 110 and 151. Psychiatry consult was added and recommendations are for the following changes: Start Zoloft 25 mg daily for mood/anxiety, change Xanax to 0.5 mg 3 times a day when necessary for anxiety. Add Seroquel 25 mg daily at bedtime for anxiety/mood/insomnia. We will plan to monitor patient overnight a probable discharge tomorrow. REVIEW OF SYSTEMS Constitutional: No fever, no chills, no night sweats. No weight change. Report weakness and fatigue no lethargy. No daytime sleepiness. EENT: No headache. No blurred vision or double vision, no loss of vision. No loss of Hearing, no ringing in the ears, no dizziness. No nasal drainage or congestion. No epistaxis. No sore throat. Lungs: No shortness of breath, cough, no sputum production. No wheezing. Cardiovascular: No chest pain, no lower extremity edema. No palpitations. No paroxysmal nocturnal dyspnea. No orthopnea. No lightheadedness or dizziness. No syncopal episodes. Abdominal: Denies abdominal discomfort. Denies nausea no vomiting. Denies diarrhea. No constipation. No bloody or tarry stools. Reports loss of appetite. Genitourinary: No dysuria, increased frequency, urgency. No urinary retention. Musculoskeletal: No myalgias. No muscle weakness, no gait dysfunction, no frequent falls. No back pain. No neck pain. Integumentary: No wounds, no lesions. No rash or pruritus. No unusual bruising. No change in hair or nails. Neurologic: No aphasia. No facial droop. No change in mentation. No head injury. No headache. No paralysis. No paresthesia. Possible seizure activity Psychiatric: No depression. Reports anxiety. No mood swings. Endocrine: No abnormal blood sugars. No weight change. No excessive sweating or thirst. PHYSICAL EXAMINATION General Appearance: Alert, cooperative, no distress, 71-year-old appears stated age. Neck HEENT: Supple, no lymphadenopathy, no thyroid enlargement, no carotid bruits. Lungs: Clear to auscultation without crackles or wheezes no rhonchi, no deformity. Chest Wall: Chest wall normal expansion with deep inspiration, no costochondral pain or discomfort. Heart: Regular rate and rhythm, S1, S2 normal, no murmur, rub or gallop. Back: Symmetric, no curvature, ROM normal, no CVA tenderness. Abdomen: No abdominal distention, no generalized tenderness, no rebound or rigidity, no hepatosplenomegaly. Extremities: Extremities normal, atraumatic, no cyanosis or edema. Pulses: 2+ and symmetric. Skin: Skin color, texture, tugor normal, no rashes or lesions. Neurologic: Alert oriented x3 cranial nerves II through XII intact, no motor deficit, no abnormal balance or gait ASSESSMENT AND PLAN 1. Acute hypovolemic hyponatremia. Consult with nephrology appreciated. Sodium chloride tablets 1 g twice daily. Recheck sodium level in the morning. 2. Diarrhea. C. difficile toxin negative. 3. Hypochloremia continue treatment for hyponatremia. 4. Acute urinary tract infection. Continue cefepime, urine culture 5. Hyperlipidemia. Continue atorvastatin 20 g at bedtime 6. History of seizure disorder. Continue Vimpat 50 mg twice daily, Keppra decr eased to 250 mg twice daily, Trileptal decreased to 240 mg twice daily. Consult with Dr. Stahl appreciated. Recommendations noted. 7. Hypothyroidism. Continue levothyroxine 88 g daily. 8. Hypertension. Continue Lopressor 25 mg twice daily 5. Hypokalemia. 9. History of Diabetes mellitus. Previous hemoglobin A1c 5.8. 10. History of breast cancer, stable. 11. Sleep disturbance. Melatonin 10 mg daily at bedtime 12. History of breast cancer 13. Anemia of chronic kidney disease. Continue Ferrlecit infusion. 14. GI prophylaxis. Protonix 40 mg 15. DVT prophylaxis. Heparin subcu CODE STATUS: Full code DISCHARGE PLAN Home without home care on Impression and plan of care have been directed as dictated by the signing physician. Brie Rhodes nurse practitioner acting as scribe for signing physician. Objective - Vital Signs Vital signs: Vital Signs Temp 97.8 F 09/08/21 07:59 Pulse 79 09/08/21 07:59 Resp 16 09/08/21 07:59 BP 163/61 09/08/21 07:59 Pulse Ox 95 09/08/21 07:59 Intake & Output 09/07/21 09/08/21 09/08/21 18:59 06:59 18:59 Intake Total 1320 540 296 Balance 1320 540 296 Intake: Oral 1320 540 296 Other: # Voids 5 1 - Labs CBC & Chem 7: 09/02/21 06:24 09/08/21 06:09 Labs: Abnormal Lab Results - Last 24 Hours (Table) 09/07/21 09/07/21 09/07/21 Range/Units 05:52 16:52 21:46 Sodium 127 L (135-145) mmol/L Chloride 93 L (96-109) mmol/L BUN 4.5 L (9.0-27.0) mg/dL BUN/Creatinine Ratio 7.50 L (12.00-20.00) Ratio Glucose (74-99) mg/dL POC Glucose (mg/dL) 155 H 166 H (75-99) mg/dL 09/08/21 09/08/21 Range/Units 06:09 07:17 Sodium 129 L (135-145) mmol/L Chloride (96-109) mmol/L BUN 6 L (9.0-27.0) mg/dL BUN/Creatinine Ratio (12.00-20.00) Ratio Glucose 113 H (74-99) mg/dL POC Glucose (mg/dL) 115 H (75-99) mg/dL
--- NOTE | 2021-09-08 09:39 | P.PN ---
Subjective Patient is seen in follow-up for hyponatremia. Sodium level 129. Resting in bed. No chest pain or shortness of breath. Oral intake better. No active complaints. Vital signs are stable. General: The patient appeared well nourished and normally developed. HEENT: Head exam is unremarkable. LUNGS: Breath sounds decreased. HEART: Rate and Rhythm are regular. ABDOMEN: Soft, no distention. EXTREMITITES: No edema. Objective - Vital Signs Vital signs: Vital Signs Temp 97.8 F 09/08/21 07:59 Pulse 79 09/08/21 07:59 Resp 16 09/08/21 07:59 BP 163/61 09/08/21 07:59 Pulse Ox 95 09/08/21 07:59 Intake & Output 09/07/21 09/08/21 09/08/21 18:59 06:59 18:59 Intake Total 1320 540 296 Balance 1320 540 296 Intake: Oral 1320 540 296 Other: # Voids 5 1 - Labs CBC & Chem 7: 09/02/21 06:24 09/08/21 06:09 Labs: Abnormal Lab Results - Last 24 Hours (Table) 09/07/21 09/07/21 09/08/21 Range/Units 16:52 21:46 06:09 Sodium 129 L (137-145) mmol/L BUN 6 L (7-17) mg/dL Glucose 113 H (74-99) mg/dL POC Glucose (mg/dL) 155 H 166 H (75-99) mg/dL 09/08/21 Range/Units 07:17 Sodium (137-145) mmol/L BUN (7-17) mg/dL Glucose (74-99) mg/dL POC Glucose (mg/dL) 115 H (75-99) mg/dL Assessment and Plan Plan: Assessment: 1. Hypovolemic hyponatremia secondary to hypovolemia from diarrhea improved with IV hydration. Now component of poor solute intake. She is also on Keppra and Zoloft which can induce SIADH. Sodium level 129 today. Urine sodium <20. Urine osm 141. 2. Metabolic acidosis secondary to GI losses and IV fluids. Better. 3. Diarrhea. Improved. CT of the abdomen and pelvis showed hiatal hernia and diverticulosis. C. diff negative. 4. Anemia. Iron deficiency noted. 5. Seizures. Neurology following. 6. E. coli UTI with urine culture positive for Pseudomonas on antibiotics. Plan: Maintain sodium chloride tabs. 1500 mL fluid restriction. Encouraged oral intake. Maintain IV iron. Continue to monitor.
[2021-09-08] MEDS ORDERED: MAGNESIUM OXIDE 400 MG TAB PO SCH (09:45)
--- NOTE | 2021-09-08 10:13 | P.PN ---
Subjective Progress Note Date: 09/08/21 The patient is seen at beside and per nurse she has not had any further staring episodes or any seizure-like episodes for the past 2 days. Patient denies of any new neurological issues. Per nurse cannot get MRI Brain since has heart monitor. Patient wants her Xanax resumed for her anxiety. Objective - Vital Signs Vital signs: Vital Signs Temp 97.8 F 09/08/21 07:59 Pulse 79 09/08/21 07:59 Resp 16 09/08/21 07:59 BP 163/61 09/08/21 07:59 Pulse Ox 95 09/08/21 07:59 Intake & Output 09/07/21 09/08/21 09/08/21 18:59 06:59 18:59 Intake Total 1320 540 296 Balance 1320 540 296 Intake: Oral 1320 540 296 Other: # Voids 5 1 - Exam GENERAL: The patient is lying in bed and is not in acute distress. NEUROLOGICAL: Higher mental function: The patient is awake, alert, oriented to self, place and time. Patient is following commands. No aphasia and no neglect. Cranial nerves: The pupils are round, equal and reactive to light and accomm odation. Visual almeida are full to confrontation throughout. Extraocular movement is intact no nystagmus is noted. Facial sensation is normal to touch throughout. The facial strength is normal throughout. Hearing is mildly decreased bilaterally to hand rub. Tongue is midline and moved [id number] without any difficulty. No dysarthria is noted. Shoulder shrug is normal bilaterally. Motor: Gait is deferred. The strength is 5 over 5 throughout. Normal tone and bulk. Cerebellum: Normal finger to nose bilaterally. Sensation: Sensation is normal to touch throughout. Reflexes (right/left): 2+ Plantars are downgoing bilaterally. WORK-UP: Most recent Sodium is 129 AST and ALT is within normal limits Calcium is 9.2. Phosphorus is 4.2. Initial magnesium is 1.1 and most recent one is a 1.7 Also it is found that the patient has positive urinary tract infection and she has pseudomonas aeruginosa. TSH is 4.11 Vitamin B12: 435 Folate is 6.70 (normal is 4.4 to 31.0). CT head is reported as no acute intracranial hemorrhage or midline shift. There is mild diffuse cerebral atrophy and mild to moderate chronic small vessel ischemic changes redemonstrated. No significant change from recent CTA study. I personally reviewed that that CAT scan and I agree with the report. Bañuelos virus PCR is nondetected. C. diff is negative. Influenza A and B is negative 2.5 HOUR EEG on 09/06/2021: Is reported as normal EEG. No epileptiform activity was present. No seizures were recorded. - Labs CBC & Chem 7: 09/02/21 06:24 09/08/21 06:09 Labs: Abnormal Lab Results - Last 24 Hours (Table) 09/07/21 09/07/21 09/08/21 Range/Units 16:52 21:46 06:09 Sodium 129 L (137-145) mmol/L BUN 6 L (7-17) mg/dL Glucose 113 H (74-99) mg/dL POC Glucose (mg/dL) 155 H 166 H (75-99) mg/dL 09/08/21 Range/Units 07:17 Sodium (137-145) mmol/L BUN (7-17) mg/dL Glucose (74-99) mg/dL POC Glucose (mg/dL) 115 H (75-99) mg/dL Assessment and Plan Assessment: * Break-through seizure (reported two episodes on 09/06/21 AM: blank stare and not responding for 4.5-5 minutes but did not have jerking of extremities, foaming around mouth, no tongue bite). Seizure seems provoked from multifactorial hyponatremia and UTI---no further episodes for the past 2 days * Seizure disorder (had one seizure in 07/2021 and was told she had GTC) * Acute hyponatremia (and had history of hyponatremia in 2019) presented with a sodium of 111 and most current one is 129. * Acute urinary tract infection * Cognitive impairment (reports having short term memory loss since 06/2021) * Anxiety * Hypertension * Hypothyroidism * Diabetes mellitus * History of right breast cancer status post partial mastectomy * History of aortic valve replacement and 2020 * History of hyperlipidemia Plan: * 2.5 HOUR EEG on 09/06/2021: Is reported as normal EEG. No epileptiform activity was present. No seizures were recorded. * I recommend epilepsy monitoring unit as outpatient for 5-7 days without medication to capture her episodes. To identify if truly epileptic in nature and origin of seizure to help manage patient better. * Continue Vimpat 50mg 1 tab bid (new during this admission) and will gradually taper down the Trileptal (since can cause hyponatremia). Decreased tripleptal to 250mg 1 tab bid (initially was on home 300mg 1 tab bid) and every week go down 50mg in am and evening until discontinued. If patient is having further seizure consider going up on Vimpat 100mg 1 tab bid. Agree with tapering down Keppra (since has behavioral issues) by her neurologist. Decreased Keppra from 500mg 1 tab bid to 250mg bid (on 09/07/21) and by next week recommend stopping it. * Ordered MRI Brain seizure protocol. Cannot get it since has heart monitor. Therefore recommend getting it as outpatient. * Patient does not needs to be transferred for long-term EEG since has had no further episodes for past 2 days and her 2.5 hour EEG on 09/06/21 is reported as normal. * Patient is on seizure precaution. Placed on seizure pads. * Folate is 6.70 (normal is 4.4 to 31.0), because folate is low normal, I s tarted her on folic acid 1mg daily. * Every 4 hours neuro checks * PT OT is consulted * Psychiatry team is consulted because of patient uncontrolled anxiety. * Nephrology is on board * We'll defer the correction of hyponatremia to the nephrology team. Please avoid overcorrection since it can cause central pontine myelinolysis. * We'll defer the rest of the medical management to the primary team. * Upon discharge the patient needs to follow-up with her neurologist (Dr. Arriaga) within 1-2 weeks The plan is discussed with the patient, primary team (nurse practitioner) and her nurse. There is no further neurological work-up. Patient is stable from neurological basis. UPDATE: I was notified by the patient's nurse that Vimpat is expensive for the patient. Therefore, stopped Vimpat and started the patient on Depakote 500mg 1 tab bid and will defer further medication adjustment to her Neurologist as outpatient. Estrada Stahl M.D. Neuro-Hospitalist. Time with Patient: Less than 30
[2021-09-08 11:37] LABS: Glucose,Whole Blood 123 mg/dL (75-99)
--- NOTE | 2021-09-08 12:24 | P.DS ---
Providers Date of admission: 09/01/21 21:18 Expected date of discharge: 09/08/21 Attending physician: Kevon Elder Consults: 09/01/21 21:19 Consult Physician Stat Consulting Provider: Paula Valdes Consult Reason/Comments: Hyponatremia Do you want consulting provider notified?: Yes 09/01/21 21:45 Consult Physician Stat Consulting Provider: Erich Stahl Consult Reason/Comments: Hyponatremia Do you want consulting provider notified?: Yes 09/06/21 04:32 Consult Physician Urgent Consulting Provider: Emily Rivas Consult Reason/Comments: Seizures Do you want consulting provider notified?: Yes 09/06/21 17:42 Consult Physician Routine Consulting Provider: Sukhjinder Kunz Consult Reason/Comments: Severe anxiety and tremors of upper and lower extremeties Do you want consulting provider notified?: Yes Primary care physician: [facility] Hospital Course: HISTORY OF PRESENT ILLNESS This is a 71-year-old female patient of Dr. Helm with a past medical history of breast cancer as well as partial mastectomy under the care of Dr. Guzman, hypothyroidism, diabetes mellitus type 2, hypertension and aortic valve replacement June 2021 at [facility], seizure disorder under the care of Dr. Arriaga. Patient gives history that she has had watery diarrhea for a couple of weeks with abdominal pain and aching and sore feeling. She states she was told in the past that she had diverticulitis but that was years ago. Her last colonoscopy was several years ago. She states she is so weak that she slid off the couch and could not get herself up which happened 2 days ago. Patient also follows with Dr. Jackson and was scheduled for CAT scan of the abdomen regarding ongoing diarrhea which was scheduled for today as an outpatient. We will order it in the hospital visit. Patient has had a previous hospitalization in 2023 hyponatremia secondary to diarrhea. Patient presented to the emergency room and found to be afebrile, heart rate 72, blood pressure 115/67, pulse ox 99% on room air. CAT scan of the brain showed no acute process. Chest x-ray showed no acute process Initial sodium was 111 followed by 113 and 117. Hemoglobin was 10.4. Chloride 78, BUN 4 creatinine 0.68. Blood sugar 135. Serum osmolality 238. Uric acid 2. Calcium 9.1. Phosphorus 4.2, magnesium 1.1. AST 19, ALT 11, alkaline phosphatase 106. Troponin negative. Urinalysis was clear, nitrite positive, leukoesterase moderate, WBCs 27 and bacteria occasional. Urine culture is in progress. Coronavirus, influenza A, influenza B not detected. Patient was started on IV ceftriaxone, IV fluids 0.9 at 75 mL per hour, consult with pulmonary medicine and nephrology. 09/05: Over the weekend, patient had increased oral intake, decreased diarrhea and patient has been on Imodium. C. difficile toxin was negative. She has been followed closely by nephrology. Sodium this morning is 127. Nephrology is recommending resuming normal saline at 50 mL/h, 1500 mL fluid restriction and encourage oral intake. IV Ferrlecit has been ordered. Plan to probable discharge tomorrow. Patient refused home care. 09/06: Consult was added this morning for neurology as patient had a witnessed seizure staring type. She was seen by neurology and subsequently had another staring episode. Patient underwent EEG and a 2-1/2 hour EEG that did not show any seizure activity but there was concern that possible seizure activity was not picked up. Patient was seen by Dr. Stahl and recommended titrating down Trileptal since it can cause hyponatremia and instead Vimpat 50 mg twice daily and can go up to 100 mg twice daily. He will make medication changes in the chart. Nephrology recommends continuing 0.9 normal saline at 50 MLS per hour, 1500 mL fluid restriction and encourage oral intake, continue IV iron infusions. Repeat blood work reveals sodium 125, potassium 3.8, chloride 92, CO2 21, BUN 4.1 and creatinine 0.5. Blood sugars running between 135 and 158. Magnesium 1.6. Neurology is recommending transfer the patient to tertiary care where a long-term EEG can be conducted. news operations manager is making arrangements for transfer at [facility] and patient has been accepted, waiting for bed availability. 09/07: Transferred to tertiary care was canceled by neurology as patient had a normal 2-1/2 hour EEG. Neurology recommends the following: Continue Vimpat 50mg 1 tab bid (new during this admission) and will gradually taper down the Trileptal (since can cause hyponatremia). Will decrease tripleptal to 250mg 1 tab bid and every week go down 50mg in am and evening until discontinued. If patient is having further seizure consider going up on Vimpat 100mg 1 tab bid. Agree with tapering down Keppra (since has behavioral issues) by her neurolog ist. Currently on Keppra 500mg 1 tab bid and will decrease it to 250mg 1 tab bid and by next week recommend stopping it. Sodium today is 127, chloride 93, BUN 4.5 and creatinine 0.6. Blood sugars are running between 110 and 151. Psychiatry consult was added and recommendations are for the following changes: Start Zoloft 25 mg daily for mood/anxiety, change Xanax to 0.5 mg 3 times a day when necessary for anxiety. Add Seroquel 25 mg daily at bedtime for anxiety/mood/insomnia. We will plan to monitor patient overnight a probable discharge tomorrow. 2/3: A has been reassessed by psychiatry today and increase Zoloft to 50 mg. We have made the above changes as recommended by Dr. Stahl from neurology. Vimpat was sent to pharmacy and map score was risk 240 points. Patient has been afebri le, heart rate 79, blood pressure 163/61, pulse ox 95% on room air. Repeat sodium today is 129, potassium 3.7, chloride 90, CO2 24, BUN 6 and creatinine 0.53. Nephrology has recommended continuing sodium chloride tablets. DISCHARGE DIAGNOSES 1. Acute hypovolemic hyponatremia. 2. Diarrhea. C. difficile toxin negative. 3. Hypochloremia 4. Acute urinary tract infection. 5. Hyperlipidemia. 6. History of seizure disorder. 7. Hypothyroidism. 8. Hypertension. 9. History of Diabetes mellitus. A1c 5.8. 10. History of breast cancer, stable. 11. Sleep disturbance. 12. History of breast cancer 13. Anemia of chronic kidney disease. 14. Generalized anxiety disorder and recurrent depression. DISCHARGE PLAN Home without home care, patient refused home care. Greater than 35 minutes was utilized and coordinating patient's discharge. Impression and plan of care have been directed as dictated by the signing physician. Brie Rhodes nurse practitioner acting as scribe for signing physician. Patient Condition at Discharge: Good Plan - Discharge Summary Discharge Rx Participant: No New Discharge Prescriptions: New Sodium Chloride Tab 1 gm PO BID tab OXcarbazepine [Trileptal] 150 mg PO BID #59 tablet Lacosamide [Vimpat] 50 mg PO BID #60 tablet Sertraline [Zoloft] 50 mg PO DAILY #30 tab Folic Acid 1 mg PO DAILY tab levETIRAcetam [Keppra] 250 mg PO BID #14 tab Magnesium Oxide [Mag-Ox] 400 mg PO DAILY tab QUEtiapine [SEROquel] 25 mg PO HS #30 tab Continue Simvastatin 40 mg PO HS Vit C/E/Zn/Coppr/Lutein/Zeaxan [Preservision Areds 2 Softgel] 1 tab PO BID Levothyroxine Sodium [Synthroid] 88 mcg PO DAILY Ergocalciferol [Vitamin D2 (1250 Mcg = 46420 Iu)] 1,250 mcg PO TU Aspirin 81 mg PO HS ALPRAZolam [Xanax] 1 mg PO HS Pantoprazole [Protonix] 40 mg PO AC-BRKFST Ondansetron [Zofran] 4 mg PO QID PRN PRN Reason: Nausea Metoprolol Tartrate [Lopressor] 25 mg PO BID Lidocaine 5% Patch [Lidoderm 5% Patch] 1 patch TOPICAL DAILY PRN PRN Reason: Pain Discontinued Potassium Chloride ER [K-Dur 20] 20 meq PO AC-SUPPER diphenhydrAMINE HCL [Benadryl] 12.5 mg PO HS levETIRAcetam [Keppra] 500 mg PO BID Discharge Medication List Simvastatin 40 mg PO HS 04/12/20 [History] Aspirin 81 mg PO HS 02/23/21 [History] Ergocalciferol [Vitamin D2 (1250 Mcg = 65398 Iu)] 1,250 mcg PO TU 02/23/21 [History] Levothyroxine Sodium [Synthroid] 88 mcg PO DAILY 02/23/21 [History] Vit C/E/Zn/Coppr/Lutein/Zeaxan [Preservision Areds 2 Softgel] 1 tab PO BID 02/23/21 [History] ALPRAZolam [Xanax] 1 mg PO HS 09/01/21 [History] Lidocaine 5% Patch [Lidoderm 5% Patch] 1 patch TOPICAL DAILY PRN 09/01/21 [History] Metoprolol Tartrate [Lopressor] 25 mg PO BID 09/01/21 [History] Ondansetron [Zofran] 4 mg PO QID PRN 09/01/21 [History] Pantoprazole [Protonix] 40 mg PO AC-BRKFST 09/01/21 [History] Folic Acid 1 mg PO DAILY tab 09/08/21 [Rx] Lacosamide [Vimpat] 50 mg PO BID #60 tablet 09/08/21 [Rx] Magnesium Oxide [Mag-Ox] 400 mg PO DAILY tab 09/08/21 [Rx] OXcarbazepine [Trileptal] 150 mg PO BID #59 tablet 09/08/21 [Rx] QUEtiapine [SEROquel] 25 mg PO HS #30 tab 09/08/21 [Rx] Sertraline [Zoloft] 50 mg PO DAILY #30 tab 09/08/21 [Rx] Sodium Chloride Tab 1 gm PO BID tab 09/08/21 [Rx] levETIRAcetam [Keppra] 250 mg PO BID #14 tab 09/08/21 [Rx] Follow up Appointment(s)/Referral(s): Jose Helm DO [Primary Care Provider] - 09/13/21 3:15 am Shankar Arriaga DO [STAFF PHYSICIAN] - 09/21/21 2:15 am Patient Instructions/Handouts: Hyponatremia (DC) Activity/Diet/Wound Care/Special Instructions: Trileptal taper: 250mg x 1 tab twice daily x one week starting 09/07/2021, then decrease to 50mg x1 tab in am Discharge Disposition: HOME SELF-CARE
--- NOTE | 2021-09-08 13:59 | P.PN ---
Progress Note - Text Progress Note Date: 09/08/21 Interval History: Patient was seen today for psychiatric follow-up regarding patient's anxiety d isorder and medications. The patient claims that she has mild improvement in her anxiety today however still states that she is feeling anxious at the moment. She claims that her Xanax is not at the same dose. She was requesting to have a Xanax before she is discharged today. She states that she is feeling well enough to be discharged today. She asked several questions about her medications and "what the plan is". She states that she is willing to follow-up with outpatient psychiatrist and went over different options that she has periods she states that she was able to sleep fairly well last night. She claims that she has fair appetite. At this time patient denies any suicidal or homical ideations, intent or plan. Patient denies any auditory, visual hallucinations and denies any paranoia or delusions. Patient denies any side effects from the medications and has been compliant with meds. General Appearance: Patient appears to be stated age is alert, anxious, improving. Patient appears to have improving hygiene and grooming wearing hospital gown with fair eye contact. Behavior: Patient is calmly lying in bed without any agitated behavior. Less anxious today Speech: Patient's speech is fluent and nonpressured. Mood/Affect: Patient reports their mood is "a bit better", affect is congruent Suicidality/Homicidality: Patient denies having any suicidal or homicidal ideation intent or plan. Perceptions: Patient denies any visual hallucinations and denies any auditory hallucinations Though content/process: There is no evidence of any delusional thought content and thought process is linear and goal-directed. Rambles. Asks multiple questions. Memory and concentration: AOX3, grossly intact for the purposes of this session. Can spell "WORLD" backwards Judgment and insight: Fair IMPRESSIONS: Generalized anxiety disorder Seizure disorder Hyponatremia PLAN: -At this time patient DOES NOT meet criteria for inpatient psychiatric admission. -Would recommend the following medication changes/additions: Increase Zoloft 50 mg daily for mood/anxiety, continue with Xanax to 0.5 mg 3 times a day when necessary for anxiety. continue with Seroquel 25 mg daily at bedtime for anxiety/mood/insomnia. -tankroom worker to provide patient with outpatient mental health/psychiatry resources for appropriate follow up upon discharge -Communicated plan to patient's nurse -At this time will sign off -Please contact with any questions.
[2021-09-08] MEDS ORDERED: DIVALPROEX 500 MG TABLET.DR PO SCH (21:00)
[2021-09-09] MEDS ORDERED: SERTRALINE 50 MG TAB PO SCH (09:00)
== END 2021-09-08 16:16 | disposition home or self-care (01) | DRG 641 ==
LOC: EC 18:36 → 2SICU 21:18 → 4SSUR 09-02 08:02
PROVIDERS: ADMIT Internal Medicine Geriatric Medicine; ATTEND Internal Medicine Geriatric Medicine
DX: E87.1 Hypo-osmolality and hyponatremia (principal); N39.0 Urinary tract infection, site not specified; F33.9 Major depressive disorder, recurrent, unspecified; R11.2 Nausea with vomiting, unspecified; E87.2 Acidosis; M79.10 Myalgia, unspecified site; R51.9 Headache, unspecified; B96.20 Unspecified Escherichia coli [E. coli] as the cause of diseases classified elsewhere; B96.5 Pseudomonas (aeruginosa) (mallei) (pseudomallei) as the cause of diseases classified elsewhere; D63.1 Anemia in chronic kidney disease; E03.9 Hypothyroidism, unspecified; E11.22 Type 2 diabetes mellitus with diabetic chronic kidney disease; E61.1 Iron deficiency; E78.5 Hyperlipidemia, unspecified; E86.1 Hypovolemia; E87.6 Hypokalemia; E87.8 Other disorders of electrolyte and fluid balance, not elsewhere classified; Z20.822 Contact with and (suspected) exposure to COVID-19; F41.1 Generalized anxiety disorder; F91.9 Conduct disorder, unspecified; G40.909 Epilepsy, unspecified, not intractable, without status epilepticus; G47.00 Insomnia, unspecified; I12.9 Hypertensive chronic kidney disease with stage 1 through stage 4 chronic kidney disease, or unspecified chronic kidney disease; K44.9 Diaphragmatic hernia without obstruction or gangrene; K57.90 Diverticulosis of intestine, part unspecified, without perforation or abscess without bleeding; R19.7 Diarrhea, unspecified; R25.1 Tremor, unspecified; I10 Essential (primary) hypertension; Z79.82 Long term (current) use of aspirin; Z79.890 Hormone replacement therapy; Z79.899 Other long term (current) drug therapy; Z80.0 Family history of malignant neoplasm of digestive organs; Z80.3 Family history of malignant neoplasm of breast; Z82.49 Family history of ischemic heart disease and other diseases of the circulatory system; Z85.3 Personal history of malignant neoplasm of breast; Z87.11 Personal history of peptic ulcer disease; Z87.891 Personal history of nicotine dependence; Z95.2 Presence of prosthetic heart valve
CPT/HCPCS: 36415; 70450; 71045; 74178; 80048; 80053; 81001; 82533; 82570; 82607; 82728; 82746; 83540; 83550; 83690; 83735; 83930; 83935; 84100; 84295; 84300; 84443; 84484; 84540; 84550; 84560; 85025; 87077; 87086; 87186; 87324; 87502; 87635; 93005; 95713; 95816; 99291

== ENCOUNTER 2021-09-11 20:41 | Observation (INO) | payer MEDICARE ==
--- NOTE | 2021-09-11 21:43 | ED ---
Weakness HPI - General Chief complaint: Weakness Stated complaint: Weakness Time Seen by Provider: 09/11/21 21:00 Source: patient Mode of arrival: wheelchair Limitations: no limitations - History of Present Illness Initial comments: 71-year-old female patient presents to the emergency department today for evaluation of generalized weakness. Patient did have recent admission was found to be severely hyponatremic. States she is feeling the same way. She came in to be evaluated. She denies any headache, blurred vision, double vision. Denies any numbness or tingling to the extremities. Denies any recent falls or head injury. She was started on a new antiepileptic medication and has been taking doses as directed. Did have a some episodes of diarrhea that were controlled with imodium. She denies any black or bloody stools. Denies shortness of breath or chest pain. She did have an aortic heart valve placed in June at [facility]. Patient denies any recent rash, fever, chills, cough, abdominal pain, nausea, vomiting, constipation, back pain, hematuria, dysuria, urinary urgency, urinary frequency, or any other complaints. - Related Data Home Medications Medication Instructions Recorded Confirmed Simvastatin 40 mg PO HS 04/12/20 09/11/21 Aspirin 81 mg PO HS 02/23/21 09/11/21 Ergocalciferol [Vitamin D2 (1250 1,250 mcg PO TU 02/23/21 09/11/21 Mcg = 95527 Iu)] Levothyroxine Sodium [Synthroid] 88 mcg PO DAILY 02/23/21 09/11/21 Vit C/E/Zn/Coppr/Lutein/Zeaxan 1 tab PO BID 02/23/21 09/11/21 [Preservision Areds 2 Softgel] ALPRAZolam [Xanax] 1 mg PO HS 09/01/21 09/11/21 Lidocaine 5% Patch [Lidoderm 5% 1 patch TRANSDERM DAILY PRN 09/01/21 09/11/21 Patch] Metoprolol Tartrate [Lopressor] 25 mg PO BID 09/01/21 09/11/21 Ondansetron [Zofran] 4 mg PO QID PRN 09/01/21 09/11/21 Pantoprazole [Protonix] 40 mg PO AC-BRKFST 09/01/21 09/11/21 OXcarbazepine [Trileptal] See Taper PO BID 09/11/21 09/11/21 Previous Rx's Medication Instructions Recorded Divalproex [Depakote] 500 mg PO BID #60 tablet 09/08/21 Folic Acid 1 mg PO DAILY tab 09/08/21 Magnesium Oxide [Mag-Ox] 400 mg PO DAILY tab 09/08/21 QUEtiapine [SEROquel] 25 mg PO HS #30 tab 09/08/21 Sertraline [Zoloft] 50 mg PO DAILY #30 tab 09/08/21 Sodium Chloride Tab 1 gm PO BID tab 09/08/21 levETIRAcetam [Keppra] 250 mg PO BID #14 tab 09/08/21 Allergies Allergy/AdvReac Type Severity Reaction Status Date / Time No Known Allergies Allergy Verified 09/11/21 22:32 Review of Systems ROS Statement: Those systems with pertinent positive or pertinent negative responses have been documented in the HPI. ROS Other: All systems not noted in ROS Statement are negative. Past Medical History Past Medical History: Cancer, Diabetes Mellitus, Eye Disorder, Hyperlipidemia, Hypertension, Seizure Disorder, Thyroid Disorder Additional Past Medical History / Comment(s): Recently diagnosed with seizure disorder at [facility] in July 2021, hyponatremia, diet controlled diabetes, R breast cancer with surgery/chemo/radiation, benign thyroid nodules/hypothyroid, antral stomach ulcer, gastritis, small hiatal hernia, diverticular disease, bilateral macular degeneration/receives eye injections, occasional lower back pain History of Any Multi-Drug Resistant Organisms: None Reported Past Surgical History: Adenoidectomy, Breast Surgery, Cardiac Valve Replacement, Heart Catheterization, Tonsillectomy Additional Past Surgical History / Comment(s): 06/2021 aortic valve replacement at [facility], R/L cardiac cath/marbin, bilateral breast biopsies, R breast lumpectomy/lymph node removed, thyroid biopsy, bilateral breast reductions, D&Cs, EGD, colonoscopy Past Anesthesia/Blood Transfusion Reactions: No Reported Reaction Past Psychological History: Anxiety Smoking Status: Former smoker Past Alcohol Use History: None Reported Past Drug Use History: None Reported - Past Family History Father Family Medical History: Cancer Additional Family Medical History / Comment(s): Pancreatic cancer Mother Family Medical History: Myocardial Infarction ([place]) Additional Family Medical History / Comment(s): Mother survived a [place] at the age of 59 yrs. Mother had valvular disease. General Exam Limitations: no limitations General appearance: alert, in no apparent distress, other (This is a well-developed, well-nourished adult female in no acute distress.) ENT exam: Present: normal exam, normal oropharynx Respiratory exam: Present: normal lung sounds bilaterally. Absent: respiratory distress, wheezes, rales, rhonchi, stridor Cardiovascular Exam: Present: regular rate, normal rhythm, normal heart sounds. Absent: systolic murmur, diastolic murmur, rubs, gallop, clicks GI/Abdominal exam: Present: soft, normal bowel sounds. Absent: distended, tenderness, guarding, rebound, rigid Neurological exam: Present: alert, oriented X3, CN II-XII intact Psychiatric exam: Present: normal affect, normal mood Skin exam: Present: warm, dry, intact, normal color. Absent: rash Course Vital Signs 09/11/21 09/11/21 09/11/21 20:50 21:18 23:55 Temperature 97.8 F Pulse Rate 84 79 Pulse Rate [ 80 Mail Censor ] Respiratory 18 16 Rate Blood Pressure 143/75 146/70 O2 Sat by Pulse 100 98 Oximetry 09/12/21 00:52 Temperature Pulse Rate 79 Pulse Rate [ Mail Censor ] Respiratory 20 Rate Blood Pressure 141/75 O2 Sat by Pulse 98 Oximetry EKG Findings - EKG Comments: EKG Findings:: EKG obtained at 2153 shows normal sinus rhythm with a ventricular rate of 81, CT interval 144, QRS duration 78, QT 396, QTc 460. No evidence of ST elevation or depression. Medical Decision Making - Medical Decision Making 71-year-old female patient presents to the emergency department today for evaluation of generalized weakness. Recently was admitted for severe hyponatremia was concerned this may be happening again. Physical examination is unremarkable. She is neurologically intact with no focal deficits. Labs reviewed and did reveal a hemoglobin of 10.2, sodium 131, carbon dioxide 21, lactic acid 3.6. No evidence for infection in the urine. COVID-19 was negative. She is given IV fluids. She'll be admitted to the hospital for hydration and repeat labs in the morning. Dr. Hassan is accepting. My attending is Dr. Nevarez. - Lab Data Result diagrams: 09/11/21 21:39 09/11/21 23:00 Lab Results 0209/11/21 09/11/21 Range/Units 21:39 21:39 21:39 WBC 5.8 (3.8-10.6) k/uL RBC 3.69 L (3.80-5.40) m/uL Hgb 10.2 L (11.4-16.0) gm/dL Hct 32.6 L (34.0-46.0) % MCV 88.3 D (80.0-100.0) fL MCH 27.6 (25.0-35.0) pg MCHC 31.3 (31.0-37.0) g/dL RDW 16.1 H (11.5-15.5) % Plt Count 297 (150-450) k/uL MPV 7.1 Neutrophils % 68 % Lymphocytes % 18 % Monocytes % 7 % Eosinophils % 4 % Basophils % 1 % Neutrophils # 3.9 (1.3-7.7) k/uL Lymphocytes # 1.1 (1.0-4.8) k/uL Monocytes # 0.4 (0-1.0) k/uL Eosinophils # 0.2 (0-0.7) k/uL Basophils # 0.1 (0-0.2) k/uL Hypochromasia Moderate Anisocytosis Slight Sodium (137-145) mmol/L Potassium (3.5-5.1) mmol/L Chloride (98-107) mmol/L Carbon Dioxide (22-30) mmol/L Anion Gap mmol/L BUN (7-17) mg/dL Creatinine (0.52-1.04) mg/dL Est GFR (CKD-EPI)AfAm (>60 ml/min/1.73 sqM) Est GFR (CKD-EPI)NonAf (>60 ml/min/1.73 sqM) Glucose (74-99) mg/dL Lactic Ac Sepsis Rflx Plasma Lactic Acid Jori 3.6 H* (0.7-2.0) mmol/L Calcium (8.4-10.2) mg/dL Total Bilirubin (0.2-1.3) mg/dL AST (14-36) U/L ALT (4-34) U/L Alkaline Phosphatase (38-126) U/L Troponin I (0.000-0.034) ng/mL Total Protein (6.3-8.2) g/dL Albumin (3.5-5.0) g/dL Urine Color Yellow Urine Appearance Clear (Clear) Urine pH 6.0 (5.0-8.0) Ur Specific [place] 1.015 (1.001-1.035) Urine Protein Negative (Negative) Urine Glucose (UA) Negative (Negative) Urine Ketones 1+ H (Negative) Urine Blood Negative (Negative) Urine Nitrite Negative (Negative) Urine Bilirubin Negative (Negative) Urine Urobilinogen <2.0 (<2.0) mg/dL Ur Leukocyte Esterase Trace H (Negative) Urine RBC 1 (0-5) /hpf Urine WBC 4 (0-5) /hpf Ur Squamous Epith Cells 1 (0-4) /hpf Urine Mucus Rare H (None) /hpf 09/11/21 09/11/21 09/11/21 Range/Units 22:32 23:00 23:00 WBC (3.8-10.6) k/uL RBC (3.80-5.40) m/uL Hgb (11.4-16.0) gm/dL Hct (34.0-46.0) % MCV (80.0-100.0) fL MCH (25.0-35.0) pg MCHC (31.0-37.0) g/dL RDW (11.5-15.5) % Plt Count (150-450) k/uL MPV Neutrophils % % Lymphocytes % % Monocytes % % Eosinophils % % Basophils % % Neutrophils # (1.3-7.7) k/uL Lymphocytes # (1.0-4.8) k/uL Monocytes # (0-1.0) k/uL Eosinophils # (0-0.7) k/uL Basophils # (0-0.2) k/uL Hypochromasia Anisocytosis Sodium 131 L (137-145) mmol/L Potassium 4.2 (3.5-5.1) mmol/L Chloride 98 (98-107) mmol/L Carbon Dioxide 21 L (22-30) mmol/L Anion Gap 12 mmol/L BUN 5 L (7-17) mg/dL Creatinine 0.50 L (0.52-1.04) mg/dL Est GFR (CKD-EPI)AfAm >90 (>60 ml/min/1.73 sqM) Est GFR (CKD-EPI)NonAf >90 (>60 ml/min/1.73 sqM) Glucose 122 H (74-99) mg/dL Lactic Ac Sepsis Rflx Y Plasma Lactic Acid Jori (0.7-2.0) mmol/L Calcium 8.8 (8.4-10.2) mg/dL Total Bilirubin 0.4 (0.2-1.3) mg/dL AST 23 (14-36) U/L ALT 11 (4-34) U/L Alkaline Phosphatase 77 (38-126) U/L Troponin I <0.012 (0.000-0.034) ng/mL Total Protein 6.2 L (6.3-8.2) g/dL Albumin 3.7 (3.5-5.0) g/dL Urine Color Urine Appearance (Clear) Urine pH (5.0-8.0) Ur Specific [place] (1.001-1.035) Urine Protein (Negative) Urine Glucose (UA) (Negative) Urine Ketones (Negative) Urine Blood (Negative) Urine Nitrite (Negative) Urine Bilirubin (Negative) Urine Urobilinogen (<2.0) mg/dL Ur Leukocyte Esterase (Negative) Urine RBC (0-5) /hpf Urine WBC (0-5) /hpf Ur Squamous Epith Cells (0-4) /hpf Urine Mucus (None) /hpf Disposition Clinical Impression: Dehydration, Lactic acidosis Disposition: ADMITTED IP TO THIS HOSP Condition: Serious Decision to Admit Reason: Admit from EC Decision Date: 09/12/21 Decision Time: 00:44
[2021-09-11 22:06] LABS: Anisocytosis Slight; Basophils # (A) 0.1 k/uL (0-0.2); Basophils % (A) 1 %; Eosinophils # (A) 0.2 k/uL (0-0.7); Eosinophils % (A) 4 %; HCT 32.6 % (34.0-46.0); HGB 10.2 gm/dL (11.4-16.0); Hypochromasia Moderate; Lymphocytes # (A) 1.1 k/uL (1.0-4.8); Lymphocytes % (A) 18 %; MCH 27.6 pg (25.0-35.0); MCHC 31.3 g/dL (31.0-37.0); Mean Platelet Volume 7.1; Monocytes # (A) 0.4 k/uL (0-1.0); Monocytes % (A) 7 %; Neutrophils # (A) 3.9 k/uL (1.3-7.7); Neutrophils % (A) 68 %; Platelet Count 297 k/uL (150-450); RBC 3.69 m/uL (3.80-5.40); RDW 16.1 % (11.5-15.5); WBC 5.8 k/uL (3.8-10.6)
[2021-09-11 22:10] LABS: MCV 88.3 fL (80.0-100.0)
[2021-09-11 22:44] LABS: Appearance,Urine Clear (Clear); Bilirubin,Urine Negative (Negative); Blood,Urine Negative (Negative); Color,Urine Yellow; Glucose,Urine (UA) Negative (Negative); Ketones,Urine 1+ (Negative); Leukocyte Esterase,Urine Trace (Negative); Mucus,Urine Rare /hpf; Nitrite,Urine Negative (Negative); Protein,Urine Negative (Negative); RBC,Urine 1 /hpf (0-5); Specific Gravity,Urine 1.015 (1.001-1.035); Squamous Epithelial Cell,Urine 1 /hpf (0-4); Urobilinogen,Urine <2.0 mg/dL (<2.0); WBC,Urine 4 /hpf (0-5)
[2021-09-12 00:11] LABS: ALT 11 U/L (4-34); AST 23 U/L (14-36); African American GFR (CKD) >90 (>60 ml/min/1.73 sqM); Albumin 3.7 g/dL (3.5-5.0); Alkaline Phosphatase 77 U/L (38-126); Anion Gap 12 mmol/L; Blood Urea Nitrogen 5 mg/dL (7-17); Calcium 8.8 mg/dL (8.4-10.2); Carbon Dioxide 21 mmol/L (22-30); Chloride 98 mmol/L (98-107); Glucose 122 mg/dL (74-99); Non-African American GFR(CKD) >90 (>60 ml/min/1.73 sqM); Potassium 4.2 mmol/L (3.5-5.1); Sodium 131 mmol/L (137-145); Total Bilirubin 0.4 mg/dL (0.2-1.3); Total Protein 6.2 g/dL (6.3-8.2)
[2021-09-12] MEDS ORDERED: SODIUM CHLORIDE 0.9% 1,000 ML IV ONE (00:21)
[2021-09-12] MEDS ORDERED: NALOXONE 0.4 MG/ML 1 ML VIAL IV PRN ×2 (00:41→00:49)
[2021-09-12] MEDS ORDERED: SODIUM CHLORIDE 0.9% 1,000 ML IV SCH (00:45)
[2021-09-12] MEDS: LEVOTHYROXINE 88 MCG TAB PO SCH ×2 (06:11)
[2021-09-12 07:44] VITALS: BP 148/78; PULSE 85; RESP 14; TEMP 98
[2021-09-12] MEDS ORDERED: ONDANSETRON 4 MG TAB PO PRN (07:48)
[2021-09-12] MEDS ORDERED: ALPRAZolam 1 MG TAB PO SCH ×2 (09:00→21:00)
[2021-09-12] MEDS ORDERED: SODIUM CHLORIDE TAB 1 GM TAB PO SCH (09:00)
[2021-09-12] MEDS ORDERED: VIT A,C & E-LUTEIN-MINERALS 1 EACH TAB PO SCH (09:00)
[2021-09-12] MEDS ORDERED: SERTRALINE 50 MG TAB PO SCH (09:00)
[2021-09-12] MEDS ORDERED: MAGNESIUM OXIDE 400 MG TAB PO SCH (09:00)
[2021-09-12] MEDS ORDERED: DIVALPROEX 500 MG TABLET.DR PO SCH (09:00)
[2021-09-12] MEDS ORDERED: OXcarbazepine 150 MG TAB PO SCH (09:00)
[2021-09-12] MEDS ORDERED: FOLIC ACID 1 MG TAB PO SCH (09:00)
[2021-09-12] MEDS ORDERED: METOPROLOL TARTRATE 25 MG TAB PO SCH (09:00)
[2021-09-12] MEDS ORDERED: levETIRAcetam 250 MG TAB PO SCH (09:00)
--- NOTE | 2021-09-12 12:10 | P.HPIM ---
History of Present Illness H&P Date: 09/12/21 ( ) HISTORY AND PHYSICAL AND DISCHARGE SUMMARY: HISTORY OF PRESENT ILLNESS This is a 71-year-old female patient of Dr. Helm with a past medical histo ry of breast cancer as well as partial mastectomy under the care of Dr. Guzman, hypothyroidism, diabetes mellitus type 2, hypertension and aortic valve replacement June 2021 at [facility], seizure disorder under the care of Dr. Arriaga. Patient said hospitalization which time she was treated for hypovolemic hyponatremia secondary to diarrhea and acute Pseudomonas urinary tract infection. There was concern for seizure disorder although to a half hour EEG was read as normal. Medication adjustments were made by neurology could impact hyponatremia and patient was also seen by psychiatry. Patient was stabilized and discharged home with homecare. Patient now presents due to weakn ess. She has been found to be afebrile, heart rate 84, blood pressure 143/75, pulse ox 100% on room air. EKG is a sinus rhythm with no acute ST changes. Sodium 131, potassium 4.2, chloride 98, CO2 21, BUN 5 and creatinine 0.5. Blood sugar 122. WBC 5.8, hemoglobin 10.2, platelet count 297. Lactic acid initially 3.6 and repeat of 1.6. Troponin negative on one drop. Liver function test were normal. COVID-19 PCR not detected. Urinalysis was clear with nitrate negative and leukoesterase trace. Patient is seen today observation unit. One more repeat lactic acid is Patient states that she is safe at home and able to ambulate and take care of her needs. Patient will be discharged home today in stable condition. REVIEW OF SYSTEMS Constitutional: No fever, no chills, no night sweats. No weight change. Report weakness and fatigue no lethargy. No daytime sleepiness. EENT: No headache. No blurred vision or double vision, no loss of vision. No loss of Hearing, no ringing in the ears, no dizziness. No nasal drainage or congestion. No epistaxis. No sore throat. Lungs: No shortness of breath, cough, no sputum production. No wheezing. Cardiovascular: No chest pain, no lower extremity edema. No palpitations. No paroxysmal nocturnal dyspnea. No orthopnea. No lightheadedness or dizziness. No syncopal episodes. Abdominal: Denies abdominal discomfort. Denies nausea no vomiting. No diarrhea. No constipation. No bloody or tarry stools. Reports loss of appetite. Genitourinary: No dysuria, increased frequency, urgency. No urinary retention. Musculoskeletal: No myalgias. Reports muscle weakness, no gait dysfunction, no frequent falls. No back pain. No neck pain. Integumentary: No wounds, no lesions. No rash or pruritus. No unusual brui sing. No change in hair or nails. Neurologic: No aphasia. No facial droop. No change in mentation. No head injury. No headache. No paralysis. No paresthesia. Psychiatric: No depression. No anxiety. No mood swings. Endocrine: No abnormal blood sugars. No weight change. No excessive sweating or thirst. SOCIAL HISTORY Patient quit smoking in 1979 and was scheduled for 10 years. She drink alcohol occasionally. No marijuana or illicit drug use. She does not utilize any DME at home. She is retired high school guidance counselor retire in 2009. FAMILY HISTORY Father at age 80 from pancreatic cancer. Mother at age 78 from coron fady artery disease status post CABG which she never recovered from. Patient is a total of 5 siblings all living and one sister has dementia and breast cancer. Patient does not have any children. PHYSICAL EXAMINATION General Appearance: Alert, cooperative, no distress, 71-year-old appears stated age. Neck HEENT: Supple, no lymphadenopathy, no thyroid enlargement, no carotid bruits. Lungs: Clear to auscultation without crackles or wheezes no rhonchi, no deformity. Chest Wall: Chest wall normal expansion with deep inspiration no tenderness and no deformity was found on exam, no costochondral pain or discomfort. Heart: Regular rate and rhythm, S1, S2 normal, no murmur, rub or gallop. Back: Symmetric, no curvature, ROM normal, no CVA tenderness. Abdomen: No abdominal distention, no abdominal tenderness, no rebound or rigidity, no hepatosplenomegaly. Extremities: Extremities normal, atraumatic, no cyanosis or edema. Pulses: 2+ and symmetric. Skin: Skin color, texture, tugor normal, no rashes or lesions. Neurologic: Alert oriented x3 cranial nerves II through XII intact, no motor deficit, no abnormal balance or gait ASSESSMENT AND PLAN 1. Generalized weakness most likely secondary to recent hospitalization. Patient has done well with physical therapy and will be discharged home. 2. Recent hospitalization for Acute hypovolemic hyponatremia secondary to diarrhea. Continue sodium tablets. 3. Lactic acidosis secondary to dehydration, resolved. 4. Recent treatment for Pseudomonas urinary tract infection. 5. Hyperlipidemia. Continue atorvastatin 20 g at bedtime 6. History of seizure disorder. Continue changes made by Dr. Mckeon on discharge last week. Her decrease to 250 mg twice daily and to stop on September 16, Trileptal is a tapering dose, Depakote 500 mg twice daily. 7. Hypothyroidism. Continue levothyroxine 88 g daily. 8. Hypertension. Continue Lopressor 25 mg twice daily. 9. History of Diabetes mellitus. Previous hemoglobin A1c 5.8. 10. History of breast cancer, stable. 9. Sleep disturbance. Melatonin 10 mg daily at bedtime 7. History of breast cancer 8. GI prophylaxis. Protonix 40 mg 9. DVT prophylaxis. CODE STATUS: Full code Patient placed as observation status. DISCHARGE PLAN Most likely return home. PT consult. DISCHARGE MEDICATION LIST Simvastatin 40 mg PO HS 04/12/20 [History] Aspirin 81 mg PO HS 02/23/21 [History] Ergocalciferol [Vitamin D2 (1250 Mcg = 91429 Iu)] 1,250 mcg PO TU 02/23/21 [History] Levothyroxine Sodium [Synthroid] 88 mcg PO DAILY 02/23/21 [History] Vit C/E/Zn/Coppr/Lutein/Zeaxan [Preservision Areds 2 Softgel] 1 tab PO BID 02/23/21 [History] ALPRAZolam [Xanax] 1 mg PO HS 09/01/21 [History] Lidocaine 5% Patch [Lidoderm 5% Patch] 1 patch TRANSDERM DAILY PRN 09/01/21 [History] Metoprolol Tartrate [Lopressor] 25 mg PO BID 09/01/21 [History] Ondansetron [Zofran] 4 mg PO QID PRN 09/01/21 [History] Pantoprazole [Protonix] 40 mg PO AC-BRKFST 09/01/21 [History] Divalproex [Depakote] 500 mg PO BID #60 tablet 09/08/21 [Rx] Folic Acid 1 mg PO DAILY tab 09/08/21 [Rx] Magnesium Oxide [Mag-Ox] 400 mg PO DAILY tab 09/08/21 [Rx] QUEtiapine [SEROquel] 25 mg PO HS #30 tab 09/08/21 [Rx] Sertraline [Zoloft] 50 mg PO DAILY #30 tab 09/08/21 [Rx] Sodium Chloride Tab 1 gm PO BID tab 09/08/21 [Rx] OXcarbazepine [Trileptal] See Taper PO BID #0 09/12/21 [Rx] 225 mg twice daily for 7 days, 225 mg once daily for 7 days, I 150 mg twice daily for 7 days, 75 mg twice daily for 7 days then stop. levETIRAcetam [Keppra] 250 mg PO BID #14 tab 09/12/21 [Rx] discontinue on Saturday 09/16. Impression and plan of care have been directed as dictated by the signing physician. Brie Rhodes nurse practitioner acting as scribe for signing physician. Past Medical History Past Medical History: Cancer, Diabetes Mellitus, Eye Disorder, Hyperlipidemia, Hypertension, Seizure Disorder, Thyroid Disorder Additional Past Medical History / Comment(s): Recently diagnosed with seizure disorder at [facility] in July 2021, hyponatremia, diet controlled diabetes, R breast cancer with surgery/chemo/radiation, benign thyroid nodules/hypothyroid, antral stomach ulcer, gastritis, small hiatal hernia, diverticular disease, bilateral macular degeneration/receives eye injections, occasional lower back pain History of Any Multi-Drug Resistant Organisms: None Reported Past Surgical History: Adenoidectomy, Breast Surgery, Cardiac Valve Replacement, Heart Catheterization, Tonsillectomy Additional Past Surgical History / Comment(s): 06/2021 aortic valve replacement at [facility], R/L cardiac cath/marbin, bilateral breast biopsies, R breast lumpectomy/lymph node removed, thyroid biopsy, bilateral breast reductions, D&Cs, EGD, colonoscopy Past Anesthesia/Blood Transfusion Reactions: No Reported Reaction Past Psychological History: Anxiety Smoking Status: Former smoker Past Alcohol Use History: None Reported Past Drug Use History: None Reported - Past Family History Father Family Medical History: Cancer Additional Family Medical History / Comment(s): Pancreatic cancer Mother Family Medical History: Myocardial Infarction ([place]) Additional Family Medical History / Comment(s): Mother survived a [place] at the age of 59 yrs. Mother had valvular disease. Medications and Allergies Home Medications Medication Instructions Recorded Confirmed Type Simvastatin 40 mg PO HS 04/12/20 09/11/21 History Aspirin 81 mg PO HS 02/23/21 09/11/21 History Ergocalciferol [Vitamin D2 (1250 1,250 mcg PO TU 02/23/21 09/11/21 History Mcg = 55314 Iu)] Levothyroxine Sodium [Synthroid] 88 mcg PO DAILY 02/23/21 09/11/21 History Vit C/E/Zn/Coppr/Lutein/Zeaxan 1 tab PO BID 02/23/21 09/11/21 History [Preservision Areds 2 Softgel] ALPRAZolam [Xanax] 1 mg PO HS 09/01/21 09/11/21 History Lidocaine 5% Patch [Lidoderm 5% 1 patch TRANSDERM DAILY PRN 09/01/21 09/11/21 History Patch] Metoprolol Tartrate [Lopressor] 25 mg PO BID 09/01/21 09/11/21 History Ondansetron [Zofran] 4 mg PO QID PRN 09/01/21 09/11/21 History Pantoprazole [Protonix] 40 mg PO AC-BRKFST 09/01/21 09/11/21 History Divalproex [Depakote] 500 mg PO BID #60 tablet 09/08/21 09/11/21 Rx Folic Acid 1 mg PO DAILY tab 09/08/21 09/11/21 Rx Magnesium Oxide [Mag-Ox] 400 mg PO DAILY tab 09/08/21 09/11/21 Rx QUEtiapine [SEROquel] 25 mg PO HS #30 tab 09/08/21 09/11/21 Rx Sertraline [Zoloft] 50 mg PO DAILY #30 tab 09/08/21 09/11/21 Rx Sodium Chloride Tab 1 gm PO BID tab 09/08/21 09/11/21 Rx OXcarbazepine [Trileptal] See Taper PO BID #0 09/12/21 09/11/21 Rx levETIRAcetam [Keppra] 250 mg PO BID #14 tab 09/12/21 09/11/21 Rx Allergies Allergy/AdvReac Type Severity Reaction Status Date / Time No Known Allergies Allergy Verified 09/11/21 22:32 Physical Exam Vitals: Vital Signs Temp Pulse Pulse Pulse Resp BP BP 09/12/21 07:43 98.0 F 85 14 148/78 09/12/21 02:05 97.7 F 87 16 166/82 09/12/21 00:52 79 20 141/75 09/11/21 23:55 79 16 146/70 09/11/21 21:18 80 09/11/21 20:50 97.8 F 84 18 143/75 Pulse Ox 09/12/21 07:43 96 09/12/21 02:05 99 09/12/21 00:52 98 09/11/21 23:55 98 09/11/21 21:18 09/11/21 20:50 100 Intake and Output 09/11/21 09/12/21 09/12/21 22:59 06:59 14:59 Other: # Voids 2 Weight 68.039 kg 68.039 kg Results CBC & Chem 7: 09/11/21 21:39 09/11/21 23:00 Labs: Abnormal Lab Results - Last 24 Hours (Table) 09/11/21 09/11/21 09/11/21 Range/Units 21:39 21:39 21:39 RBC 3.69 L (3.80-5.40) m/uL Hgb 10.2 L (11.4-16.0) gm/dL Hct 32.6 L (34.0-46.0) % RDW 16.1 H (11.5-15.5) % Sodium (137-145) mmol/L Carbon Dioxide (22-30) mmol/L BUN (7-17) mg/dL Creatinine (0.52-1.04) mg/dL Glucose (74-99) mg/dL Plasma Lactic Acid Jori 3.6 H* (0.7-2.0) mmol/L Total Protein (6.3-8.2) g/dL Urine Ketones 1+ H (Negative) Ur Leukocyte Esterase Trace H (Negative) Urine Mucus Rare H (None) /hpf 09/11/21 09/12/21 Range/Units 23:00 02:38 RBC (3.80-5.40) m/uL Hgb (11.4-16.0) gm/dL Hct (34.0-46.0) % RDW (11.5-15.5) % Sodium 131 L (137-145) mmol/L Carbon Dioxide 21 L (22-30) mmol/L BUN 5 L (7-17) mg/dL Creatinine 0.50 L (0.52-1.04) mg/dL Glucose 122 H (74-99) mg/dL Plasma Lactic Acid Jori 2.7 H* (0.7-2.0) mmol/L Total Protein 6.2 L (6.3-8.2) g/dL Urine Ketones (Negative) Ur Leukocyte Esterase (Negative) Urine Mucus (None) /hpf Thrombosis Risk Factor Assmnt - Choose All That Apply Any of the Below Risk Factors Present?: Yes Each Factor Represents 1 point: Obesity (BMI >25) Other Risk Factors: Yes Each Risk Factor Represents 2 Points: Age 61-74 years Other congenital or acquired thrombophilia - If yes, enter type in comment: No Thrombosis Risk Factor Assessment Total Risk Factor Score: 3 Thrombosis Risk Factor Assessment Level: Moderate Risk
[2021-09-12] MEDS ORDERED: ASPIRIN 81 MG PO SCH (21:00)
[2021-09-12] MEDS ORDERED: ATORVASTATIN 20 MG TAB PO SCH (21:00)
[2021-09-12] MEDS ORDERED: QUEtiapine 25 MG TAB PO SCH (21:00)
[2021-09-13] MEDS ORDERED: PANTOPRAZOLE 40 MG TABLET PO SCH (07:30)
[2021-09-13] MEDS ORDERED: ERGOCALCIFEROL 1,250 MCG (50,000 IU) CAPSULE PO SCH (09:00)
== END 2021-09-12 13:35 | disposition home health service (06) ==
LOC: EC 20:41 → 6NMEDSUR 09-12 00:49
PROVIDERS: ADMIT Internal Medicine; ATTEND Internal Medicine
DX: R53.1 Weakness (principal); R19.7 Diarrhea, unspecified; E86.0 Dehydration; E78.5 Hyperlipidemia, unspecified; G40.909 Epilepsy, unspecified, not intractable, without status epilepticus; E03.9 Hypothyroidism, unspecified; I10 Essential (primary) hypertension; E11.9 Type 2 diabetes mellitus without complications; G47.9 Sleep disorder, unspecified; K44.9 Diaphragmatic hernia without obstruction or gangrene; M54.50 Low back pain, unspecified; K29.70 Gastritis, unspecified, without bleeding; K57.90 Diverticulosis of intestine, part unspecified, without perforation or abscess without bleeding; E04.1 Nontoxic single thyroid nodule; F41.9 Anxiety disorder, unspecified; H35.30 Unspecified macular degeneration; E66.9 Obesity, unspecified; Z68.25 Body mass index [BMI] 25.0-25.9, adult; Z20.822 Contact with and (suspected) exposure to COVID-19; Z79.82 Long term (current) use of aspirin; Z79.890 Hormone replacement therapy; Z79.899 Other long term (current) drug therapy; Z85.3 Personal history of malignant neoplasm of breast; Z92.21 Personal history of antineoplastic chemotherapy; Z92.3 Personal history of irradiation; Z87.11 Personal history of peptic ulcer disease; Z95.2 Presence of prosthetic heart valve; Z87.891 Personal history of nicotine dependence; Z87.440 Personal history of urinary (tract) infections; Z80.0 Family history of malignant neoplasm of digestive organs; Z82.49 Family history of ischemic heart disease and other diseases of the circulatory system; Z80.3 Family history of malignant neoplasm of breast; Z81.8 Family history of other mental and behavioral disorders
CPT/HCPCS: 96360; 99285; 36415; 93005; 97162; 97166; 80053; 83605 ×2; 84484; 85025; 81001; 87635; G0378

== ENCOUNTER 2022-01-05 14:01 | Emergency (ER) | payer MEDICARE ==
[2022-01-05] MEDS ORDERED: DIPH,PERTUS(ACELL)TETVAC-LF 0.5 ML VIAL IM ONE (14:39)
--- NOTE | 2022-01-05 14:43 | ED ---
General Adult HPI - General Chief complaint: Fall Stated complaint: fall Time Seen by Provider: 01/05/22 14:20 Source: patient, RN notes reviewed, old records reviewed Mode of arrival: EMS Limitations: altered mental status - History of Present Illness Initial comments: This is a 71-year-old female presents emergency department stating she got done with physical therapy she was walking outside work are with her walker and she stumbled and fell backwards and hit the side of her head on the left side. Patient denies any blood thinners. Patient did not lose consciousness. Patient is not days. According to EMS patient had some repetitive questioning. Court and was now in the room he states she is completely at her baseline and it is not unusual for her to get something but he does not believe she is altered at all. Patient denies any headache patient denies neck pain patient denies numbness weakness. Patient denies any chest pain patient denies any extremity pain. Patient denies any abdominal pain. - Related Data Home Medications Medication Instructions Recorded Confirmed Simvastatin 40 mg PO HS 04/12/20 09/11/21 Aspirin 81 mg PO HS 02/23/21 09/11/21 Ergocalciferol [Vitamin D2 (1250 1,250 mcg PO TU 02/23/21 09/11/21 Mcg = 13426 Iu)] Levothyroxine Sodium [Synthroid] 88 mcg PO DAILY 02/23/21 09/11/21 Vit C/E/Zn/Coppr/Lutein/Zeaxan 1 tab PO BID 02/23/21 09/11/21 [Preservision Areds 2 Softgel] ALPRAZolam [Xanax] 1 mg PO HS 09/01/21 09/11/21 Lidocaine 5% Patch [Lidoderm 5% 1 patch TRANSDERM DAILY PRN 09/01/21 09/11/21 Patch] Metoprolol Tartrate [Lopressor] 25 mg PO BID 09/01/21 09/11/21 Ondansetron [Zofran] 4 mg PO QID PRN 09/01/21 09/11/21 Pantoprazole [Protonix] 40 mg PO AC-BRKFST 09/01/21 09/11/21 Previous Rx's Medication Instructions Recorded Divalproex [Depakote] 500 mg PO BID #60 tablet 09/08/21 Folic Acid 1 mg PO DAILY tab 09/08/21 Magnesium Oxide [Mag-Ox] 400 mg PO DAILY tab 09/08/21 QUEtiapine [SEROquel] 25 mg PO HS #30 tab 09/08/21 Sertraline [Zoloft] 50 mg PO DAILY #30 tab 09/08/21 Sodium Chloride Tab 1 gm PO BID tab 09/08/21 OXcarbazepine [Trileptal] See Taper PO BID #0 09/12/21 levETIRAcetam [Keppra] 250 mg PO BID #14 tab 09/12/21 Allergies Allergy/AdvReac Type Severity Reaction Status Date / Time No Known Allergies Allergy Verified 09/11/21 22:32 Review of Systems ROS Statement: Those systems with pertinent positive or pertinent negative responses have been documented in the HPI. ROS Other: All systems not noted in ROS Statement are negative. Past Medical History Past Medical History: Cancer, Diabetes Mellitus, Eye Disorder, Hyperlipidemia, Hypertension, Seizure Disorder, Thyroid Disorder Additional Past Medical History / Comment(s): Recently diagnosed with seizure disorder at [facility] in July 2021, hyponatremia, diet controlled diabetes, R breast cancer with surgery/chemo/radiation, benign thyroid nodules/hypothyroid, antral stomach ulcer, gastritis, small hiatal hernia, diverticular disease, bilateral macular degeneration/receives eye injections, occasional lower back pain History of Any Multi-Drug Resistant Organisms: None Reported Past Surgical History: Adenoidectomy, Breast Surgery, Cardiac Valve Replacement, Heart Catheterization, Tonsillectomy Additional Past Surgical History / Comment(s): 06/2021 aortic valve replacement at [facility], R/L cardiac cath/marbin, bilateral breast biopsies, R breast lumpectomy/lymph node removed, thyroid biopsy, bilateral breast reductions, D&Cs, EGD, colonoscopy Past Anesthesia/Blood Transfusion Reactions: No Reported Reaction Past Psychological History: Anxiety Smoking Status: Former smoker Past Alcohol Use History: None Reported Past Drug Use History: None Reported - Past Family History Father Family Medical History: Cancer Additional Family Medical History / Comment(s): Pancreatic cancer Mother Family Medical History: Myocardial Infarction (VT) Additional Family Medical History / Comment(s): Mother survived a VT at the age of 59 yrs. Mother had valvular disease. General Exam - General Exam Comments Initial Comments: GENERAL: Patient is well-developed and well-nourished. Patient is nontoxic and well- hydrated and is in mild distress. ENT: Neck is soft and supple. No significant lymphadenopathy is noted. Oropharynx is clear. Moist mucous membranes. Neck has full range of motion without eliciting any pain. EYES: The sclera were anicteric and conjunctiva were pink and moist. Extraocular movements were intact and pupils were equal round and reactive to light. Eyelids were unremarkable. PULMONARY: Unlabored respirations. Good breath sounds bilaterally. No audible rales rhonchi or wheezing was noted. CARDIOVASCULAR: There is a regular rate and rhythm without any murmurs gallops or rubs. ABDOMEN: Soft and nontender with normal bowel sounds. SKIN: Patient has a small laceration to the left temporal region of the scalp. NEUROLOGIC: Patient is alert and oriented x3. Cranial nerves II through XII are grossly intact. Motor and sensory are also intact. Normal speech, volume and content. Symmetrical smile. MUSCULOSKELETAL: Normal extremities with adequate strength and full range of motion. No lower extremity swelling or edema. No calf tenderness. LYMPHATICS: No significant lymphadenopathy is noted PSYCHIATRIC: Normal psychiatric evaluation. Limitations: altered mental status Course Vital Signs 01/05/22 01/05/22 01/05/22 14:02 15:07 17:02 Temperature 97.9 F Pulse Rate 85 90 Respiratory 18 17 Rate Blood Pressure 200/99 140/92 161/87 O2 Sat by Pulse 99 97 Oximetry Medical Decision Making - Medical Decision Making Patient's CT of the brain shows a small subdural in the midline falx as well as some blood in the left lateral ventricle. I spoke with the neurosurgeon at [facility] I spoke with Dr. Bonilla and he agreed to accept the patient. Patient has a small laceration to the lateral aspect of the scalp in the temporal region I did not place any danae this time just in case any further neurological studies were needed to be done at the other facility. Patient did receive a tetanus. Critical Care Time Critical Care Time: Yes Total Critical Care Time: 35 Disposition Clinical Impression: Subdural hemorrhage, Intraventricular hemorrhage Disposition: OTHER INSTITUTION NOT DEFINED Referrals: Jose Helm DO [Primary Care Provider] - 1-2 days Time of Disposition: 17:41 - Out of Hospital Transfer - Req. Specs Out of Hospital Transfer - Requested Specifics: Other Emergency Center ([facility])
--- NOTE | 2022-01-05 16:29 | CT ---
EXAMINATION TYPE: CT brain roseannine wo con DATE OF EXAM: 01/05/2022 COMPARISON: Brain 09/06/2021 HISTORY: 71-year-old female with pain after Trauma to back of the head from fall. CT DLP: 1400.2 mGycm Automated exposure control for dose reduction was used. Technique: Examination of the head was done in axial plane without intravenous contrast. Coronal and sagittal reconstructions performed. CT of the cervical spine was obtained in axial plane without intravenous injection of contrast mater ial. Coronal and sagittal reformatted images were obtained from the axial views for evaluation of f ractures, spinal alignment and canal. FINDINGS: Head: There is no evidence of acute intracranial hemorrhage, acute ischemic changes, mass, mass-effect, or extra-axial fluid collection. There is no effacement of cerebral sulci or basal subarachnoid cister ns. There is no hydrocephalus. There is no midline shift. Cuenca-white matter distinction is preserv ed. Mild posterior scalp contusion. A larger left lateral scalp contusion with laceration. No underlying calvarial fracture. Paranasal sinuses and mastoid air cells well pneumatized. Orbits and globes are i ntact. Dense atherosclerotic calcifications within the carotid siphons. Tiny 6 mm subdural hematoma along the midline falx, posterior body of the lateral ventricles. Trace i ntraventricular blood layering at the atrium and occipital horn of the left lateral ventricle. Mild ventricular prominence is unchanged likely due to central cerebral atrophy. Moderate white matter hypodensities suggesting changes of chronic small vessel ischemic disease. Cervical spine: Some degenerative change of the right TMJ. Median sternotomy wires. Dependent atelectasis in the visu alized lungs. No craniocervical junction and upper body, predental space widening, or prevertebral soft tissue swel ling. Some degenerative change of the C1 dens articulation. Moderate to advanced disc/endplate degenerative change C3-C7 levels with disc space narrowing and dis c osteophyte complexes contributing to mild narrowing of the spinal canal. Hypertrophic uncovertebral joint arthropathy. Degenerative grade 1 retrolisthesis C3-C4, C4-C5, C5-C6. No acute fracture seen of the cervical spine. Vertebral moderate bilateral neural foraminal stenoses especially made to lower cervical spine. COMBINED IMPRESSION: HEAD: 1. Tiny 6 mm subdural hematoma along the midline falx, at the level of the posterior body of the late ral ventricles. Accompanying trace intraventricular blood layering within the left lateral ventricle. No mass effect or midline shift. 2. Left lateral scalp contusion and laceration. Smaller posterior scalp contusion. No calvarial fract ure. 3. Mild generalized atrophy and moderate burden of chronic small vessel ischemic disease. Critical findings called to Dr. Nur in the ER at 4:20pm. CERVICAL SPINE: 4. Moderate to advanced disc/endplate degenerative change. Scattered hypertrophic uncovertebral joint arthropathy. 5. Degenerative grade 1 retrolisthesis C3-C6 levels. No acute fracture of the cervical spine.
[2022-01-05 17:42] LABS: Basophils # (A) 0.1 k/uL (0-0.2); Basophils % (A) 1 %; Eosinophils # (A) 0.2 k/uL (0-0.7); Eosinophils % (A) 2 %; HCT 44.6 % (34.0-46.0); HGB 13.7 gm/dL (11.4-16.0); Lymphocytes % (A) 21 %; MCHC 30.8 g/dL (31.0-37.0); MCV 97.6 fL (80.0-100.0); Monocytes # (A) 0.6 k/uL (0-1.0); Monocytes % (A) 6 %; Neutrophils # (A) 6.4 k/uL (1.3-7.7); Neutrophils % (A) 69 %; Platelet Count 201 k/uL (150-450); RBC 4.57 m/uL (3.80-5.40); WBC 9.4 k/uL (3.8-10.6)
[2022-01-05 17:48] LABS: ALT 12 U/L (4-34); African American GFR (CKD) >90 (>60 ml/min/1.73 sqM); Albumin 4.4 g/dL (3.5-5.0); Anion Gap 8 mmol/L; Blood Urea Nitrogen 10 mg/dL (7-17); Calcium 9.1 mg/dL (8.4-10.2); Carbon Dioxide 26 mmol/L (22-30); Chloride 104 mmol/L (98-107); Glucose 109 mg/dL (74-99); Non-African American GFR(CKD) >90 (>60 ml/min/1.73 sqM); Sodium 138 mmol/L (137-145); Total Bilirubin 0.5 mg/dL (0.2-1.3); Total Protein 7.1 g/dL (6.3-8.2)
[2022-01-05 17:56] LABS: AST 29 U/L (14-36); Alkaline Phosphatase 97 U/L (38-126); Potassium 5.1 mmol/L (3.5-5.1)
[2022-01-05 18:02] VITALS: BP 165/95; PULSE 96; RESP 18; TEMP 98.2
[2022-01-05 18:42] LABS: Prothrombin Time 11.2 sec (9.0-12.0)
== END 2022-01-05 18:50 | disposition other institution (70) ==
LOC: EC 14:01
DX: S06.5X9A Traumatic subdural hemorrhage with loss of consciousness of unspecified duration, initial encounter (principal); S01.01XA Laceration without foreign body of scalp, initial encounter; E11.9 Type 2 diabetes mellitus without complications; I10 Essential (primary) hypertension; E78.5 Hyperlipidemia, unspecified; G40.909 Epilepsy, unspecified, not intractable, without status epilepticus; E03.9 Hypothyroidism, unspecified; F41.9 Anxiety disorder, unspecified; Z87.891 Personal history of nicotine dependence; Z23 Encounter for immunization; Z79.82 Long term (current) use of aspirin; Z79.890 Hormone replacement therapy; Z79.899 Other long term (current) drug therapy; W18.39XA Other fall on same level, initial encounter; Y93.01 Activity, walking, marching and hiking
CPT/HCPCS: 36415; 70450; 72125; 80053; 85025; 85610; 85730; 90471; 90715; 99291

== ENCOUNTER → 2024-03-06 | Outpatient (CLI) | payer MEDICARE ==
[2024-03-06 12:23] LABS: Basophils % (A) 0 %; Eosinophils # (A) 0.2 k/uL (0-0.7); Eosinophils % (A) 3 %; HCT 46.4 % (34.0-46.0); Lymphocytes # (A) 1.7 k/uL (1.0-4.8); Lymphocytes % (A) 24 %; MCH 30.8 pg (25.0-35.0); MCHC 32.3 g/dL (31.0-37.0); MCV 95.5 fL (80.0-100.0); Mean Platelet Volume 7.6; Monocytes # (A) 0.5 k/uL (0-1.0); Monocytes % (A) 8 %; Neutrophils # (A) 4.5 k/uL (1.3-7.7); Neutrophils % (A) 64 %; Platelet Count 215 k/uL (150-450); RBC 4.86 m/uL (3.80-5.40); RDW 11.9 % (11.5-15.5)
[2024-03-06 12:28] LABS: Appearance,Urine Clear (Clear); Bacteria,Urine Rare /hpf; Bilirubin,Urine Negative (Negative); Blood,Urine Negative (Negative); Color,Urine Yellow; Glucose,Urine (UA) Negative (Negative); Ketones,Urine 2+ (Negative); Leukocyte Esterase,Urine Small (Negative); Mucus,Urine Rare /hpf; Nitrite,Urine Negative (Negative); PH, Urine 5.5 (5.0-8.0); Protein,Urine Negative (Negative); RBC,Urine <1 /hpf (0-5); Specific Gravity,Urine 1.016 (1.001-1.035); Squamous Epithelial Cell,Urine <1 /hpf (0-4); Urobilinogen,Urine <2.0 mg/dL (<2.0); WBC,Urine 9 /hpf (0-5)
[2024-03-06 12:33] LABS: ALT 26 U/L (4-34); AST 40 U/L (14-36); African American GFR (CKD) 84 (>60 ml/min/1.73 sqM); Albumin 4.7 g/dL (3.5-5.0); Albumin/Globulin Ratio 1.8; Alkaline Phosphatase 88 U/L (38-126); Anion Gap 14 mmol/L; Blood Urea Nitrogen 19 mg/dL (7-17); Calcium 10.7 mg/dL (8.4-10.2); Carbon Dioxide 25 mmol/L (22-30); Chloride 93 mmol/L (98-107); Globulin 2.6 g/dL; Glucose 102 mg/dL (74-99); Non-African American GFR(CKD) 73 (>60 ml/min/1.73 sqM); Sodium 132 mmol/L (137-145); Total Bilirubin 0.5 mg/dL (0.2-1.3); Total Protein 7.3 g/dL (6.3-8.2)
[2024-03-06 12:39] LABS: Valproic Acid (Depakene) 43.9 ug/mL
[2024-03-06 13:38] LABS: T4, Free (Free Thyroxine) 1.77 ng/dL (0.78-2.19)
--- NOTE | 2024-03-06 14:17 | CT ---
EXAMINATION TYPE: CT brain wo/w con DATE OF EXAM: 03/06/2024 COMPARISON: 01/05/2022 HISTORY: 73-year-old female Z87.820, Personal history of traumatic brain injury TECHNIQUE: Examination was done before and after administration of 100 mL Isovue 300 IV contrast. C oronal and sagittal reconstructions performed. CT DLP: 2059.8 mGycm Automated exposure control for dose reduction was used. FINDINGS: There is no evidence of acute intracranial hemorrhage, acute ischemic changes, mass, mass-effect, or extra-axial fluid collection. There is no effacement of cerebral sulci or basal subarachnoid cister ns. There is no midline shift. Cuenca-white matter distinction is preserved. Prominent apical scarring calcifications in the carotid siphons and also at the V3/V4 junctions of th e bilateral vertebral arteries. There is mild generalized volume loss overlying the bilateral cerebral convexities and mild ventricul omegaly with evident ratio calculated at 0.36, increased from 01/05/2022. Mild patchy white matter hypodensities in both cerebral hemispheres. After IV contrast administration, no enhancing intracranial lesions are identified. Lobulated mucosal thickening floor of the right maxillary sinus is unchanged. Mastoid air cells are w ell-pneumatized. Orbits and globes are intact. IMPRESSION: 1. Mild generalized atrophy slightly progressed from 2021. Mild ventriculomegaly also progressed from 2021 possibly as a sequela of patient's previous intraventricular hemorrhage. Progressive central ce rebral atrophy is also a consideration. Correlate to exclude a component of NPH. 2. Otherwise, No acute intracranial abnormality or enhancing intracranial lesions seen.
== END | disposition home or self-care (01) ==
LOC: RADCTMAIN 11:21
PROVIDERS: ATTEND Psychiatry & Neurology Neurology
DX: G93.89 Other specified disorders of brain (principal); R41.82 Altered mental status, unspecified; G31.9 Degenerative disease of nervous system, unspecified; Z87.820 Personal history of traumatic brain injury
CPT/HCPCS: 84439; 80164; 80053; 84443; 85025; 81001; 87086; 70470; 36415; Q9967

== ENCOUNTER 2024-05-13 13:31 | Emergency (ER) | payer MEDICARE ==
[2024-05-13 13:41] VITALS: PULSE 70; TEMP 98.2
--- NOTE | 2024-05-13 14:26 | CT ---
EXAMINATION TYPE: CT brain jacque stephenson con DATE OF EXAM: 05/13/2024 COMPARISON: HISTORY: fall, open wound to back of head CT DLP: 1349.4 mGycm, Automated exposure control for dose reduction was used. CONTRAST: None CT of the brain is performed utilizing 3 mm thick sections through the posterior fossa and 3 mm thick sections through the remaining calvarium. Study is performed within 24 hours of arrival to the hospital. No abnormal hyperdensity is present to suggest an acute intracranial hemorrhage. No mass lesion is evident. No acute infarcts are evident. There is mild periventricular white matter hypodensity, likely on the basis of chronic white matter ischemic change. Findings are stable from comparison. Ventricles and sulci are appropriate for the patient age. Minimal soft tissue swelling over the posterior occipital region is present. Small air-fluid levels within the right maxillary sinus. Mild mucosal thickening is to the right maxi llary sinus. IMPRESSIONS: 1. No acute intracranial process. Follow-up MRI can be performed as clinically indicated. 2. Chronic appearing periventricular white matter ischemic-type changes. 3. Small air-fluid level within the right maxillary sinus. Consider sinusitis within the differential . CT cervical spine. COMPARISON: None CT of the cervical spine is performed in the axial plane at 2 mm thick sections. Reconstructed image s in the coronal, and sagittal plane are reviewed on the computer. No acute fractures are evident. Vertebral body alignment is normal. There is loss of disc height C3-4 through C6-7. Some posterior disc space narrowing is present C7-T1. Small amount of anterior vertebral body spurring is present. No spinal canal stenosis is evident. There is some posterior endplate spurring at C3-4 with mild anterior thecal sac compression. A small amount of endplate spurring is also present C4-5 C5-6. Foraminal narrowing is present due to uncovert ebral joint hypertrophy on the left at C3-4 bilaterally C4-5 C5-6 and C6-7. Vertebral body heights are preserved. IMPRESSION: 1. Degenerative disc changes with loss of disc height at C3-4 through C6-7. 2. Foraminal narrowing secondary to uncovertebral degenerative hypertrophy. 3. No acute osseous abnormality cervical spine. [facility], Workstation: [facility], 05/13/2024 2:24 PM
--- NOTE | 2024-05-13 14:38 | ED ---
Fall HPI - General Source: patient, RN notes reviewed Mode of arrival: ambulatory Limitations: no limitations - History of Present Illness MD Complaint: fall <Toma Sharp - Last Filed: 05/13/24 14:36> <Erich Walsh - Last Filed: 05/13/24 15:57> - General Chief Complaint: Fall Stated Complaint: Fall-head injury Time Seen by Provider: 05/13/24 14:20 - History of Present Illness Initial Comments: Quick Note: This is a 73-year-old female who presents to the emergency department for a fall. Patient was walking up cement steps and when she was walking up the second step she lost her balance and fell backwards and hit the back of her head. Denies any loss of consciousness. Not take any blood thinners. She does have a small laceration and the bleeding is controlled. (Toma Sharp) - Related Data Home Medications Medication Instructions Recorded Confirmed Simvastatin 40 mg PO HS 04/12/20 05/12/24 Aspirin 81 mg PO HS 02/23/21 05/12/24 Ergocalciferol [Vitamin D2 (1250 1,250 mcg PO TU 02/23/21 05/12/24 Mcg = 29282 Iu)] Levothyroxine Sodium [Synthroid] 88 mcg PO DAILY 02/23/21 05/12/24 Vit C/E/Zn/Coppr/Lutein/Zeaxan 1 tab PO BID 02/23/21 05/12/24 [Preservision Areds 2 Softgel] ALPRAZolam [Xanax] 1 mg PO HS 09/01/21 05/12/24 Ondansetron [Zofran] 4 mg PO QID PRN 09/01/21 05/12/24 Pantoprazole [Protonix] 40 mg PO AC-BRKFST 09/01/21 05/12/24 Cyclobenzaprine [Flexeril] 5 mg PO HS 05/12/24 05/12/24 Propranolol HCl [Propranolol HCl 60 mg PO DAILY 05/12/24 05/12/24 ER] Valsartan 80 mg PO DAILY 05/12/24 05/12/24 lamoTRIgine [lamoTRIgine ER] 50 mg PO BID 05/12/24 05/12/24 Previous Rx's Medication Instructions Recorded Divalproex [Depakote] 500 mg PO BID #60 tablet 09/08/21 Sertraline [Zoloft] 50 mg PO DAILY #30 tab 09/08/21 Allergies Allergy/AdvReac Type Severity Reaction Status Date / Time No Known Allergies Allergy Verified 05/13/24 13:41 Review of Systems ROS Other: All systems not noted in ROS Statement are negative. <Toma Sharp - Last Filed: 05/13/24 14:36> ROS Other: All systems not noted in ROS Statement are negative. <Erich Walsh - Last Filed: 05/13/24 15:57> ROS Statement: Those systems with pertinent positive or pertinent negative responses have been documented in the HPI. Past Medical History Past Medical History: Cancer, Eye Disorder, Hyperlipidemia, Hypertension, Seizure Disorder, Thyroid Disorder Additional Past Medical History / Comment(s): Recently diagnosed with seizure disorder at [facility] in July 2021, hyponatremia, diet controlled diabetes, R breast cancer with surgery/chemo/radiation, benign thyroid nodules/hypothyroid, antral stomach ulcer, gastritis, small hiatal hernia, diverticular disease, bilateral macular degeneration/receives eye injections, occasional lower back pain, dizziness History of Any Multi-Drug Resistant Organisms: None Reported Past Surgical History: Adenoidectomy, Breast Surgery, Cardiac Valve Replacement, Heart Catheterization, Tonsillectomy Additional Past Surgical History / Comment(s): [facility]L [facility]/marbin, bilateral breast biopsies, R breast lumpectomy/lymph node removed, thyroid biopsy, bilateral breast reductions, D&Cs, EGD, colonoscopy, thyroid removal Past Anesthesia/Blood Transfusion Reactions: No Reported Reaction Past Psychological History: Anxiety Smoking Status: Former smoker Past Alcohol Use History: Rare Past Drug Use History: None Reported - Past Family History Father Family Medical History: Cancer Additional Family Medical History / Comment(s): Pancreatic cancer Mother Family Medical History: Myocardial Infarction (MD) Additional Family Medical History / Comment(s): Mother survived a MD at the age of 59 yrs. Mother had valvular disease. <Toma Sharp - Last Filed: 05/13/24 14:36> General Exam Limitations: no limitations <Toma Sharp - Last Filed: 05/13/24 14:36> General appearance: alert, in no apparent distress Head exam: Present: other (Occipital hematoma with 1 cm laceration) Eye exam: Present: normal appearance, PERRL Neck exam: Present: normal inspection. Absent: tenderness Respiratory exam: Present: normal lung sounds bilaterally. Absent: respiratory distress, wheezes Cardiovascular Exam: Present: regular rate, normal rhythm GI/Abdominal exam: Present: soft. Absent: distended, tenderness, guarding Extremities exam: Present: normal inspection, normal capillary refill Neurological exam: Present: alert. Absent: motor sensory deficit Skin exam: Present: warm, dry <Erich Walsh - Last Filed: 05/13/24 15:57> - General Exam Comments Initial Comments: Visual Physical Exam Vital signs reviewed General: Well-appearing, nontoxic, no acute distress. Head: Normocephalic, atraumatic Eyes: PERRLA, EOMI ENT: Airway patent Chest: Nonlabored breathing Skin: No visual rash, normal skin tone Neuro: Alert and oriented 3 Musculoskeletal: No gross abnormalities (Toma Sharp) Course Vital Signs 05/13/24 13:37 Temperature 98.2 F Pulse Rate 70 Respiratory 18 Rate Blood Pressure 141/90 O2 Sat by Pulse 96 Oximetry Procedures - Laceration Laceration #1 Consent Obtained: verbal consent Indication: laceration Site: scalp Size (cm): 1 Description: linear Depth: simple, single layer Pre-repair: deep structures intact Type of Sutures: other (danae) Number of Sutures: 2 Technique: simple, interrupted <Erich Walsh - Last Filed: 05/13/24 15:57> Medical Decision Making <Toma Sharp - Last Filed: 05/13/24 14:36> <Erich Walsh - Last Filed: 05/13/24 15:57> - Medical Decision Making I performed the QuickNote portion of this chart. Signed Toma Sharp PA-C. (Toma Sharp) Was pt. sent in by a medical professional or institution (PAULINE Guardado, AIRLINE OPERATIONS AGENT, urgent care, hospital, or halfway...) When possible be specific @ -No Did you speak to anyone other than the patient for history (EMS, parent, family, police, friend...)? What history was obtained from this source @ -No Did you review nursing and triage notes (agree or disagree)? Why? @ -I reviewed and agree with nursing and triage notes Were old charts reviewed (outside hosp., previous admission, EMS record, old EKG, old radiological studies, urgent care reports/EKG's, halfway records)? Report findings @ -No old charts were reviewed Differential Diagnosis: Skull fracture, intracranial hemorrhage, cervical fracture or subluxation EKG interpreted by me (3pts min.). @ -As above X-rays interpreted by me (1pt min.). @ -None done CT interpreted by me (1pt min.). @ -CT brain negative for intracranial hemorrhage or mass effect, CT cervical spine negative for displaced fracture or subluxation. U/S interpreted by me (1pt. min.). @ -None done What testing was considered but not performed or refused? (CT, X-rays, U/S, labs)? Why? @ -None What meds were considered but not given or refused? Why? @ -None Did you discuss the management of the patient with other professionals (professionals i.e. , PA, AIRLINE OPERATIONS AGENT, lab, RT, psych nurse, social media job titles, external auditor, teacher, corrections officer, continuous pillowcase cutter)? Give summary @ -No Was smoking cessation discussed for >3mins.? @ -No Was critical care preformed (if so, how long)? @ -No Were there social determinants of health that impacted care today? How? (Homelessness, low income, unemployed, alcoholism, drug addiction, transportation, low edu. Level, literacy, decrease access to med. care, snf, rehab)? @ -No Was there de-escalation of care discussed even if they declined (Discuss DNR or withdrawal of care, Hospice)? DNR status @ -No What co-morbidities impacted this encounter? (DM, HTN, Smoking, COPD, CAD, Cancer, CVA, ARF, Chemo, Hep., AIDS, mental health diagnosis, sleep apnea, morbid obesity)? @ -None Was patient admitted / discharged? Hospital course, mention meds given and route, prescriptions, significant lab abnormalities, going to OR and other pertinent info. @ -[23-year-old female with fall, occipital head trauma, hematoma and laceration of the occipital scalp. This is repaired with [address] brain negative for intracranial hemorrhage, CT cervical spine negative for fracture or subluxation. Patient well-appearing with stable vitals. Patient has an MRI scheduled for 1 week from now. She is instructed to have danae removed prior to MRI imaging. Undiagnosed new problem with uncertain prognosis? @ -No Drug Therapy requiring 1 week intensive monitoring for toxicity (Heparin, Nitro, Insulin, Cardizem)? @ -No Were any procedures done? @ -Yes, laceration repair Diagnosis/symptom? @ -Concussion, scalp laceration Acute, or Chronic, or Acute on Chronic? @ -[Acute Uncomplicated (without systemic symptoms) or Complicated (systemic symptoms)? @ -Default Side effects of treatment? @ -No Exacerbation, Progression, or Severe Exacerbation? @ -No Poses a threat to life or bodily function? How? (Chest pain, USA, MD, pneumonia, PE, COPD, DKA, ARF, appy, cholecystitis, CVA, Diverticulitis, Homicidal, Suicidal, threat to staff... and all critical care pts) @ -No (Erich Walsh) Disposition <Toma Sharp - Last Filed: 05/13/24 14:36> Is patient prescribed a controlled substance at d/c from ED?: No Time of Disposition: 15:57 <Erich Walsh - Last Filed: 05/13/24 15:57> Clinical Impression: Fall, Concussion, Scalp laceration Disposition: HOME SELF-CARE Condition: Fair Instructions (If sedation given, give patient instructions): Fall Prevention (ED), Concussion (ED), Laceration (ED) Additional Instructions: Please have danae removed prior to MRI, 7 days from now. Referrals: Jose Helm DO [Primary Care Provider] - 1-2 days
[2024-05-13 16:30] VITALS: BP 131/77; RESP 16
== END 2024-05-13 16:29 | disposition home or self-care (01) ==
LOC: EC 13:31
CPT/HCPCS: 12001; 70450; 72125; 99283

== ENCOUNTER → 2024-06-10 | Outpatient (CLI) | payer MEDICARE ==
[2024-06-10] MEDS: diazePAM 5 MG TAB PO STA (09:06)
[2024-06-10 09:08] VITALS: RESP 16; TEMP 98
--- NOTE | 2024-06-10 12:38 | FL ---
EXAMINATION TYPE: FL guided lumbar puncture LP DATE OF EXAM: 06/10/2024 COMPARISON: None CLINICAL INDICATION: Female, 73 years old with history of G91.2 IDIOPATHIC) NORMAL PRESSURE HYDROCEPH ALUS; Findings: The procedure is discussed with the patient, the risks, complications, benefits and alternatives, wer e discussed and any questions were answered. Informed consent was obtained. The patient is placed p kam on the scopic table, prepped and draped in the usual sterile fashion. Utilizing a 22-gauge Chiba needle access into the thecal sac at the L3-L4 level was achieved with a s tommy pass. Instillation of 525 uCi and indium-111 DTPA. The patient remained stable throughout the p rocedure with no immediate postprocedural complication complaints. IMPRESSION: 1. Successful scopic guided lumbar puncture for cisternogram [facility] Nae Montano, , 06/10/2024 12:36 PM
[2024-06-10 13:21] VITALS: BP 110/56; PULSE 72
== END | disposition home or self-care (01) ==
LOC: RADPROMAIN 07:57
PROVIDERS: ATTEND Psychiatry & Neurology Neurology
DX: G91.2 (Idiopathic) normal pressure hydrocephalus (principal)
CPT/HCPCS: 62328